=== PATIENT | male | born 1955 | race Caucasian/White ===

== ENCOUNTER → 2016-12-11 | Outpatient (CLI) | payer OTHER ==
[~2016-12-11] VITALS: Ht 182.9 cm; Wt 136.1 kg
[~2016-12-11] MED LIST: ASPI1TAB PO; CHLO25TA PO; CIAL5TAB PO; CORE6.25 PO; DEPA1TAB3 PO; FOLI400T PO; GLUCPOW24 PO; HALO1TA PO; LEVO137T2 PO; LIDOCAINE 2% INJ 100 MG/5 ML SDV (FOR ANES.) As Ordered ONE; MULTTAB23 PO; NS 1,000 ML IV SCH; PACE200T PO; PLAV75TA38 PO; PROPOFOL 500 MG/50 ML VIAL As Ordered ONE; SLOWTAB2 PO; UROXATRAL PO; VITA250L PO
--- NOTE | 2016-12-11 08:25 | ROOR ---
Patient Name: Keith Emery Procedure Date: 12/11/2016 8:00 AM Date of : 1955 Age: 60 Room: [facility] Gender: Male Note Status: Finalized Procedure: Colonoscopy to Cecum + Biopsy Polypectomy Indications: Last colonoscopy: 2007, Rectal bleeding, Follow-up of diverticulitis, Change in bowel habits Providers: True Sabillon MD Referring MD: TAMAR STOKES Requesting Provider: Medicines: Monitored Anesthesia Care Complications: No immediate complications. Procedure: Pre-Anesthesia Assessment: - The heart rate, respiratory rate, oxygen saturations, blood pressure, adequacy of pulmonary ventilation, and response to care were monitored throughout the procedure. The Colonoscope was introduced through the anus and advanced to the cecum, identified by appendiceal orifice and ileocecal valve. The colonoscopy was performed without difficulty. The patient tolerated the procedure well. The quality of the bowel preparation was excellent. Findings: The perianal and digital rectal examinations were normal. Non-bleeding internal hemorrhoids were found during retroflexion. The hemorrhoids were small and Grade I (internal hemorrhoids that do not prolapse). Multiple small and large-mouthed diverticula were found in the recto-sigmoid colon, in the sigmoid colon and in the descending colon. A diminutive polyp was found at 20 cm proximal to the anus. The polyp was sessile. The polyp was removed with a cold biopsy forceps. Resection and retrieval were complete. The exam was otherwise without abnormality on direct and retroflexion views. Impression: - Non-bleeding internal hemorrhoids. - Diverticulosis in the recto-sigmoid colon, in the sigmoid colon and in the descending colon. - One diminutive polyp at 20 cm proximal to the anus, removed with a cold biopsy forceps. Resected and retrieved. - The examination was otherwise normal on direct and retroflexion views. - The exam was otherwise normal to the cecum. Recommendation: - Patient has a contact number available for emergencies. The signs and symptoms of potential delayed complications were discussed with the patient. Return to normal activities tomorrow. Written discharge instructions were provided to the patient. - High fiber diet. - Discharge patient to home. - Continue present medications. - Await pathology results. - Telephone GI clinic for pathology results in 1 week. - Repeat colonoscopy in 10 years for screening purposes. - Return to referring physician. - The findings and recommendations were discussed with the patient's family. True Sabillon MD True Sabillon MD 12/11/2016 8:25:03 AM This report has been signed electronically. Number of Addenda: 0 Note Initiated On: 12/11/2016 8:00 AM Estimated Blood Loss: Estimated blood loss: none.
[2016-12-11 08:50] VITALS: BP 195/90
== END | disposition home or self-care (01) ==
LOC: M OPP 06:55
PROVIDERS: ATTEND Internal Medicine Gastroenterology
DX: K62.5 Hemorrhage of anus and rectum (principal); K64.0 First degree hemorrhoids; K57.30 Diverticulosis of large intestine without perforation or abscess without bleeding; D12.5 Benign neoplasm of sigmoid colon; I48.91 Unspecified atrial fibrillation; I10 Essential (primary) hypertension; E03.9 Hypothyroidism, unspecified; R06.83 Snoring; G47.9 Sleep disorder, unspecified; F17.200 Nicotine dependence, unspecified, uncomplicated; F17.228 Nicotine dependence, chewing tobacco, with other nicotine-induced disorders; Z79.82 Long term (current) use of aspirin; Z79.899 Other long term (current) drug therapy

== ENCOUNTER → 2016-12-28 | Outpatient (CLI) | payer OTHER, MEDICARE ==
[~2016-12-28] MED LIST changes: -LIDOCAINE 2% INJ 100 MG/5 ML SDV (FOR ANES.) As Ordered ONE; -NS 1,000 ML IV SCH; -PROPOFOL 500 MG/50 ML VIAL As Ordered ONE
[2016-12-28 15:45] LABS: MEAN CORPUSCULAR HEMOGLOBIN 32.5 pg (27.0-33.0); MEAN CORPUSCULAR HGB CONC 34.7 g/dl (32.0-36.5); MEAN CORPUSCULAR VOLUME 93.5 fl (80.0-96.0); RED CELL DISTRIBUTION WIDTH 14.4 % (11.5-14.5); WHITE BLOOD COUNT 7.9 K/mm3 (4.0-10.0)
[2016-12-28 15:46] LABS: ALBUMIN 3.7 GM/DL (3.2-5.2); ALBUMIN/GLOBULIN RATIO 1.09 (1.00-1.93); ALKALINE PHOSPHATASE 70 U/L (45-117); ALT/SGPT 64 U/L (12-78); ANION GAP 8 MEQ/L (8-16); AST/SGOT 32 U/L (15-37); BILIRUBIN,TOTAL 0.4 MG/DL (0.2-1.0); BLOOD UREA NITROGEN 13 MG/DL (7-18); CARBON DIOXIDE LEVEL 30 MEQ/L (21-32); CHLORIDE LEVEL 99 MEQ/L (98-107); CREATININE FOR GFR 1.07 MG/DL (0.70-1.30); GLOMERULAR FILTRATION RATE > 60.0 (>49); GLUCOSE, FASTING 88 MG/DL (80-110); MAGNESIUM LEVEL 2.2 MG/DL (1.8-2.4); POTASSIUM SERUM 4.3 MEQ/L (3.5-5.1); SODIUM LEVEL 137 MEQ/L (136-145); TOTAL PROTEIN 7.1 GM/DL (6.4-8.2)
--- NOTE | 2016-12-29 01:34 | REP ---
Clinical: Paroxysmal atrial fibrillation . Comparison: 08/25/2015 . Technique: PA and lateral. Findings: The mediastinum and cardiac silhouette are normal. The lung uriostegui are clear and without acute consolidation, effusion, or pneumothorax. The skeletal structures are intact and normal. Impression: 1. No acute cardiopulmonary process. Signed by Kiel Damon MD 12/29/2016 01:26 A
== END ==
LOC: M LAB 14:30
PROVIDERS: ATTEND Physician Assistant
DX: I48.0 Paroxysmal atrial fibrillation (principal); E78.2 Mixed hyperlipidemia

== ENCOUNTER → 2017-04-13 | Outpatient (CLI) | payer MEDICARE, OTHER ==
[2017-04-13 16:31] LABS: BASO # 0.1 K/mm3 (0.0-0.2); BASO % 0.4 % (0.0-1.0); EOS # 0.2 K/mm3 (0.0-0.50); EOS % 1.3 % (0.0-3.0); LARGE UNSTAINED CELL # 0.1 K/mm3 (0.0-0.4); LYMPH # 1.4 K/mm3 (1.5-4.5); LYMPH % 9.4 % (24.0-44.0); MEAN CORPUSCULAR HEMOGLOBIN 32.4 pg (27.0-33.0); MEAN CORPUSCULAR VOLUME 95.2 fl (80.0-96.0); MONO # 0.7 K/mm3 (0.0-0.8); MONO % 5.2 % (0.0-5.0); NEUTROPHILS % 82.7 % (36.0-66.0); PLATELET COUNT, AUTOMATED 204 k/mm3 (150-450); RED CELL DISTRIBUTION WIDTH 13.7 % (11.5-14.5); WHITE BLOOD COUNT 13.3 K/mm3 (4.0-10.0)
[2017-04-13 16:54] LABS: ANION GAP 8 MEQ/L (8-16); BLOOD UREA NITROGEN 17 MG/DL (7-18); CALCIUM LEVEL 8.6 MG/DL (8.8-10.2); CARBON DIOXIDE LEVEL 30 MEQ/L (21-32); CHLORIDE LEVEL 98 MEQ/L (98-107); CREATININE FOR GFR 1.15 MG/DL (0.70-1.30); GLOMERULAR FILTRATION RATE > 60.0 (>49); GLUCOSE, FASTING 86 MG/DL (80-110); POTASSIUM SERUM 3.6 MEQ/L (3.5-5.1); SODIUM LEVEL 136 MEQ/L (136-145)
== END ==
LOC: M LAB 16:03
PROVIDERS: ATTEND Family Medicine
DX: R68.83 Chills (without fever) (principal); R35.0 Frequency of micturition; R25.1 Tremor, unspecified

== ENCOUNTER → 2017-07-11 | Outpatient (CLI) | payer OTHER ==
[~2017-07-11] MED LIST changes: +PLAV1TAB2 PO; -PLAV75TA38 PO
--- NOTE | 2017-07-11 11:17 | REP ---
PA and lateral chest: Comparison is 12/28/2016. The lung uriostegui are clear. The cardiac size is normal The reid, mediastinum, and bony thorax are unremarkable. Impression: Negative PA and lateral chest. There is no interval change. Signed by Italo Lozada MD 07/11/2017 11:09 A
[2017-07-11 11:32] LABS: ALBUMIN 3.4 GM/DL (3.2-5.2); ALBUMIN/GLOBULIN RATIO 0.92 (1.00-1.93); BILIRUBIN,DIRECT 0.1 MG/DL (0.0-0.2); BILIRUBIN,TOTAL 0.3 MG/DL (0.2-1.0); MAGNESIUM LEVEL 2.2 MG/DL (1.8-2.4); TOTAL PROTEIN 7.1 GM/DL (6.4-8.2)
== END ==
LOC: M LAB 10:27
PROVIDERS: ATTEND Physician Assistant
DX: I48.0 Paroxysmal atrial fibrillation (principal); E78.2 Mixed hyperlipidemia

== ENCOUNTER → 2017-07-11 | Outpatient (CLI) | payer OTHER | LOC: M LAB 10:24 | PROVIDERS: ATTEND Psychiatry & Neurology Psychiatry | DX: Z51.81 Encounter for therapeutic drug level monitoring (principal); Z79.899 Other long term (current) drug therapy ==

== ENCOUNTER → 2017-09-09 | Outpatient (CLI) | payer OTHER ==
--- NOTE | 2017-09-09 17:21 | REP ---
Bilateral lower extremity arterial Doppler assessment: History: Peripheral vascular disease multiple stents placed 2-4 years ago. Angioplasty status. Findings: The ankle brachial indices are 1.05 on the right and 1.16 on the left. Incidental note is made of a 6.8 cm Stewart's cyst on the right. Three stents are visible in the right lower extremity involving the proximal mid and distal superficial femoral artery. Two stents are visible in the proximal and distal superficial femoral artery on the left. Normal triphasic flow is seen in the right lower extremity through the distal superficial femoral artery in the popliteal artery. The proximal anterior tibial artery shows monophasic flow as does the distal posterior tibial artery on the right. Slow flow in the right posterior tibial artery distally suggests distal stenosis. Triphasic flow is seen in the common femoral and proximal superficial femoral artery on the left. Biphasic flow is seen mid superficial femoral through the proximal posterior tibial artery on the left. Velocity chart right lower extremity: BORDER INSPECTOR 108 cm/S Profunda 113 Proximal SFA 99 Mid SFA 88 Distal SFA 100 Popliteal 71 Proximal anterior tibial artery 14 Tibioperoneal trunk 47 Proximal posterior tibial artery 49 Distal posterior tibial artery 14 Anterior tibial artery distal 57 Peroneal 40 Velocity chart left lower extremity: BORDER INSPECTOR 90 cm/S Profunda 131 SFA proximal 144 SFA mid 104 SFA distal 84 Popliteal 71 JOSE proximal 76 Tibioperoneal trunk 45 Proximal GENERAL OPHTHALMOLOGIST 34 Distal GENERAL OPHTHALMOLOGIST 36 Distal JOSE 66 Peroneal 33 Impression: Suggestion of stenosis right distal posterior tibial artery at the ankle. Patent bilateral superficial femoral arteries dense. Incidental Stewart cyst on the right. Signed by Pérez Gutierrez MD 09/10/2017 02:37 P
== END ==
LOC: M RAD 12:56
PROVIDERS: ATTEND Surgery Vascular Surgery
DX: Z98.62 Peripheral vascular angioplasty status (principal)

== ENCOUNTER → 2017-12-23 | Outpatient (REF) | payer OTHER, MEDICARE ==
[2017-12-23 18:41] LABS: PSA SCREENING 0.62 NG/ML (< 4.0)
== END ==
LOC: M LABDRAW1 13:43
DX: Z12.5 Encounter for screening for malignant neoplasm of prostate (principal)

== ENCOUNTER → 2018-01-01 | Outpatient (CLI) | payer OTHER, MEDICARE ==
[2018-01-01 08:18] LABS: HEMATOCRIT 42.9 % (42.0-52.0); HEMOGLOBIN 14.5 g/dl (14.0-18.0); MEAN CORPUSCULAR HEMOGLOBIN 31.5 pg (27.0-33.0); MEAN CORPUSCULAR HGB CONC 33.8 g/dl (32.0-36.5); MEAN CORPUSCULAR VOLUME 93.1 fl (80.0-96.0); PLATELET COUNT, AUTOMATED 249 10^3/uL (150-450); RED BLOOD COUNT 4.61 10^6/uL (4.30-6.10); RED CELL DISTRIBUTION WIDTH 13.9 % (11.5-14.5)
[2018-01-01 08:51] LABS: ALBUMIN 3.6 GM/DL (3.2-5.2); ALKALINE PHOSPHATASE 60 U/L (45-117); ALT/SGPT 40 U/L (12-78); ANION GAP 7 MEQ/L (8-16); AST/SGOT 19 U/L (7-37); BILIRUBIN,TOTAL 0.3 MG/DL (0.2-1.0); BLOOD UREA NITROGEN 12 MG/DL (7-18); CALCIUM LEVEL 8.6 MG/DL (8.8-10.2); CARBON DIOXIDE LEVEL 29 MEQ/L (21-32); CHLORIDE LEVEL 100 MEQ/L (98-107); GLOMERULAR FILTRATION RATE > 60.0 (>49); GLUCOSE, FASTING 105 MG/DL (70-100); MAGNESIUM LEVEL 2.2 MG/DL (1.8-2.4); POTASSIUM SERUM 3.9 MEQ/L (3.5-5.1); SODIUM LEVEL 136 MEQ/L (136-145); TOTAL PROTEIN 7.2 GM/DL (6.4-8.2)
== END ==
LOC: M RAD 07:40
DX: I48.0 Paroxysmal atrial fibrillation (principal)
CPT/HCPCS: 71046

== ENCOUNTER → 2018-01-01 | Outpatient (CLI) | payer OTHER, MEDICARE ==
[2018-01-01 08:50] LABS: ALBUMIN 3.6 GM/DL (3.2-5.2); ALKALINE PHOSPHATASE 61 U/L (45-117); ALT/SGPT 38 U/L (12-78); ANION GAP 8 MEQ/L (8-16); AST/SGOT 19 U/L (7-37); BILIRUBIN,TOTAL 0.3 MG/DL (0.2-1.0); BLOOD UREA NITROGEN 11 MG/DL (7-18); CALCIUM LEVEL 8.7 MG/DL (8.8-10.2); CARBON DIOXIDE LEVEL 28 MEQ/L (21-32); CHLORIDE LEVEL 100 MEQ/L (98-107); CHOLESTEROL LEVEL 189 MG/DL (<200); CHOLESTEROL RISK RATIO 4.021 (<5); CREATININE FOR GFR 1.11 MG/DL (0.70-1.30); GLOMERULAR FILTRATION RATE > 60.0 (>49); GLUCOSE, FASTING 105 MG/DL (70-100); HDL CHOLESTEROL 47 MG/DL (>40); NON-HDL-C 142 MG/DL; POTASSIUM SERUM 4.1 MEQ/L (3.5-5.1); SODIUM LEVEL 136 MEQ/L (136-145); TOTAL PROTEIN 7.2 GM/DL (6.4-8.2); TRIGLYCERIDES LEVEL 150 MG/DL (<150)
== END ==
LOC: M LAB 07:35
DX: I48.0 Paroxysmal atrial fibrillation (principal)
CPT/HCPCS: 71046; 84443

== ENCOUNTER → 2018-03-29 | Outpatient (REF) | payer OTHER ==
[2018-03-29 18:56] LABS: APPEARANCE, URINE CLEAR (CLEAR); BACTERIA, URINE AUTO NEGATIVE (NEGATIVE); BILIRUBIN, URINE AUTO NEGATIVE (NEGATIVE); BLOOD, URINE BLOOD NEGATIVE (NEGATIVE); COLOR, URINE YELLOW (YELLOW); GLUCOSE, URINE (UA) AUTO NEGATIVE (NEGATIVE); KETONE, URINE AUTO NEGATIVE (NEGATIVE); LEUKOCYTE ESTERASE, URINE AUTO NEGATIVE (NEGATIVE); NITRITE, URINE AUTO NEGATIVE (NEGATIVE); PROTEIN, URINE AUTO NEGATIVE (NEGATIVE); RBC, URINE AUTO 0 /HPF (0-3); SPECIFIC GRAVITY URINE AUTO 1.015 (1.002-1.035); SQUAMOUS EPITHELIAL CELL UR AU 0 /HPF (0-6); UROBILINOGEN, URINE AUTO 0.2 mg/dL (0.0-2.0); WBC, URINE AUTO 0 /HPF (0-3)
== END ==
LOC: M SMT 18:04
DX: R82.90 Unspecified abnormal findings in urine (principal)
CPT/HCPCS: 81001

== ENCOUNTER → 2018-03-31 | Outpatient (CLI) | payer OTHER | LOC: M RAD 11:37 | DX: I70.213 Atherosclerosis of native arteries of extremities with intermittent claudication, bilateral legs (principal) | CPT/HCPCS: 93925 ==

== ENCOUNTER → 2018-04-13 | Outpatient (CLI) | payer OTHER ==
[2018-04-13 14:39] LABS: BASO # 0.1 10^3/uL (0.0-0.2); BASO % 0.9 % (0.0-1.0); EOS # 0.3 10^3/uL (0.0-0.50); EOS % 3.9 % (0.0-3.0); HEMATOCRIT 44.5 % (42.0-52.0); HEMOGLOBIN 14.8 g/dl (13.5-17.5); IMMATURE GRANULOCYTE % 0.7 % (0-3.0); LYMPH # 2.2 10^3/uL (1.5-4.5); LYMPH % 30.1 % (24.0-44.0); MEAN CORPUSCULAR HEMOGLOBIN 31.4 pg (27.0-33.0); MEAN CORPUSCULAR HGB CONC 33.3 g/dl (32.0-36.5); MEAN CORPUSCULAR VOLUME 94.3 fl (80.0-96.0); MONO # 0.8 10^3/uL (0.0-0.8); MONO % 11.1 % (0.0-5.0); NEUTROPHILS # 3.9 10^3/uL (1.8-7.7); NEUTROPHILS % 53.3 % (36.0-66.0); PLATELET COUNT, AUTOMATED 292 10^3/uL (150-450); RED BLOOD COUNT 4.72 10^6/uL (4.30-6.10); WHITE BLOOD COUNT 7.4 10^3/uL (4.0-10.0)
[2018-04-13 15:11] LABS: ANION GAP 5 MEQ/L (8-16); BLOOD UREA NITROGEN 13 MG/DL (7-18); CALCIUM LEVEL 9.2 MG/DL (8.8-10.2); CARBON DIOXIDE LEVEL 31 MEQ/L (21-32); CHLORIDE LEVEL 101 MEQ/L (98-107); CREATININE FOR GFR 1.13 MG/DL (0.70-1.30); GLOMERULAR FILTRATION RATE > 60.0 (>49); GLUCOSE, FASTING 90 MG/DL (70-100); POTASSIUM SERUM 4.8 MEQ/L (3.5-5.1); SODIUM LEVEL 137 MEQ/L (136-145)
== END ==
LOC: M LAB 13:18
DX: I70.213 Atherosclerosis of native arteries of extremities with intermittent claudication, bilateral legs (principal)

== ENCOUNTER → 2018-04-21 | Outpatient (CLI) | payer OTHER ==
[~2018-04-21] MED LIST changes: -ASPI1TAB PO; -CHLO25TA PO; -CIAL5TAB PO; -CORE6.25 PO; -DEPA1TAB3 PO; -FOLI400T PO; -GLUCPOW24 PO; -HALO1TA PO; +HEPARIN 1,000 UNITS/ML 10ML VIAL (FOR RADIOLOGY& DIALYSIS ONLY) As Ordered; +ISOVUE-300 61% 50ML VIAL (Q9967) As Ordered; -LEVO137T2 PO; +MIDAZOLAM INJ 2 MG/2 ML VIAL (J2250) As Ordered; -MULTTAB23 PO; -PACE200T PO; -PLAV1TAB2 PO; -SLOWTAB2 PO; -UROXATRAL PO; -VITA250L PO; +fentaNYL 100 MCG/2 ML INJECTION (J3010) As Ordered
== END | disposition home or self-care (01) ==
LOC: M IRPRO 06:30
DX: 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native arteries of extremities with intermittent claudication, right leg (principal)
CPT/HCPCS: 37221

== ENCOUNTER → 2018-07-01 | Outpatient (REF) | payer OTHER, MEDICARE ==
[2018-07-01 18:23] LABS: HEMATOCRIT 42.3 % (42.0-52.0); HEMOGLOBIN 13.7 g/dl (13.5-17.5); MEAN CORPUSCULAR HEMOGLOBIN 30.9 pg (27.0-33.0); MEAN CORPUSCULAR HGB CONC 32.4 g/dl (32.0-36.5); MEAN CORPUSCULAR VOLUME 95.5 fl (80.0-96.0); PLATELET COUNT, AUTOMATED 302 10^3/uL (150-450); RED BLOOD COUNT 4.43 10^6/uL (4.30-6.10); RED CELL DISTRIBUTION WIDTH 14.2 % (11.5-14.5); WHITE BLOOD COUNT 7.9 10^3/uL (4.0-10.0)
[2018-07-01 18:27] LABS: ALBUMIN 3.3 GM/DL (3.2-5.2); ALBUMIN/GLOBULIN RATIO 0.87 (1.00-1.93); ALKALINE PHOSPHATASE 62 U/L (45-117); ALT/SGPT 28 U/L (12-78); ANION GAP 8 MEQ/L (8-16); AST/SGOT 15 U/L (7-37); BILIRUBIN,TOTAL 0.3 MG/DL (0.2-1.0); BLOOD UREA NITROGEN 10 MG/DL (7-18); CARBON DIOXIDE LEVEL 29 MEQ/L (21-32); CHLORIDE LEVEL 104 MEQ/L (98-107); CREATININE FOR GFR 1.06 MG/DL (0.70-1.30); GLOMERULAR FILTRATION RATE > 60.0 (>49); GLUCOSE, FASTING 88 MG/DL (70-100); MAGNESIUM LEVEL 2.2 MG/DL (1.8-2.4); POTASSIUM SERUM 4.1 MEQ/L (3.5-5.1); SODIUM LEVEL 141 MEQ/L (136-145); TOTAL PROTEIN 7.1 GM/DL (6.4-8.2)
== END ==
LOC: M LABDRAW1 17:23
DX: I48.0 Paroxysmal atrial fibrillation (principal)

== ENCOUNTER → 2018-07-14 | Outpatient (CLI) | payer OTHER | LOC: M RAD 12:44 | DX: I70.213 Atherosclerosis of native arteries of extremities with intermittent claudication, bilateral legs (principal) | CPT/HCPCS: 93925 ==

== ENCOUNTER → 2018-07-15 | Outpatient (REF) | payer OTHER ==
[2018-07-15 16:34] LABS: C REACTIVE PROTEIN QUANTITATIV 1.25 MG/DL (0.00-0.30)
[2018-07-15 17:09] LABS: ERYTHROCYTE SEDIMENTATION RATE 20 mm/hr (0-20)
[2018-07-22 10:18] LABS: HLA-B27 Negative (.)
== END ==
LOC: M LABDRAW1 15:07
DX: M51.37 Other intervertebral disc degeneration, lumbosacral region (principal)

== ENCOUNTER → 2018-09-20 | Outpatient (CLI) | payer OTHER | LOC: M RAD 13:22 | DX: Z12.2 Encounter for screening for malignant neoplasm of respiratory organs (principal); Z87.891 Personal history of nicotine dependence; I25.10 Atherosclerotic heart disease of native coronary artery without angina pectoris; R91.8 Other nonspecific abnormal finding of lung field | CPT/HCPCS: G0297 ==

== ENCOUNTER → 2018-10-11 | Outpatient (CLI) | payer OTHER | LOC: M PLARAD 11:25 | DX: R91.1 Solitary pulmonary nodule (principal); K57.30 Diverticulosis of large intestine without perforation or abscess without bleeding | CPT/HCPCS: 78815 ==

== ENCOUNTER → 2018-11-16 | Outpatient (CLI) | payer OTHER ==
[~2018-11-16] MED LIST changes: +ASPI1TAB PO; +CHLO125TA PO; +CHLO25TA PO; +CIAL5TAB PO; +CORE6.25 PO; +DEPA1TAB3 PO; +FOLI400T PO; +GLUCPOW24 PO; +HALO1TA PO; -HEPARIN 1,000 UNITS/ML 10ML VIAL (FOR RADIOLOGY& DIALYSIS ONLY) As Ordered; -ISOVUE-300 61% 50ML VIAL (Q9967) As Ordered; +LEVO137T2 PO; +LOSA25TA33 PO; -MIDAZOLAM INJ 2 MG/2 ML VIAL (J2250) As Ordered; +MULTTAB23 PO; +PACE200T PO; +PLAV1TAB2 PO; +SLOWTAB2 PO; +STOO100C PO; +TRAZ-160 PO; +UROXATRAL PO; +VITA250L PO; -fentaNYL 100 MCG/2 ML INJECTION (J3010) As Ordered
--- NOTE | 2018-11-16 18:55 | REP ---
Clinical: Bilateral shoulder pain Technique: Internal rotation, external rotation, and Y view of the bilateral shoulders. Findings: Right shoulder demonstrates joint space narrowing and inferior spurring at the acromioclavicular joint as well as subtle increase sclerosis and blunting to the glenoid rim. The subacromial space is normal. No acute fracture or dislocation identified. No significant periarticular calcifications or loose bodies noted. Left shoulder demonstrates prior repair involving the humeral head. Joint space narrowing and inferior spurring at the acromioclavicular joint is appreciated. Blunting to the glenoid rim is noted. The subacromial space is normal. No acute fracture or dislocation. No significant periarticular calcifications or loose bodies noted. Impression: Postsurgical and bilateral degenerative changes Electronically Signed by Kiel Damon MD 11/16/2018 06:46 P
--- NOTE | 2018-11-16 18:56 | REP ---
Clinical: Lower back pain. Technique: AP, lateral, bilateral oblique and coned-down views of the lumbosacral spine. Comparison: 07/01/2014. Findings: Advanced multilevel degenerative changes include osteophytosis, endplate sclerosis, disc space narrowing, and hypertrophic facet changes. No acute fracture / compression injury or subluxation. Alignment and lordosis maintained. Impression: Advanced multilevel degenerative changes. No acute fracture / compression injury or subluxation. Electronically Signed by Kiel Damon MD 11/16/2018 06:47 P
--- NOTE | 2018-11-16 18:58 | REP ---
Clinical: Hip pain. Technique: Neutral and frog lateral views of the right hip. Comparison: 04/17/2009 Findings: Mild/Moderate relatively age-related degenerative changes including subtle increase sclerosis to the acetabular roof with joint space narrowing and marginal spurring. No acute fracture dislocation. Vascular stent and peripheral vascular calcifications noted. Impression: Mild/moderate age-related degenerative changes. Electronically Signed by Kiel Damon MD 11/16/2018 06:50 P
--- NOTE | 2018-11-16 19:01 | REP ---
Clinical: Back and hip pain. Technique: AP, angled, and bilateral oblique views of the sacroiliac joints. Findings: Moderate enthesopathy noted along the visualized iliac crests along with moderate degenerative changes to the visualized lumbosacral spine. The bilateral sacroiliac joints demonstrate periarticular sclerosis suggesting age-related symmetric changes. Vascular stent outlines the right iliac artery. Impression: Findings suggesting symmetric age-related degenerative changes. Electronically Signed by Kiel Damon MD 11/16/2018 06:52 P
== END ==
LOC: M RAD 14:47
PROVIDERS: ATTEND Internal Medicine Rheumatology
DX: M25.519 Pain in unspecified shoulder (principal); M54.9 Dorsalgia, unspecified

== ENCOUNTER → 2018-11-16 | Outpatient (CLI) | payer OTHER | LOC: M LAB 14:44 | PROVIDERS: ATTEND Psychiatry & Neurology Psychiatry | DX: Z51.81 Encounter for therapeutic drug level monitoring (principal); Z79.899 Other long term (current) drug therapy ==

== ENCOUNTER → 2019-01-09 | Outpatient (CLI) | payer OTHER ==
[~2019-01-09] MED LIST changes: +LOSA25TA14 PO; -LOSA25TA33 PO
[2019-01-09 15:44] LABS: HEMATOCRIT 41.2 % (42.0-52.0); MEAN CORPUSCULAR HEMOGLOBIN 31.7 pg (27.0-33.0); MEAN CORPUSCULAR VOLUME 93.2 fl (80.0-96.0); PLATELET COUNT, AUTOMATED 292 10^3/uL (150-450); RED BLOOD COUNT 4.42 10^6/uL (4.30-6.10); WHITE BLOOD COUNT 7.5 10^3/uL (4.0-10.0)
--- NOTE | 2019-01-09 16:01 | REP ---
Chest two views HISTORY: Atrial fibrillation Comparison: 01/01/2018 Linear densities are present in the lower lobes consistent with atelectasis or scar. A small ill-defined parenchymal density is present in the left upper lobe. The heart is normal in size. The pulmonary vasculature is normal in appearance. The bony structure is intact. IMPRESSION: 1. Bibasilar atelectasis or scar. 2. There is a small parenchymal density in the left upper lobe. CT of the chest may be helpful for further evaluation. Electronically Signed by Gabe Curtis MD 01/09/2019 03:52 P
[2019-01-09 16:19] LABS: ALBUMIN 3.9 GM/DL (3.2-5.2); ALT/SGPT 39 U/L (12-78); BILIRUBIN,TOTAL 0.4 MG/DL (0.2-1.0); BLOOD UREA NITROGEN 17 MG/DL (7-18); CALCIUM LEVEL 9.2 MG/DL (8.8-10.2); CARBON DIOXIDE LEVEL 28 MEQ/L (21-32); CHLORIDE LEVEL 99 MEQ/L (98-107); CHOLESTEROL LEVEL 204 MG/DL (<200); CREATININE FOR GFR 1.28 MG/DL (0.70-1.30); GLOMERULAR FILTRATION RATE > 60.0 (>49); GLUCOSE, FASTING 78 MG/DL (70-100); HDL CHOLESTEROL 50 MG/DL (>40); LDL CHOLESTEROL 102 MG/DL (<100); MAGNESIUM LEVEL 2.2 MG/DL (1.8-2.4); NON-HDL-C 154 MG/DL; POTASSIUM SERUM 4.7 MEQ/L (3.5-5.1); SODIUM LEVEL 133 MEQ/L (136-145); TOTAL PROTEIN 7.4 GM/DL (6.4-8.2); TRIGLYCERIDES LEVEL 262 MG/DL (<150)
== END ==
LOC: M LAB 14:39
PROVIDERS: ATTEND Physician Assistant
DX: I48.0 Paroxysmal atrial fibrillation (principal); E78.2 Mixed hyperlipidemia

== ENCOUNTER → 2019-01-09 | Outpatient (CLI) | payer OTHER | LOC: M LAB 14:32 | PROVIDERS: ATTEND Nurse Practitioner Women's Health | DX: Z12.5 Encounter for screening for malignant neoplasm of prostate (principal) ==

== ENCOUNTER 2019-02-16 12:24 | Outpatient (RCR) | payer OTHER | END 2019-02-26 | LOC: M PT 12:24 | PROVIDERS: ATTEND Internal Medicine Rheumatology | DX: Z51.89 Encounter for other specified aftercare (principal); M54.89 Other dorsalgia; M25.519 Pain in unspecified shoulder ==

== ENCOUNTER → 2019-03-20 | Outpatient (CLI) | payer OTHER ==
[~2019-03-20] MED LIST changes: -ASPI1TAB PO; +ASPI81TA26 PO
--- NOTE | 2019-03-20 16:38 | REP ---
DUPLEX DOPPLER ARTERIAL ULTRASOUND BILATERAL LOWER EXTREMITIES: Real-time ultrasound evaluation and duplex Doppler interrogation of bilateral lower extremity arterial systems is performed. NAFISA right is 0.95 and left 0.77. There is severe atherosclerotic plaquing bilaterally diffusely. Multiple stents are visualized. Triphasic wave forms are seen in the common and external iliac arteries bilaterally as well as the common femoral arteries. There are monophasic wave forms in the superficial femoral arteries bilaterally as well as distal to that bilaterally. Mid to distal posterior tibial arteries are occluded bilaterally with portions demonstrating reversal of flow. There is reconstitution at the ankle bilaterally. Increased peak systolic velocities are seen in the common iliac arteries bilaterally, right external iliac and common femoral arteries, bilateral profunda arteries and bilateral proximal superficial femoral arteries suggesting some degree of stenosis at these locations. RIGHT LEFT Common femoral artery 277.6 cm/s 124.2 cm/s Profunda 209.9 cm/s 231.6 cm/s Proximal SFA 207.3 cm/s 245 cm/s Mid SFA 75.6 cm/s 41.8 cm/s Distal SFA 93.2 cm/s 45.9 cm/s Popliteal 74.6 cm/s 32.3 cm/s Proximal JOSE 55 cm/s 21.1 cm/s Tibial peroneal trunk 43.3 cm/s 26.3 cm/s Proximal GROUNDSKEEPER PORTER 36.3 cm/s 45.8 cm/s Distal GROUNDSKEEPER PORTER 23.2 cm/s 27.8 cm/s Distal JOSE 76.0 cm/s 39.0 cm/s IMPRESSION: Severe atherosclerotic disease bilaterally, with bilateral occlusion of the mid to distal posterior tibial arteries, reconstituted at the ankles bilaterally. There are findings suggesting stenosis of both common iliac arteries, right external iliac and common femoral arteries and bilateral profunda and proximal superficial femoral arteries as discussed above. Incidental note is made of a right popliteal cyst 5.7 x 1.7 x 4.0 cm. Electronically Signed by Italo Jimenez MD 03/20/2019 06:33 P
== END ==
LOC: M RAD 12:36
PROVIDERS: ATTEND Surgery Vascular Surgery
DX: I70.213 Atherosclerosis of native arteries of extremities with intermittent claudication, bilateral legs (principal)

== ENCOUNTER 2019-03-30 05:02 | Emergency (ER) | payer OTHER ==
[~2019-03-30] VITALS: Ht 182.9 cm; Wt 113.6 kg
[2019-03-30 06:03] LABS: BASO # 0.1 10^3/uL (0.0-0.2); BASO % 0.7 % (0.0-1.0); EOS # 1.5 10^3/uL (0.0-0.50); EOS % 15.9 % (0.0-3.0); HEMATOCRIT 44.1 % (42.0-52.0); HEMOGLOBIN 14.4 g/dl (13.5-17.5); LYMPH % 21.2 % (24.0-44.0); MEAN CORPUSCULAR HEMOGLOBIN 31.9 pg (27.0-33.0); MEAN CORPUSCULAR HGB CONC 32.7 g/dl (32.0-36.5); MEAN CORPUSCULAR VOLUME 97.8 fl (80.0-96.0); MONO % 10.8 % (0.0-5.0); NEUTROPHILS # 4.8 10^3/uL (1.8-7.7); NEUTROPHILS % 50.8 % (36.0-66.0); PLATELET COUNT, AUTOMATED 272 10^3/uL (150-450); RED BLOOD COUNT 4.51 10^6/uL (4.30-6.10); WHITE BLOOD COUNT 9.5 10^3/uL (4.0-10.0)
[2019-03-30 06:26] LABS: ALBUMIN 3.6 GM/DL (3.2-5.2); ALT/SGPT 35 U/L (12-78); BILIRUBIN,DIRECT < 0.1 MG/DL (0.0-0.2); BILIRUBIN,TOTAL 0.4 MG/DL (0.2-1.0); BLOOD UREA NITROGEN 17 MG/DL (7-18); CALCIUM LEVEL 8.7 MG/DL (8.8-10.2); CARBON DIOXIDE LEVEL 30 MEQ/L (21-32); CHLORIDE LEVEL 102 MEQ/L (98-107); CREATININE FOR GFR 1.27 MG/DL (0.70-1.30); GLOMERULAR FILTRATION RATE > 60.0 (>49); GLUCOSE, FASTING 108 MG/DL (70-100); LIPASE 283 U/L (73-393); POTASSIUM SERUM 4.2 MEQ/L (3.5-5.1); SODIUM LEVEL 139 MEQ/L (136-145); TOTAL PROTEIN 7.1 GM/DL (6.4-8.2)
[2019-03-30] MEDS ORDERED: NS 1,000 ML IV ONE (06:45)
[2019-03-30] MEDS ORDERED: ONDANSETRON 4MG/2ML VIAL (J2405) IV ONE (06:45)
[2019-03-30] MEDS ORDERED: ISOVUE-370 76% 100ML VIAL (Q9967) As Ordered ONE (07:11)
--- NOTE | 2019-03-30 07:28 | REPVR ---
EXAM: US Abdomen Limited, Right Upper Quadrant EXAM DATE/TIME: 03/30/2019 6:49 AM CLINICAL HISTORY: 63 years old, male; Abdominal pain; Epigastric; Additional info: Ruq pain worse with meals TECHNIQUE: Imaging protocol: Real-time ultrasound of the abdomen with image documentation. Examination was focused on the right upper quadrant. COMPARISON: PT PET/CT Skull/mid thigh 10/11/2018 12:51 PM FINDINGS: Liver: The liver demonstrates diffuse increased echogenicity, consistent with fatty infiltration. No intrahepatic biliary duct dilatation. Gallbladder: There are small gallstones within the gallbladder. No significant gallbladder wall thickening or pericholecystic fluid. Common bile duct: Bile ducts are normal in caliber. CBD 6.5 mm. Pancreas: Mild prominence of the pancreatic duct measuring up to 4 mm. The visualized portions of the pancreas are otherwise unremarkable. Right kidney: The right kidney measures 12.3 cm in length. No hydronephrosis. IMPRESSION: 1. Cholelithiasis with small gallstones. No sonographic evidence of cholecystitis. 2. No evidence of biliary duct dilatation. 3. Fatty infiltration of the liver. 4. Mild prominence of the pancreatic duct. Recommend correlation with pancreatic enzymes. Electronically signed by: Kiel Milan On 03/30/2019 07:28:24 AM
--- NOTE | 2019-03-30 09:12 | REPVR ---
EXAM: CT Abdomen and Pelvis With Contrast EXAM DATE/TIME: 03/30/2019 7:18 AM CLINICAL HISTORY: 63 years old, male; Abdominal pain; Other: Right lower abd pain; Additional info: RO appendicitis TECHNIQUE: Imaging protocol: Axial computed tomography images of the abdomen and pelvis with intravenous contrast. Coronal and sagittal reformatted images were created and reviewed. Radiation optimization: All CT scans at this facility use at least one of these dose optimization techniques: automated exposure control; mA and/or kV adjustment per patient size (includes targeted exams where dose is matched to clinical indication); or iterative reconstruction. Contrast material: ISOVUE 370; Contrast volume: 100 ml; Contrast route: IV; COMPARISON: CT ABD PELVIS W/O CONTRAST 07/06/2016 9:28 PM FINDINGS: Lungs: Bibasilar atelectasis. No consolidation. Heart: Cardiac size is normal. Coronary artery calcification. ABDOMEN: Liver: Diffuse fatty infiltration of the liver. Stable parenchymal calcification within the dome of the liver. No mass. Gallbladder and bile ducts: Small calcified gallstones within the gallbladder. No ductal dilatation. Pancreas: There are a few punctate calcifications within the pancreatic head which may be vascular. No significant ductal dilatation. There is a 1.5 cm hypodense/cystic lesion arising superiorly from the pancreatic body, series 201, image 45 and series 202 image 48. No peripancreatic inflammation. Spleen: The spleen is unremarkable in appearance. Adrenals: The adrenal glands are unremarkable. No mass. Kidneys and ureters: Symmetric bilateral nephrograms. Nonspecific bilateral perinephric stranding. Renal vascular calcification. No hydronephrosis. Stomach and bowel: The stomach is relatively decompressed. Small lipoma within the third portion of the duodenum. No bowel obstruction. There is extensive colonic diverticulosis. There is a short segment of asymmetric wall thickening involving the ascending colon with an adjacent structure with a peripheral hyperdense rim and central fat attenuation. Minimal adjacent fat stranding. This is most consistent with epiploic appendagitis. Appendix: The appendix is unremarkable in appearance. PELVIS: Bladder: Unremarkable as visualized. Reproductive: Unremarkable as visualized. ABDOMEN and PELVIS: Intraperitoneal space: No significant free fluid. No free air. Bones/joints: Degenerative change involving the hip joints and sacroiliac joints with partial fusion of the right SI joint. Old left-sided rib fractures. Degenerative change throughout the lower thoracic and lumbar spine. Soft tissues: Stable postoperative change in the right inguinal region and fat containing inguinal hernias. Vasculature: Atherosclerosis and ectasia of the abdominal aorta measuring up to 2.8 cm. There is atherosclerosis and ectasia of the iliac arteries with an indwelling right external iliac artery stent. Atherosclerosis of the visualized femoral arteries as well as atherosclerosis of the renal and mesenteric arteries. Lymph nodes: No significant adenopathy. IMPRESSION: 1. Asymmetric segmental wall thickening involving the ascending colon with an adjacent structure with a peripheral hyperdense rim and central fat attenuation. Minimal adjacent fat stranding. This is most consistent with epiploic appendagitis. 2. No evidence of appendicitis. 3. Extensive colonic diverticulosis. 4. Diffuse fatty infiltration of the liver. 5. Cholelithiasis. 6. Small (1.5 cm) indeterminate hypodense/cystic lesion involving the pancreatic body. Suggest MRI or followup CT. 7. Additional non-emergent findings, as discussed above. Electronically signed by: Kiel Milan On 03/30/2019 08:45:28 AM
[2019-03-30 10:05] VITALS: BP 132/75
--- NOTE | 2019-04-03 15:28 | ED PDOC ---
Post-Departure Follow-Up dr crooks and robbie varghese faxed formal report of ct abd/p for fu Madisyn Wick MD April 03, 2019 15:28
== END 2019-03-30 10:34 | disposition home or self-care (01) ==
LOC: M ED 05:02
DX: K80.50 Calculus of bile duct without cholangitis or cholecystitis without obstruction (principal); K57.90 Diverticulosis of intestine, part unspecified, without perforation or abscess without bleeding; K65.9 Peritonitis, unspecified; K76.0 Fatty (change of) liver, not elsewhere classified; K86.2 Cyst of pancreas; I48.91 Unspecified atrial fibrillation; N40.0 Benign prostatic hyperplasia without lower urinary tract symptoms; E03.9 Hypothyroidism, unspecified; E16.2 Hypoglycemia, unspecified; G47.33 Obstructive sleep apnea (adult) (pediatric); Z87.19 Personal history of other diseases of the digestive system; Z79.899 Other long term (current) drug therapy; Z79.82 Long term (current) use of aspirin; Z79.02 Long term (current) use of antithrombotics/antiplatelets; Z91.030 Bee allergy status; F17.290 Nicotine dependence, other tobacco product, uncomplicated
CPT/HCPCS: 74177; 76705; 80048; 80076; 81001; 83690; 85025; 96360; 96361; 99284; Q9967

== ENCOUNTER → 2019-04-20 | Outpatient (CLI) | payer OTHER ==
[~2019-04-20] MED LIST changes: +BUPIVACAINE HCL 0.5% 10 ML VIAL As Ordered ONE; +HEPARIN 1,000 UNITS/ML 10ML VIAL (FOR RADIOLOGY& DIALYSIS ONLY) As Ordered ONE; +ISOVUE-300 61% 100ML VIAL (Q9967) As Ordered ONE; +LIDOCAINE 2% MDV 20 ML VIAL As Ordered ONE; +MIDAZOLAM INJ 2 MG/2 ML VIAL (J2250) As Ordered ONE; -TRAZ-160 PO; +TRAZ-252 PO; +diphenhydrAMINE INJ 50MG/ML VIAL (J1200) As Ordered ONE; +fentaNYL 100 MCG/2 ML INJECTION (J3010) As Ordered ONE
--- NOTE | 2019-05-06 12:24 | REPIR ---
DATE OF PROCEDURE: 04/20/2019 PREOPERATIVE DIAGNOSES: Right lower extremity claudication, chronic renal insufficiency. POSTOPERATIVE DIAGNOSES: Right lower extremity claudication, chronic renal insufficiency. PROCEDURE: Aortogram, iliofemoral angiogram, selective right common femoral artery catheter placement right lower extremity angiogram, MYNX closure of the left common femoral arteriotomy. SURGEON: Dr. Gutierrez Fuentes. FOREST PATHOLOGY TEACHER: Kenia Pang and Suze Amaral. ANESTHESIA: Local with 10 mL of 2% lidocaine mixed with 0.5% Marcaine, Benadryl 50 mg. FLUORO TIME: 1.3 minutes. CONTRAST: 12 mL of Isovue-300. HEPARIN: None COMPLICATIONS: None. DRAINS: None. IMPLANT: None. INDICATION: The patient is a 63-year-old male with right lower extremity claudication and chronic renal insufficiency. DESCRIPTION OF PROCEDURE: The patient was taken to the angiography suite, placed supine and the left common femoral artery was cannulated using a micropuncture needle. A catheter was placed in the aorta and aortogram was performed, iliofemoral angiography was performed followed by selective right common femoral artery angiogram showing no intervention was required. The catheters and wires were removed. A MYNX closure was used close the arteriotomy in the left common femoral artery with an additional 10 minutes of adjunctive pressure applied for hemostasis. Dressings were then applied. The patient tolerated the procedure well. All instrument, sponge and needle counts were correct at the end the case. There were no complications. Dr. Fuentes was present for directed the entire case. The patient was transferred to the holding and subsequent discharged in stable condition.
== END | disposition home or self-care (01) ==
LOC: M IRPRO 06:56
PROVIDERS: ATTEND Surgery Vascular Surgery
DX: I73.9 Peripheral vascular disease, unspecified (principal); N18.9 Chronic kidney disease, unspecified
CPT/HCPCS: 36246; 75710; C1769; C1887; C1894; G0269; J1200; Q9967

== ENCOUNTER → 2019-05-05 | Outpatient (CLI) | payer OTHER ==
[~2019-05-05] MED LIST changes: -BUPIVACAINE HCL 0.5% 10 ML VIAL As Ordered ONE; -HEPARIN 1,000 UNITS/ML 10ML VIAL (FOR RADIOLOGY& DIALYSIS ONLY) As Ordered ONE; -ISOVUE-300 61% 100ML VIAL (Q9967) As Ordered ONE; -LIDOCAINE 2% MDV 20 ML VIAL As Ordered ONE; -MIDAZOLAM INJ 2 MG/2 ML VIAL (J2250) As Ordered ONE; +PROHANCE 279.3MG/ML 15ML VIAL (A9576) As Ordered ONE; +PROHANCE 279.3MG/ML 5ML VIAL (A9576) As Ordered ONE; -diphenhydrAMINE INJ 50MG/ML VIAL (J1200) As Ordered ONE; -fentaNYL 100 MCG/2 ML INJECTION (J3010) As Ordered ONE
--- NOTE | 2019-05-05 18:19 | REP ---
MRI PANCREAS WITH AND WITHOUT CONTRAST: Comparison CT 03/30/2019 which showed a cyst in the body of the pancreas 1.5 cm in diameter. TECHNIQUE: Multiple sequences were obtained in the axial and coronal planes prior to and following the intravenous administration of 20 mL ProHance. In the region of the uncinate process of the pancreas there is an 8 mm lobulated septated cyst which appears to communicate with the adjacent nondilated distal pancreatic duct. This extends slightly outside of the pancreatic parenchyma. Internal septations show minimal enhancement. The similar appearing exophytic cyst is seen on the right side of the pancreatic head measuring approximately 9 mm. There are tiny internal cystic components with thin enhancing septations. Another exophytic septated cyst containing multiple internal tiny cystic components and multiple mildly enhancing septations is seen projecting from the superior aspect of the pancreatic body and measures 1.7 cm in diameter. These all appear to communicate with adjacent non-dilated pancreatic duct. They have an appearance suggestive of side duct intraductal papillary mucinous neoplasm. There is a tiny 2 mm cyst in the tail of the pancreas. The common bile duct is not dilated. The gallbladder is contracted and appears to contain tiny stones. Visualized liver and spleen are unremarkable. The adrenals are unremarkable. Two small cysts are seen in the lower pole of the left kidney, the larger measuring 1.3 cm in diameter. No significant adenopathy is seen in the visualized abdomen and I see no free fluid. IMPRESSION: Three lobulated somewhat complex cystic structures containing multiple tiny internal cystic components and thin enhancing septations, one exophytic from the body of the pancreas superiorly measuring 1.7 cm in diameter, another along the right side of the pancreatic head 9 mm in diameter and another in the posterior uncinate process of the pancreas 8 mm in diameter. The thin internal septations demonstrate slight enhancement. They all appear to connect with adjacent nondilated pancreatic duct. 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 If no intervention is planned then recommend followup MRI in 6 months. Tiny 2-3 mm cyst in the tail of the pancreas. Contracted gallbladder containing tiny stones. Electronically Signed by Italo Jimenez MD 05/09/2019 09:53 A
== END ==
LOC: M RAD 10:37
PROVIDERS: ATTEND Surgery
DX: K80.20 Calculus of gallbladder without cholecystitis without obstruction (principal); K86.2 Cyst of pancreas; K86.89 Other specified diseases of pancreas
CPT/HCPCS: 74183; A9576

== ENCOUNTER → 2019-06-28 | Outpatient (REF) | payer OTHER, MEDICARE ==
[~2019-06-28] MED LIST changes: +MM S100C PO; -PROHANCE 279.3MG/ML 15ML VIAL (A9576) As Ordered ONE; -PROHANCE 279.3MG/ML 5ML VIAL (A9576) As Ordered ONE; -STOO100C PO
[2019-06-28 18:52] LABS: APPEARANCE, URINE CLEAR (CLEAR); BACTERIA, URINE AUTO NEGATIVE (NEGATIVE); BILIRUBIN, URINE AUTO NEGATIVE (NEGATIVE); BLOOD, URINE BLOOD NEGATIVE (NEGATIVE); COLOR, URINE YELLOW (YELLOW); GLUCOSE, URINE (UA) AUTO NEGATIVE (NEGATIVE); KETONE, URINE AUTO NEGATIVE (NEGATIVE); LEUKOCYTE ESTERASE, URINE AUTO NEGATIVE (NEGATIVE); NITRITE, URINE AUTO NEGATIVE (NEGATIVE); PROTEIN, URINE AUTO NEGATIVE (NEGATIVE); RBC, URINE AUTO 0 /HPF (0-3); SPECIFIC GRAVITY URINE AUTO 1.017 (1.002-1.035); SQUAMOUS EPITHELIAL CELL UR AU 0 /HPF (0-6); UROBILINOGEN, URINE AUTO 0.2 mg/dL (0.0-2.0); WBC, URINE AUTO 1 /HPF (0-3)
== END ==
LOC: M SMT 16:51
PROVIDERS: ATTEND Nurse Practitioner Women's Health
DX: N40.0 Benign prostatic hyperplasia without lower urinary tract symptoms (principal)

== ENCOUNTER → 2019-08-03 | Outpatient (CLI) | payer MEDICARE, OTHER | LOC: M LAB 07:52 | PROVIDERS: ATTEND Psychiatry & Neurology Psychiatry | DX: Z79.899 Other long term (current) drug therapy (principal) ==

== ENCOUNTER → 2019-08-03 | Outpatient (CLI) | payer MEDICARE, OTHER ==
--- NOTE | 2019-08-03 08:30 | REP ---
Clinical: Paroxysmal atrial fibrillation. Technique: PA and lateral. Comparison: 01/09/2019. Findings: Mediastinum and cardiac silhouette are normal. Lung uriostegui demonstrate primarily basilar chronic changes. No acute consolidation, effusion, or pneumothorax. Skeletal structures intact. Impression: No acute cardiopulmonary process appreciated. Electronically Signed by Kiel Damon MD 08/03/2019 08:22 A
[2019-08-03 09:27] LABS: ALBUMIN 3.5 GM/DL (3.2-5.2); ALT/SGPT 45 U/L (12-78); BILIRUBIN,TOTAL 0.3 MG/DL (0.2-1.0); BLOOD UREA NITROGEN 14 MG/DL (7-18); CALCIUM LEVEL 9.1 MG/DL (8.8-10.2); CARBON DIOXIDE LEVEL 30 MEQ/L (21-32); CHLORIDE LEVEL 100 MEQ/L (98-107); CHOLESTEROL LEVEL 126 MG/DL (<200); CREATININE FOR GFR 1.03 MG/DL (0.70-1.30); GLOMERULAR FILTRATION RATE > 60.0 (>49); GLUCOSE, FASTING 117 MG/DL (70-100); HDL CHOLESTEROL 51 MG/DL (>40); LDL CHOLESTEROL 46 MG/DL (<100); MAGNESIUM LEVEL 2.1 MG/DL (1.8-2.4); NON-HDL-C 75 MG/DL; POTASSIUM SERUM 4.1 MEQ/L (3.5-5.1); SODIUM LEVEL 138 MEQ/L (136-145); TOTAL PROTEIN 6.9 GM/DL (6.4-8.2); TRIGLYCERIDES LEVEL 145 MG/DL (<150)
== END ==
LOC: M LAB 07:47
PROVIDERS: ATTEND Physician Assistant
DX: I48.0 Paroxysmal atrial fibrillation (principal)

== ENCOUNTER → 2019-10-05 | Outpatient (CLI) | payer OTHER ==
--- NOTE | 2019-10-05 21:30 | REP ---
Clinical: Symptoms related to atherosclerotic disease. Comparison: 03/20/2019 Technique: Real time jimenez scale and color Doppler evaluation of the bilateral lower extremity arterial vasculature using linear high frequency transducer. Findings: Right NAFISA is 0.75, and Left NAFISA is 0.60 which are both likely overestimated due to extensive atherosclerotic calcifications. Jimenez scale and color images demonstrate severe atheromatous plaquing bilaterally with multiple bilateral stents again noted but poorly defined due to atherosclerotic disease. The wave patterns are essentially monophasic bilaterally with increased velocities noted through the right common femoral artery, profunda, and proximal superficial femoral artery as well as left profunda suggesting scattered areas of stenosis. There is continued evidence for occlusion of the bilateral mid to distal posterior tibial arteries with elements of reversed flow. Revascularization at the bilateral ankles is appreciated. Peak systolic velocities (cm/sec) RIGHT LEFT Common femoral artery 278 91/135 Profunda femoris 234 349 SFA (proximal) 94/446 68/13 SFA (mid) 69 76 SFA (distal) 67 33 Popliteal artery 72 45 JOSE (prox.) 50 26 Tibioperoneal trunk 39 38 PARKING GARAGE MANAGER (prox.) 38 35 PARKING GARAGE MANAGER (distal) 28 25 JOSE (distal) 43 37 Impression: Severe atheromatous changes with essentially monophasic wave patterns throughout the bilateral lower extremities. Scattered areas of stenosis. Continued evidence for bilateral occlusion of the posterior tibial arteries with revascularization at the ankles. Findings similar to prior examination. Electronically Signed by Kiel Damon MD 10/05/2019 09:22 P
== END ==
LOC: M RAD 14:26
PROVIDERS: ATTEND Physician Assistant
DX: I70.213 Atherosclerosis of native arteries of extremities with intermittent claudication, bilateral legs (principal)

== ENCOUNTER → 2019-10-23 | Outpatient (CLI) | payer OTHER ==
--- NOTE | 2019-10-23 13:57 | REP ---
Clinical: Claudication. Technique: Axial images from the lung bases through the bilateral ankles with coronal and sagittal re-formations using arterial angiographic technique. 100 ml Isovue 370 intravenous contrast material administered without complication. Findings: Extensive atherosclerotic changes are appreciated throughout the visualized arterial vasculature with scattered partially calcified intima plaques. There is no evidence for aortic aneurysm or dissection. Right external iliac artery stent and suspected lower extremity stents noted. Contrast is identified throughout the arterial vascular structures without evidence for complete occlusion. Scattered elements of stenosis cannot definitively be excluded. There appears to be three-vessel runoff to the level of the mid/distal calves with somewhat incomplete evaluation through the ankles due to dense scattered intimal calcifications limiting identification of intraluminal contrast. Atherosclerotic changes are identified through the bilateral renal arteries as well as involving the origin of the celiac axis and superior mesenteric artery. Hepatic steatosis is suggested without obvious focal hepatic lesion. Spleen, pancreas, bilateral adrenal glands are normal. Cholelithiasis noted without acute cholecystitis. Kidneys demonstrate symmetric enhancement with chronic perinephric stranding and renovascular calcifications. The enteric system is without obstruction or acute inflammatory process. Colonic and sigmoid diverticulosis noted without acute diverticulitis. Normal terminal ileum and appendix identified in the right lower quadrant. Pelvis demonstrates normal bladder and age appropriate prostate/seminal vesicles. Small fat containing left inguinal hernia identified. Impression: 1. Extensive atherosclerotic disease. Three-vessel runoff is identified through the bilateral mid/distal calves with evaluation through the distal calf and ankles limited due to intimal calcifications obscuring intraluminal contrast. No obvious area of complete occlusion noted. 2. Hepatic steatosis. 3. Diverticulosis. 4. Cholelithiasis. Electronically Signed by Kiel Damon MD 10/23/2019 01:48 P
== END ==
LOC: M RAD 12:33
PROVIDERS: ATTEND Physician Assistant
DX: I70.213 Atherosclerosis of native arteries of extremities with intermittent claudication, bilateral legs (principal); I70.1 Atherosclerosis of renal artery; K57.30 Diverticulosis of large intestine without perforation or abscess without bleeding; K80.20 Calculus of gallbladder without cholecystitis without obstruction; K76.0 Fatty (change of) liver, not elsewhere classified

== ENCOUNTER → 2019-10-23 | Outpatient (CLI) | payer OTHER ==
[~2019-10-23] MED LIST changes: +ISOVUE-370 76% 100ML VIAL (Q9967) As Ordered ONE
--- NOTE | 2019-10-23 13:27 | REP ---
Clinical: Follow-up pulmonary nodule. Technique: Axial noncontrast images from the thoracic inlet to the upper abdomen with coronal and sagittal re-formations. Comparison: 09/20/2018. Findings: Left upper lobe part solid nodular density measures 2.1 cm and demonstrates subtle solid components and spiculation which is increased from prior examination. Remainder examination is relatively normal / stable. No consolidation. No effusion. No pneumothorax. No definite adenopathy by noncontrast evaluation. Atherosclerotic changes to the thoracic aorta and coronary arteries noted. Osseous structures demonstrate degenerative changes without focal abnormality. Limited upper abdomen demonstrates normal bilateral adrenal glands. Impression: Left upper lobe lesion has increased in size and density and exhibits a very subtle spiculated margins. Findings are consistent with active pathology including neoplasm. Consider PET-CT follow-up and/or tissue sampling. Electronically Signed by Kiel Damon MD 10/23/2019 01:19 P
== END ==
LOC: M RAD 12:41
PROVIDERS: ATTEND Internal Medicine Pulmonary Disease
DX: R91.1 Solitary pulmonary nodule (principal)
CPT/HCPCS: 71250; Q9967

== ENCOUNTER → 2019-12-12 | Outpatient (CLI) | payer OTHER ==
[~2019-12-12] MED LIST changes: +DEPA500T2 PO; +GLUCTAB6 PO; -ISOVUE-370 76% 100ML VIAL (Q9967) As Ordered ONE; +ONDA8TAB8 PO; +ROSU10TA6 PO; +SILD100T PO; +TYLE650T38 PO; +VITA500T40 PO
[2019-12-12 07:37] LABS: PLATELET COUNT, AUTOMATED 208 10^3/uL (150-450)
[2019-12-12 07:51] LABS: INR 1.07; PROTHROMBIN TIME 13.6 SECONDS (11.8-14.0)
[2019-12-12 07:52] LABS: PARTIAL THROMBOPLASTIN TIME 29.2 SECONDS (25.0-38.4)
== END ==
LOC: M LAB 06:59
PROVIDERS: ATTEND Internal Medicine Pulmonary Disease
DX: R91.1 Solitary pulmonary nodule (principal)

== ENCOUNTER → 2019-12-13 | Outpatient (CLI) | payer OTHER ==
[~2019-12-13] MED LIST changes: +LIDOCAINE 1% MDV 20ML VIAL As Ordered ONE
--- NOTE | 2019-12-13 11:00 | REP ---
Chest x-ray: Single view. History: Post biopsy radiograph. Comparison study August 03, 2019. The patient is status post CT guided needle biopsy left upper lobe nodule. Findings: The target nodule is visualized in the left upper lobe. There is no evidence of a pneumothorax or parenchymal hemorrhage. Cardiomediastinal silhouette is unremarkable. Impression: No complication is identified. Electronically Signed by Pérez Gutierrez MD 12/13/2019 06:15 P
[2019-12-13 11:30] VITALS: BP 158/81
--- NOTE | 2019-12-13 18:20 | REP ---
CT-GUIDED LEFT UPPER LOBE LUNG BIOPSY The procedure was performed under the direct supervision of Dr. Gutierrez. Patient has a history of a part solid nodular density in the left upper lobe measuring 2.1 cm seen on a previous CT scan dated 10/23/2019. The risks and benefits of the procedure were explained to the patient and informed consent was obtained. The left upper lobe lung nodule was localized using CT guidance. The skin was prepped and draped in a sterile fashion. 1% lidocaine was used as a local anesthetic. Using CT guidance a 19/20 gauge coaxial needle biopsy system was inserted and advanced into the nodule. Five core biopsy samples were obtained and sent to lab. The patient tolerated the procedure well and there were no immediate complications. After the appropriate amount of monitored convalescence the patient was discharged from the department. Electronically Signed by NHAN Murphy 12/13/2019 04:05 P Electronically Signed by Pérez Gutierrez MD 12/13/2019 06:12 P
== END ==
LOC: M IRPRO 08:08
PROVIDERS: ATTEND Internal Medicine Pulmonary Disease
DX: R91.8 Other nonspecific abnormal finding of lung field (principal)

== ENCOUNTER → 2019-12-25 | Outpatient (CLI) | payer OTHER ==
[~2019-12-25] MED LIST changes: -LIDOCAINE 1% MDV 20ML VIAL As Ordered ONE
--- NOTE | 2019-12-26 04:25 | REP ---
Clinical: Follow-up pulmonary nodule. Technique: Axial noncontrast images from the thoracic inlet to the upper abdomen with coronal and sagittal re-formations. Comparison: 10/23/2019, 09/20/2018. Findings: Part solid spiculated lesion in the periphery of the left upper lobe (images 25 - 32) appears relatively unchanged as compared to recent prior exam dated 10/23/2019. Prior PET-CT suggested the lesion to be non hypermetabolic. The lung uriostegui are otherwise relatively well aerated with minimal bibasilar age-related scarring and calcified granuloma at the right base. No acute consolidation, significant new nodule or mass lesion. No pleural effusion. No pneumothorax. Again bronchial tree is patent. No obvious adenopathy. Atherosclerotic changes to the thoracic aorta and coronary arteries noted without aneurysm or cardiomegaly. No pericardial effusion. Osseous structures demonstrate age-related degenerative changes. Limited upper abdomen demonstrates normal bilateral adrenal glands along with hepatic steatosis. Impression: 1. Left upper lobe part solid lesion with spiculated margins appears relatively stable compared to 10/23/2019. 2. No acute mediastinal or pleuroparenchymal process otherwise appreciated. No effusion. No adenopathy. Electronically Signed by Kiel Damon MD 12/26/2019 04:16 A
== END ==
LOC: M RAD 17:27
PROVIDERS: ATTEND Internal Medicine Pulmonary Disease
DX: R91.1 Solitary pulmonary nodule (principal); I70.0 Atherosclerosis of aorta; I25.10 Atherosclerotic heart disease of native coronary artery without angina pectoris

== ENCOUNTER 2020-01-10 05:54 | Day surgery (SDC) | payer OTHER ==
[~2020-01-10] VITALS: Ht 182.9 cm; Wt 142.4 kg
[~2020-01-10 05:54] MED LIST changes: +LR 1,000 ML IV ONE; +OMEP-221 PO
[2020-01-10] MEDS ORDERED: CETACAINE SPRAY 5GM As Ordered ONE (07:38)
[2020-01-10] MEDS ORDERED: THROMBIN SOLN 5,000 UNITS VIAL As Ordered ONE (07:41)
[2020-01-10] MEDS ORDERED: LIDOCAINE 1% SDV INJ 30 ML VIAL As Ordered ONE (07:42)
[2020-01-10] MEDS ORDERED: LIDOCAINE VISCOUS 2% SOLN 15ML UDC As Ordered ONE (07:42)
[2020-01-10] MEDS ORDERED: EPINEPHrine 1MG/10ML SYRINGE 1.5IN As Ordered ONE (07:42)
[2020-01-10] MEDS ORDERED: SUGAMMADEX SODIUM 500 MG/5 ML VIAL (BRIDION) As Ordered ONE (07:52)
[2020-01-10] MEDS ORDERED: METOCLOPRAMIDE INJ 10MG/2ML VIAL (J2765) As Ordered ONE (07:52)
[2020-01-10] MEDS ORDERED: propofoL 200 MG/20 ML VIAL As Ordered ONE (07:52)
[2020-01-10] MEDS ORDERED: MIDAZOLAM INJ 2 MG/2 ML VIAL (J2250) As Ordered ONE (07:52)
[2020-01-10] MEDS ORDERED: fentaNYL 100 MCG/2 ML INJECTION (J3010) As Ordered ONE (07:52)
[2020-01-10] MEDS ORDERED: LIDOCAINE 2% INJ 100 MG/5 ML SDV (FOR ANES.) As Ordered ONE (07:52)
[2020-01-10] MEDS ORDERED: ONDANSETRON 4MG/2ML VIAL (J2405) As Ordered ONE (07:52)
[2020-01-10] MEDS ORDERED: dexameTHASONE 4 MG/ML 1ML VIAL (J1100) As Ordered ONE (07:52)
[2020-01-10] MEDS ORDERED: ROCURONIUM BROMIDE 50 MG/5 ML VIAL As Ordered ONE (07:52)
[2020-01-10] MEDS ORDERED: LACRILUBE (AKWA TEARS) OPHTH OINT 3.5 GM As Ordered ONE ×2 (07:52→08:25)
[2020-01-10] MEDS ORDERED: ETOMIDATE INJ 20MG/10ML VIAL As Ordered ONE (07:52)
[2020-01-10] MEDS ORDERED: DESFLURANE 240 ML INHALANT As Ordered ONE (08:10)
[2020-01-10] MEDS ORDERED: SEVOFLURANE INHAL SOLN 250 ML BTL As Ordered ONE (08:13)
[2020-01-10] MEDS ORDERED: ePHEDrine SULFATE 25 MG/5 ML(5MG/ML) SYRINGE As Ordered ONE (08:14)
[2020-01-10] MEDS ORDERED: fentaNYL 100 MCG/2 ML INJECTION (J3010) IV PRN (09:00)
[2020-01-10] MEDS ORDERED: LR 1,000 ML IV SCH (09:00)
[2020-01-10] MEDS ORDERED: ONDANSETRON 4MG/2ML VIAL (J2405) IV PRN (09:00)
--- NOTE | 2020-01-10 09:13 | ROOR ---
Patient Name: Keith Emery Procedure Date: 01/10/2020 7:22 AM Date of : 1955 Admit Type: Outpatient Age: 64 Note Status: Finalized Attending MD: Brit Peace MD Procedure: Bronchoscopy Indications: Left upper lobe nodule Providers: Brit Peace MD (Doctor) Referring MD: Elieser Alvarez DO (Referring MD) Requesting Physician: Medicines: General Anesthesia, Cetacaine topical Complications: No immediate complications. Estimated blood loss: Minimal Procedure: Pre-Anesthesia Assessment: - Prior to the procedure, a History and Physical was performed, and patient medications and allergies were reviewed. The patient's tolerance of previous anesthesia was also reviewed. The risks and benefits of the procedure and the sedation options and risks were discussed with the patient. All questions were answered, and informed consent was obtained. Prior Anticoagulants: The patient has taken aspirin and Plavix (clopidogrel), last doses were 7 days prior to procedure. ASA Grade Assessment: III - A patient with severe systemic disease. After reviewing the risks and benefits, the patient was deemed in satisfactory condition to undergo the procedure. The Bronchoscope was introduced through the mouth, via the endotracheal tube (the patient was intubated for the procedure) and advanced to the tracheobronchial tree of both lungs. The procedure was accomplished without difficulty. The patient tolerated the procedure well. Findings: The endotracheal tube is in good position. The visualized portion of the trachea is of normal caliber. The jonathan is sharp. The tracheobronchial tree was examined to at least the first subsegmental level. Bronchial mucosa and anatomy are normal; there are no endobronchial lesions, and no secretions. Electromagnetic navigation bronchoscopy utilizing the [employer] system with iLogic upgrade was performed. The CT scan was used for planning purposes. A virtual bronchoscopic image was generated using the planning software and the jonathan, left main bronchus jonathan, left lower lobe basilar segment, right upper lobe, right middle lobe and right lower lobe basilar segment registration points were marked on the virtual image. The target in the apical-posterior segment of the left upper lobe was marked. A nodule approx 2.1 cm in size was found and a pathway was created. After a complete airway exam, the locatable guide/extended working channel was inserted and an automatic registration was performed by advancing the scope through the jonathan, left main bronchus jonathan, left lower lobe basilar segment, right upper lobe, right middle lobe and right lower lobe basilar segment. The navigation phase was then begun to locate the target lesion(s). Positioning off-center (in relation to the lesion) was confirmed using the Olympus radial probe US catheter. The locatable guide was removed from the extended working channel. Fluoroscopy guided transbronchial brushings of a nodule were obtained in the apical-posterior segment of the left upper lobe with a needle brush and sent for routine cytology. Transbronchial brushing technique was selected because the sampling site was not visible endoscopically. Transbronchial needle aspirations of a nodule were performed in the apical-posterior segment of the left upper lobe using a fine (21 gauge) needle and [employer] and sent for routine cytology. The procedure was guided by fluoroscopy. Transbronchial needle aspiration technique was selected because the sampling site was not accessible using standard endoscopic (bronchoscopic) techniques. Transbronchial biopsies of a nodule were performed in the apical-posterior segment of the left upper lobe using forceps and sent for histopathology examination. The procedure was guided by fluoroscopy. Transbronchial biopsy technique was selected because the sampling site was not visible endoscopically. Bronchoalveolar lavage was performed in the HUMBERTO apical posterior segments (B1 & B2) of the lung and sent for routine cytology. The return was blood-tinged. Impression: - Left upper lobe nodule - The airway examination was normal. - Electromagnetic navigation bronchoscopy was performed. - Transbronchial brushings were obtained. - A transbronchial needle aspiration was performed. - Transbronchial lung biopsies were performed. - Bronchoalveolar lavage was performed. Recommendation: - Follow up with bronchoscopist as previously scheduled. Attending Participation: I personally performed the entire procedure. Brit Peace MD 01/10/2020 9:12:53 AM Number of Addenda: 0 Note Initiated On: 01/10/2020 7:22 AM
--- NOTE | 2020-01-10 09:20 | REP ---
Clinical: Postoperative assessment. Comparison: 08/03/2019. Findings: Stable cardiomegaly suggested. Linear fibroatelectatic changes at the left base and left upper lung zone noted. No obvious focal consolidation or effusion. No pneumothorax. Skeletal structures intact. Impression: Chronic linear fibro atelectatic changes. No obvious effusion, consolidation, or pneumothorax. Electronically Signed by Kiel Damon MD 01/10/2020 09:12 A
[2020-01-10 09:50] VITALS: BP 135/74
== END 2020-01-10 09:57 | disposition home or self-care (01) ==
LOC: M SDC 05:54
PROVIDERS: ATTEND Internal Medicine Pulmonary Disease
DX: R91.1 Solitary pulmonary nodule (principal); J44.9 Chronic obstructive pulmonary disease, unspecified; I10 Essential (primary) hypertension; I48.91 Unspecified atrial fibrillation; I73.9 Peripheral vascular disease, unspecified; I50.30 Unspecified diastolic (congestive) heart failure; G47.33 Obstructive sleep apnea (adult) (pediatric); E03.9 Hypothyroidism, unspecified; E78.49 Other hyperlipidemia; N40.0 Benign prostatic hyperplasia without lower urinary tract symptoms; K21.9 Gastro-esophageal reflux disease without esophagitis; F32.9 Major depressive disorder, single episode, unspecified; F20.9 Schizophrenia, unspecified; Z79.82 Long term (current) use of aspirin; Z79.899 Other long term (current) drug therapy; Z91.010 Allergy to peanuts; E66.9 Obesity, unspecified
CPT/HCPCS: 31624; 31625; 31627; 31628; 31629; 71045; 76000; 88104; 88108; 88173; 88305; 88313; J1100; J2250; J2405; J2765; J3010

== ENCOUNTER → 2020-01-16 | Outpatient (CLI) | payer OTHER ==
[~2020-01-16] MED LIST changes: -LR 1,000 ML IV ONE
[2020-01-16 09:20] LABS: ALBUMIN 3.7 GM/DL (3.2-5.2); ALT/SGPT 60 U/L (12-78); BILIRUBIN,TOTAL 0.3 MG/DL (0.2-1.0); BLOOD UREA NITROGEN 12 MG/DL (7-18); CALCIUM LEVEL 8.7 MG/DL (8.8-10.2); CARBON DIOXIDE LEVEL 30 MEQ/L (21-32); CHLORIDE LEVEL 101 MEQ/L (98-107); CREATININE FOR GFR 1.06 MG/DL (0.70-1.30); GLOMERULAR FILTRATION RATE > 60.0 (>49); GLUCOSE, FASTING 117 MG/DL (70-100); MAGNESIUM LEVEL 2.1 MG/DL (1.8-2.4); POTASSIUM SERUM 4.2 MEQ/L (3.5-5.1); SODIUM LEVEL 136 MEQ/L (136-145); TOTAL PROTEIN 6.9 GM/DL (6.4-8.2)
== END ==
LOC: M LAB 08:10
PROVIDERS: ATTEND Physician Assistant
DX: I48.0 Paroxysmal atrial fibrillation (principal)

== ENCOUNTER → 2020-01-16 | Outpatient (CLI) | payer OTHER | LOC: M LAB 08:15 | PROVIDERS: ATTEND Psychiatry & Neurology Psychiatry | DX: Z51.81 Encounter for therapeutic drug level monitoring (principal); Z79.899 Other long term (current) drug therapy ==

== ENCOUNTER → 2020-01-24 | Outpatient (CLI) | payer OTHER ==
--- NOTE | 2020-01-24 17:01 | REP ---
PET/CT: History: Diagnosing solitary pulmonary nodule. Comparisons: Comparison PET-CT study October 11, 2018. Comparison CT study of the chest December 25, 2019. TECHNIQUE: 58 minutes following the intravenous injection of a 8.40 mCi dose of F-18 FDG, three-dimensional PET scintigraphy is acquired from the skull base to the proximal thighs. Triplanar noncontrast CT scanning is acquired through the same anatomic range for attenuation correction, and image registration with scan parameters optimized to minimize radiation exposure to the patient. PET scintigraphy and CT datasets were fused and displayed on a workstation with multiplanar and projection display capability. PET/CT Findings: There is no abnormal head and neck soft tissue uptake visible today. The previously noted non solid ground-glass opacity nodule in the left upper lobe is now mildly hypermetabolic. Maximum standard uptake value is 2.65 on today's PET-CT study. Previously, 1.33. It appears somewhat larger. There is no other abnormal pulmonary parenchymal hypermetabolic uptake. No abnormal hilar or mediastinal hypermetabolic uptake is seen. No abnormal adrenal uptake is seen. No abnormal hypermetabolic uptake is seen in the abdomen or pelvis. The scan is otherwise unremarkable. Impression: The somewhat irregular spiculated non solid pulmonary nodule in the left upper lobe is now mildly hypermetabolic. Low grade malignancy must be suspected. Electronically Signed by Pérez Gutierrez MD 01/24/2020 07:38 P
== END ==
LOC: M PLARAD 09:16
PROVIDERS: ATTEND Internal Medicine Pulmonary Disease
DX: R91.1 Solitary pulmonary nodule (principal)
CPT/HCPCS: 78815; A9552

== ENCOUNTER → 2020-03-15 | Outpatient (CLI) | payer OTHER ==
[2020-03-15 19:00] LABS: BASO # 0.1 10^3/uL (0.0-0.2); BASO % 0.7 % (0.0-1.0); EOS # 0.4 10^3/uL (0.0-0.5); EOS % 4.9 % (0.0-3.0); HEMATOCRIT 43.1 % (42.0-52.0); LYMPH # 2.3 10^3/uL (1.5-5.0); MEAN CORPUSCULAR HEMOGLOBIN 29.9 pg (27.0-33.0); MEAN CORPUSCULAR HGB CONC 32.5 g/dl (32.0-36.5); MEAN CORPUSCULAR VOLUME 91.9 fl (80.0-96.0); MONO % 11.8 % (0.0-5.0); NEUTROPHILS # 4.4 10^3/uL (1.5-8.5); PLATELET COUNT, AUTOMATED 239 10^3/uL (150-450); RED BLOOD COUNT 4.69 10^6/uL (4.30-6.10); WHITE BLOOD COUNT 8.1 10^3/uL (4.0-10.0)
[2020-03-15 19:40] LABS: ALBUMIN 3.6 GM/DL (3.2-5.2); ALT/SGPT 70 U/L (12-78); BILIRUBIN,TOTAL 0.4 MG/DL (0.2-1.0); BLOOD UREA NITROGEN 15 MG/DL (7-18); CALCIUM LEVEL 9.4 MG/DL (8.8-10.2); CARBON DIOXIDE LEVEL 32 MEQ/L (21-32); CHLORIDE LEVEL 100 MEQ/L (98-107); CHOLESTEROL LEVEL 121 MG/DL (<200); CHOLESTEROL RISK RATIO 2.574 (<5); CREATININE FOR GFR 1.18 MG/DL (0.70-1.30); GLOMERULAR FILTRATION RATE > 60.0 (>49); GLUCOSE, FASTING 81 MG/DL (70-100); HDL CHOLESTEROL 47 MG/DL (>40); LDL CHOLESTEROL 33 MG/DL (<100); NON-HDL-C 74 MG/DL; PROSTATIC SPECIFIC AG MONITOR 0.54 NG/ML (< 4.00); SODIUM LEVEL 136 MEQ/L (136-145); TOTAL PROTEIN 7.2 GM/DL (6.4-8.2); TRIGLYCERIDES LEVEL 206 MG/DL (<150)
== END ==
LOC: M LAB 18:35
PROVIDERS: ATTEND Physician Assistant
DX: I10 Essential (primary) hypertension (principal); E78.2 Mixed hyperlipidemia; I48.20 Chronic atrial fibrillation, unspecified; N40.1 Benign prostatic hyperplasia with lower urinary tract symptoms

== ENCOUNTER → 2020-05-30 | Outpatient (CLI) | payer MEDICARE, OTHER ==
--- NOTE | 2020-05-30 14:45 | REP ---
Clinical: Shortness of breath. Technique: PA and lateral. Comparison: 01/10/2020. Findings: Mediastinum and cardiac silhouette are stable with mild cardiomegaly again suggested. Lung uriostegui demonstrate chronic basilar changes. No acute consolidation, effusion, or pneumothorax. Skeletal structures stable. Impression: Chronic stable changes. No acute cardiopulmonary process. Electronically Signed by Kiel Damon MD 05/30/2020 02:37 P
== END ==
LOC: M RAD 14:22
PROVIDERS: ATTEND Physician Assistant
DX: R06.02 Shortness of breath (principal)

== ENCOUNTER → 2020-07-05 | Outpatient (CLI) | payer OTHER ==
--- NOTE | 2020-08-22 09:20 | REP ---
RIGHT ANKLE SERIES HISTORY: Pain. TECHNIQUE: Four views of the right ankle are performed. FINDINGS: There is no acute fracture or dislocation. Ankle mortise is anatomic. There is a large inferior calcaneal spur. There is mild posterior calcaneal spurring. IMPRESSION: Calcaneal spurring. MTDD
== END ==
LOC: M LAB 12:06
PROVIDERS: ATTEND Internal Medicine
DX: M25.571 Pain in right ankle and joints of right foot (principal)

== ENCOUNTER → 2020-07-16 | Outpatient (CLI) | payer OTHER ==
[2020-09-11 12:19] LABS: BLOOD UREA NITROGEN 15 MG/DL (7-18); CREATININE FOR GFR 1.15 MG/DL (0.70-1.30); GLOMERULAR FILTRATION RATE > 60.0 (>49)
== END ==
LOC: M LAB 09:30
PROVIDERS: ATTEND Internal Medicine Pulmonary Disease
DX: Z01.812 Encounter for preprocedural laboratory examination (principal); R91.1 Solitary pulmonary nodule

== ENCOUNTER → 2020-07-22 | Outpatient (CLI) | payer OTHER ==
[~2020-07-22] MED LIST changes: +ISOVUE-370 76% 100ML VIAL As Ordered ONE
--- NOTE | 2020-08-22 09:21 | REP ---
CONTRAST-ENHANCED CHEST CT: HISTORY: Follow up solitary pulmonary nodule. TECHNIQUE: Axial contrast-enhanced images from the thoracic inlet to the upper abdomen using 75 cc Isovue 370 intravenous contrast material with coronal and sagittal reformations. COMPARISON: 12/25/19 FINDINGS: The part solid density in the left upper lobe with spiculated margins is again identified and similar to prior examination measuring approximately 1.8 cm in maximal diameter. The remainder of the lung uriostegui are relatively clear, although minimal linear fibroatelectatic changes at the lingula and bilateral lower lobes are noted and may in part represent atelectasis. No consolidation or further nodule/mass lesion. No effusion. No pneumothorax. The tracheobronchial tree is patent. No significant adenopathy noted. The mediastinum demonstrates atherosclerotic changes to the thoracic aorta and coronary arteries without aortic aneurysm or dissection. No cardiomyopathy or pericardial effusion. Limited upper abdomen demonstrates diffuse hepatosteatosis and normal bilateral adrenal glands. IMPRESSION: 1. Part solid density in the left upper lobe with spiculated margins appears unchanged. 2. Minimal lingular and bibasilar atelectasis. 3. No further/new acute pulmonary parenchymal lesions appreciated. MTDD
== END ==
LOC: M RAD 08:47
PROVIDERS: ATTEND Internal Medicine Pulmonary Disease
DX: R91.1 Solitary pulmonary nodule (principal)
CPT/HCPCS: 71260; Q9967

== ENCOUNTER → 2020-10-29 | Outpatient (CLI) | payer MEDICARE, OTHER ==
[~2020-10-29] MED LIST changes: -ISOVUE-370 76% 100ML VIAL As Ordered ONE
[2020-10-29 19:26] LABS: BLOOD UREA NITROGEN 15 MG/DL (7-18); CREATININE FOR GFR 1.08 MG/DL (0.70-1.30); GLOMERULAR FILTRATION RATE > 60.0 (>49)
== END ==
LOC: M LAB 17:56
PROVIDERS: ATTEND Surgery Vascular Surgery
DX: Z98.62 Peripheral vascular angioplasty status (principal); D69.8 Other specified hemorrhagic conditions

== ENCOUNTER → 2020-10-31 | Outpatient (CLI) | payer OTHER ==
[~2020-10-31] MED LIST changes: +ISOVUE-370 76% 100ML VIAL As Ordered ONE
--- NOTE | 2020-10-31 10:10 | REP ---
INDICATION: ATH DA ART OF EXTREMIES, WITH INT TAMIKO, VITA LEG. History of stenting. COMPARISON: Comparison CT angiography of the abdomen and pelvis October 23, 2019.. TECHNIQUE: 100 mL of intravenous Isovue 370 is administered. Helical scanning is acquired and 3 mm axial images are re-formatted. Coronal and sagittal MPR and coronal MIP images are generated. In addition 3D surface rendered rotational images are generated and reviewed. FINDINGS: Nonvascular findings include fatty infiltration of the liver, a granuloma in the right lung base, left and right colonic diverticulosis, and faintly opaque material layering in the dependent portion of the gallbladder which may be gravel or small stones or sludge. Arterial vascular findings: In general, there is extensive calcific atherosclerotic plaquing throughout the visualized arterial tree. The superficial femoral and calf arteries are relatively small. The right renal artery is duplicated. There is calcific plaquing at the origin of the smaller lower pole accessory renal artery. Minimal plaquing is seen in the origin of the left renal artery. The celiac artery origin shows mild stenosis. There is mild plaquing in the SMA with less than 50% stenosis at its origin. The TRUNG is patent. Atherosclerotic irregularity and calcification of the aorta without high-grade aortic stenosis. There is a patent stent in the right external iliac artery proximally. Heavy plaquing at the origin of the internal iliac on the right short-segment stenosis or occlusion occlusion suspected. There is calcific plaquing the distal external iliacs bilaterally right more so than left with high-grade stenosis of the right common femoral artery due to calcific plaquing. There is heavy calcific plaquing and a patent stent in the proximal superficial femoral artery on the right. The right profundal is patent. Multifocal calcific plaquing is seen it and another stent is visible in the mid and distal superficial femoral artery on the right. The right popliteal artery appears to be patent with calcific plaquing. Tibial-peroneal trunk and trifurcation show calcific plaquing. The runoff vessels in the right calf are small. There appear to be focal stenoses or occlusions in the posterior tibial artery in the mid calf. On the left, there is calcific plaquing and stenosis in the proximal superficial femoral artery. Multifocal stenoses are seen in the mid superficial femoral artery. There is a stent in the mid superficial femoral artery extending to the adductor canal where the stent is compressed and narrowed by calcific plaquing. There is calcification in the popliteal although this in enhances in its lumen consistent with patency. At the level of the knee joint, there is a popliteal artery stenosis. The tibioperoneal trunk and trifurcation are heavily calcified. There is three-vessel runoff vessel patency in the proximal calf. Multifocal calcific plaquing is seen in the proximal posterior tibial artery with focal stenoses or occlusions. The anterior and posterior tibial arteries appear to be a patent across the ankle. The findings are felt to be substantially unchanged from the comparison study. IMPRESSION: Extensive calcific atherosclerotic disease. Multiple bilateral lymph lower extremity arterial stents as above. Small runoff vessels with multifocal stenoses in the SFA is and runoff vessels as above. <Electronically signed by Sam Gutierrez > 10/31/20 [id number]
== END ==
LOC: M RAD 07:56
PROVIDERS: ATTEND Physician Assistant
DX: I70.213 Atherosclerosis of native arteries of extremities with intermittent claudication, bilateral legs (principal); Z95.820 Peripheral vascular angioplasty status with implants and grafts

== ENCOUNTER → 2020-12-07 | Outpatient (CLI) | payer SELFPAY ==
[~2020-12-07] MED LIST changes: -ISOVUE-370 76% 100ML VIAL As Ordered ONE
== END ==
LOC: M LABSMTC 09:08
PROVIDERS: ATTEND Pediatrics
DX: Z20.822 Contact with and (suspected) exposure to COVID-19 (principal)

== ENCOUNTER → 2021-01-06 | Outpatient (CLI) | payer OTHER ==
[2021-01-06 08:40] LABS: HEMATOCRIT 42.9 % (42.0-52.0); HEMOGLOBIN 13.7 g/dl (13.5-17.5); MEAN CORPUSCULAR HEMOGLOBIN 30.9 pg (27.0-33.0); MEAN CORPUSCULAR HGB CONC 31.9 g/dl (32.0-36.5); MEAN CORPUSCULAR VOLUME 96.6 fl (80.0-96.0); PLATELET COUNT, AUTOMATED 211 10^3/uL (150-450); RED BLOOD COUNT 4.44 10^6/uL (4.30-6.10); WHITE BLOOD COUNT 7.4 10^3/uL (4.0-10.0)
[2021-01-06 09:07] LABS: ALBUMIN 3.4 GM/DL (3.2-5.2); ALT/SGPT 73 U/L (12-78); BILIRUBIN,TOTAL 0.3 MG/DL (0.2-1.0); BLOOD UREA NITROGEN 12 MG/DL (7-18); CALCIUM LEVEL 8.8 MG/DL (8.8-10.2); CARBON DIOXIDE LEVEL 29 MEQ/L (21-32); CHLORIDE LEVEL 104 MEQ/L (98-107); CREATININE FOR GFR 1.16 MG/DL (0.70-1.30); GLOMERULAR FILTRATION RATE > 60.0 (>49); GLUCOSE, FASTING 136 MG/DL (70-100); MAGNESIUM LEVEL 2.1 MG/DL (1.8-2.4); POTASSIUM SERUM 4.2 MEQ/L (3.5-5.1); SODIUM LEVEL 141 MEQ/L (136-145); TOTAL PROTEIN 6.9 GM/DL (6.4-8.2)
== END ==
LOC: M LAB 07:52
PROVIDERS: ATTEND Physician Assistant
DX: I48.0 Paroxysmal atrial fibrillation (principal)

== ENCOUNTER → 2021-03-08 | Outpatient (CLI) | payer OTHER ==
[~2021-03-08] MED LIST changes: -FOLI400T PO; +FOLI400T13 PO
[2021-03-08 07:20] LABS: ALBUMIN 3.7 GM/DL (3.2-5.2); ALT/SGPT 84 U/L (12-78); BILIRUBIN,TOTAL 0.4 MG/DL (0.2-1.0); BLOOD UREA NITROGEN 13 MG/DL (7-18); CARBON DIOXIDE LEVEL 25 MEQ/L (21-32); CHLORIDE LEVEL 101 MEQ/L (98-107); CHOLESTEROL LEVEL 114 MG/DL (<200); CREATININE FOR GFR 1.07 MG/DL (0.70-1.30); GLOMERULAR FILTRATION RATE > 60.0 (>49); GLUCOSE, FASTING 125 MG/DL (70-100); HDL CHOLESTEROL 50 MG/DL (>40); LDL CHOLESTEROL 28 MG/DL (<100); NON-HDL-C 64 MG/DL; POTASSIUM SERUM 4.3 MEQ/L (3.5-5.1); SODIUM LEVEL 133 MEQ/L (136-145); TOTAL PROTEIN 7.5 GM/DL (6.4-8.2); TRIGLYCERIDES LEVEL 181 MG/DL (<150)
== END ==
LOC: M LAB 06:20
PROVIDERS: ATTEND Physician Assistant
DX: E78.2 Mixed hyperlipidemia (principal)

== ENCOUNTER 2021-03-30 13:30 | Emergency (ER) | payer OTHER ==
[~2021-03-30] VITALS: Ht 185.4 cm; Wt 140.9 kg
[2021-03-30 15:21] LABS: BASO % 0.5 % (0.0-1.0); EOS # 0.2 10^3/uL (0.0-0.5); HEMATOCRIT 34.6 % (42.0-52.0); HEMOGLOBIN 11.4 g/dl (13.5-17.5); LYMPH # 1.5 10^3/uL (1.5-5.0); LYMPH % 18.7 % (24.0-44.0); MEAN CORPUSCULAR HEMOGLOBIN 31.2 pg (27.0-33.0); MEAN CORPUSCULAR HGB CONC 32.9 g/dl (32.0-36.5); MEAN CORPUSCULAR VOLUME 94.8 fl (80.0-96.0); MONO % 12.3 % (2.0-8.0); NEUTROPHILS # 5.3 10^3/uL (1.5-8.5); NEUTROPHILS % 65.3 % (36.0-66.0); PLATELET COUNT, AUTOMATED 261 10^3/uL (150-450); RED BLOOD COUNT 3.65 10^6/uL (4.30-6.10); WHITE BLOOD COUNT 8.1 10^3/uL (4.0-10.0)
[2021-03-30 15:32] LABS: INR 1.01; PROTHROMBIN TIME 13.5 SECONDS (12.5-14.3)
[2021-03-30 15:47] LABS: ALBUMIN 3.1 GM/DL (3.2-5.2); ALT/SGPT 60 U/L (12-78); BILIRUBIN,TOTAL 0.4 MG/DL (0.2-1.0); BLOOD UREA NITROGEN 12 MG/DL (7-18); C REACTIVE PROTEIN QUANTITATIV 1.06 MG/DL (0.00-0.30); CALCIUM LEVEL 8.1 MG/DL (8.8-10.2); CARBON DIOXIDE LEVEL 28 MEQ/L (21-32); CHLORIDE LEVEL 104 MEQ/L (98-107); CREATININE FOR GFR 1.01 MG/DL (0.70-1.30); GLOMERULAR FILTRATION RATE > 60.0 (>49); GLUCOSE, FASTING 112 MG/DL (70-100); POTASSIUM SERUM 3.9 MEQ/L (3.5-5.1); SODIUM LEVEL 137 MEQ/L (136-145); TOTAL PROTEIN 6.7 GM/DL (6.4-8.2)
[2021-03-30 16:11] LABS: ERYTHROCYTE SEDIMENTATION RATE 33 mm/hr (0-20)
[2021-03-30] MEDS ORDERED: VANCOMYCIN HCL 2,000 MG in IV FLUID PLACE HOLDER 1 EA IV ONE (16:25)
[2021-03-30] MEDS ORDERED: VANCOMYCIN HCL 1,000 MG, VIAL MATE ADAPTER 1 EACH in NS 250 ML IV ONE ×2 (16:30→17:30)
--- NOTE | 2021-03-30 16:57 | REP ---
INDICATION: concern for post op abscess/DVT, femoral endarterectomy COMPARISON: None. TECHNIQUE: Jimenez scale and color Doppler evaluation using linear high frequency transducer. FINDINGS: Ultrasound examination of the right lower extremity deep venous structures from the common femoral vein to the popliteal vein demonstrates normal compressibility flow and wave patterns in response to respiration and augmentation. There is no evidence for deep venous thrombosis. IMPRESSION: No evidence for deep venous thrombosis. <Electronically signed by Kiel Damon > 03/30/21 [id number]
--- NOTE | 2021-03-30 17:07 | REP ---
INDICATION: concern for post op abscess COMPARISON: None TECHNIQUE: Real time gore scale and color B-mode ultrasound examination using linear high-frequency and curved array transducer. FINDINGS: Directed ultrasound examination along the right groin at the area of incision demonstrates 3 distinct complex septated avascular fluid collections. The 1st collection measures 1.1 x 1.3 x 0.9 cm with fistulous tract to the skin surface. Second collection anterior to the common femoral vein measures 7.5 x 2.9 x 6.6 cm, and the 3rd collection identified more superiorly measures 6.0 X 2.2 x 4.1 cm. Generalized subcutaneous edema also appreciated. IMPRESSION: Three complex fluid collections as described above. Differential diagnosis includes seroma, hematoma, and abscess formation. Clinical correlation and follow-up is recommended. <Electronically signed by Kiel Damon > 03/30/21 [id number]
[2021-03-30] MEDS ORDERED: ACETAMINOPHEN 500 MG TAB PO ONE (18:15)
[2021-03-30] MEDS ORDERED: CEPH500C PO (18:56)
[2021-03-30 19:36] VITALS: BP 137/65
--- NOTE | 2021-03-31 06:45 | ED PDOC ---
Post-Departure Follow-Up dr curtis faxed formal report of vascular us for fu Madisyn Wick MD March 31, 2021 06:45
== END 2021-03-30 20:01 | disposition home or self-care (01) ==
LOC: M ED 13:30
DX: L03.115 Cellulitis of right lower limb (principal); I48.91 Unspecified atrial fibrillation; J44.9 Chronic obstructive pulmonary disease, unspecified; G47.33 Obstructive sleep apnea (adult) (pediatric); F41.9 Anxiety disorder, unspecified; F32.9 Major depressive disorder, single episode, unspecified; Z79.82 Long term (current) use of aspirin; Z79.899 Other long term (current) drug therapy; Z91.030 Bee allergy status
CPT/HCPCS: 76882; 80053; 83605; 85025; 85610; 85652; 86140; 87040; 87070; 87077; 87186; 87205; 93971; 96365; 96366; 99283; J3370

== ENCOUNTER → 2021-06-04 | Outpatient (CLI) | payer OTHER, MEDICARE ==
[~2021-06-04] MED LIST changes: +CEPH500C PO
[2021-06-04 20:30] LABS: GC DNA AMPLIFICATION NEGATIVE (NEGATIVE)
== END ==
LOC: M LAB 15:27
PROVIDERS: ATTEND Urology
DX: Z20.2 Contact with and (suspected) exposure to infections with a predominantly sexual mode of transmission (principal)

== ENCOUNTER → 2021-07-09 | Outpatient (CLI) | payer OTHER | LOC: M LAB 10:24 | PROVIDERS: ATTEND Psychiatry & Neurology Psychiatry | DX: F25.1 Schizoaffective disorder, depressive type (principal) ==

== ENCOUNTER → 2021-07-09 | Outpatient (CLI) | payer OTHER ==
[2021-07-09 17:02] LABS: HEMATOCRIT 39.7 % (42.0-52.0); HEMOGLOBIN 12.2 g/dl (13.5-17.5); MEAN CORPUSCULAR HEMOGLOBIN 27.1 pg (27.0-33.0); MEAN CORPUSCULAR HGB CONC 30.7 g/dl (32.0-36.5); PLATELET COUNT, AUTOMATED 311 10^3/uL (150-450); RED BLOOD COUNT 4.51 10^6/uL (4.30-6.10); WHITE BLOOD COUNT 7.6 10^3/uL (4.0-10.0)
[2021-07-09 17:17] LABS: BLOOD UREA NITROGEN 22 MG/DL (7-18); CALCIUM LEVEL 9.6 MG/DL (8.8-10.2); CARBON DIOXIDE LEVEL 29 MEQ/L (21-32); CHLORIDE LEVEL 101 MEQ/L (98-107); CREATININE FOR GFR 1.19 MG/DL (0.70-1.30); GLOMERULAR FILTRATION RATE > 60.0 (>49); GLUCOSE, FASTING 90 MG/DL (70-100); MAGNESIUM LEVEL 2.2 MG/DL (1.8-2.4); SODIUM LEVEL 139 MEQ/L (136-145)
== END ==
LOC: M WUC 13:03
PROVIDERS: ATTEND Physician Assistant
DX: I11.9 Hypertensive heart disease without heart failure (principal); I48.0 Paroxysmal atrial fibrillation

== ENCOUNTER → 2021-08-12 | Outpatient (CLI) | payer OTHER ==
--- NOTE | 2021-08-18 07:19 | REP ---
INDICATION: SOLITARY PULMONARY NODULE COMPARISON: 07/22/2020 TECHNIQUE: Axial noncontrast images from the thoracic inlet to the upper abdomen with coronal and sagittal reformations. This CT examination was performed using the following dose reduction techniques: Automated exposure control, adjustment of mA and/or kv according to the patient's size, and use of iterative reconstruction technique. FINDINGS: Irregular area in the left upper lobe now demonstrates the primary nodule measuring approximately 11 mm with subtle spiculated margin along with subtle surrounding ground-glass opacities and small adjacent satellite nodules (images 17-26). Findings are consistent with active pathology and further investigation along with correlation with prior biopsy is recommended. Remainder of the bilateral lung uriostegui are well aerated and clear. Mediastinum demonstrates stable atherosclerotic changes to the thoracic aorta and coronary arteries without aortic aneurysm or cardiomegaly. No pericardial effusion. No obvious hilar or mediastinal adenopathy is appreciated by noncontrast evaluation. Tracheobronchial tree is patent. Musculoskeletal structures are intact. IMPRESSION: The irregular area in the left upper lobe now demonstrates primary nodule with surrounding ground-glass opacity and satellite nodules consistent with active pathology. Correlation and further investigation including biopsy may be warranted. <Electronically signed by Kiel Damon > 08/18/21 [id number]
== END ==
LOC: M PLAIMG 10:16
PROVIDERS: ATTEND Internal Medicine Pulmonary Disease
DX: R91.8 Other nonspecific abnormal finding of lung field (principal); I70.0 Atherosclerosis of aorta; I25.10 Atherosclerotic heart disease of native coronary artery without angina pectoris

== ENCOUNTER → 2021-08-21 | Outpatient (CLI) | payer OTHER ==
[2021-08-21 19:42] LABS: PLATELET COUNT, AUTOMATED 292 10^3/uL (150-450)
[2021-08-21 20:08] LABS: INR 0.97; PARTIAL THROMBOPLASTIN TIME 29.9 SECONDS (25.9-37.0); PROTHROMBIN TIME 13.3 SECONDS (12.7-14.5)
== END ==
LOC: M WUC 15:18
PROVIDERS: ATTEND Internal Medicine Pulmonary Disease
DX: R91.1 Solitary pulmonary nodule (principal); G47.33 Obstructive sleep apnea (adult) (pediatric)

== ENCOUNTER → 2021-09-13 | Outpatient (CLI) | payer BC, OTHER ==
[~2021-09-13] MED LIST changes: +FURO20TA2 PO; +MIRA3350 PO
== END ==
LOC: M LABSMTC 09:59
PROVIDERS: ATTEND Anesthesiology
DX: Z01.812 Encounter for preprocedural laboratory examination (principal); Z20.822 Contact with and (suspected) exposure to COVID-19

== ENCOUNTER 2021-09-17 06:03 | Inpatient (IN) | payer BC ==
[2021-09-17] VITALS (40 sets, daily range): BP systolic 74–173; BP diastolic 51–78
[~2021-09-17] VITALS: Ht 188 cm; Wt 130.3 kg
[~2021-09-17 06:03] MED LIST changes: +LIDOCAINE 1% MDV 20ML VIAL SQ PRN
--- OUTSIDE RECORDS SUMMARY | 2021-09-17 06:06 | CCD | Continuity of Care Document ---
Author Author Keith TOVAR [facility] Organization Unknown Address [address] [place], [place] [address] Phone [phone] Care Team Providers Care Fire Management Technician Name Role Phone Wilfredo Monk M.D. [facility] [phone] Problems Active Problems Provider Date Tobacco user Eyal Tovar RPA Onset: 03/20/2008 Chronic obstructive lung disease Eyal Tovar RPA Onse t: 12/17/2009 Mixed hyperlipidemia Eyal Tovar RPA Onset: 1 Benign prostatic hyperplasia with outflow obstruction Eyal Tovar, RPA Onset: 07/10/2013 Note: Dr. Aviles Hypothyroidism Eyal Tovar, RPA Onset: 11/16/2013 Low back pain Eyal Tovar, RPA Onset: 01/18/2014 Psoriasis with arthropathy Eyal Tovar, RPA Onset: Disorder of magnesium metabolism Eyal Tovar RPA Onse t: 05/25/2014 Atherosclerosis of arteries of the extremities Froy Tovar RPA Onset: 05/25/2014 Deficiency anemias Eyal Tovar, RPA Onset: 05/25/2014 Lumbar radiculopathy Eyal Tovar, RPA Onset: 6 Left bundle branch block Eyal Tovar, RPA Onset: 03/24 Chronic atrial fibrillation Eyal Tovar, RPA Onset: Note: Dr. Jose LVEF 38% PAROXSYMAL Essential hypertension Eyal Tovar, RPA Onset: 016 Bipolar disorder Eyal Tovar, RPA Onset: 02/09/2017 Hypocalcemia Eyal Tovar, RPA Onset: 01/03/2018 Elevated level of transaminase and lactic acid dehydro genase Eyal Tovar, [facility] Onset: 04/05/2018 Social History Type Date Description Comments Sex Unknown ETOH Use Denies alcohol use Smoking Uses E Cigarette Tobacco Use Start: Unknown End: Unknown Patient is a former smoker Exercise Type/Frequency Does not currently exerc ise Seat Belt/Car Seat always Allergies and adverse reactions Description No Known Drug Allergies Medications Active Medications SIG Qnty Indications Ordering Provide r Date SendTaskReimage Covid-19 Vaccine 30mcg/0.3ML Suspension 01/30/21, 02/20/21, 09/04/21 Gino Negro D.O., FAAFP 09/11/2021 Furosemide 20mg Tablets Take 1 Tablet By Mouth Every Day 90tabs Gino Negro D.O., FAAFP Clopidogrel Bisulfate 75mg Tablets Take 1 Tablet By Mouth Every Day. Maximum Daily Dose Is 1. 90tabs Gino Negro D.O., FAAFP 10/09/2019 Ondansetron 8mg Tablets Dispers 1 tab by mouth three times a day as needed 30tabs Gino briseno D.O., FAAFP 03/23/2019 Mupirocin 2% Ointment apply to inner right nare using a cotton tipped applicator three times a day 22gm Gino Negro D.O., FAAFP 01/05/2019 Synthroid 137mcg Tablets 1 by mouth every day 90tabs Gino Negro D.O., FAAFP Vitamin B-12 Natural 500mcg Tablets 1 po qd 30tabs Gino Negro D.O., FAAFP 05/25/2014 Slow-Mag 71.5-119mg Tablets DR 1 po qd 30tabs Gino Negro D.O., FAAFP 05/25/2014 Folic Acid 400mcg Tablets 1 by mouth every day 30tabs Gino Negro D.O., FAAFP Coreg 6.25mg Tablets 1 po bid 60tabs Gino Negro D.O., FAAFP 11/20/2008 Amiodarone HCL 200mg Tablets 1 every day Wilfredo Monk M.D. Oxybutynin Chloride ER 10mg Tablets ER 24HR 1 by mouth every day Unknown Sildenafil Citrate 100mg Tablets 1 by mouth every day as needed Unknown Depakote ER 500mg Tablets ER 24HR 1 by mouth every day at at bedtime Unknown Aspirin 81 Low Dose 81mg Chewtabs 1 tab by mouth once a day Unknown Rosuvastatin Calcium 10mg Tablets 1 by mouth every day Unknown Tylenol 8 Hour Arthritis Pain 650mg Tablets ER 1 tabs by mouth two times a day Unknown Clobetasol Propionate 0.05% Cream apply locally to chest rash twice a day for 2 weeks off for 2 weeks and then repeat 45gm Gino Negro D.O., [facility] Losartan Potassium 25mg Tablets 1 by mouth every hs Wilfredo Monk M.D. Glucosamine Chondroitin Complex C apsules one by mouth bid OTC Unknown Chlorthalidone 25mg Tablets 1/[address] Monk Unknown Multi Vitamin Tablets OTC Unknown History Medications Lasix 20mg Tablets 1 b y mouth every day 30tabs Gino Negro D.O., [facility] 05/02/2021 - 07/28/2021 Amoxicillin/Clavulanate Potassium 875-125mg Tablets 1 tab by mouth twice a day for 10 days 20tabs Charley Capone [facility] 05/02/2021 - 06/11/2021 Vancomycin HCL 250mg Capsules 1 tab by mouth three times a day for 5 days 15capCharley Quintero [facility] 04/04/2021 - 04/09/2021 Medications Administered in Office Medication SIG Qnty Indications Ordering Provider Date Injection (SC)/(Im) Injection Eyal Tovar, RPA 01/20/2018 Injection (SC)/(Im) Injection Eyal Tovar, RPA 01/19/2018 Injection (SC)/(Im) Injection Eyal Tovar, RPA 01/18/2018 Injection (SC)/(Im) Injection Eyal Tovar, RPA 01/17/2018 Injection (SC)/(Im) Injection Eyal Tovar, RPA 01/14/2018 Injection (SC)/(Im) Injection Eyal Tovar, RPA 01/13/2018 Injection (SC)/(Im) Injection Eyal Tovar, RPA 01/12/2018 Injection (SC)/(Im) Injection Eyal Tovar, RPA 01/11/2018 Injection (SC)/(Im) Injection Eyal Tovar, RPA 01/10/2018 Injection (SC)/(Im) Injection Eyal Tovar, RPA 01/07/2018 Injection (SC)/(Im) Injection Eyal Tovar, RPA 04/16/2017 Injection (SC)/(Im) Injection Eyal Tovar, RPA 04/15/2017 Injection (SC)/(Im) Injection Eyal Tovar, RPA 04/14/2017 Injection (SC)/(Im) Injection Eyal Tovar, RPA 10/02/2014 Injection (SC)/(Im) Injection Eyal Tovar, RPA 2013 Injection (SC)/(Im) Injection Eyal Tovar, RPA 09/01/2013 Injection (SC)/(Im) Injection Eyal Tovar, RPA 08/29/2013 Injection Subcutaneous Or Intramuscular Injection Eyal Tovar, RPA 03/17 Immunizations CPT Code Status Date Vaccine Lot # [id number] Given 08/29/2013 Tdap Tetanus,Dip htheria Toxoids/Acellular Pertussis 7Yrs Or Older [id number] Given 02/20/2000 PPD Tuberculosis Intradermal 18232 Refused 09/11/2021 Influenza Virus Vaccine, Quadrivalent, Slit Virus, Im Use 3Y & Up 50206 Refused 08/11/2019 Influenza Virus Vaccine, Quadrivalent, Slit Virus, Im Use 3Y & Up [id number] Refused 10/01/2016 Influenza Virus Vaccine, Quadrivalent, Slit Virus, Im Use 3Y & Up Vital Signs Date Vital Result Comment 09/11/2021 1:16pm BP Systolic 110 mmHg BP Diastolic 72 mmHg Body Temperature 97.0 F Heart Rate 72 /min Respiratory Rate 16 /min Height 73 inches 6'1" Weight 289.00 lb Crane Body Weight 184 lb BMI (Body Mass Index) 38.1 kg/m2 O2 % BldC Oximetry 96 % 07/09/2021 9:29am BP Systolic 136 mmHg BP Diastolic 84 mmHg Body Temperature 96.1 F Heart Rate 72 /min Respiratory Rate 16 /min Height 73 inches 6'1" Weight 308.00 lb Crane Body Weight 184 lb BMI (Body Mass Index) 40.6 kg/m2 O2 % BldC Oximetry 96 % Results Test Acquired Date Facility Test Result H/L Range Note Basic Metabolic Profile 07/09/2021 [facility] [phone] Glucose, Fasting 90 mg/dL Normal 70-100 Blood Urea Nitrogen 22 mg/dL High 7-18 Creatinine For GFR 1.19 mg/dL Normal 0.70-1.30 Glomerular Filtration Rate > 60.0 Normal >49 1 Sodium Level 139 mEq/L Normal 136-145 Potassium Serum 4.0 mEq/L Normal 3.5-5.1 Chloride Level 101 mEq/L Normal 98-107 Carbon Dioxide Level 29 mEq/L Normal 21-32 Anion Gap 9 mEq/L Normal 8-16 Calcium Level 9.6 mg/dL Normal 8.8-10.2 Laboratory test finding 07/09/2021 [facility] (Interface) [phone] Magnesium Level 2.2 mg/dL Normal 1.8-2.4 Laboratory test finding 07/09/2021 [facility] (Interface) [phone] Valproic Acid (Depakote) 75.4 UG/ML Normal 50.0-10 0.0 Complete Blood Count 07/09/2021 [facility]) [phone] White Blood Count 7.6 10 Normal 4.0-10.0 Red Blood Count 4.51 10 Normal 4.30-6.10 Hemoglobin 12.2 g/dL Low 13.5-17.5 Hematocrit 39.7 % Low 42.0-52.0 Mean Corpuscular Volume 88.0 fl Normal 80.0-96.0 Mean Corpuscular Hemoglobin 27.1 pg Normal 27.0-33.0 Mean Corpuscular HGB Conc 30.7 g/dL Low 32.0-36.5 Red Cell Distribution Width 15.7 % High 11.5-14.5 Platelet Count, Automated 311 10 Normal 150-450 Nucleated Red Blood Cell % 0.0 % Normal 0-0 Laboratory test finding 06/04/2021 [facility] (Interface) [phone] HIV 1&2 Screen Centaur NEGATIVE Normal Negative 2 GC & Chlamydia By Amp 06/04/2021 [facility] (Interface) [phone] Chlamydia Dna Amplification NEGATIVE Normal Nega tive 3 GC Dna Amplification NEGATIVE Normal Negative 4 CBC With Differential/Platelet 04/29/2021 [facility] N E WBC 6.3 x10E3/uL 3.4-10.8 RBC 3.84 x10E6/uL Low 4.14-5.80 Hemoglobin 11.4 g/dL Low 13.0-17.7 Hematocrit 34.5 % Low 37.5-51.0 MCV 90 fL 79-97 MCH 29.7 pg 26.6-33.0 MCHC 33.0 g/dL 31.5-35.7 RDW 13.8 % 11.6-15.4 Platelets 273 x10E3/uL 150-450 Neutrophils 51 % Not Estab. Lymphs 29 % Not Estab. Monocytes 13 % Not Estab. Eos 5 % Not Estab. Basos 1 % Not Estab. Immature Cells TNP Neutrophils (Absolute) 3.3 x10E3/uL 1.4-7.0 Lymphs (Absolute) 1.8 x10E3/uL 0.7-3.1 Monocytes(Absolute) 0.8 x10E3/uL 0.1-0.9 Eos (Absolute) 0.3 x10E3/uL 0.0-0.4 Baso (Absolute) 0.1 x10E3/uL 0.0-0.2 Immature Granulocytes 1 % Not Estab. Immature Grans (Abs) 0.0 x10E3/uL 0.0-0.1 NRBC TNP Hematology Comments: TNP Basic Metabolic Panel (8) 04/29/2021 [facility] [place] Glucose 108 mg/dL High 65-99 BUN 12 mg/dL 8-27 Creatinine 0.93 mg/dL 0.76-1.27 eGFR If NonAfricn Am 86 mL/min/1.73 >59 eGFR If Africn Am 100 mL/min/1.73 >59 5 BUN/Creatinine Ratio 13 10-24 Sodium 140 mmol/L 134-144 Potassium 4.3 mmol/L 3.5-5.2 Chloride 101 mmol/L 96-106 Carbon Dioxide, Total 26 mmol/L 20-29 Calcium 9.6 mg/dL 8.6-10.2 Aerobic Bacterial Culture 04/29/2021 [facility] [place] Aerobic Bacterial Culture Final report Abnormal 6 , 7 Result 1 Escherichia coli Abnormal 8 Result 2 See Comment: Abnormal 9 Antimicrobial Susceptibility See Comment: 10 Aerobic Bacterial Culture 04/04/2021 [facility] [place] Aerobic Bacterial Culture Final report Abnormal 1 1, 12 Result 1 Escherichia coli Abnormal 13 Result 2 See Comment: Abnormal 14 Antimicrobial Susceptibility See Comment: 15 Culture Wound And Gram Stain 03/30/2021 [facility] (Interface) [phone] Gram Stain (SEE NOTE) Normal 16 Wound Culture FULL REPORT IN L <SEE NOTE> Normal 17 Blood Culture 03/30/2021 [facility] ([employer]terface) [phone] Blood Culture No growth after <SEE NOTE> 18 Prothrombin Time/Inr 03/30/2021 [facility] ( Interface) [phone] Prothrombin Time 13.5 seconds Normal 12.5-14.3 Inr 1.01 Normal 19 Comprehensive Metabolic Profil 03/30/2021 [facility] (Interface) [phone] Glucose, Fasting 112 mg/dL High 70-100 Blood Urea Nitrogen 12 mg/dL Normal 7-18 Creatinine For GFR 1.01 mg/dL Normal 0.70-1.30 Glomerular Filtration Rate > 60.0 Normal >49 2 0 Sodium Level 137 mEq/L Normal 136-145 Potassium Serum 3.9 mEq/L Normal 3.5-5.1 Chloride Level 104 mEq/L Normal 98-107 Carbon Dioxide Level 28 mEq/L Normal 21-32 Anion Gap 5 mEq/L Low 8-16 Calcium Level 8.1 mg/dL Low 8.8-10.2 Ast/Sgot 38 U/L High 7-37 Alt/SGPT 60 U/L Normal 12-78 Alkaline Phosphatase 64 U/L Normal 45-117 Bilirubin,Total 0.4 mg/dL Normal 0.2-1.0 Total Protein 6.7 GM/DL Normal 6.4-8.2 Albumin 3.1 GM/DL Low 3.2-5.2 Albumin/Globulin Ratio 0.9 Normal Laboratory test finding 03/30/2021 [facility] ([facility]) [phone] C Reactive Protein Quantitativ 1.06 mg/dL High 0 .00-0.30 CBC With Differential 03/30/2021 [facility]) [phone] White Blood Count 8.1 10 Normal 4.0-10.0 Red Blood Count 3.65 10 Low 4.30-6.10 Hemoglobin 11.4 g/dL Low 13.5-17.5 Hematocrit 34.6 % Low 42.0-52.0 Mean Corpuscular Volume 94.8 fl Normal 80.0-96.0 Mean Corpuscular Hemoglobin 31.2 pg Normal 27.0-33.0 Mean Corpuscular HGB Conc 32.9 g/dL Normal 32.0-36.5 Red Cell Distribution Width 14.3 % Normal 11.5-14.5 Platelet Count, Automated 261 10 Normal 150-450 Neutrophils % 65.3 % Normal 36.0-66.0 Lymph % 18.7 % Low 24.0-44.0 [place] % 12.3 % High 2.0-8.0 Eos % 2.0 % Normal 0.0-3.0 Baso % 0.5 % Normal 0.0-1.0 Immature Granulocyte % 1.2 % Normal 0-3.0 Nucleated Red Blood Cell % 0.0 % Normal 0-0 Neutrophils # 5.3 10 Normal 1.5-8.5 Lymph # 1.5 10 Normal 1.5-5.0 [place] # 1.0 10 High 0.0-0.8 Eos # 0.2 10 Normal 0.0-0.5 Baso # 0.0 10 Normal 0.0-0.2 Laboratory test finding 03/30/2021 [facility] (Interface) [phone] Erythrocyte Sedimentation Rate 33 mm/hr High 0 -20 Laboratory test finding 03/30/2021 [facility] ([facility]) [phone] Lactic Acid Sepsis Protocol 1.7 mmol/L Normal 0.4- 2.0 21 Blood Culture 03/30/2021 [facility] [phone] Blood Culture No growth after <SEE NOTE> 22 1 Units are mL/min/1.73 m2 Chronic Kidney Disease Staging per NKF: Stage I & II GFR >=60 Normal to Mildly Decreased Stage III GFR 30-59 Moderately Decreased Stage IV GFR 15-29 Severely Decreased Stage V GFR <15 Very Little GFR Left ESRD GFR <15 on IRON CARRIER 2 This assay was performed uti lizing a chemiluminescent principle technique for the simultaneous qualitative detection of HIV-1 p24 antigen & antibodies to HIV-1 (including group O) & HIV-2 using the Babybe system. The estimated 95% confidence interval for sensitivity of this antigen/antibody combination assay for HIV-1&2 antibodies is 99.7-100% and HIV p24 antigen is 89.4-99.9%. The estimated 95% confidence interval for specificity of this antigen/antibody combination in low risk populations is 99.6-99.8%. 3 A negative test result does not exclude the possibility of infection because test results may be affected by improper specimen collection, technical error, specimen mix-up, concurrent antibiotic therapy, or the number of organisms in the specimen which may be below the sensitivity of the test. 4 A negative test result does not exclude the possibility of infection because test results may be affected by improper specimen collection, technical error, specimen mix-up, concurrent antibiotic therapy, or the number of organisms in the specimen which may be below the sensitivity of the test. 5 [facility] currently reports eGFR in compliance with the current recommendations of the National Kidney Foundation. [facility] will update reporting as new guidelines are published from the NKF-ASN Task force. 6 SRC:RT UPPER LEG/GROIN 7 Source of Specimen: RT UPPER LEG/GROIN 8 Escherichia coli Source of Specimen: RT UPPER LEG/GROIN Scant growth 9 Source of Specimen: RT UPPER LEG/GROIN Beta hemolytic Streptococcus, group B Heavy growth Penicillin and ampicillin are drugs of choice for treatment of beta-hemolytic streptococcal infections. Susceptibility testing of penicillins and other beta-lactam agents approved by the FDA for treatment of beta-hemolytic streptococcal infections need not be performed routinely because nonsusceptible isolates are extremely rare in any beta-hemolytic streptococcus and have not been reported for Streptococcus pyogenes (group A). (CLSI) 10 Source of Specimen: RT UPPER LEG/GROIN S = Susceptible; I = Intermediate; R = Resistant P = Positive; N = Negative MICS are expressed in micrograms per mL Antibiotic RSLT#1 RSLT#2 RSLT#3 RSLT#4 Amoxicillin/Clavulanic Acid S Ampicillin S Cefepime S Ceftriaxone S Cefuroxime S Ciprofloxacin S Ertapenem S Gentamicin S Imipenem S Levofloxacin S Meropenem S Piperacillin/Tazobactam S Tetracycline S Tobramycin S Trimethoprim/Sulfa S 11 SRC:RT UPPER LEG CX 12 Source of Specimen: RT UPPER LEG CX 13 Escherichia coli Source of Specimen: RT UPPER LEG CX Heavy growth 14 Source of Specimen: RT UPPER LEG CX Raoultella ornithinolytica Scant growth 15 Source of Specimen: RT UPPER LEG CX S = Susceptible; I = Intermediate; R = Resistant P = Positive; N = Negative MICS are expressed in micrograms per mL Antibiotic RSLT#1 RSLT#2 RSLT#3 RSLT#4 Amoxicillin/Clavulanic Acid S S Ampicillin S R Cefepime S S Ceftriaxone S S Cefuroxime S S Ciprofloxacin S S Ertapenem S Gentamicin S S Imipenem S S Levofloxacin S Meropenem S S Piperacillin/Tazobactam S Tetracycline S S Tobramycin S S Trimethoprim/Sulfa S S 16 NO CELLS SEEN FEW GRAM POSITIVE COCCI IN PAIRS 17 FULL REPORT IN LAB NOTES (eC W and Medent). ORGANISM 1: YEAST LIKE ORGANISM QUANTITY OF GROWTH FEW ORGANISM 2: STAPHYLOCOCCUS SP COAG NEG QUANTITY OF GROWTH FEW ORGANISM 3: RAOULTELLA ORNITHINOLYTICA QUANTITY OF GROWTH FEW ORGANISM 1: YEAST LIKE ORGANISM ORGANISM 2: STAPHYLOCOCCUS SP COAG NEG ORGANISM 3: RAOULTELLA ORNITHINOLYTICA STAPHYLOCOCCUS SP COAG NEG: REACTION ICR (INDUCIBLE CC RESISTANCE) IV ICR TEST RESULT TETRACYCLINE PO 250 mg qid 2 S PENICILLIN G IV 1 mu q6H >=0.5 R PENICILLIN G IV 1 mu q6h >=0.5 R PENICILLIN G PO 250mg q6h fasting >=0.5 R TRIMETHOPRIM/SULFAMETHOXAZOLE IV 160mg TMP & 800mg SMXq6h 160 R TRIMETHOPRIM/SULFAMETHOXAZOLE PO Bactrim DS Bid 160 R ERYTHROMYCIN IV 500mg q6h >=8 R ERYTHROMYCIN PO 500mg q6h >=8 R GENTAMICIN IV 80mg q8h <=0.5 S CLINDAMYCIN IV 600mg q6h >=4 R CLINDAMYCIN PO 150mg q6h >=4 R NITROFURANTOIN PO 100mg BID <=16 S OXACILLIN IV 500mg q6h <=0.25 S VANCOMYCIN IV 500mg q8h 2 S LINEZOLID (ZYVOX) IV 600MG Q12HR 1 S LINEZOLID (ZYVOX) PO 600MG Q12HR 1 S An isolate with a (+) POSITIVE ICR test is considered CLINDAMYCIN RESISTANT; however, clindamycin may still be effective in some patients. An isolate with a (-) NEGATIVE ICR test is considered CLIDAMYCIN SENSITIVE. Oxacillin result predicts susceptibility to all penicillinase-stable penicillins (Nafcillin, Dicloxacilin), Cephalosporins, Carbapenems, Amoxicillin/Clavulanate & Ampicillin/Sulbactam per CSLI standards. RAOULTELLA ORNITHINOLYTICA: REACTION TRIMETHOPRIM/SULFAMETHOXAZOLE IV 160mg TMP & 800mg SMXq6h <=20 S TRIMETHOPRIM/SULFAMETHOXAZOLE PO Bactrim DS Bid <=20 S AMPICILLIN IV 500mg q6h >=32 R AMPICILLIN PO 500mg q6h fasting >=32 R GENTAMICIN IV 80mg q8h <=1 S CEFAZOLIN IV 1gm q8h <=4 S LEVOFLOXACIN IV 500mg qd <=0.12 S LEVOFLOXACIN PO 250mg qd <=0.12 S LEVOFLOXACIN PO 500mg qd <=0.12 S TOBRAMYCIN IV 80mg q8h <=1 S CEFTRIAXONE IV 1gm q24h <=1 S CEFTAZIDIME IV 1gm q8h <=1 S AMPICILLIN/SULBACTAM IV 1.5g q6h 4 S PIPERACILLIN/TAZOBACTAM IV 2.25 gm q6h <=4 S AZTREONAM IV 1gm q8h <=1 S ERTAPENEM IV 1gm qd <=0.5 S MEROPENEM IV 1 gm q8h <=0.25 S MEROPENEM IV 500 mg q8h <=0.25 S TIGECYCLINE IV 50mg q12h <=0.5 S CEFEPIME IV 1 gm q12h <=1 S CEFEPIME IV 2 gm q12h <=1 S 18 No growth after 72 hours . A ll specimens observed for 5 days. Results final at that time. No growth after 48 hours . All specimens observed for 5 days. Results final at that time. No growth after 24 hours . All specimens observed for 5 days. Results final at that time. NO GROWTH AFTER 5 DAYS 19 THERAPUTIC HUMAN INR VALUES INDICATIONS NORMAL RANGES PROPHYLAXIS/TREATMENT OF: VENOUS THROMBOSIS 2.0-3.0 PULMONARY EMBOLISM 2.0-3.0 PREVENTION OF SYSTEMIC EMBOLISM FROM: TISSUE HEART VALVES 2.0-3.0 ACUTE MYOCARDIAL INFARCTION 2.0-3.0 VALVULAR HEART DISEASE 2.0-3.0 ATRIAL FIBRILLATION 2.0-3.0 MECHANICAL VALVES(HIGH RISK) 2.5-3.5 RECURRENT MYOCARDIAL INFARCTION 2.5-3.5 20 Units are mL/min/1.73 m2 Chronic Kidney Disease Staging per NKF: Stage I & II GFR >=60 Normal to Mildly Decreased Stage III GFR 30-59 Moderately Decreased Stage IV GFR 15-29 Severely Decreased Stage V GFR <15 Very Little GFR Left ESRD GFR <15 on IRON CARRIER 21 Y/N query for Sepsis Lactate Rule: Y 22 No growth after 72 hours . A ll specimens observed for 5 days. Results final at that time. No growth after 48 hours . All specimens observed for 5 days. Results final at that time. No growth after 24 hours . All specimens observed for 5 days. Results final at that time. NO GROWTH AFTER 5 DAYS Procedures Date Code Description Status 09/11/2021 44890 Office/Outpatient Established Mo d MDM 30-39 Min Completed 07/09/2021 67234 Office/Outpatient Established Lo w MDM 20-29 Min Completed 06/11/2021 18285 Office/Outpatient Established Mo d MDM 30-39 Min Completed 04/29/2021 34605 Office/Outpatient Established Lo w MDM 20-29 Min Completed 04/04/2021 34151 Office/Outpatient Established Lo w MDM 20-29 Min Completed Medical Devices Description No Information Available Encounters Type Date Location Provider Dx Diagnosis Office Visit 09/11/2021 1:15p [facility] Eyal Tovar, RP A I10 Essential (primary) hypertension E78.2 Mixed hyperlipidemia E03.9 Hypothyroidism, unspecified I48.20 Chronic atrial fibrillation, unspecified J44.9 Chronic obstructive pulmonar y disease, unspecified Office Visit 07/09/2021 9:30a [facility] Eyal Tovar, RP A L40.9 Psoriasis, unspecified Office Visit 06/11/2021 1:00p [facility] Eyal Tovar, RP A I10 Essential (primary) hypertension E78.2 Mixed hyperlipidemia E03.9 Hypothyroidism, unspecified I48.20 Chronic atrial fibrillation, unspecified Office Visit 04/29/2021 10:15a [facility] Cutaneous abscess of right lower limb R60.9 Edema, unspecified Office Visit 04/04/2021 2:45p [facility] Alireza, MANDY Post L02.415 Cutaneous abscess of right lower limb Assessments Date Code Description Provider 09/11/2021 I10 Essential (primary) hypertension Eyal Tovar, RPA 09/11/2021 E78.2 Mixed hyperlipidemia Wilfredo Tovar, RPA 09/11/2021 E03.9 Hypothyroidism, unspecified Eyal Mckeon, RPA 09/11/2021 I48.20 Chronic atrial fibrillation, uns pecified Eyal Tovar, RPA 09/11/2021 J44.9 Chronic obstructive pulmonary di sease, unspecified Eyal Tovar, RPA 07/09/2021 L40.9 Psoriasis, unspecified Maegan Tovar, RPA 06/11/2021 I10 Essential (primary) hypertension Eyal Tovar, RPA 06/11/2021 E78.2 Mixed hyperlipidemia Wilfredo Tovar, RPA 06/11/2021 E03.9 Hypothyroidism, unspecified Eyal Mckeon, RPA 06/11/2021 I48.20 Chronic atrial fibrillation, uns pecEyal Fenton, RPA 04/29/2021 L02.415 Cutaneous abscess of right lower limb Charley Lay FNP-BC 04/29/2021 R60.9 Edema, unspecified Charley Lay FNP-BC 04/04/2021 L02.415 Cutaneous abscess of right lower limb Charley Lay FNP-BC Plan of Treatment Future Appointment(s):* 12/12/2021 11:30 am - Eyal Tovar, RPA at [facility] Functional Status Functional Condition Comment Date Status ADL's.independent.all ADL's Acti ve Mental Status Description No Information Available Referrals Refer to Reason for Referral Status Appt Date [facility] Dermatology Psoriasis --Appointment alr christos scheduled for 07/23/21 at [facility] by patient.--No active lesions at this time. Peviously under care of [facility] Dermatology. Sent [address] [place], [place] [id number] [phone]
--- OUTSIDE RECORDS SUMMARY | 2021-09-17 06:06 | CCD | Continuity of Care Document ---
Author Author Keith TOVAR [facility] Organization Unknown Address [address] [place], [place] [address] Phone [phone] Care Team Providers Care Lacemaker Name Role Phone Wilfredo Monk M.D. [facility] [phone] Problems Active Problems Provider Date Tobacco user [...] and lactic acid dehydro genase Eyal Tovar, [facility] Onset: 04/05/2018 Social History Type Date Description Comments Sex Unknown ETOH Use Denies alcohol use Smoking Uses E Cigarette Tobacco Use Start: Unknown End: Unknown Patient is a former smoker Exercise Type/Frequency Does not currently exerc ise Seat Belt/Car Seat always Allergies and adverse reactions Description No Known Drug Allergies Medications Active Medications SIG Qnty Indications Ordering Provide r Date [employer] Covid-19 Vaccine 30mcg/0.3ML Suspension 01/30/21, 02/20/21, 09/04/21 [...] and then repeat 45gm Gino Negro D.O., [facility] Losartan Potassium 25mg Tablets 1 by mouth every hs Wilfredo Monk M.D. Glucosamine Chondroitin Complex C apsules one by mouth bid OTC Unknown Chlorthalidone 25mg Tablets 1/[address] Monk Unknown Multi Vitamin Tablets OTC Unknown History Medications Lasix 20mg Tablets 1 b y mouth every day 30tabs Gino Negro D.O., [facility] 05/02/2021 - 07/28/2021 Amoxicillin/Clavulanate Potassium 875-125mg Tablets 1 tab by mouth twice a day for 10 days 20tabs Charley Capone [facility] 05/02/2021 - 06/11/2021 Vancomycin HCL 250mg Capsules 1 tab by mouth three times a day for [address] [facility] 04/04/2021 - 04/09/2021 Medications Administered in Office [...] CPT Code Status Date Vaccine Lot # [id number] Given 08/29/2013 Tdap Tetanus,Dip htheria Toxoids/Acellular Pertussis 7Yrs Or Older [id number] Given 02/20/2000 PPD Tuberculosis Intradermal 04161 Refused 09/11/2021 Influenza Virus Vaccine, Quadrivalent, Slit Virus, Im Use 3Y & Up 11563 Refused 08/11/2019 Influenza Virus Vaccine, Quadrivalent, Slit Virus, Im Use 3Y & Up 80240 Refused 10/01/2016 Influenza Virus Vaccine, Quadrivalent, Slit Virus, Im Use 3Y & Up Vital Signs Date Vital Result Comment 09/11/2021 1:16pm BP Systolic 110 mmHg BP Diastolic 72 mmHg Body Temperature 97.0 F Heart Rate 72 /min Respiratory Rate 16 /min Height 73 inches 6'1" Weight 289.00 lb [place] Body Weight 184 lb BMI (Body Mass Index) 38.1 kg/m2 O2 % BldC Oximetry 96 % 07/09/2021 9:29am BP Systolic 136 mmHg BP Diastolic 84 mmHg Body Temperature 96.1 F Heart Rate 72 /min Respiratory Rate 16 /min Height 73 inches 6'1" Weight 308.00 lb [place] Body Weight 184 lb BMI (Body Mass Index) 40.6 kg/m2 O2 % BldC Oximetry 96 % Results Test Acquired Date Facility Test Result H/L Range Note Basic Metabolic Profile 07/09/2021 [facility] [phone] Glucose, Fasting 90 mg/dL Normal 70-100 Blood [...] mg/dL Normal 8.8-10.2 Laboratory test finding 07/09/2021 [facility] (Interface) [phone] Magnesium Level 2.2 mg/dL Normal 1.8-2.4 Laboratory test finding 07/09/2021 [facility] (Interface) [phone] Valproic Acid (Depakote) 75.4 UG/ML Normal 50.0-10 0.0 Complete Blood Count 07/09/2021 [facility]) [phone] White Blood Count 7.6 10 Normal 4.0-10.0 [...] % Normal 0-0 Laboratory test finding 06/04/2021 [facility] (Interface) [phone] HIV 1&2 Screen Centaur NEGATIVE Normal Negative 2 GC & Chlamydia By Amp 06/04/2021 [facility] (Interface) [phone] Chlamydia Dna Amplification NEGATIVE Normal Nega tive [...] 15 Culture Wound And Gram Stain 03/30/2021 [facility] (Interface) [phone] Gram Stain (SEE NOTE) Normal 16 Wound Culture FULL REPORT IN L <SEE NOTE> Normal 17 Blood Culture 03/30/2021 [facility] (I nterface) [phone] Blood Culture No growth after <SEE NOTE> 18 Prothrombin Time/Inr 03/30/2021 [facility] ( Interface) [phone] Prothrombin Time 13.5 seconds Normal 12.5-14.3 Inr 1.01 Normal 19 Comprehensive Metabolic Profil 03/30/2021 [facility] (Interface) [phone] Glucose, Fasting 112 mg/dL High 70-100 Blood [...] Ratio 0.9 Normal Laboratory test finding 03/30/2021 [facility] ([facility]) [phone] C Reactive Protein Quantitativ 1.06 mg/dL High 0 .00-0.30 CBC With Differential 03/30/2021 [facility]) [phone] White Blood Count 8.1 10 Normal 4.0-10.0 [...] 36.0-66.0 Lymph % 18.7 % Low 24.0-44.0 [place] % 12.3 % High 2.0-8.0 Eos % 2.0 % Normal 0.0-3.0 Baso % 0.5 % Normal 0.0-1.0 Immature Granulocyte % 1.2 % Normal 0-3.0 Nucleated Red Blood Cell % 0.0 % Normal 0-0 Neutrophils # 5.3 10 Normal 1.5-8.5 Lymph # 1.5 10 Normal 1.5-5.0 [place] # 1.0 10 High 0.0-0.8 Eos # 0.2 10 Normal 0.0-0.5 Baso # 0.0 10 Normal 0.0-0.2 Laboratory test finding 03/30/2021 [facility] (Interface) [phone] Erythrocyte Sedimentation Rate 33 mm/hr High 0 -20 Laboratory test finding 03/30/2021 [facility] ([facility]) [phone] Lactic Acid Sepsis Protocol 1.7 mmol/L Normal 0.4- 2.0 21 Blood Culture 03/30/2021 [facility] [phone] Blood Culture No growth after <SEE NOTE> 22 1 Units are mL/min/1.73 m2 Chronic Kidney Disease Staging per NKF: Stage I & II GFR >=60 Normal to Mildly Decreased Stage III GFR 30-59 Moderately Decreased Stage IV GFR 15-29 Severely Decreased Stage V GFR <15 Very Little GFR Left ESRD GFR <15 on INSTRUMENT ENGINEER 2 This assay was performed uti lizing a chemiluminescent principle technique for the simultaneous qualitative detection of HIV-1 p24 antigen & antibodies to HIV-1 (including group O) & HIV-2 using the [employer] system. The estimated 95% confidence interval for [...] Little GFR Left ESRD GFR <15 on INSTRUMENT ENGINEER 21 Y/N query for Sepsis Lactate Rule: [...] DAYS Procedures Date Code Description Status 09/11/2021 96369 Office/Outpatient Established Mo d MDM 30-39 Min Completed 07/09/2021 37064 Office/Outpatient Established Lo w MDM 20-29 Min Completed 06/11/2021 05321 Office/Outpatient Established Mo d MDM 30-39 Min Completed 04/29/2021 86608 Office/Outpatient Established Lo w MDM 20-29 Min Completed 04/04/2021 76639 Office/Outpatient Established Lo w MDM 20-29 Min Completed Medical Devices Description No Information Available Encounters Type Date Location Provider Dx Diagnosis Office Visit 09/11/2021 1:15p [place] [facility] Eyal Tovar, RP A I10 Essential (primary) hypertension E78.2 Mixed hyperlipidemia E03.9 Hypothyroidism, unspecified I48.20 Chronic atrial fibrillation, unspecified J44.9 Chronic obstructive pulmonar y disease, unspecified Office Visit 07/09/2021 9:30a [place] [facility] Eyal Tovar, RP A L40.9 Psoriasis, unspecified Office Visit 06/11/2021 1:00p [place] [facility] Eyal Tovar, RP A I10 Essential (primary) hypertension E78.2 Mixed hyperlipidemia E03.9 Hypothyroidism, unspecified I48.20 Chronic atrial fibrillation, unspecified Office Visit 04/29/2021 10:15a [place] [facility] Cutaneous abscess of right lower limb R60.9 Edema, unspecified Office Visit 04/04/2021 2:45p [place] [facility] Alireza, MANDY Post L02.415 Cutaneous abscess [...] 11:30 am - Eyal Tovar, RPA at [facility] Functional Status Functional Condition Comment Date Status ADL's.independent.all ADL's Acti ve Mental Status Description No Information Available Referrals Refer to Reason for Referral Status Appt Date [facility] Dermatology Psoriasis --Appointment alr christos scheduled for 07/23/[address] [facility] by patient.--No active lesions at this time. Peviously under care of [facility] Dermatology. Sent [address] [place], [place] [address] [phone]
--- OUTSIDE RECORDS SUMMARY | 2021-09-17 06:06 | CCD | Continuity of Care Document ---
Author Author Keith TOVAR [facility] Organization Unknown Address [address] [place], [place] [address] Phone [phone] Care Team Providers Care Certified Caregiver Name Role Phone Wilfredo Monk M.D. [facility] [phone] Problems Active Problems Provider Date Tobacco user Eyal Tovar, [facility] Onset: 03/20/2008 Chronic obstructive lung disease Eyal [...] and lactic acid dehydro genase Eyal Tovar, [facility] Onset: 04/05/2018 Social History Type Date Description Comments Sex Unknown ETOH Use Denies alcohol use Smoking Uses E Cigarette Tobacco Use Start: Unknown End: Unknown Patient is a former smoker Exercise Type/Frequency Does not currently exerc ise Seat Belt/Car Seat always Allergies and adverse reactions Description No Known Drug Allergies Medications Active Medications SIG Qnty Indications Ordering Provide r Date [employer] Covid-19 Vaccine 30mcg/0.3ML Suspension 01/30/21, 02/20/21, 09/04/21 Gino Negro D.O., [facility] 09/11/2021 Furosemide 20mg Tablets Take 1 Tablet By Mouth Every Day 90tabs iGno Negro D.O., [facility] Clopidogrel Bisulfate 75mg Tablets [...] and then repeat 45gm Gino Negro D.O., [facility] Losartan Potassium 25mg Tablets 1 by mouth every hs Wilfredo Monk M.D. Glucosamine Chondroitin Complex C apsules one by mouth bid OTC Unknown Chlorthalidone 25mg Tablets 1/[address] Monk Unknown Multi Vitamin Tablets OTC Unknown History Medications Lasix 20mg Tablets 1 b y mouth every day 30tabs Gino Negro D.O., [facility] 05/02/2021 - 07/28/2021 Amoxicillin/Clavulanate Potassium 875-125mg Tablets 1 tab by mouth twice a day for 10 days 20tabs Charley Capone [facility] 05/02/2021 - 06/11/2021 Vancomycin HCL 250mg Capsules 1 tab by mouth three times a day for 5 days 15capCharley Quintero [facility] 04/04/2021 - 04/09/2021 Medications Administered in Office [...] CPT Code Status Date Vaccine Lot # [id number] Given 08/29/2013 Tdap Tetanus,Dip htheria Toxoids/Acellular Pertussis 7Yrs Or Older [id number] Given 02/20/2000 PPD Tuberculosis Intradermal 01753 Refused 09/11/2021 Influenza Virus Vaccine, Quadrivalent, Slit Virus, Im Use 3Y & Up 22370 Refused 08/11/2019 Influenza Virus Vaccine, Quadrivalent, Slit Virus, Im Use 3Y & Up 96987 Refused 10/01/2016 Influenza Virus Vaccine, Quadrivalent, Slit Virus, Im Use 3Y & Up Vital Signs Date Vital Result Comment 09/11/2021 1:16pm BP Systolic 110 mmHg BP Diastolic 72 mmHg Body Temperature 97.0 F Heart Rate 72 /min Respiratory Rate 16 /min Height 73 inches 6'1" Weight 289.00 lb [place] Body Weight 184 lb BMI (Body Mass Index) 38.1 kg/m2 O2 % BldC Oximetry 96 % 07/09/2021 9:29am BP Systolic 136 mmHg BP Diastolic 84 mmHg Body Temperature 96.1 F Heart Rate 72 /min Respiratory Rate 16 /min Height 73 inches 6'1" Weight 308.00 lb [place] Body Weight 184 lb BMI (Body Mass Index) 40.6 kg/m2 O2 % BldC Oximetry 96 % Results Test Acquired Date Facility Test Result H/L Range Note Basic Metabolic Profile 07/09/2021 [facility] [phone] Glucose, Fasting 90 mg/dL Normal 70-100 Blood [...] mg/dL Normal 8.8-10.2 Laboratory test finding 07/09/2021 [facility] (Interface) [phone] Magnesium Level 2.2 mg/dL Normal 1.8-2.4 Laboratory test finding 07/09/2021 [facility] (Interface) [phone] Valproic Acid (Depakote) 75.4 UG/ML Normal 50.0-10 0.0 Complete Blood Count 07/09/2021 [facility]) [phone] White Blood Count 7.6 10 Normal 4.0-10.0 [...] % Normal 0-0 Laboratory test finding 06/04/2021 [facility] (Interface) [phone] HIV 1&2 Screen Centaur NEGATIVE Normal Negative 2 GC & Chlamydia By Amp 06/04/2021 [facility] (Interface) [phone] Chlamydia Dna Amplification NEGATIVE Normal Nega tive [...] 15 Culture Wound And Gram Stain 03/30/2021 [facility] (Interface) [phone] Gram Stain (SEE NOTE) Normal 16 Wound Culture FULL REPORT IN L <SEE NOTE> Normal 17 Blood Culture 03/30/2021 [facility] (I nterface) [phone] Blood Culture No growth after <SEE NOTE> 18 Prothrombin Time/Inr 03/30/2021 [facility] ( Interface) [phone] Prothrombin Time 13.5 seconds Normal 12.5-14.3 Inr 1.01 Normal 19 Comprehensive Metabolic Profil 03/30/2021 [facility] (Interface) [phone] Glucose, Fasting 112 mg/dL High 70-100 Blood [...] Ratio 0.9 Normal Laboratory test finding 03/30/2021 [facility] ([facility]) [phone] C Reactive Protein Quantitativ 1.06 mg/dL High 0 .00-0.30 CBC With Differential 03/30/2021 [facility]) [phone] White Blood Count 8.1 10 Normal 4.0-10.0 [...] 36.0-66.0 Lymph % 18.7 % Low 24.0-44.0 [place] % 12.3 % High 2.0-8.0 Eos % 2.0 % Normal 0.0-3.0 Baso % 0.5 % Normal 0.0-1.0 Immature Granulocyte % 1.2 % Normal 0-3.0 Nucleated Red Blood Cell % 0.0 % Normal 0-0 Neutrophils # 5.3 10 Normal 1.5-8.5 Lymph # 1.5 10 Normal 1.5-5.0 [place] # 1.0 10 High 0.0-0.8 Eos # 0.2 10 Normal 0.0-0.5 Baso # 0.0 10 Normal 0.0-0.2 Laboratory test finding 03/30/2021 [facility] (Interface) [phone] Erythrocyte Sedimentation Rate 33 mm/hr High 0 -20 Laboratory test finding 03/30/2021 [facility] ([facility]) [phone] Lactic Acid Sepsis Protocol 1.7 mmol/L Normal 0.4- 2.0 21 Blood Culture 03/30/2021 [facility] [phone] Blood Culture No growth after <SEE NOTE> 22 1 Units are mL/min/1.73 m2 Chronic Kidney Disease Staging per NKF: Stage I & II GFR >=60 Normal to Mildly Decreased Stage III GFR 30-59 Moderately Decreased Stage IV GFR 15-29 Severely Decreased Stage V GFR <15 Very Little GFR Left ESRD GFR <15 on SALES PRODUCT MANAGER 2 This assay was performed uti lizing a chemiluminescent principle technique for the simultaneous qualitative detection of HIV-1 p24 antigen & antibodies to HIV-1 (including group O) & HIV-2 using the [employer] system. The estimated 95% confidence interval for [...] Little GFR Left ESRD GFR <15 on SALES PRODUCT MANAGER 21 Y/N query for Sepsis Lactate Rule: [...] DAYS Procedures Date Code Description Status 09/11/2021 32295 Office/Outpatient Established Mo d MDM 30-39 Min Completed 07/09/2021 69512 Office/Outpatient Established Lo w MDM 20-29 Min Completed 06/11/2021 03199 Office/Outpatient Established Mo d MDM 30-39 Min Completed 04/29/2021 10165 Office/Outpatient Established Lo w MDM 20-29 Min Completed 04/04/2021 52369 Office/Outpatient Established Lo w MDM 20-29 Min Completed Medical Devices Description No Information Available Encounters Type Date Location Provider Dx Diagnosis Office Visit 09/11/2021 1:15p [place] [facility] Eyal Tovar, RP A I10 Essential (primary) hypertension E78.2 Mixed hyperlipidemia E03.9 Hypothyroidism, unspecified I48.20 Chronic atrial fibrillation, unspecified J44.9 Chronic obstructive pulmonar y disease, unspecified Office Visit 07/09/2021 9:30a [place] [facility] Eyal Tovar, RP A L40.9 Psoriasis, unspecified Office Visit 06/11/2021 1:00p [place] [facility] Eyal Tovar, RP A I10 Essential (primary) hypertension E78.2 Mixed hyperlipidemia E03.9 Hypothyroidism, unspecified I48.20 Chronic atrial fibrillation, unspecified Office Visit 04/29/2021 10:15a [place] [facility]ounds[facility] L02.415 Cutaneous abscess of right lower limb R60.9 Edema, unspecified Office Visit 04/04/2021 2:45p [place] [facility] Alireza, AMNDY Post L02.415 Cutaneous abscess of right lower [...] 11:30 am - Eyal Tovar, RPA at [facility] Functional Status Functional Condition Comment Date Status ADL's.independent.all ADL's Acti ve Mental Status Description No Information Available Referrals Refer to Reason for Referral Status Appt Date [facility] Dermatology Psoriasis --Appointment alr christos scheduled for 07/23/21 at [facility] by patient.--No active lesions at this time. Peviously under care of [facility] Dermatology. Sent [address] [place], [place] [id number] [phone]
--- OUTSIDE RECORDS SUMMARY | 2021-09-17 06:07 | CCD | Continuity of Care Document ---
Author Author Keith VÁZQUEZ PA-C Organization Unknown Address [address] [place] [address], [place] [address] Phone [phone] Care Team Providers Care Video Editing Intern Name Role Phone Eyal Tovar AUTM [phone] Aquilino Khan MD AUTM [phone] True Sabillon MD AUTM [phone] Daysi Archer MD AUTM Jono Lopez MD AUTM [phone] Сергей Matos MD AUTM [phone] Vaughn Joseph MD AUTM [phone] Elieser Alvarez DO AUTM [phone] Candis Ozuna AUTM Man Carrasquillo MD AUTM [phone] Other Provider AUTM Unavailable Chepe Khan MD AUTM [phone] Problems Active Problems Provider Date Atrial fibrillation Carrie Vázquez PA-C Onset: 01/25/2012 Benign hypertensive 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 eart failure Carrie Vázquez PA-C Onset: 01/25/2012 Electrocardiogram abnormal Carrie Vázquez PA-C Onset: 01/25 Left bundle branch block Carrie Vázquez PA-C Onset: 012 Dilatation of aorta Carrie Vázquez PA-C Onset: 12/23/2015 Chronic pulmonary heart disease Carrie Vázquez PA-C Onset: 12/23/2015 Hyperlipidemia Carrie Vázquez PA-C Onset: 01/25/2012 Obesity Carrie Vázquez PA-C Onset: 01/25/2012 Peripheral vascular disease RENA MccainC Onset: 05/30 Tobacco user Carrie Vázquez PA-C Onset: 01/25/2012 Paroxysmal atrial fibrillation Carrie Vázquez PA-C Onset: 0 06/22/2016 Obstructive sleep apnea syndrome RENA MccainC Onset: 06/22/2016 Mixed hyperlipidemia Carrie Vázquez PA-C Onset: 12/23/2016 Dietary management surveillance Carrie Vázquez PA-C Onset: 06/25/2017 Social History Type Date Description Comments Sex Unknown Tobacco Use Start: Unknown End: Unknown Former Cigarette Smo ker ETOH Use Does not consume alcohol Tobacco Use Start: Unknown End: Unknown Patient is a former smoker smoked 3 ppd since the age of 18, Quit 12/09 and uses electronic cigarette with 1.5 MG nicotine Smoking Status Reviewed: 07/09/21 Patient is a former smoker sm oked 3 ppd since the age of 18, Quit 12/09 and uses electronic cigarette with 1.5 MG nicotine Exercise Type/Frequency Does housework sporadica lly Exercise Type/Frequency Does yardwork 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, 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 needed Exercise Type/Frequency Exercises daily stretchi ng and arm band exercises Exercise Type/Frequency Walks daily with chad bui Exercise Limitations Joint Pain hips Exercise Limitations Back Pain lower back Exercise Limitations Shortness Of Breath Exercise Limitations Claudication Allergies, Adverse Reactions, Alerts Description No Known Drug Allergies Medications Active Medications SIG Qnty Indications Ordering Provide r Date Lasix 20mg Tablets 1 by mo uth every day Unknown 07/08/2021 Rosuvastatin Calcium 20mg Tablets 1 by mouth every night at bedtime 90tabs E78.2 Wilfredo Monk MD 01/09/2021 Sildenafil Citrate 100mg Tablets 1/2 to 1 po daily as needed Unknown 01/08/2020 Ondansetron 8mg Tablets Dispers 1 po q8h prn Eyal Tovar PA 01/08/2020 Benzonatate 100mg Capsules 1 po q8h prn Eyal Tovar PA 01/08/2020 Tylenol 8 Hour Arthritis Pain 650mg Tablets ER 1 by mouth twice a day Unknown 07/18 Losartan Potassium 25mg Tablets 1 po qhs 90tabs I11.9 Wilfredo Monk MD 02/09/2018 Chlorthalidone 25mg Tablets 1/2 by mouth every day 45tabs I11.9 Wilfredo Monk MD 08/28/2015 Levothyroxine Sodium 137mcg Tablet s 1 by mouth every day Eyal Tovar PA 06/19/2015 Aspirin 81mg Tablets 1 by mouth every day I48.0 Сергей Matos MD 06/17/2014 Plavix 75mg Tablets 1 by mouth every day Сергей Matos MD 06/17/2014 Vitamin B-12 500mcg Tablets 1 by mouth every day Eyal Tovar PA 06/17/2014 Folic Acid 400mcg Tablets 1 by mouth every day Eyal Tovar PA 06/17/2014 Slow-Mag 71.5-119mg Tablets DR 1 by mouth once a day (with calcium) Eyal Tovar PA Glucosamine Chondroitin Complex 1500mg - 1200 mg Capsules 1 po bid Marky GinoDO 11/08/20 12 Amiodarone HCL 200mg Tablets 1 by mouth daily 90tabs I48.0 Guillermo Jose MD 10/22/2009 Coreg 6.25mg Tabs 1 by mouth twice a day 180tabs I48.0 Wilfredo Monk MD 06/21/[address] 1 P O bid Unknown 06/12/2008 Multivitamins Tablets 1 PO d aily Unknown Immunizations Description No Information Available Vital Signs Date Vital Result Comment 07/09/2021 11:29am Weight 305.00 lb Home Weight 307lb Height 72 inches 6'0" BMI (Body Mass Index) 41.4 kg/m2 Heart Rate 64 /min Regular Respiratory Rate 16 /min BP Systolic Right Arm 128 mmHg sitting, large cuf f BP Diastolic Right Arm 76 mmHg sitting, large cu ff BP Systolic Left Arm 124 mmHg sitting BP Diastolic Left Arm 76 mmHg sitting 01/09/2021 11:46am Weight 325.00 lb Home Weight 327lb Home weight Height 72 inches 6'0" BMI (Body Mass Index) 44.1 kg/m2 Heart Rate 72 /min Regular Respiratory Rate 16 /min BP Systolic Right Arm 134 mmHg sitting, large cuf f BP Diastolic Right Arm 80 mmHg sitting, large cu ff BP Systolic Left Arm 134 mmHg sitting BP Diastolic Left Arm 86 mmHg sitting Results Test Acquired Date Facility Test Result H/L Range Note Basic Metabolic Profile 07/09/2021 [facility] [phone] Glucose, Fasting 90 mg/dL Normal 70-100 Blood [...] mg/dL Normal 8.8-10.2 Laboratory test finding 07/09/2021 [facility] [phone] Magnesium Level 2.2 mg/dL Normal 1.8-2.4 Complete Blood Count 07/09/2021 [facility] enter [phone] White Blood Count 7.6 10 Normal 4.0-10.0 [...] Blood Cell % 0.0 % Normal 0-0 CBC without Differential 03/30/2021 [facility] - not inter faced (315)- - White Blood Count 8.1 5.0-10.0 Red Blood Count 3.65 Low 4.00-5.40 Platelets 261 172-450 Hemoglobin 11.4 Hematocrit 34.6 CMP 03/30/2021 [facility] - not interfaced (315)- - Albumin Serum/Plasma 3.1 Alt - SGPT 60 Calcium Ser/Plasma Mass/Vol 8.1 Carbon Dioxide Ser/Plasm 28 Chloride Serum/Plasma 104 Alkaline Phosphatase 64 Potassium 3.9 Protein Total 6.7 Sodium 137 Ast - Sgot 38 BUN - Urea Nitrogen 12 Glucose 112 High 83-110 Creatinine For GFR 1.01 Comprehensive Metabolic Profil 03/08/2021 [facility] [phone] Glucose, Fasting 125 mg/dL High 70-100 Blood Urea Nitrogen 13 mg/dL Normal 7-18 Creatinine For GFR 1.07 mg/dL Normal 0.70-1.30 Glomerular Filtration Rate > 60.0 Normal >49 2 Sodium Level 133 mEq/L Low 136-145 Potassium Serum 4.3 mEq/L Normal 3.5-5.1 Chloride Level 101 mEq/L Normal 98-107 Carbon Dioxide Level 25 mEq/L Normal 21-32 Anion Gap 7 mEq/L Low 8-16 Calcium Level 9.0 mg/dL Normal 8.8-10.2 Ast/Sgot 66 U/L High 7-37 Alt/SGPT 84 U/L High 12-78 Alkaline Phosphatase 74 U/L Normal 45-117 Bilirubin,Total 0.4 mg/dL Normal 0.2-1.0 Total Protein 7.5 GM/DL Normal 6.4-8.2 Albumin 3.7 GM/DL Normal 3.2-5.2 Albumin/Globulin Ratio 1.0 Normal Lipid Panel 03/08/2021 [facility] nter [phone] Triglycerides Level 181 mg/dL High <150 Cholesterol Level 114 mg/dL Normal <200 HDL Cholesterol 50 mg/dL Normal >40 LDL Cholesterol 28 mg/dL Normal <100 Non-HDL-C 64 mg/dL Normal Cholesterol Risk Ratio 2.280 Normal <5 1 Units are mL/min/1.73 m2 Chronic Kidney Disease Staging per NKF: Stage I & II GFR >=60 Normal to Mildly Decreased Stage III GFR 30-59 Moderately Decreased Stage IV GFR 15-29 Severely Decreased Stage V GFR <15 Very Little GFR Left ESRD GFR <15 on RACK PUNCHER 2 Units are mL/min/1.73 m2 Chronic Kidney Disease Staging per NKF: Stage I & II GFR >=60 Normal to Mildly Decreased Stage III GFR 30-59 Moderately Decreased Stage IV GFR 15-29 Severely Decreased Stage V GFR <15 Very Little GFR Left ESRD GFR <15 on RACK PUNCHER Procedures Date Code Description Status 07/09/2021 01437 Office/Outpatient Established Mo d MDM 30-39 Min Completed 07/09/2021 24898 ECG 12-Lead Completed 02/17/2021 73192 Treadmill/Pharmacological Monito ring Completed 02/17/2021 41764 Myocardial Perfusion Spect Multi ple Completed Medical Devices Description No Information Available Encounters Type Date Location Provider Dx Diagnosis Office Visit 07/09/2021 11:30a Main Office Carrie Vázquez PA-C I48.0 Paroxysmal atrial fibrillation I11.9 Hypertensive heart disease w [facility] heart failure R94.31 Abnormal electrocardiogram [ ECG] [EKG] I44.7 Left bundle-branch block, un specified I77.810 Thoracic aortic ectasia 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 E78.2 Mixed hyperlipidemia I73.9 Peripheral vascular disease, unspecified G47.33 Obstructive sleep apnea (bob lt) (pediatric) Z71.3 Dietary counseling and surve illance Assessments Date Code Description Provider 07/09/2021 I48.0 Paroxysmal atrial fibrillation K guillermo Vázquez, PA-C 07/09/2021 I11.9 Hypertensive heart disease witho ut heart failure Carrie Vázquez, PA-C 07/09/2021 R94.31 Abnormal electrocardiogram [ECG] [EKG] Carrie Vázquez, PA-C 07/09/2021 I44.7 Left bundle-branch block, unspec ified Carrie Vázquez, PA-C 07/09/2021 I77.810 Thoracic aortic ectasia Carrie mcdonough, PA-C 07/09/2021 I27.29 Other secondary pulmonary hypert ension Carrie [place], PA-C 07/09/2021 E78.2 Mixed hyperlipidemia Carrie Quispe now, PA-C 07/09/2021 I73.9 Peripheral vascular disease, uns pecified Carrie [place], PA-C 07/09/2021 G47.33 Obstructive sleep apnea (adult) (pediatric) Carrie Vázquez, PA-C 07/09/2021 Z71.3 Dietary counseling and surveilla nce Carrie Vázquez, PA-C 02/17/2021 R06.02 Shortness of breath Stress Nucle ar/Reg Treadmill 02/17/2021 R94.31 Abnormal electrocardiogram [ECG] [EKG] Stress Nuclear/Reg Treadmill 02/17/2021 I44.7 Left bundle-branch block, unspec ified Stress Nuclear/Reg Treadmill Plan of Treatment Future Appointment(s):* 01/12/2022 11:30 am - Carrie Vázquez PA-C at Main Office 07/09/2021 - Carrie Vázquez PA-C* I48.0 Paroxysmal atrial fibrillation * I11.9 Hypertensive heart disease without heart failure * R94.31 Abnormal electrocardiogram [ECG] [EKG] * I44.7 Left bundle-branch block, unspecified * I77.810 Thoracic aortic ectasia * I27.29 Other secondary pulmonary hypertension * E78.2 Mixed hyperlipidemia * I73.9 Peripheral vascular disease, unspecified * G47.33 Obstructive sleep apnea (adult) (pediatric) * Z71.3 Dietary counseling and surveillance* Recommendations:* Follow a low fat/low cholesterol diet and do as much aerobic exercise as you can tolerate. * All * Follow up:* 6 month follow up. Obtain vascular surgery report and CXR from [facility] done in February. Functional Status Functional Condition Comment Date Status Independent with all ADL's Activ e Mental Status Description No Information Available Referrals Refer to Reason for Referral Status Appt Date Guillermo Jose MD VERBAL AUTH REC'D FROM JASON Whitley @ [facility]. AUTH # [id number] VALID 02/13/21 - 03/30/21. [place] Created 000 0 [id number] [facility], [facility] [place] [id number] [phone]
--- OUTSIDE RECORDS SUMMARY | 2021-09-17 06:07 | CCD | Continuity of Care Document ---
Author Author Keith TOVAR [facility] Organization Unknown Address [address] [place], [place] [address] Phone [phone] Care Team Providers Care Manifest/Order Organizer Print Orders Name Role Phone Wilfredo Monk M.D. [facility] [phone] Problems Active Problems Provider Date Tobacco user [...] Hypocalcemia Eyal Tovar, RPA Onset: 01/03/2018 Elevated levels of transaminase & lactic acid dehydrog enase Eyal Tovar, [facility] Onset: 04/05/2018 Social History Type Date Description Comments Sex Unknown ETOH Use Denies alcohol use Smoking Uses E Cigarette Tobacco Use Start: Unknown End: Unknown Patient is a former smoker Exercise Type/Frequency Does not currently exerc ise Seat Belt/Car Seat always Allergies, Adverse Reactions, Alerts Description No Known Drug Allergies Medications Active Medications SIG Qnty Indications Ordering Provide r Date Lasix 20mg Tablets 1 b y mouth every day 30tabs Charley Lay IT OPERATIONS ANALYST- 05/02/2021 Clopidogrel Bisulfate 75mg Tablets Take 1 Tablet By Mouth Every Day. Maximum Daily Dose Is 1. 90tabs Gino Negro D.O., [facility] 10/09/2019 Ondansetron 8mg Tablets Dispers 1 tab by mouth three times a day as needed 30tabs Gino briseno D.O., [facility] 03/23/2019 Mupirocin 2% Ointment apply to inner right nare using a cotton tipped applicator three times a day 22gm Gino Negro D.O., [facility] 01/05/2019 Synthroid 137mcg Tablets 1 by mouth every day 90tabs Parvez Rodirguez.Lelia., [facility] Vitamin B-12 Natural 500mcg Tablets 1 po qd 30tabs Gino Negro D.O., [facility] 05/25/2014 Slow-Mag 71.5-119mg Tablets DR 1 po qd 30tabs Gino Negro D.O., [facility] 05/25/2014 Folic Acid 400mcg Tablets 1 by mouth every day 30tabs Gino Negro D.O., [facility] Coreg 6.25mg Tablets 1 po bid 60tabs Parvez Rodriguez.Lelia., [facility] 11/20/2008 Amiodarone HCL 200mg Tablets 1 [...] and then repeat 45gm [facility] Negro D.O., [facility] Losartan Potassium 25mg Tablets 1 by mouth every hs Wilfredo Monk M.D. Glucosamine Chondroitin Complex C apsules one by mouth bid OTC Unknown Chlorthalidone 25mg Tablets 1/[address] Monk Unknown Multi Vitamin Tablets OTC Unknown History Medications Amoxicillin/Clavulanate Potassium 875-125mg Tablets 1 tab by mouth twice a day for 10 days 20tabs Ro Charley parks [facility] 05/02/2021 - 06/11/2021 Vancomycin HCL 250mg Capsules 1 tab by mouth three times a day for 5 days 15capCharley Quintero [facility] 04/04/2021 - 04/09/2021 Medications Administered in Office Medication SIG Qnty Indications Ordering Provider Date Injection (SC)/(Im) Injection Eyal Tovar, [facility] 01/20/2018 Injection (SC)/(Im) Injection Eyal Tovar, [facility] 01/19/2018 Injection (SC)/(Im) Injection Eyal Tovar, RPA [...] CPT Code Status Date Vaccine Lot # [id number] Given 08/29/2013 Tdap Tetanus,Dip htheria Toxoids/Acellular Pertussis 7Yrs Or Older [id number] Given 02/20/2000 PPD Tuberculosis Intradermal 70433 Refused 08/11/2019 Influenza Virus Vaccine, Quadrivalent, Slit Virus, Im Use 3Y & Up 18296 Refused 10/01/2016 Influenza Virus Vaccine, Quadrivalent, Slit Virus, Im Use 3Y & Up Vital Signs Date Vital Result Comment 07/09/2021 9:29am BP Systolic 136 mmHg BP Diastolic 84 mmHg Body Temperature 96.1 F Heart Rate 72 /min Respiratory Rate 16 /min Height 73 inches 6'1" Weight 308.00 lb [place] Body Weight 184 lb BMI (Body Mass Index) 40.6 kg/m2 O2 % BldC Oximetry 96 % 06/11/2021 1:08pm BP Systolic 110 mmHg BP Diastolic 56 mmHg Body Temperature 97.0 F Heart Rate 82 /min Respiratory Rate 20 /min Height 73 inches 6'1" Weight 314.00 lb [place] Body Weight 184 lb BMI (Body Mass Index) 41.4 kg/m2 O2 % BldC Oximetry 96 % Results Test Acquired Date Facility Test Result H/L Range Note Laboratory test finding [facility]/04[facility] [phone] HIV 1&2 Screen [facility] NEGATIVE Normal Negative 1 GC & Chlamydia By Amp 06/04/2021 [facility] (Interface) [phone] Chlamydia Dna Amplification NEGATIVE Normal Nega tive 2 GC Dna Amplification NEGATIVE Normal Negative 3 CBC With Differential/Platelet 04/29/2021 [facility] N E [...] eGFR If Africn Am 100 mL/min/1.73 >59 4 BUN/Creatinine Ratio 13 10-24 Sodium 140 mmol/L 134-144 Potassium 4.3 mmol/L 3.5-5.2 Chloride 101 mmol/L 96-106 Carbon Dioxide, Total 26 mmol/L 20-29 Calcium 9.6 mg/dL 8.6-10.2 Aerobic Bacterial Culture 04/29/2021 [facility] [place] Aerobic Bacterial Culture Final report Abnormal 5 , 6 Result 1 Escherichia coli Abnormal 7 Result 2 See Comment: Abnormal 8 Antimicrobial Susceptibility See Comment: 9 Aerobic Bacterial Culture 04/04/2021 [facility] [place] Aerobic Bacterial Culture Final report Abnormal 1 0, 11 Result 1 Escherichia coli Abnormal 12 Result 2 See Comment: Abnormal 13 Antimicrobial Susceptibility See Comment: 14 Culture Wound And Gram Stain 03/30/2021 [facility] (Interface) [phone] Gram Stain (SEE NOTE) Normal 15 Wound Culture FULL REPORT IN L <SEE NOTE> Normal 16 Blood Culture 03/30/2021 [facility] (I nterface) [phone] Blood Culture No growth after <SEE NOTE> 17 Prothrombin Time/Inr 03/30/2021 [facility] ( Interface) [phone] Prothrombin Time 13.5 seconds Normal 12.5-14.3 Inr 1.01 Normal 18 Comprehensive Metabolic Profil 03/30/2021 [facility] (Interface) [phone] Glucose, Fasting 112 mg/dL High 70-100 Blood Urea Nitrogen 12 mg/dL Normal 7-18 Creatinine For GFR 1.01 mg/dL Normal 0.70-1.30 Glomerular Filtration Rate > 60.0 Normal >49 1 9 Sodium Level 137 mEq/L Normal 136-145 Potassium [...] Ratio 0.9 Normal Laboratory test finding 03/30/2021 [facility] (Interface) [phone] C Reactive Protein Quantitativ 1.06 mg/dL High 0 .00-0.30 CBC With Differential 03/30/2021 [facility] ([facility]) [phone] White Blood Count 8.1 10 Normal 4.0-10.0 [...] 36.0-66.0 Lymph % 18.7 % Low 24.0-44.0 [place] % 12.3 % High 2.0-8.0 Eos % 2.0 % Normal 0.0-3.0 Baso % 0.5 % Normal 0.0-1.0 Immature Granulocyte % 1.2 % Normal 0-3.0 Nucleated Red Blood Cell % 0.0 % Normal 0-0 Neutrophils # 5.3 10 Normal 1.5-8.5 Lymph # 1.5 10 Normal 1.5-5.0 [place] # 1.0 10 High 0.0-0.8 Eos # 0.2 10 Normal 0.0-0.5 Baso # 0.0 10 Normal 0.0-0.2 Laboratory test finding 03/30/2021 [facility] (Interface) [phone] Erythrocyte Sedimentation Rate 33 mm/hr High 0 -20 Laboratory test finding 03/30/2021 [facility] (Interface) [phone] Lactic Acid Sepsis Protocol 1.7 mmol/L Normal 0.4- 2.0 20 Blood Culture 03/30/2021 [facility] [phone] Blood Culture No growth after <SEE NOTE> 21 1 This assay was performed uti lizing a chemiluminescent principle technique for the simultaneous qualitative detection of HIV-1 p24 antigen & antibodies to HIV-1 (including group O) & HIV-2 using the Snapwire system. The estimated 95% confidence interval for sensitivity of this antigen/antibody combination assay for HIV-1&2 antibodies is 99.7-100% and HIV p24 antigen is 89.4-99.9%. The estimated 95% confidence interval for specificity of this antigen/antibody combination in low risk populations is 99.6-99.8%. 2 A negative test result does not exclude the possibility of infection because test results may be affected by improper specimen collection, technical error, specimen mix-up, concurrent antibiotic therapy, or the number of organisms in the specimen which may be below the sensitivity of the test. 3 A negative test result does not exclude the possibility of infection because test results may be affected by improper specimen collection, technical error, specimen mix-up, concurrent antibiotic therapy, or the number of organisms in the specimen which may be below the sensitivity of the test. 4 [facility] currently reports eGFR in compliance with the current recommendations of the National Kidney Foundation. [facility] will update reporting as new guidelines are published from the NKF-ASN Task force. 5 SRC:RT UPPER LEG/GROIN 6 Source of Specimen: RT UPPER LEG/GROIN 7 Escherichia coli Source of Specimen: RT UPPER LEG/GROIN Scant growth 8 Source of Specimen: RT UPPER LEG/GROIN Beta [...] reported for Streptococcus pyogenes (group A). (CLSI) 9 Source of Specimen: RT UPPER LEG/GROIN S [...] S Tetracycline S Tobramycin S Trimethoprim/Sulfa S 10 SRC:RT UPPER LEG CX 11 Source of Specimen: RT UPPER LEG CX 12 Escherichia coli Source of Specimen: RT UPPER LEG CX Heavy growth 13 Source of Specimen: RT UPPER LEG CX Raoultella ornithinolytica Scant growth 14 Source of Specimen: RT UPPER [...] S Tobramycin S S Trimethoprim/Sulfa S S 15 NO CELLS SEEN FEW GRAM POSITIVE COCCI IN PAIRS 16 FULL REPORT IN LAB NOTES (eC W [...] CEFEPIME IV 2 gm q12h <=1 S 17 No growth after 72 hours . A ll specimens observed for 5 days. Results final at that time. No growth after 48 hours . All specimens observed for 5 days. Results final at that time. No growth after 24 hours . All specimens observed for 5 days. Results final at that time. NO GROWTH AFTER 5 DAYS 18 THERAPUTIC HUMAN INR VALUES INDICATIONS NORMAL RANGES PROPHYLAXIS/TREATMENT OF: VENOUS THROMBOSIS 2.0-3.0 PULMONARY EMBOLISM 2.0-3.0 PREVENTION OF SYSTEMIC EMBOLISM FROM: TISSUE HEART VALVES 2.0-3.0 ACUTE MYOCARDIAL INFARCTION 2.0-3.0 VALVULAR HEART DISEASE 2.0-3.0 ATRIAL FIBRILLATION 2.0-3.0 MECHANICAL VALVES(HIGH RISK) 2.5-3.5 RECURRENT MYOCARDIAL INFARCTION 2.5-3.5 19 Units are mL/min/1.73 m2 Chronic Kidney Disease Staging per NKF: Stage I & II GFR >=60 Normal to Mildly Decreased Stage III GFR 30-59 Moderately Decreased Stage IV GFR 15-29 Severely Decreased Stage V GFR <15 Very Little GFR Left ESRD GFR <15 on [employer]ER 20 Y/N query for Sepsis Lactate Rule: Y 21 No growth after 72 hours . A ll specimens observed for 5 days. Results final at that time. No growth after 48 hours . All specimens observed for 5 days. Results final at that time. No growth after 24 hours . All specimens observed for 5 days. Results final at that time. NO GROWTH AFTER 5 DAYS Procedures Date Code Description Status 06/11/2021 19181 Office/Outpatient Established Mo d MDM 30-39 Min Completed 04/29/2021 40035 Office/Outpatient Established Lo w MDM 20-29 Min Completed 04/04/2021 87750 Office/Outpatient Established Lo w MDM 20-29 Min Completed 03/06/2021 08421 Office/Outpatient Established Mo d MDM 30-39 Min Completed Medical Devices Description No Information Available Encounters Type Date Location Provider Dx Diagnosis Office Visit 06/11/2021 1:00p [place] [facility] Eyal Tovar, RP A I10 Essential (primary) hypertension E78.2 Mixed hyperlipidemia E03.9 Hypothyroidism, unspecified I48.20 Chronic atrial fibrillation, unspecified Office Visit 04/29/2021 10:15a [place] [facility] RoundsCharley [facility] L02.415 Cutaneous abscess of right lower limb R60.9 Edema, unspecified Office Visit 04/04/2021 2:45p [place] [facility] RoundsCharley [facility] L02.415 Cutaneous abscess of right lower limb Office Visit 03/06/2021 1:00p [place] [facility] Eyal Tovar, RP A I10 Essential (primary) hypertension E78.2 Mixed hyperlipidemia E03.9 Hypothyroidism, unspecified Assessments Date Code Description Provider 07/09/2021 L40.9 Psoriasis, unspecified Maegan Tovar, RPA 06/11/2021 I10 Essential (primary) hypertension Eyal Tovar, RPA 06/11/2021 E78.2 Mixed hyperlipidemia Wilfredo Tovar D, RPA 06/11/2021 E03.9 Hypothyroidism, unspecified Eyal Mckeon, RPA 06/11/2021 I48.20 Chronic atrial fibrillation, uns pecified Eyal Tovar, RPA 04/29/2021 L02.415 Cutaneous abscess of right lower limb Charley Lay, [facility] 04/29/2021 R60.9 Edema, unspecified Charley Lay [facility] 04/04/2021 L02.415 Cutaneous abscess of right lower limb Charley Lay [facility] 03/06/2021 I10 Essential (primary) hypertension Eyal Tovar, RPA 03/06/2021 E78.2 Mixed hyperlipidemia Wilfredo Tovar, RPA 03/06/2021 E03.9 Hypothyroidism, unspecified Eyal Mckeon, GERARD Plan of Treatment Future Appointment(s):* 09/11/2021 1:15 pm - Eyal Tovar RPA at [place] [facility] Functional Status Functional Condition Comment Date Status ADL's.independent.all ADL's Acti ve Mental Status Description No Information Available Referrals Refer to Reason for Referral Status Appt Date [facility] Dermatology Psoriasis --Appointment niels sher scheduled for 07/23/21 at [facility] by patient.--No active lesions at this time. Peviously under care of [facility] Dermatology. Created [address] [address] [phone]
--- OUTSIDE RECORDS SUMMARY | 2021-09-17 06:07 | CCD | Continuity of Care Document ---
Author Author Keith TILLMAN M.D. Organization Unknown Address [address] [place] [address] Phone [phone] Care Team Providers Care Operating Room Registered Nurse Name Role Phone Carrie Brown AUTM [phone] Eyal Tovar AUTM Elieser Alvarez D.O. AUTM [phone] Guillermo Jose M.D. AUTM [phone] Problems Active Problems Provider Date Ex-smoker Elieser Alvarez D.O. Onset: 02/18/2016 Disturbance of consciousness Elieser Alvarez D.O. Onset: 01/28 Difficulty breathing Elieser Alvarez D.O. Onset: 02/18/2016 Obstructive sleep apnea syndrome Josias HendersonOReji Onset: 05/27/2016 Chronic obstructive lung disease Elieser Alvarez D.O. Onset: 05/27/2016 Essential hypertension Corina Fuentes M.D. Onset: 017 Solitary nodule of lung Josias HendersonOReji Onset: 8 Difficulty speaking Chago Garcia MD Onset: 11/30/2018 Diaphragmatic hernia Chago Garcia MD Onset: 11/30/2018 Tobacco user Elieser Alvarez D.O. Onset: 02/28/2019 Tobacco user Josias HendersonO. Onset: 02/28/2019 Intermittent claudication due to atherosclerosis of ar amado of limb Corina Fuentes M.D. Onset: 02/28/2019 Social History Type Date Description Comments Sex Unknown Cigarette Use Pack Years - 140 Smokeless Tobacco Never Used Smokeless Tobacco ETOH Use Denies alcohol use Tobacco Use Start: 11/29/75 End: 11/29/10 Patient is a forme r smoker Recreational Drug Use Denies Drug Use Tobacco Use Reviewed: 01/24/21 Using Electronic Cig. Smoking Status Reviewed: 01/24/21 Using Electronic Cig. Allergies, Adverse Reactions, Alerts Active Allergies Criticality Reaction | Severity Comments Date NKDA Unable to assess criticality 09/22/2017 Bee Sting Unable to assess criticality 09/01/2017 Inactive Allergies NKDA Unable to assess criticality 02/18/2016 Medications Active Medications SIG Qnty Indications Ordering Provide r Date Glucosamine-Chondroitin 1500-1200mg Capsules 1 by mouth twice a day Unknown Lasix 20mg Tablets take 1 tab by mouth daily Unknown Losartan Potassium 25mg Tablets 1 tab by mouth every day Unknown Carvedilol 6.25mg Tablets 1 tab PO bid Unknown Rosuvastatin Calcium 20mg Tablets 1 tab by mouth every day Unknown Multivitamin Adult Tablets 1 by mouth every day Unknown Tylenol 325mg Capsules 2 Tabs bid as needed Unknown Levothyroxine Sodium 137mcg Tablet s 1 by mouth every day Unknown Slow-Mag 71.5-119mg Tablets DR 1 tab by mouth every day Unknown Aspir-[address] 1 by mouth every day Unknown Vitamin B12 2500mcg Tablets ER 1 by mouth every day Unknown CPAP 10cm Marras Unknown Plavix 75mg Tablets 1 by mouth every day per Dr Monk stents legs Unknown Pacerone 200mg Tablets 1 po d aily Unknown Folic Acid 400mcg Tablets 1 p o daily Unknown Depakote 500mg Tablets DR 1 p o bid Unknown Chlorthalidone 25mg Tablets 1/2 by mouth every day Unknown Immunizations CPT Code Status Date Vaccine Lot # [id number] Refused 09/02/2017 Influenza Virus Vaccine Quadrivalent Iiv4 Split Preser Free Id Vital Signs Date Vital Result Comment 08/21/2021 2:10pm BP Systolic 114 mmHg BP Diastolic 58 mmHg Heart Rate 69 /min O2 % BldC Oximetry 98 % Height 72 inches 6'0" Weight 298.00 lb BMI (Body Mass Index) 40.4 kg/m2 [place] Body Weight 178 lb Weight 135.173 kg BSA (Body Surface Area) 2.52 m2 01/24/2021 8:14am BP Systolic 132 mmHg BP Diastolic 80 mmHg Heart Rate 64 /min O2 % BldC Oximetry 98 % Body Temperature 96.9 F Height 72 inches 6'0" Weight 323.00 lb BMI (Body Mass Index) 43.8 kg/m2 [place] Body Weight 178 lb Weight 146.513 kg BSA (Body Surface Area) 2.61 m2 Results Test Acquired Date Facility Test Result H/L Range Note Coag Panel For Procedures 08/21/2021 [facility] Main Lab [address] [place] [address] [phone] Platelet Count, Automated 292 10 Normal 150-45 0 Partial Thromboplastin Time <pending> Prothrombin Time/Inr 08/21/2021 [facility] Main Lab [address] [place] [address] [phone] Prothrombin Time 13.3 seconds Normal 12.7-14.5 Inr 0.97 Normal 1 Partial Thromboplastin Time 29.9 seconds Normal 25.9-37.0 Fungal Titers([facility]) 08/21/2021 [facility] Main Lab [address] [place] [address] [phone] Histoplasmosis Antibody <pending> Blastomyces Antibody Level <pending> Coccidiomycosis Antibody <pending> Cryptococcus Antigen Serum <pending> 1 THERAPUTIC HUMAN INR VALUES INDICATIONS NORMAL RANGES PROPHYLAXIS/TREATMENT OF: VENOUS THROMBOSIS 2.0-3.0 PULMONARY EMBOLISM 2.0-3.0 PREVENTION OF SYSTEMIC EMBOLISM FROM: TISSUE HEART VALVES 2.0-3.0 ACUTE MYOCARDIAL INFARCTION 2.0-3.0 VALVULAR HEART DISEASE 2.0-3.0 ATRIAL FIBRILLATION 2.0-3.0 MECHANICAL VALVES(HIGH RISK) 2.5-3.5 RECURRENT MYOCARDIAL INFARCTION 2.5-3.5 Procedures Date Code Description Status 08/21/2021 03317 Office/Outpatient Established Mo d MDM 30-39 Min Completed Medical Devices Description No Information Available Encounters Type Date Location Provider Dx Diagnosis Office Visit 08/21/2021 2:00p [facility] Pulmonary/Thoracic K Brit damian M.D. G47.33 Obstructive sleep apnea (bob lt) (pediatric) J44.9 Chronic obstructive pulmonar y disease, unspecified F17.200 Nicotine dependence, unspeci fied, uncomplicated R91.1 Solitary pulmonary nodule Assessments Date Code Description Provider 08/21/2021 G47.33 Obstructive sleep apnea (adult) (pediatric) Brit Tillman M.D. 08/21/2021 J44.9 Chronic obstructive pulmonary di sease, unspecified Brit Tillman M.D. 08/21/2021 F17.200 Nicotine dependence, unspecified , uncomplicated Brit Tillman M.D. 08/21/2021 R91.1 Solitary pulmonary nodule Brit Tillman M.D. Plan of Treatment 08/21/2021 - Brit Tillman M.D.* G47.33 Obstructive sleep apnea (adult) (pediatric) * J44.9 Chronic obstructive pulmonary disease, unspecified * F17.200 Nicotine dependence, unspecified, uncomplicated * R91.1 Solitary pulmonary nodule * * Follow up:* Needs to hold Plavix for procedure Schedule followup appointment after procedure. Functional Status Functional Condition Comment Date Status Independent with all ADL's Activ e Independent with all IADL's Acti ve Mental Status Mental Condition Comment Date Status Cognitive ability not impaired A ctive Referrals Refer to Reason for Referral Status Appt Date Radiology/Procedure CT Chest approval Closed
--- OUTSIDE RECORDS SUMMARY | 2021-09-17 06:07 | CCD | Continuity of Care Document ---
Author Author Keith VÁZQUEZ PA-C Organization Unknown Address [address] [place] [address], [place] [address] Phone [phone] Care Team Providers Care Institute Scientist Name Role Phone Eyal Tovar AUTM [phone] Aquilino Khan MD AUTM [phone] True Sabillon MD AUTM [phone] Daysi Archer MD AUTM Jono Lopez MD AUTM [phone] Сергей Mtaos MD AUTM [phone] Vaughn Joseph MD AUTM [phone] Elieser Alvarez DO AUTM [phone] Candis Ozuna AUTM [phone] Man Carrasquillo MD AUTM [phone] Other Provider AUTM Unavailable Chepe Khan MD AUTM [phone] Problems Active Problems Provider Date Atrial fibrillation [...] lly Exercise Type/Frequency Does yardwork sporadical ly community organization aide as needed, 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 needed [...] H/L Range Note Basic Metabolic Profile 07/09/2021 [facility] [phone] Glucose, Fasting 90 mg/dL Normal 70-100 Blood [...] mg/dL Normal 8.8-10.2 Laboratory test finding 07/09/2021 [facility] [phone] Magnesium Level 2.2 mg/dL Normal 1.8-2.4 Complete Blood Count 07/09/2021 [facility] enter [phone] White Blood Count 7.6 10 Normal 4.0-10.0 [...] % Normal 0-0 CBC without Differential 03/30/2021 [facility] - not inter faced (315)- - White Blood Count 8.1 5.0-10.0 Red Blood Count 3.65 Low 4.00-5.40 Platelets 261 172-450 Hemoglobin 11.4 Hematocrit 34.6 CMP 03/30/2021 [facility] - not interfaced (315)- - Albumin Serum/Plasma 3.1 Alt - SGPT 60 Calcium Ser/Plasma Mass/Vol 8.1 Carbon Dioxide Ser/Plasm 28 Chloride Serum/Plasma 104 Alkaline Phosphatase 64 Potassium 3.9 Protein Total 6.7 Sodium 137 Ast - Sgot 38 BUN - Urea Nitrogen 12 Glucose 112 High 83-110 Creatinine For GFR 1.01 Comprehensive Metabolic Profil 03/08/2021 [facility] [phone] Glucose, Fasting 125 mg/dL High 70-100 Blood [...] Albumin/Globulin Ratio 1.0 Normal Lipid Panel 03/08/2021 [facility] nter [phone] Triglycerides Level 181 mg/dL High <150 Cholesterol [...] Little GFR Left ESRD GFR <15 on COPY EDITOR 2 Units are mL/min/1.73 m2 Chronic Kidney Disease Staging per NKF: Stage I & II GFR >=60 Normal to Mildly Decreased Stage III GFR 30-59 Moderately Decreased Stage IV GFR 15-29 Severely Decreased Stage V GFR <15 Very Little GFR Left ESRD GFR <15 on COP[employer] EDITOR Procedures Date Code Description Status 07/09/2021 76813 Office/Outpatient Established Mo d MDM 30-39 Min Completed 07/09/2021 87917 ECG 12-Lead Completed 02/17/2021 74424 Treadmill/Pharmacological Monito ring Completed 02/17/2021 10294 Myocardial Perfusion Spect Multi ple Completed Medical Devices Description No Information Available Encounters Type Date Location Provider Dx Diagnosis Office Visit 07/09/2021 11:30a Main Office Carrie Vázquez PA-C I48.0 Paroxysmal atrial fibrillation I11.9 Hypertensive heart disease w [facility] heart failure R94.31 Abnormal electrocardiogram [ ECG] [...] vascular surgery report and CXR from [facility] done in February. Functional Status Functional Condition Comment Date Status Independent with all ADL's Activ e Mental Status Description No Information Available Referrals Refer to Reason for Referral Status Appt Date Guillermo Jose MD VERBAL AUTH REC'D FROM JASON Whitley @ [facility]. AUTH # [id number] VALID 02/13/21 - 03/30/21. [place] Created [phone] [facility] [place] [id number] [phone]
--- OUTSIDE RECORDS SUMMARY | 2021-09-17 06:07 | CCD ---
Author Author [facility] Organization [facility] Address Unknown Phone Unavailable Care Team Providers Care Community Sports Coordinator Name Role Phone Jaimee Kirk Unavailable PROBLEMS Type Condition ICD9-CM Code [id number] Code Onset Dates Condition S tatus W/U Status Risk SNOMED Code Notes Problem Other male erectile dysfunction N52.8 Active confi rmed 346984666 Problem Enlarged prostate with lower urinary tract symptoms N40.1 Active confirmed 66821643640146 Problem Shoulder pain, unspecified chronicity, unspecified lat erality M25.519 Active confirmed 02363471 Problem STD exposure Z20.2 Active confirmed 8955775 06 Problem Hypogonadism male 257.2 Active confirmed 48 261597 Problem Premature ejaculation F52.4 Active confirmed 20115828 Problem Hypertrophy (benign) of pros herron with urinary obstruction and other lower urinary tract symptoms [LUTS] 600.01 Active confirmed 446800345 Problem Pain of right hip joint M25.551 Active confirmed 30479970 Problem Back pain, unspecified back location, unspecified back pain laterality, unspecified chronicity M54.9 Active confirmed 9801703 05 Problem Benign prostatic hyperplasia without lower urina ry tract symptoms N40.0 Active confirmed 635851120 Problem Urgency of micturition R39.15 Active confirmed 70344866 ALLERGIES Allergen (clinical drug ingredient) Drug/Non Drug Allergy do cumented on EMR Reaction Allergy Type Onset Date Status Bee sting Anaphylaxis Non Drug Allergy Active ENCOUNTERS from 1955 to 2021-07-04 Encounter Location Date Provider Diagnosis [facility] Dermatology [address] [place] [address] [place] [address] Jun, Jaimee Kirk IMMUNIZATIONS Vaccine Route Administration Date Status Influenza 6mo & up Fluzone Unknown Dec 17, 2015 Refus ed SOCIAL HISTORY Sex Assigned At : Social History Observation Description Sex Assigned At Unknown REASON FOR REFERRAL No Information VITAL SIGNS No information MEDICATIONS Medication SIG (Take, Route, Frequency, Duration) Notes Start Da te End Date Status Cialis 5 mg 1 tablet Orally Once a day for 30 Not-Taking Losartan Potassium 25 MG 1 tablet Orally Once a day Active Cialis 5MG 1 tablet Orally Once a day for 30 Not-Taking Amiodarone HCl 200 MG TK 1 T PO D Oral for 90 Active Divalproex Sodium 500 MG 1 tablet Orally BID Active Cetirizine HCl 10 MG 1 tablet Orally Once a day Not-Taking Coreg 6.25 mg 2 times oral daily DUPLICATE Not -Taking Acetaminophen Extra Strength 500 MG 1 tablet as needed Orally every 8 hrs for 30 day(s) Jan, Active Levothyroxine Sodium 137 MCG 1 capsule Orally Once a day Active Osteo Bi-Flex Adv Double St as directed Orally Not-Taking Chlorthalidone 25 MG TK 1/2 T PO QD Oral for 90 Active Slow-Mag 535 (64 Mg) MG as directed Orally Active Folic Acid 1 MG 1 tablet Orally Once a day for 30 day(s) Active Pacerone 200 MG 1 tablet Orally Once a day for 30 day(s) Active Plavix 75 MG 1 tablet Orally Once a day for 30 day(s) Active Mirabegron ER 50 MG 1 tablet Orally Once a day at bedtime DUPLIC ATE May, Not-Taking Viagra 100 MG 1 tablet as needed Orally as directed for 90 day(s) Active Rosuvastatin Calcium 10 MG TK 1 T PO QHS Oral for 90 Active Oxybutynin Chloride ER 10 MG 1 tablet Orally Daily for 90 day(s) Sep, Active Multivitamins as directed Orally Act lili Prednisone 1 tab Oral Not-Taking Carvedilol 6.25 MG TK 1 T PO BID Oral for 90 Active Vitamin B 12 500 MCG 1 tablet Orally Once a day for 30 day(s) Active Trazodone HCl 50 MG TK 1 T PO HS PRN Oral for 90 Not-Taking Gabapentin 100 mg 2 cap(s) Orally bid Not-Taking Chlorthalidone 25 MG 1/2 tablet in the morning Orally Once a day for 30 day(s) DUPLICATE Not-Taking Alfuzosin HCl ER 10MG TAKE ONE TABLET BY MOUTH ONCE DAILY DIR ECTED for 30 Not-Taking Docusate Sodium 100 MG 1 capsule as needed Orally three times daily Not-Taking Myrbetriq 50 1 tablet Orally Once a day for 90 day(s) Not-Taking Glucosamine Chondr Complex 500-400 MG 1 capsule with a meal Oral ly Once a day Active Aspirin 81 MG 1 tablet Orally Once a day for 30 day(s) Active PROCEDURES No Information RESULTS No Results REASON FOR VISIT Would like to see you sooner than 10/29/2021 MEDICAL (GENERAL) HISTORY Type Description Date Medical History Atrial fibrillation Medical History bipolar depression Medical History degenerative disc disease Medical History BPH Medical History HTN Medical History plantar fasciitis Medical History Sinus Infection Medical History peripheral Arterial disease Medical History Sleep Apnea Medical History COPD-Mild Surgical History hernia repair Surgical History Bilateral Hydrocele Repair 02/08/2013 Surgical History stent placement in left leg 05/09/14 Surgical History Colonoscopy polyp removal 11/2016 Surgical History stent placement in right leg 2017 Surgical History biopsy of pancreatic cysts- benign 08/02 Surgical History CYSTOSCOPY 09/25/2019 Surgical History lung bx- follows with Pulmonary 11/2019 Hospitalization History surgicaly related Goals Section No Information Health Concerns No Information MEDICAL EQUIPMENT No Information MENTAL STATUS No Information FUNCTIONAL STATUS No Information ASSESSMENTS No Information PLAN OF TREATMENT Medication Medication Name Sig Start Date Stop Date Viagra 100 MG 1 tablet as needed Orally as directed for 90 day (s) Next Appt Details Provider Name:Jaimee Kirk, 2021-07-23 03:30:00 PM, [address] [place] [address], , [place], [address], Provider Name:Jaimee Kirk, 2021-10-29 09:00:00 AM, [address] [place] [address] , [place], [address], Provider Name:Stanislaw Webb, 01:30:00 PM, [address], , [place], [address], Insurance Providers Payer Name Payer Address Payer Phone Insured Name Patient Relati onship to Insured Coverage Start Date Coverage End Date [facility] [id number] [facility] [id number] [place] MEDICARE PART A ONLY [id number] [facility] [id number] [employer] self
--- OUTSIDE RECORDS SUMMARY | 2021-09-17 06:07 | CCD | Continuity of Care Document ---
Author Organization Unknown Address Unknown Phone Unavailable Care Team Providers Care Firer Glost Kiln Name Role Phone Wilfredo Monk M.D. [facility] [phone] Problems Active Problems Provider Date Tobacco user Eyal Tovar, GERARD Onset: 03/20/2008 Chronic obstructive lung disease Eyal Tovar RPA Onse t: 12/17/2009 Mixed hyperlipidemia Eyal Tovar, RPA Onset: 1 Benign prostatic hyperplasia with outflow obstruction Eyal Tovar, RPA Onset: 07/10/2013 Note: Dr. Aviles Hypothyroidism Eyal Tovar, RPA Onset: 11/16/2013 Low back pain Eyal Tovar, RPA Onset: 01/18/2014 Psoriasis with arthropathy Eyal Tovar, RPA Onset: Disorder of magnesium metabolism Eyal Tovar RPA Onse t: 05/25/2014 Atherosclerosis of arteries of the extremities Froy Tovar, RPA Onset: 05/25/2014 Deficiency anemias Eyal Tovar, [...] & lactic acid dehydrog enase Eyal Tovar, RPA Onset: 04/05/2018 Social History Type Date Description [...] y mouth every day 30tabs Charley Lay [facility] 05/02/2021 Clopidogrel Bisulfate 75mg Tablets Take 1 Tablet By Mouth Every Day. Maximum Daily Dose Is 1. 90tabs Gino Negro D.O., FAA 10/09/2019 Ondansetron 8mg Tablets Dispers 1 tab by mouth three times a day as needed 30tabs Gino briseno D.O., FAAFP 03/23/2019 Mupirocin 2% Ointment apply to inner right nare using a cotton tipped applicator three times a day 22gm Gino Negro D.O., FAAFP 01/05/2019 Synthroid 137mcg Tablets 1 by mouth every day 90tabs Parvez Rodriguez.Lelia., FAAFP Vitamin B-12 Natural 500mcg Tablets 1 [...] 24HR 1 by mouth every day Unknown 000 Sildenafil Citrate 100mg Tablets 1 by mouth [...] and then repeat 45gm Gino Negro D.O., FAAFP Losartan Potassium 25mg Tablets 1 by mouth every hs Wilfredo Monk M.D. Glucosamine Chondroitin Complex C apsules one by mouth bid OTC Unknown Chlorthalidone 25mg Tablets 1/[address] Monk Unknown Multi Vitamin Tablets OTC Unknown History Medications Amoxicillin/Clavulanate Potassium 875-125mg Tablets 1 tab by mouth twice a day for 10 days 20taCharley Montano [facility] 05/02/2021 - 06/11/2021 Vancomycin HCL 250mg Capsules 1 tab by mouth three times a day for 5 days 15capCharley Quintero [facility] 04/04/2021 - 04/09/2021 Medications Administered in Office Medication SIG Qnty Indications Ordering Provider Date Injection (SC)/(Im) Injection Eyal Tovar, [facility] 01/20/2018 Injection (SC)/(Im) Injection Eyal Tovar, [facility] 01/19/2018 Injection (SC)/(Im) Injection Eyal Tovar, [facility] 01/18/2018 Injection (SC)/(Im) Injection Eyal Tovar, [facility] 01/17/2018 Injection (SC)/(Im) Injection Eyal Tovar, RPA [...] CPT Code Status Date Vaccine Lot # [id number] Given 08/29/2013 Tdap Tetanus,Dip htheria Toxoids/Acellular Pertussis 7Yrs Or Older [id number] Given 02/20/2000 PPD Tuberculosis Intradermal 00498 Refused 08/11/2019 Influenza Virus Vaccine, Quadrivalent, Slit Virus, Im Use 3Y & Up 41516 Refused 10/01/2016 Influenza Virus Vaccine, Quadrivalent, Slit Virus, Im Use 3Y & Up Vital Signs Date Vital Result Comment 07/09/2021 9:29am BP Systolic 136 mmHg BP Diastolic 84 mmHg Body Temperature 96.1 F Heart Rate 72 /min Respiratory Rate 16 /min Height 73 inches 6'1" Weight 308.00 lb [place] Body Weight 184 lb BMI (Body Mass Index) 40.6 kg/m2 O2 % BldC Oximetry 96 % 06/11/2021 1:08pm BP Systolic 110 mmHg BP Diastolic 56 mmHg Body Temperature 97.0 F Heart Rate 82 /min Respiratory Rate 20 /min Height 73 inches 6'1" Weight 314.00 lb [place] Body Weight 184 lb BMI (Body Mass Index) 41.4 kg/m2 O2 % BldC Oximetry 96 % Results Test Acquired Date Facility Test Result H/L Range Note Laboratory test finding 07/09/2021 [facility] (Interface) [phone] Valproic Acid (Depakote) 75.4 UG/ML Normal 50.0-10 0.0 Laboratory test finding 06/04/2021 [facility] (Interface) [phone] HIV 1&2 Screen Centaur NEGATIVE Normal Negative 1 GC & Chlamydia By Amp 06/04/2021 [facility] (Interface) [phone] Chlamydia Dna Amplification NEGATIVE Normal Nega tive [...] 14 Culture Wound And Gram Stain 03/30/2021 [facility] (Interface) [phone] Gram Stain (SEE NOTE) Normal 15 Wound Culture FULL REPORT IN L <SEE NOTE> Normal 16 Blood Culture 03/30/2021 [facility] (I nterface) [phone] Blood Culture No growth after <SEE NOTE> 17 Prothrombin Time/Inr 03/30/2021 [facility] ( Interface) [phone] Prothrombin Time 13.5 seconds Normal 12.5-14.3 Inr 1.01 Normal 18 Comprehensive Metabolic Profil 03/30/2021 [facility] (Interface) [phone] Glucose, Fasting 112 mg/dL High 70-100 Blood [...] Ratio 0.9 Normal Laboratory test finding 03/30/2021 [facility] (Interface) [phone] C Reactive Protein Quantitativ 1.06 mg/dL High 0 .00-0.30 CBC With Differential 03/30/2021 [facility] [place]) [phone] White Blood Count 8.1 10 Normal 4.0-10.0 [...] 36.0-66.0 Lymph % 18.7 % Low 24.0-44.0 [place] % 12.3 % High 2.0-8.0 Eos % 2.0 % Normal 0.0-3.0 Baso % 0.5 % Normal 0.0-1.0 Immature Granulocyte % 1.2 % Normal 0-3.0 Nucleated Red Blood Cell % 0.0 % Normal 0-0 Neutrophils # 5.3 10 Normal 1.5-8.5 Lymph # 1.5 10 Normal 1.5-5.0 [place] # 1.0 10 High 0.0-0.8 Eos # 0.2 10 Normal 0.0-0.5 Baso # 0.0 10 Normal 0.0-0.2 Laboratory test finding 03/30/2021 [facility] ([facility]) [phone] Erythrocyte Sedimentation Rate 33 mm/hr High 0 -20 Laboratory test finding 03/30/2021 [facility] (Interface) [phone] Lactic Acid Sepsis Protocol 1.7 mmol/L Normal 0.4- 2.0 20 Blood Culture 03/30/2021 [facility] (I nterfa) [phone] Blood Culture No growth after <SEE NOTE> 21 1 This assay was performed uti lizing a chemiluminescent principle technique for the simultaneous qualitative detection of HIV-1 p24 antigen & antibodies to HIV-1 (including group O) & HIV-2 using the Si emens Centaur XP system. The estimated 95% confidence interval for [...] REPORT IN LAB NOTES (eC W and [place]). ORGANISM 1: YEAST LIKE ORGANISM QUANTITY OF [...] Little GFR Left ESRD GFR <15 on PUBLIC HEALTH PROFESSOR 20 Y/N query for Sepsis Lactate Rule: [...] 5 DAYS Procedures Date Code Description Status 07/09/2021 78584 Office/Outpatient Established Lo w MDM 20-29 Min Completed 06/11/2021 72156 Office/Outpatient Established Mo d MDM 30-39 Min Completed 04/29/2021 56205 Office/Outpatient Established Lo w MDM 20-29 Min Completed 04/04/2021 31908 Office/Outpatient Established Lo w MDM 20-29 Min Completed 03/06/2021 41226 Office/Outpatient Established Mo d MDM 30-39 Min Completed Medical Devices Description No Information Available Encounters Type Date Location Provider Dx Diagnosis Office Visit 07/09/2021 9:30a [facility] Eyal Tovar, RP A L40.9 Psoriasis, unspecified Office Visit 06/11/2021 1:00p [facility] Eyal Tovar, RP A I10 Essential (primary) hypertension E78.2 Mixed hyperlipidemia E03.9 Hypothyroidism, unspecified I48.20 Chronic atrial fibrillation, unspecified Office Visit 04/29/2021 10:15a [facility] RoundsCharley FNP-BC L02.415 Cutaneous abscess of right lower limb R60.9 Edema, unspecified Office Visit 04/04/2021 2:45p [facility] RoundsCharley FNP-BC L02.415 Cutaneous abscess of right lower limb Office Visit 03/06/2021 1:00p [facility] Eyal Tovar, RP A I10 Essential [...] L02.415 Cutaneous abscess of right lower limb Alireza, Charley Issa, [facility] 04/29/2021 R60.9 Edema, unspecified Alireza Charley Issa, [facility] 04/04/2021 L02.415 Cutaneous abscess of right lower limb Alireza, Charley Issa, [facility] 03/06/2021 I10 Essential (primary) hypertension Eyal Tovar, RPA 03/06/2021 E78.2 Mixed hyperlipidemia Wilfredo Tovar, RPA 03/06/2021 E03.9 Hypothyroidism, unspecified Eyal Mckeon, RPA Plan of Treatment Future Appointment(s):* 09/11/2021 1:15 pm - Eyal Tovar, GERARD at [facility] Functional Status Functional Condition Comment Date Status ADL's.independent.all ADL's Acti ve Mental Status Description No Information Available Referrals Refer to Dr Reason for Referral Status Appt Date [facility] Dermatology Psoriasis --Appointment niels sher scheduled for 07/23/21 at [facility] by patient.--No active lesions at this time. Peviously under care of [facility] Dermatology. Sent [address] [address] [phone]
--- OUTSIDE RECORDS SUMMARY | 2021-09-17 06:07 | CCD ---
Author Author [facility] Organization [facility] Address Unknown Phone Unavailable Care Team Providers Care Brake Operator Sheet Metal Name Role Phone Jaimee Kirk Unavailable PROBLEMS Type Condition ICD9-CM Code QLV15-UA Code Onset Dates Condition S tatus W/U Status Risk SNOMED Code Notes Problem Other male erectile dysfunction N52.8 Active confi rmed 865208369 Problem Enlarged prostate with lower urinary tract symptoms N40.1 Active confirmed [id number] Problem Shoulder pain, unspecified chronicity, unspecified lat erality M25.519 Active confirmed 18439969 Problem Psoriasis, unspecified L40.9 Active confirmed 4958795 Problem STD exposure Z20.2 Active confirmed 4542457 06 Problem Hypogonadism male 257.2 Active confirmed 48 854694 Problem Premature ejaculation F52.4 Active confirmed 59076231 Problem Hypertrophy (benign) of pros herron with urinary obstruction and other lower urinary tract symptoms [LUTS] 600.01 Active confirmed 595289576 Problem Pain of right hip joint M25.551 Active confirmed 59682801 Problem Back pain, unspecified back location, unspecified back pain laterality, unspecified chronicity M54.9 Active confirmed 6538921 05 Problem Benign prostatic hyperplasia without lower urina ry tract symptoms N40.0 Active confirmed 966504026 Problem Urgency of micturition R39.15 Active confirmed 25040183 ALLERGIES Allergen (clinical drug ingredient) Drug/Non Drug Allergy do cumented on EMR Reaction Allergy Type Onset Date Status Bee sting Anaphylaxis Non Drug Allergy Active ENCOUNTERS from 1955 to 2021-07-24 Encounter Location Date Provider Diagnosis [facility] Dermatology [address] [place] [address] [place] [address] Jun, Jaimee Kirk Skin tag L91.8 and Skin irri tation R23.8 IMMUNIZATIONS Vaccine Route Administration Date Status Influenza 6mo & up Fluzone Unknown Dec 17, 2015 Refus ed SOCIAL HISTORY Sex Assigned At : Social History Observation Description Sex Assigned At Unknown REASON FOR REFERRAL No Information VITAL SIGNS Weight 305 lbs Jun, Weight-kg 138.35 kg Jun, Height 72 in Jun, BMI 41.36 kg/m2 Jun, Blood pressure systolic 138 mm Hg Jun, Blood pressure diastolic 76 mm Hg Jun, MEDICATIONS Medication SIG (Take, Route, Frequency, Duration) Notes Start Da te End Date Status Mirabegron ER 50 MG 1 tablet Orally Once a day at bedtime DUPLIC ATE May, Not-Taking Gabapentin 100 mg 2 cap(s) Orally bid Not-Taking Slow-Mag 535 (64 Mg) MG as directed Orally Active Folic Acid 1 MG 1 tablet Orally Once a day for 30 day(s) Active Rosuvastatin Calcium 10 MG TK 1 T PO QHS Oral for 90 Active Cialis 5MG 1 tablet Orally Once a day for 30 Not-Taking Carvedilol 6.25 MG TK 1 T PO BID Oral for 90 Active Trazodone HCl 50 MG TK 1 T PO HS PRN Oral for 90 Not-Taking Vitamin B 12 500 MCG 1 tablet Orally Once a day for 30 day(s) Active Cetirizine HCl 10 MG 1 tablet Orally Once a day Not-Taking Divalproex Sodium 500 MG 1 tablet Orally BID Active Amiodarone HCl 200 MG TK 1 T PO D Oral for 90 Active Chlorthalidone 25 MG TK 1/2 T PO QD Oral for 90 Active Viagra 100 MG 1 tablet as needed Orally as directed for 90 day(s) Active Myrbetriq 50 1 tablet Orally Once a day for 90 day(s) Not-Taking Pacerone 200 MG 1 tablet Orally Once a day for 30 day(s) Active Oxybutynin Chloride ER 10 MG 1 tablet Orally Daily for 90 day(s) Sep, Active Acetaminophen Extra Strength 500 MG 1 tablet as needed Orally every 8 hrs for 30 day(s) Jan, Active Alfuzosin HCl ER 10MG TAKE ONE TABLET BY MOUTH ONCE DAILY DIR ECTED for 30 Not-Taking Chlorthalidone 25 MG 1/2 tablet in the morning Orally Once a day for 30 day(s) DUPLICATE Not-Taking Cialis 5 mg 1 tablet Orally Once a day for 30 Not-Taking Osteo Bi-Flex Adv Double St as directed Orally Not-Taking Prednisone 1 tab Oral Not-Taking Multivitamins as directed Orally Act lili Coreg 6.25 mg 2 times oral daily DUPLICATE Not -Taking Docusate Sodium 100 MG 1 capsule as needed Orally three times daily Not-Taking Glucosamine Chondr Complex 500-400 MG 1 capsule with a meal Oral ly Once a day Active Losartan Potassium 25 MG 1 tablet Orally Once a day Active Aspirin 81 MG 1 tablet Orally Once a day for 30 day(s) Active Plavix 75 MG 1 tablet Orally Once a day for 30 day(s) Active Levothyroxine Sodium 137 MCG 1 capsule Orally Once a day Active PROCEDURES from 1955 to 2021-07-24 Procedure Date Ordered Result Body Site Med: Derm 1% Lidocaine with Epinephrine Injection Intr adermally to marked areas 2021-07-23 N/A RESULTS No Results REASON FOR VISIT SUNFLOWER PT, PSORIASIS MEDICAL (GENERAL) HISTORY Type Description Date Medical [...] No Information FUNCTIONAL STATUS No Information ASSESSMENTS Encounter Date Diagnosis Assessment Notes Treatment Notes Treatm ent Clinical Notes Jun, Skin tag (ICD-10 - L91.8) Lesion(s) destructed in office today with electrocautery. Area was prepped with alcohol pad, anesthetized with lido with epi destruction with cautery to irritated lesions, followed by application of vaseline. Jun, Skin irritation (ICD-10 - R23.8) PLAN OF TREATMENT Treatment Notes Assessment Notes Clinical Notes Skin tag Lesion(s) destructed in office today with electrocautery. Area was prepped with alcohol pad, anesthetized with lido with epi destruction with cautery to irritated lesions, followed by application of vaseline. Next Appt Details 6 Months Reason:fbse Provider Name:Jaimee Kirk, 2021-10-29 09:00:00 AM, [address] [place] [address], , [place], [address], Provider Name:Jaimee K Reagan, 2022-01-26 01:15:00 PM, [address] [place] [address], , [place], [address], Provider Name:Stanislaw Webb, 01:30:00 PM, [address], , [place], [address], Follow Up:6 Monthsfbse Insurance Providers Payer Name Payer Address Payer Phone Insured Name Patient Relati onship to Insured Coverage Start Date Coverage End Date [facility] [address] [id number] [facility] [phone] self MEDICARE PART A ONLY [id number] [facility] [id number] FRANK COLMENARES self
--- OUTSIDE RECORDS SUMMARY | 2021-09-17 06:07 | CCD | Continuity of Care Document ---
Author Author Keith TOVAR [facility] Organization Unknown Address [address] [place], [place] [address] Phone [phone] Care Team Providers Care Intern Product Marketing Manager Name Role Phone Wilfredo Monk M.D. [facility] [phone] Problems Active Problems Provider Date Tobacco user [...] & lactic acid dehydrog enase Eyal Tovar, [facility] Onset: 04/05/2018 Social History [...] y mouth every day 30tabs Charley Lay [employer]- 05/02/2021 Clopidogrel Bisulfate 75mg Tablets Take 1 Tablet By Mouth Every Day. Maximum Daily Dose Is 1. 90tabs Gino Negro D.O., [facility] 10/09/2019 Ondansetron 8mg Tablets Dispers 1 tab [...] and then repeat 45gm [facility] D.O., [facility] Losartan Potassium 25mg Tablets 1 by mouth every hs Wilfredo Monk M.D. Glucosamine Chondroitin Complex C apsules one by mouth bid OTC Unknown Chlorthalidone 25mg Tablets 1/[address] Monk Unknown Multi Vitamin Tablets OTC Unknown History Medications Amoxicillin/Clavulanate Potassium 875-125mg Tablets 1 tab by mouth twice a day for 10 days 20tabs Ro Charley parks [facility] 05/02/2021 - 06/11/2021 Vancomycin HCL 250mg Capsules 1 tab by mouth three times a day for 5 days 15capCharley Quintero [facility] 04/04/2021 - 04/09/2021 Medications Administered in Office Medication SIG Qnty Indications Ordering Provider Date Injection (SC)/(Im) Injection Eyal Tovar, [facility] 01/20/2018 Injection (SC)/(Im) Injection Eyal Tovar, [facility] 01/19/2018 Injection (SC)/(Im) Injection Eyal Tovar, RPA [...] CPT Code Status Date Vaccine Lot # [id number] Given 08/29/2013 Tdap Tetanus,Dip htheria Toxoids/Acellular Pertussis 7Yrs Or Older [id number] [id number] Given 02/20/2000 PPD Tuberculosis Intradermal 68870 Refused 08/11/2019 Influenza Virus Vaccine, Quadrivalent, Slit Virus, Im Use 3Y & Up 26471 Refused 10/01/2016 Influenza Virus Vaccine, Quadrivalent, Slit Virus, Im Use 3Y & Up Vital Signs Date Vital Result Comment 07/09/2021 9:29am BP Systolic 136 mmHg BP Diastolic 84 mmHg Body Temperature 96.1 F Heart Rate 72 /min Respiratory Rate 16 /min Height 73 inches 6'1" Weight 308.00 lb [place] Body Weight 184 lb BMI (Body Mass Index) 40.6 kg/m2 O2 % BldC Oximetry 96 % 06/11/2021 1:08pm BP Systolic 110 mmHg BP Diastolic 56 mmHg Body Temperature 97.0 F Heart Rate 82 /min Respiratory Rate 20 /min Height 73 inches 6'1" Weight 314.00 lb [place] Body Weight 184 lb BMI (Body Mass Index) 41.4 kg/m2 O2 % BldC Oximetry 96 % Results Test Acquired Date Facility Test Result H/L Range Note Basic Metabolic Profile 07/09/2021 [facility] ([facility]) [phone] Glucose, Fasting 90 mg/dL Normal 70-100 Blood [...] mg/dL Normal 8.8-10.2 Laboratory test finding 07/09/2021 [facility] ([facility]) [phone] Magnesium Level 2.2 mg/dL Normal 1.8-2.4 Laboratory test finding 07/09/2021 [facility]) [phone] Valproic Acid (Depakote) 75.4 UG/ML Normal 50.0-10 0.0 Complete Blood Count 07/09/2021 [facility]) [phone] White Blood Count 7.6 10 Normal 4.0-10.0 [...] % Normal 0-0 Laboratory test finding 06/04/2021 [facility] ([facility]) [phone] HIV 1&2 Screen Centaur NEGATIVE Normal Negative 2 GC & Chlamydia By Amp 06/04/2021 [facility]) [phone] Chlamydia Dna Amplification NEGATIVE Normal Nega tive [...] 15 Culture Wound And Gram Stain 03/30/2021 [facility] Maegan florentino (Interface) [phone] Gram Stain (SEE NOTE) Normal 16 Wound Culture FULL REPORT IN L <SEE NOTE> Normal 17 Blood Culture 03/30/2021 [facility] (I nterface) [phone] Blood Culture No growth after <SEE NOTE> 18 Prothrombin Time/Inr 03/30/2021 [facility] ( Interface) [phone] Prothrombin Time 13.5 seconds Normal 12.5-14.3 Inr 1.01 Normal 19 Comprehensive Metabolic Profil 03/30/2021 [facility] (Interface) [phone] Glucose, Fasting 112 mg/dL High 70-100 Blood [...] Ratio 0.9 Normal Laboratory test finding 03/30/2021 [facility] l (Interface) [phone] C Reactive Protein Quantitativ 1.06 mg/dL High 0 .00-0.30 CBC With Differential 03/30/2021 [facility] (Interface) [phone] White Blood Count 8.1 10 Normal 4.0-10.0 [...] 36.0-66.0 Lymph % 18.7 % Low 24.0-44.0 [place] % 12.3 % High 2.0-8.0 Eos % 2.0 % Normal 0.0-3.0 Baso % 0.5 % Normal 0.0-1.0 Immature Granulocyte % 1.2 % Normal 0-3.0 Nucleated Red Blood Cell % 0.0 % Normal 0-0 Neutrophils # 5.3 10 Normal 1.5-8.5 Lymph # 1.5 10 Normal 1.5-5.0 [place] # 1.0 10 High 0.0-0.8 Eos # 0.2 10 Normal 0.0-0.5 Baso # 0.0 10 Normal 0.0-0.2 Laboratory test finding 03/30/2021 [facility] (Interface) [phone] Erythrocyte Sedimentation Rate 33 mm/hr High 0 -20 Laboratory test finding 03/30/2021 [facility] (Interface) [phone] Lactic Acid Sepsis Protocol 1.7 mmol/L Normal 0.4- 2.0 21 Blood Culture 03/30/2021 [facility] (I nterface) [phone] Blood Culture No growth after <SEE NOTE> 22 1 Units are mL/min/1.73 m2 Chronic Kidney Disease Staging per NKF: Stage I & II GFR >=60 Normal to Mildly Decreased Stage III GFR 30-59 Moderately Decreased Stage IV GFR 15-29 Severely Decreased Stage V GFR <15 Very Little GFR Left ESRD GFR <15 on CARRIAGE FEEDER 2 This assay was performed uti lizing a chemiluminescent principle technique for the simultaneous qualitative detection of HIV-1 p24 antigen & antibodies to HIV-1 (including group O) & HIV-2 using the apprupt system. The estimated 95% confidence interval for [...] Little GFR Left ESRD GFR <15 on CARRIAGE FEEDER 21 Y/N query for Sepsis Lactate Rule: [...] DAYS Procedures Date Code Description Status 07/09/2021 11098 Office/Outpatient Established Lo w MDM 20-29 Min Completed 06/11/2021 13227 Office/Outpatient Established Mo d MDM 30-39 Min Completed 04/29/2021 47783 Office/Outpatient Established Lo w MDM 20-29 Min Completed 04/04/2021 32952 Office/Outpatient Established Lo w MDM 20-29 Min Completed 03/06/2021 58996 Office/Outpatient Established Mo d MDM 30-39 Min Completed Medical Devices Description No Information Available Encounters Type Date Location Provider Dx Diagnosis Office Visit 07/09/2021 9:30a [place] [facility] Eyal Tovar, RP A L40.9 Psoriasis, unspecified Office Visit 06/11/2021 1:00p [facility] Eyal Tovar, RP A I10 Essential (primary) hypertension E78.2 Mixed hyperlipidemia E03.9 Hypothyroidism, unspecified I48.20 Chronic atrial fibrillation, unspecified Office Visit 04/29/2021 10:15a [place] [facility] RoundsCharley FNP-BC L02.415 Cutaneous abscess of right lower limb R60.9 Edema, unspecified Office Visit 04/04/2021 2:45p [facility] Charley Lay FNP-BC L02.415 Cutaneous abscess of right lower limb Office Visit 03/06/2021 1:00p [facility] Eyal Tovar, RP A I10 Essential [...] abscess of right lower limb Charley Lay [facility] 04/29/2021 R60.9 Edema, unspecified Charley Lay, [facility] 04/04/2021 L02.415 Cutaneous abscess of right lower limb Charley Lay [facility] 03/06/2021 I10 Essential (primary) hypertension Eyal Tovar, RPA 03/06/2021 E78.2 Mixed hyperlipidemia Wilfredo Tovar, RPA 03/06/2021 E03.9 Hypothyroidism, unspecified Eyal Mckeon, GERARD Plan of Treatment Future Appointment(s):* 09/11/2021 1:15 pm - Eyal Tovar RPA at [place] [facility] Functional Status Functional Condition Comment Date Status ADL's.independent.all ADL's Acti ve Mental Status Description No Information Available Referrals Refer to Dr Reason for Referral Status Appt Date [facility] Dermatology Psoriasis --Appointment niels sher scheduled for 07/23/21 at [facility] by patient.--No active lesions at this time. Peviously under care of [facility] Dermatology. Sent [address] [address] [phone]
--- OUTSIDE RECORDS SUMMARY | 2021-09-17 06:07 | CCD | Continuity of Care Document ---
Author Author Keith VÁZQUEZ PA-C Organization Unknown Address [address] [place] [address], [place] [address] Phone [phone] Care Team Providers Care Manager Regional Name Role Phone Eyal Tovar AUTM [phone] Aquilino Khan MD AUTM [phone] True Sabillon MD AUTM [phone] Daysi Archer MD AUTM Jono Lopez MD AUTM Сергей Matos MD AUTM [phone] Vaughn Joseph MD AUTM [phone] Elieser Alvarez DO AUTM [phone] Candis Ozuna AUTM Man Carrasquillo MD AUTM [phone] Other Provider AUTM Unavailable Chepe Khan MD AUTM [phone] Problems Active Problems Provider Date Atrial fibrillation [...] lly Exercise Type/Frequency 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, 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 needed [...] Date Facility Test Result H/L Range Note CBC without Differential 03/30/2021 [facility] - not inter faced (315)- - White Blood Count 8.1 5.0-10.0 Red Blood Count 3.65 Low 4.00-5.40 Platelets 261 172-450 Hemoglobin 11.4 Hematocrit 34.6 CMP 03/30/2021 [facility] - not interfaced (315)- - Albumin Serum/Plasma 3.1 Alt - SGPT 60 Calcium Ser/Plasma Mass/Vol 8.1 Carbon Dioxide Ser/Plasm 28 Chloride Serum/Plasma 104 Alkaline Phosphatase 64 Potassium 3.9 Protein Total 6.7 Sodium 137 Ast - Sgot 38 BUN - Urea Nitrogen 12 Glucose 112 High 83-110 Creatinine For GFR 1.01 Comprehensive Metabolic Profil 03/08/2021 [facility] [phone] Glucose, Fasting 125 mg/dL High 70-100 Blood Urea Nitrogen 13 mg/dL Normal 7-18 Creatinine For GFR 1.07 mg/dL Normal 0.70-1.30 Glomerular Filtration Rate > 60.0 Normal >49 1 Sodium Level 133 mEq/L Low 136-145 Potassium [...] Albumin/Globulin Ratio 1.0 Normal Lipid Panel 03/08/2021 [facility] nter [phone] Triglycerides Level 181 mg/dL High <150 Cholesterol [...] Little GFR Left ESRD GFR <15 on PLANTING SUPERVISOR Procedures Date Code Description Status 07/09/2021 98598 Office/Outpatient Established Mo d MDM 30-39 Min Completed 07/09/2021 95226 ECG 12-Lead Completed 02/17/2021 33076 Treadmill/Pharmacological Monito ring Completed 02/17/2021 87283 Myocardial Perfusion Spect Multi ple Completed Medical Devices Description No Information Available Encounters Type Date Location Provider Dx Diagnosis Office Visit 07/09/2021 11:30a Main Office Carrie Vázquez PA-C I48.0 Paroxysmal atrial fibrillation I11.9 Hypertensive heart disease w ithout heart failure R94.31 Abnormal electrocardiogram [ ECG] [EKG] I44.7 Left bundle-branch block, un specified I77.810 Thoracic aortic ectasia 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 E78.2 Mixed hyperlipidemia I73.9 Peripheral vascular disease, unspecified G47.33 Obstructive sleep apnea (bob lt) (pediatric) Z71.3 Dietary counseling and surve illance Assessments Date Code Description Provider 07/09/2021 I48.0 Paroxysmal atrial fibrillation Syed guillermo Vázquez PA-C 07/09/2021 I11.9 Hypertensive heart disease witho ut heart failure TAMAR Mccain-C 07/09/2021 R94.31 Abnormal electrocardiogram [ECG] [EKG] Carrie Vázquez PA-C 07/09/2021 I44.7 Left bundle-branch block, unspec ified Carrie Vázquez PA-C 07/09/2021 I77.810 Thoracic aortic ectasia Carrie mcdonough PA-C 07/09/2021 I27.29 Other secondary pulmonary hypert ension Carrie Vázquez PA-C 07/09/2021 E78.2 Mixed hyperlipidemia Carrie tello PA-C 07/09/2021 I73.9 Peripheral vascular disease, uns pecified Carrie Alvin Vázquez PA-C 07/09/2021 G47.33 Obstructive sleep apnea (adult) (pediatric) Carrie Vázquez PA-C 07/09/2021 Z71.3 Dietary counseling and surveilla nje Carrie Vázquez PA-C 02/17/2021 R06.02 Shortness of breath Stress Nucle ar/Reg Treadmill 02/17/2021 R94.31 Abnormal electrocardiogram [ECG] [EKG] Stress Nuclear/Reg Treadmill 02/17/2021 I44.7 Left bundle-branch block, unspec ified Stress Nuclear/Reg Treadmill Plan of Treatment Future Appointment(s):* 01/12/2022 11:30 am - Carrie Vázquez PA-C at Main Office 07/09/2021 - Carrie Vázquez PA-C* I48.0 Paroxysmal atrial fibrillation* New Labs:* Basic Metabolic Profile, Scheduled: 07/09/21 * Magnesium Level, Scheduled: 07/09/21 * Complete Blood Count, Scheduled: 07/09/21 * I11.9 Hypertensive heart disease without heart failure* New Labs:* Basic Metabolic Profile, Scheduled: 07/09/21 * Magnesium Level, Scheduled: 07/09/21 * R94.31 Abnormal electrocardiogram [ECG] [EKG] * [...] Obtain vascular surgery report and CXR from [facility] done in February. Functional Status Functional Condition Comment Date Status Independent with all ADL's Activ e Mental Status Description No Information Available Referrals Refer to Reason for Referral Status Appt Date Guillermo Jose MD VERBAL AUTH REC'D FROM JASON Whitley @ [employer]. AUTH # [id number] VALID 02/13/21 - 03/30/21. [place] Created 0 [address] [facility], [facility] [address] [place] [id number] [phone]
--- OUTSIDE RECORDS SUMMARY | 2021-09-17 06:07 | CCD | Continuity of Care Document ---
Author Organization Unknown Address Unknown Phone Unavailable Care Team Providers Care Dub Room Engineer Name Role Phone Eyal Tovar AUTM [phone] Aquilino Khan MD AUTM [phone] True Sabillon MD AUTM [phone] Daysi Archer MD AUTM Jono Lopez MD AUTM Сергей Matos MD AUTM [phone] Vaughn Joseph MD AUTM [phone] Elieser Alvarez DO AUTM [phone] Candis Ozuna AUTM Man Carrasquillo MD AUTM [phone] Other Provider AUTM Unavailable Chepe Khan MD AUTM [phone] Problems Active Problems Provider Date Atrial fibrillation Carrie Brown PA-C Onset: 01/25/2012 Benign hypertensive 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 eart failure Carrie Brown, PA-C Onset: 01/25/2012 Electrocardiogram abnormal Carrie Brown PA-C Onset: 01/25 Left bundle branch block Carrie Brown, PA-C Onset: 012 Dilatation of aorta Carrie Brown, PA-C Onset: 12/23/2015 Chronic pulmonary heart disease Carrie Brown PA-C Onset: 12/23/2015 Hyperlipidemia Carrie Brown PA-C Onset: 01/25/2012 Obesity Carrie Brown PA-C Onset: 01/25/2012 Peripheral vascular disease Carrie Brown PA-C Onset: 05/30 Tobacco user Carrie Brown PA-C Onset: 01/25/2012 Paroxysmal atrial fibrillation Carrie Brown PA-C Onset: 0 06/22/2016 Obstructive sleep apnea syndrome Carrie Brown PA-C Onset: 06/22/2016 Mixed hyperlipidemia Carrie Brown PA-C Onset: 12/23/2016 Dietary management surveillance Carrie Brown PA-C Onset: 06/25/2017 Social History Type Date Description Comments Sex Unknown Tobacco Use Start: Unknown End: Unknown Former Cigarette Smo ker ETOH Use Does not consume alcohol Tobacco Use Start: Unknown End: Unknown Patient is a former smoker smoked 3 ppd since the age of 18, Quit 12/09 and uses electronic cigarette with 1.5 MG nicotine Smoking Status Reviewed: 01/09/21 Patient is a former smoker sm oked 3 ppd since the age of 18, Quit 12/09 and uses electronic cigarette with 1.5 MG nicotine Exercise Type/Frequency Does housework sporadica lly Exercise Type/Frequency 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, 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 needed Exercise Type/Frequency Exercises daily stretchi ng and arm band exercises Exercise Type/Frequency Walks daily Air Walk er 2 mins at a time few times daily Exercise Limitations Joint Pain hips Exercise Limitations Back Pain lower back Exercise Limitations Shortness Of Breath Exercise Limitations Claudication Allergies, Adverse Reactions, Alerts Description No Known Drug Allergies Medications Active Medications SIG Qnty Indications Ordering Provide r Date Rosuvastatin Calcium 20mg Tablets 1 by mouth every night at bedtime 90tabs E78.2 Wilfredo Monk MD 01/09/2021 Oxybutynin Chloride 5mg Tablets 1 by mouth once a day Unknown 01/08/2021 Miralax 17GM/Scoop Powder 1 tablespoon as needed Unknown 07/08/2020 Sildenafil Citrate 100mg Tablets 1/2 to 1 po daily as needed Unknown 01/08/2020 Ondansetron 8mg Tablets Dispers 1 po q8h prn Eyal Tovar PA 01/08/2020 Benzonatate 100mg Capsules 1 po q8h prn Eyal Tovar PA 01/08/2020 Tylenol 8 Hour Arthritis Pain 650mg Tablets ER 1 by mouth twice a day Unknown 07/18 Losartan Potassium 25mg Tablets 1 po qhs 90tabs I11.9 Wlifredo Monk MD 02/09/2018 Chlorthalidone 25mg Tablets 1/2 [...] Available Vital Signs Date Vital Result Comment 01/09/2021 11:46am Weight 325.00 lb Home Weight 327lb Home weight Height 72 inches 6'0" BMI (Body Mass Index) 44.1 kg/m2 Heart Rate 72 /min Regular Respiratory Rate 16 /min BP Systolic Right Arm 134 mmHg sitting, large cuf f BP Diastolic Right Arm 80 mmHg sitting, large cu ff BP Systolic Left Arm 134 mmHg sitting BP Diastolic Left Arm 86 mmHg sitting 07/09/2020 1:19pm Weight 311.00 lb Height 72 inches 6'0" BMI (Body Mass Index) 42.2 kg/m2 Heart Rate 68 /min Regular Respiratory Rate 16 /min BP Systolic Right Arm 126 mmHg sitting, large cuf f BP Diastolic Right Arm 68 mmHg sitting, large cu ff BP Systolic Left Arm 130 mmHg sitting BP Diastolic Left Arm 68 mmHg sitting Results Test Acquired Date Facility Test Result H/L Range Note CBC without Differential 03/30/2021 [facility] - not inter faced (315)- - White Blood Count 8.1 5.0-10.0 Red Blood Count 3.65 Low 4.00-5.40 Platelets 261 172-450 Hemoglobin 11.4 Hematocrit 34.6 CMP 03/30/2021 [facility] - not interfaced (315)- - Albumin Serum/Plasma 3.1 Alt - SGPT 60 Calcium Ser/Plasma Mass/Vol 8.1 Carbon Dioxide Ser/Plasm 28 Chloride Serum/Plasma 104 Alkaline Phosphatase 64 Potassium 3.9 Protein Total 6.7 Sodium 137 Ast - Sgot 38 BUN - Urea Nitrogen 12 Glucose 112 High 83-110 Creatinine For GFR 1.01 Comprehensive Metabolic Profil 03/08/2021 [facility] [phone] Glucose, Fasting 125 mg/dL High 70-100 Blood [...] Albumin/Globulin Ratio 1.0 Normal Lipid Panel 03/08/2021 [facility] nter [phone] Triglycerides Level 181 mg/dL High <150 Cholesterol [...] Little GFR Left ESRD GFR <15 on BRAND INSPECTOR Procedures Date Code Description Status 02/17/2021 16491 Treadmill/Pharmacological Monito ring Completed 02/17/2021 81157 Myocardial Perfusion Spect Multi ple Completed 01/09/2021 69020 Office/Outpatient Established Mo d MDM 30-39 Min Completed 01/09/2021 32424 ECG 12-Lead Completed Medical Devices Description No Information Available Encounters Type Date Location Provider Dx Diagnosis Office Visit 01/09/2021 11:30a Main Office Carrie Brown PA-C R06.0 2 Shortness of breath I48.0 Paroxysmal atrial fibrillati on I11.9 Hypertensive heart disease w ithout heart failure R94.31 Abnormal electrocardiogram [ ECG] [EKG] I44.7 Left bundle-branch block, un specified I77.810 Thoracic aortic ectasia 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 E78.2 Mixed hyperlipidemia I73.9 Peripheral vascular disease, unspecified G47.33 Obstructive sleep apnea (bob lt) (pediatric) Z71.3 Dietary counseling and surve illance Assessments Date Code Description Provider 02/17/2021 R06.02 Shortness of breath Stress Nucle ar/Reg Treadmill 02/17/2021 R94.31 Abnormal electrocardiogram [ECG] [EKG] Stress Nuclear/Reg Treadmill 02/17/2021 I44.7 Left bundle-branch block, unspec ified Stress Nuclear/Reg Treadmill 01/09/2021 R06.02 Shortness of breath Carrie caldwell PA-C 01/09/2021 I48.0 Paroxysmal atrial fibrillation K guillermo Brown PA-C 01/09/2021 I11.9 Hypertensive heart disease witho ut heart failure Carrie Brown PA-C 01/09/2021 R94.31 Abnormal electrocardiogram [ECG] [EKG] Carrie Brown PA-C 01/09/2021 I44.7 Left bundle-branch block, unspec ified Carrie Brown PA-C 01/09/2021 I77.810 Thoracic aortic ectasia Carrie E Juan F mcdonough PA-C 01/09/2021 I27.29 Other secondary pulmonary hypert ension Carrie Brown PA-C 01/09/2021 E78.2 Mixed hyperlipidemia Carrie tello PA-C 01/09/2021 I73.9 Peripheral vascular disease, uns pecified Carrie Brown PA-C 01/09/2021 G47.33 Obstructive sleep apnea (adult) (pediatric) Carrie Brown PA-C 01/09/2021 Z71.3 Dietary counseling and surveilla tiffaniee Carrie Brown PA-C Plan of Treatment Future Appointment(s):* 07/09/2021 11:30 am - Carrie Brown PA-C at Main Office 01/09/2021 - Carrie Brown PA-C* R06.02 Shortness of breath * I48.0 Paroxysmal atrial fibrillation * I11.9 Hypertensive heart disease without heart failure * R94.31 Abnormal electrocardiogram [ECG] [EKG] * I44.7 Left bundle-branch block, unspecified * I77.810 Thoracic aortic ectasia * I27.29 Other secondary pulmonary hypertension * E78.2 Mixed hyperlipidemia* New Medication:* Rosuvastatin Calcium 20 mg - 1 by mouth every night at bedtime * Recommendations:* 1. Increased rosuvastatin to 20 mg daily. 2. Do fasting lab work in 2 months. * I73.9 Peripheral vascular disease, unspecified * G47.33 Obstructive sleep apnea (adult) (pediatric) * Z71.3 Dietary counseling and surveillance* Recommendations:* Follow a low fat/low cholesterol diet and do as much aerobic exercise as you can tolerate. * All * Follow up:* 6 month follow up. Request last LE doppler from and CTA from [facility]. Request last CXR/CT chest from [facility]. Functional Status Functional Condition Comment Date Status Independent with all ADL's Activ e Mental Status Description No Information Available Referrals Refer to Reason for Referral Status Appt Date Guillermo Jose MD VERBAL AUTH REC'D FROM JASON Whitley @ [employer]. AUTH # [id number] VALID 02/13/21 - 03/30/21. [place] Created 0 [address] [facility], [address] [place] [address] [phone]
--- OUTSIDE RECORDS SUMMARY | 2021-09-17 06:08 | CCD | Continuity of Care Document ---
Author Author Keith VÁZQUEZ PA-C Organization Unknown Address [address] [place] [address], [place] [address] Phone [phone] Care Team Providers Care Acquisitions Analyst Name Role Phone Eyal Tovar AUTM [phone] Aquilino Khan MD AUTM [phone] True Sabillon MD AUTM [phone] Daysi Archer MD AUTM Jono Lopez MD AUTM [phone] Сергей Matos MD AUTM [phone] Vaughn Joseph MD AUTM [phone] Elieser Alvarez DO AUTM [phone] Candis Ozuna AUTM Man Carrasquillo MD AUTM [phone] Other Provider AUTM Unavailable Chepe Khan MD AUTM [phone] Problems Active Problems Provider Date Atrial fibrillation [...] Vázquez PA-C Onset: 01/25/2012 Peripheral vascular disease Carrie Vázquez PA-C Onset: 05/30 Tobacco user Carrie Vázquez PA-C Onset: 01/25/2012 Paroxysmal atrial fibrillation Carrie Vázquez PA-C Onset: 0 06/22/2016 Obstructive sleep apnea syndrome Carrie Vázquez PA-C Onset: 06/22/2016 Mixed hyperlipidemia Carrie Vázquez PA-C [...] lly Exercise Type/Frequency 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, 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 needed [...] - 1200 mg Capsules 1 po bid MarkyGinoDO 11/08/20 12 Amiodarone HCL 200mg Tablets 1 [...] Date Facility Test Result H/L Range Note Comprehensive Metabolic Profil 03/08/2021 [facility] [phone] Glucose, Fasting 125 mg/dL High 70-100 Blood [...] Albumin/Globulin Ratio 1.0 Normal Lipid Panel 03/08/2021 [facility] nter [phone] Triglycerides Level 181 mg/dL High <150 Cholesterol Level 114 mg/dL Normal <200 HDL Cholesterol 50 mg/dL Normal >40 LDL Cholesterol 28 mg/dL Normal <100 Non-HDL-C 64 mg/dL Normal Cholesterol Risk Ratio 2.280 Normal <5 Comprehensive Metabolic Profil 01/06/2021 [facility] [phone] Glucose, Fasting 136 mg/dL High 70-100 Blood Urea Nitrogen 12 mg/dL Normal 7-18 Creatinine For GFR 1.16 mg/dL Normal 0.70-1.30 Glomerular Filtration Rate > 60.0 Normal >49 2 Sodium Level 141 mEq/L Normal 136-145 Potassium Serum 4.2 mEq/L Normal 3.5-5.1 Chloride Level 104 mEq/L Normal 98-107 Carbon Dioxide Level 29 mEq/L Normal 21-32 Anion Gap 8 mEq/L Normal 8-16 Calcium Level 8.8 mg/dL Normal 8.8-10.2 Ast/Sgot 41 U/L High 7-37 Alt/SGPT 73 U/L Normal 12-78 Alkaline Phosphatase 66 U/L Normal 45-117 Bilirubin,Total 0.3 mg/dL Normal 0.2-1.0 Total Protein 6.9 GM/DL Normal 6.4-8.2 Albumin 3.4 GM/DL Normal 3.2-5.2 Albumin/Globulin Ratio 1.0 Normal Complete Blood Count 01/06/2021 [facility] [phone] White Blood Count 7.4 10 Normal 4.0-10.0 Red Blood Count 4.44 10 Normal 4.30-6.10 Hemoglobin 13.7 g/dL Normal 13.5-17.5 Hematocrit 42.9 % Normal 42.0-52.0 Mean Corpuscular Volume 96.6 fl High 80.0-96.0 Mean Corpuscular Hemoglobin 30.9 pg Normal 27.0-33.0 Mean Corpuscular HGB Conc 31.9 g/dL Low 32.0-36.5 Red Cell Distribution Width 14.4 % Normal 11.5-14.5 Platelet Count, Automated 211 10 Normal 150-450 Nucleated Red Blood Cell % 0.0 % Normal 0-0 Laboratory test finding 01/06/2021 [facility] [phone] Magnesium Level 2.1 mg/dL Normal 1.8-2.4 1 Units are mL/min/1.73 m2 Chronic Kidney Disease Staging per NKF: Stage I & II GFR >=60 Normal to Mildly Decreased Stage III GFR 30-59 Moderately Decreased Stage IV GFR 15-29 Severely Decreased Stage V GFR <15 Very Little GFR Left ESRD GFR <15 on SENIOR PAINTER 2 Units are mL/min/1.73 m2 Chronic Kidney Disease Staging per NKF: Stage I & II GFR >=60 Normal to Mildly Decreased Stage III GFR 30-59 Moderately Decreased Stage IV GFR 15-29 Severely Decreased Stage V GFR <15 Very Little GFR Left ESRD GFR <15 on SENIOR PAINTER Procedures Date Code Description Status 02/17/2021 03401 Treadmill/Pharmacological Monito ring Completed 02/17/2021 67641 Myocardial Perfusion Spect Multi ple Completed 01/09/2021 95814 Office/Outpatient Established Mo d MDM 30-39 Min Completed 01/09/2021 13200 ECG 12-Lead Completed Medical Devices Description No Information Available Encounters Type Date Location Provider Dx Diagnosis Office Visit 01/09/2021 11:30a Main Office Carrierita Vázquez PA-C R06.0 2 Shortness of breath I48.0 [...] Nuclear/Reg Treadmill 01/09/2021 R06.02 Shortness of breath RENA CoatsC 01/09/2021 I48.0 Paroxysmal atrial fibrillation K guillermo Vázquez, PA-C 01/09/2021 I11.9 Hypertensive heart disease witho ut heart failure TAMAR Mccain-C 01/09/2021 R94.31 Abnormal electrocardiogram [ECG] [EKG] Carrie Vázquez PA-C 01/09/2021 I44.7 Left bundle-branch block, unspec ified Carrie Vázquez PA-C 01/09/2021 I77.810 Thoracic aortic ectasia TAMAR Hernandez-C 01/09/2021 I27.29 Other secondary pulmonary hypert ension Carrie Vázquez PA-C 01/09/2021 E78.2 Mixed hyperlipidemia Carrie tello PA-C 01/09/2021 I73.9 Peripheral vascular disease, uns pecified Carrie Vázquez PA-C 01/09/2021 G47.33 Obstructive sleep apnea (adult) (pediatric) Carrie Vázquez PA-C 01/09/2021 Z71.3 Dietary counseling and surveilla nce Carrie Vázquez PA-C Plan of Treatment Future Appointment(s):* 07/09/2021 11:30 am - Carrie Vázquez PA-C at Main Office 01/09/2021 - Carrie Vázquez PA-C* R06.02 Shortness of breath * I48.0 [...] last LE doppler from and CTA from [facility]. Request last CXR/CT chest from [facility]. Functional Status Functional Condition Comment Date Status Independent with all ADL's Activ e Mental Status Description No Information Available Referrals Refer to Reason for Referral Status Appt Date Guillermo Jose MD VERBAL AUTH REC'D FROM JASON Whitley @ [employer]. AUTH # [id number] VALID 02/13/21 - 03/30/21. [place] Created 0 [address] [facility], [facility] A [place] [id number] [phone]
--- OUTSIDE RECORDS SUMMARY | 2021-09-17 06:08 | CCD ---
Author Author [facility] Organization [facility] Address Unknown Phone Unavailable Care Team Providers Care University Services Program Associate Name Role Phone Candis Ozuna Unavailable PROBLEMS Type Condition ICD9-CM Code RUQ93-VI Code Onset Dates Condition S tatus W/U Status Risk SNOMED Code Notes Problem Other male erectile dysfunction N52.8 Active confi rmed 836231032 Problem Enlarged prostate with lower urinary tract symptoms N40.1 Active confirmed [id number] Problem Shoulder pain, unspecified chronicity, unspecified lat erality M25.519 Active confirmed 18866339 Problem STD exposure Z20.2 Active confirmed 2627346 06 Problem Hypogonadism male 257.2 Active confirmed 48 104328 Problem Premature ejaculation F52.4 Active confirmed 14244221 Problem Hypertrophy (benign) of pros herron with urinary obstruction and other lower urinary tract symptoms [LUTS] 600.01 Active confirmed 293831019 Problem Pain of right hip joint M25.551 Active confirmed 40728091 Problem Back pain, unspecified back location, unspecified back pain laterality, unspecified chronicity M54.9 Active confirmed 6340597 05 Problem Benign prostatic hyperplasia without lower urina ry tract symptoms N40.0 Active confirmed 748663402 Problem Urgency of micturition R39.15 Active confirmed 24988102 ALLERGIES Allergen (clinical drug ingredient) Drug/Non Drug Allergy do cumented on EMR Reaction Allergy Type Onset Date Status Bee sting Anaphylaxis Non Drug Allergy Active ENCOUNTERS from 1955 to 2021-06-18 Encounter Location Date Provider Diagnosis [facility] [address] [phone] [place] [address] May, Candis Ozuna IMMUNIZATIONS Vaccine Route Administration Date Status Influenza [...] Coreg 6.25 mg 2 times oral daily Not -Taking Acetaminophen Extra Strength 500 MG [...] tablet Orally Once a day at bedtime May, Not-Taking Viagra 100 MG 1 tablet [...] Orally Once a day for 30 day(s) Not-Taking Alfuzosin HCl ER 10MG TAKE ONE [...] Information RESULTS No Results REASON FOR VISIT No Information MEDICAL (GENERAL) HISTORY Type Description Date Medical [...] 90 day (s) Next Appt Details Provider Name:Stanislaw Rj Webb, 01:30:00 PM, [address], , [place], [address], Insurance Providers Payer Name Payer Address Payer Phone Insured Name Patient Relati onship to Insured Coverage Start Date Coverage End Date MEDICARE PART A ONLY [id number] [facility] [phone] [facility] [address] [id number] [facility] [id number]
--- OUTSIDE RECORDS SUMMARY | 2021-09-17 06:08 | CCD | Continuity of Care Document ---
Author Author Keith MONTENEGRO MD Organization Unknown Address [address] [place] [id number] Phone [phone] Care Team Providers Care Byproducts Maker Name Role Phone Eyal Tovar (Location I) AUTM Wilfredo Monk M.D. AUTM [phone] [facility] Care Everywhere AUTM [phone] Problems Active Problems Provider Date Benign prostatic hyperplasia without outflow obstruction Vicente Montenegro M.D. Onset: 04/20/2014 Essential hypertension Nikunj Montenegro M.D. Onset: 04/20/2014 Hyperlipidemia Nikunj Montenegro M.D. Onset: 04/20/2014 Atrial fibrillation Nikunj Montenegro M.D. Onset: 04/20/2014 Atherosclerosis of arteries of the extremities Nikunj Montenegro M.D. Onset: 05/16/2014 Sleep disorder Nikunj Montenegro M.D. Onset: 07/27/2016 Social History Type Date Description Comments Sex Unknown ETOH Use Currently consumes alcohol weekl y Tobacco Use Start: Unknown End: Unknown Patient is a former smoker former 3-4 ppd x 38 yrs. Use electronic cig now Smoking Status Reviewed: 06/25/21 Patient is a former smoker fo rmer 3-4 ppd x 38 yrs. Use electronic cig now Allergies, Adverse Reactions, Alerts Active Allergies Reaction Severity Comments Date NKDA 07/27/2016 Bee Sting hives 04/20/2014 Medications Active Medications SIG Qnty Indications Ordering Provide r Date Furosemide 20mg Tablets 1 tab by mouth every day 14tabs Nikunj Montenegro M.D. 05/26/2021 Potassium Chloride ER 20Meq Tablet s ER 1 tab by mouth every day 7tabs Nikunj Montenegro M.D. 04/14 Rosuvastatin Calcium 20mg Tablets 1 by mouth every night at bedtime 90tabs E78.2 Wilfredo Monk M.D. 01/09/2021 Sildenafil Citrate 100mg Tablets 1/2 to 1 po daily as needed Unknown 01/08/2020 Ondansetron 8mg Tablets Dispers 1 po q8h prn Eyal Tovar, P.AReji (Location I) 01/08/2020 Levothyroxine Sodium 137mcg Tablet s 1 by mouth every day Eyal Tovar, P.AReji (Location I) 06/19/[address] [place] Unknown Losartan Potassium 25mg Tablets qd Carrie Brown R.PRejiAMila. Glucosamine Chondroitin Complex C apsules qd Unknown Vitamin B-12 500mcg Tablets once a day Unknown Folic Acid 400mcg Tablets onc Unknown Depakote 500mg Tablets bid Unknown Plavix 75mg Tablets 1 by mouth every day 30tabs Unknown Aspir-Low 81mg Tablets DR dickinson Unknown Pacerone 200mg Tablets every day Unknown Chlorthalidone 25mg Tablets 1/2 by mouth every day 45tabs Unknown Multivitamins Capsules 1 by mouth every day Unknown Coreg 6.25mg Tablets 1 by mouth twice a day 180tabs Unknown History Medications Furosemide 40mg Tablets tab by mouth every day 7tabs Nikunj Montenegro M.D. 04/14/2021 - 05/26/2021 Augmentin 500-125mg Tablets 1 tab by mouth twice a day 20tabs Nikunj Montenegro M.D. 04/09/2021 - 04/08/2021 Augmentin 500-125mg Tablets 1 tab by mouth twice a day 10tabs Nikunj Montenegro M.D. 04/09/2021 - 04/20/2021 Oxybutynin Chloride 5mg Tablets 1 by mouth once a day Unknown 01/08/2021 - 12/2020 Immunizations Description No Information Available Vital Signs Date Vital Result Comment 06/25/2021 9:39am BP Systolic Right Arm 180 mmHg BP Diastolic Right Arm 80 mmHg BP Systolic Left Arm 180 mmHg BP Diastolic Left Arm 80 mmHg Body Temperature 97.6 F Height 73 inches 6'1" Weight 313.00 lb Weight 141.977 kg BMI (Body Mass Index) 41.3 kg/m2 05/26/2021 8:22am BP Systolic Left Arm 140 mmHg BP Diastolic Left Arm 80 mmHg Heart Rate 72 /min Body Temperature 97.0 F Height 73 inches 6'1" Weight 300.00 lb Weight 136.080 kg BMI (Body Mass Index) 39.6 kg/m2 Results Description No Information Available Procedures Date Code Description Status 03/19/2021 35642 Femoral-Popliteal Angioplasty Co mpleted 03/19/2021 66862 Bypass Graft Other Than Vein Fem oral-Femoral Completed Medical Devices Description No Information Available Encounters Type Date Location Provider Dx Diagnosis Office Visit 06/25/2021 9:45a Main Office Nikunj Montenegro M.D. Z48.81 2 Encntr for surgical aftcr following surgery on the circ sys Office Visit 05/26/2021 8:45a Main Office Nikunj Montenegro M.D. Z48.81 2 Encntr for surgical aftcr following surgery on the circ sys Office Visit 04/21/2021 8:45a Main Office Nikunj Montenegro M.D. Z48.81 2 Encntr for surgical aftcr following surgery on the circ sys Office Visit 04/14/2021 8:45a Main Office Nikunj Montenegro M.D. Z48.81 2 Encntr for surgical aftcr following surgery on the circ sys Office Visit 04/07/2021 8:45a Main Office Nikunj Montenegro M.D. Z48.81 2 Encntr for surgical aftcr following surgery on the circ sys Office Visit 03/31/2021 8:30a Main Office Nikunj Montenegro M.D. Z48.81 2 Encntr for surgical aftcr following surgery on the circ sys Assessments Date Code Description Provider 06/25/2021 Z48.812 Encounter for surgic al aftercare following surgery on the circulatory system Nikunj Montenegro M.D. 05/26/2021 Z48.812 Encounter for surgic al aftercare following surgery on the circulatory system Nikunj Montenegro M.D. 04/21/2021 Z48.812 Encounter for surgic al aftercare following surgery on the circulatory system Nikunj Montenegro M.D. 04/14/2021 Z48.812 Encounter for surgic al aftercare following surgery on the circulatory system Nikunj Montenegro M.D. 04/07/2021 Z48.812 Encounter for surgic al aftercare following surgery on the circulatory system Nikunj Montenegro M.D. 03/31/2021 Z48.812 Encounter for surgic al aftercare following surgery on the circulatory system Nikunj Montenegro M.D. 03/19/2021 I70.221 Atherosclerosis of n ative arteries of extremities with rest pain, right leg Carlton Khan M.D. 03/19/2021 I70.221 Atherosclerosis of n ative arteries of extremities with rest pain, right leg Nikunj Montenegro M.D. Plan of Treatment 03/31/2021 - Nikunj Montenegro M.D.* Z48.812 Encntr for surgical aftcr following surgery on the circ sys * * Follow up:* Next Wednesday Functional Status Description No Information Available Mental Status Description No Information Available Referrals Description No Information Available
--- OUTSIDE RECORDS SUMMARY | 2021-09-17 06:08 | CCD ---
Author Author [facility] Organization [facility] Address Unknown Phone Unavailable Care Team Providers Care Retail Zone Specialist Name Role Phone Jaimee Kirk Unavailable PROBLEMS Type Condition ICD9-CM Code BQA96-MM Code Onset Dates Condition S tatus W/U Status Risk SNOMED Code Notes Problem Other male erectile dysfunction N52.8 Active confi rmed 275641887 Problem Enlarged prostate with lower urinary tract symptoms N40.1 Active confirmed [id number] Problem Shoulder pain, unspecified chronicity, unspecified lat erality M25.519 Active confirmed 59890182 Problem STD exposure Z20.2 Active confirmed 8616901 06 Problem Hypogonadism male 257.2 Active confirmed 48 878848 Problem Premature ejaculation F52.4 Active confirmed 32496375 Problem Hypertrophy (benign) of pros herron with urinary obstruction and other lower urinary tract symptoms [LUTS] 600.01 Active confirmed 211056192 Problem Pain of right hip joint M25.551 Active confirmed 71789260 Problem Back pain, unspecified back location, unspecified back pain laterality, unspecified chronicity M54.9 Active confirmed 9872443 05 Problem Benign prostatic hyperplasia without lower urina ry tract symptoms N40.0 Active confirmed 197405044 Problem Urgency of micturition R39.15 Active confirmed 87681244 ALLERGIES Allergen (clinical drug ingredient) Drug/Non Drug Allergy do cumented on EMR Reaction Allergy Type Onset Date Status Bee sting Anaphylaxis Non Drug Allergy Active ENCOUNTERS from 1955 to 2021-06-24 Encounter Location Date Provider Diagnosis [facility] Dermatology [address] [place] [address] [place] [address] May, Jaimee Kirk IMMUNIZATIONS Vaccine Route Administration Date [...] Information RESULTS No Results REASON FOR VISIT Leon from [place] MEDICAL (GENERAL) HISTORY Type Description Date Medical [...] day (s) Next Appt Details Provider Name:Stanislaw De La Rosa Jon, 01:30:00 PM, [id number] [address], , [place], [address], Insurance Providers Payer Name Payer Address Payer Phone Insured Name Patient Relati onship to Insured Coverage Start Date Coverage End Date MEDICARE PART A ONLY [id number] [facility] [id number] [facility] [address] [id number] [facility] [phone]
--- OUTSIDE RECORDS SUMMARY | 2021-09-17 06:08 | CCD | Continuity of Care Document ---
Author Author Keith MONTENGERO MD Organization Unknown Address [address] [place] [address] Phone [phone] Care Team Providers Care Pier Hand Helper Name Role Phone Eyal Tovar (Location I) AUTM Wilfredo Monk M.D. AUTM [phone] [facility] Care Everywhere AUTM Problems Active Problems Provider Date Benign prostatic [...] Available Procedures Date Code Description Status 03/19/2021 72482 Femoral-Popliteal Angioplasty Co mpleted 03/19/2021 34025 Bypass Graft Other Than Vein Fem oral-Femoral [...] leg Nikunj Montenegro M.D. Plan of Treatment Future Appointment(s):* 09/22/2021 8:30 am - Vascular Lab at Main Office 03/31/2021 - Nikunj Montenegro M.D.* Z48.812 Encntr for surgical aftcr following surgery on the circ sys * * Follow up:* Next Wednesday Functional Status Description No Information Available Mental Status Description No Information Available Referrals Description No Information Available
--- OUTSIDE RECORDS SUMMARY | 2021-09-17 06:09 | CCD ---
Author Author [facility] Organization [facility] Address Unknown Phone Unavailable Care Team Providers Care Saw Filer Name Role Phone Brit Peace MD Unavailable Unavailable Brit Peace MD Unavailable Unavailable Brit Peace MD Unavailable Unavailable Brit Peace MD Unavailable Unavailable Brit Peace MD Unavailable Unavailable Brit Peace MD Unavailable Unavailable Brit Peace MD Unavailable Unavailable Brit Peace MD Unavailable Unavailable Brit Peace MD Unavailable Unavailable Brit Peace MD Unavailable Unavailable Brit Peace MD Unavailable Unavailable Brit Peace MD Unavailable Unavailable Brit Peace MD Unavailable Unavailable Brit Peace MD Unavailable Unavailable Brit Peace MD Unavailable Unavailable Brit Peace MD Unavailable Unavailable Brit Peace MD Unavailable Unavailable Brit Peace MD Unavailable Unavailable Brit Peace MD Unavailable Unavailable Brit Peace MD Unavailable Unavailable Brit Peace MD Unavailable Unavailable Brit Peace MD Unavailable Unavailable Brit Peace MD Unavailable Unavailable Brit Peace MD Unavailable Unavailable Brit Peace MD Unavailable Unavailable Brit Peace MD Unavailable Unavailable Brit Peace MD Unavailable Unavailable Brit Peace MD Unavailable Unavailable Brit Peace MD Unavailable Unavailable Brit Peace MD Unavailable Unavailable Cash Matos MD Unavailable Unavailable Carlo, N Nikunj MD Unavailable Unavailable Carlo, N Nikunj MD Unavailable Unavailable Carlo, N Nikunj MD Unavailable Unavailable Carlo, N Nikunj MD Unavailable Unavailable Carlo, N Nikunj MD Unavailable Unavailable Carlo, N Nikunj MD Unavailable Unavailable Carlo, N Nikunj MD Unavailable Unavailable Carlo, N Nikunj MD Unavailable Unavailable Carlo, N Nikunj MD Unavailable Unavailable Carlo, N Nikunj MD Unavailable Unavailable Carlo, N Nikunj MD Unavailable Unavailable Carlo, N Nikunj MD Unavailable Unavailable Carlo, N Nikunj MD Unavailable Unavailable Carlo, N Nikunj MD Unavailable Unavailable Carlo, N Nikunj MD Unavailable Unavailable Carlo, N Nikunj MD Unavailable Unavailable Carlo, N Nikunj MD Unavailable Unavailable Carlo, N Nikunj MD Unavailable Unavailable Carlo, N Nikunj MD Unavailable Unavailable Carlo, N Nikunj MD Unavailable Unavailable Carlo, N Nikunj MD Unavailable Unavailable Carlo, N Nikunj MD Unavailable Unavailable Carlo, N Nikunj MD Unavailable Unavailable Carlo, N Nikunj MD Unavailable Unavailable Carlo, N Nikunj MD Unavailable Unavailable Carlo, N Nikunj MD Unavailable Unavailable Carlo, N Nikunj MD Unavailable Unavailable Carlo, N Nikunj MD Unavailable Unavailable Carlo, N Nikunj MD Unavailable Unavailable Carlo, N Nikunj MD Unavailable Unavailable Carlo, N Nikunj MD Unavailable Unavailable Carlo, N Nikunj MD Unavailable Unavailable Carlo, N Nikunj MD Unavailable Unavailable Carlo, N Nikunj MD Unavailable Unavailable Carlo, N Nikunj MD Unavailable Unavailable Carlo, N Nikunj MD Unavailable Unavailable Carlo, N Nikunj MD Unavailable Unavailable Carlo, N Nikunj MD Unavailable Unavailable Carlo, N Nikunj MD Unavailable Unavailable Carlo, N Nikunj MD Unavailable Unavailable Carlo, N Nikunj MD Unavailable Unavailable Carlo, N Nikunj MD Unavailable Unavailable Carlo, N Nikunj MD Unavailable Unavailable Carlo, N Nikunj MD Unavailable Unavailable Carlo, N Nikunj MD Unavailable Unavailable Carlo, N Nikunj MD Unavailable Unavailable Carlo, N Nikunj MD Unavailable Unavailable Carlo, N Nikunj MD Unavailable Unavailable Carlo, N Nikunj MD Unavailable Unavailable Carlo, N Nikunj MD Unavailable Unavailable Carlo, N Nikunj MD Unavailable Unavailable Carlo, N Nikunj MD Unavailable Unavailable Carlo, N Nikunj MD Unavailable Unavailable Carlo, N Nikunj MD Unavailable Unavailable Carlo, N Nikunj MD Unavailable Unavailable Carlo, N Nikunj MD Unavailable Unavailable Carlo, N Nikunj MD Unavailable Unavailable Carlo, N Nikunj MD Unavailable Unavailable Cash Matos Nikunj MD Unavailable Unavailable Cash Matos Nikunj MD Unavailable Unavailable Cash Matos Nikunj MD Unavailable Unavailable Carlo, N Nikunj MD Unavailable Unavailable Carlo, N Nikunj MD Unavailable Unavailable Carlo, N Nikunj MD Unavailable Unavailable Carlo, N Nikunj MD Unavailable Unavailable Carlo, N Nikunj MD Unavailable Unavailable Carlo, N Nikunj MD Unavailable Unavailable Carlo N Nikunj MD Unavailable Unavailable Carlo, N Nikunj MD Unavailable Unavailable Carlo, N Nikunj MD Unavailable Unavailable Carlo N Nikunj MD Unavailable Unavailable Carlo, N Nikunj MD Unavailable Unavailable Carlo, N Nikunj MD Unavailable Unavailable Carlo, N Nikunj MD Unavailable Unavailable Carlo N Nikunj MD Unavailable Unavailable Carlo, N Nikunj MD Unavailable Unavailable Carlo, N Nikunj MD Unavailable Unavailable Carlo, N Nikunj MD Unavailable Unavailable Carlo N Nikunj MD Unavailable Unavailable Carlo N Nikunj MD Unavailable Unavailable Carlo N Nikunj MD Unavailable Unavailable Carlo N Nikunj MD Unavailable Unavailable Carlo N Nikunj MD Unavailable Unavailable Symenow, Chantell Carrie PA Unavailable Unavailable Symenow, Chantell Carrie PA Unavailable Unavailable Symenow, Chantell Carrie PA Unavailable Unavailable Symenow, Chantell Carrie PA Unavailable Unavailable Symenow, Chantell Carrie PA Unavailable Unavailable Symenow, Chantell Carrie PA Unavailable Unavailable Symenow, Chantell Carrie PA Unavailable Unavailable Symenow, Chantell Carrie PA Unavailable Unavailable Symenow, Chantell Carrie PA Unavailable Unavailable Symenow, Chantell Carrie PA Unavailable Unavailable Symenow, Chantell Carrie PA Unavailable Unavailable Symenow, Chantell Carrie PA Unavailable Unavailable Symenow, Chantell Carrie PA Unavailable Unavailable Symenow, Chantell Carrie PA Unavailable Unavailable Symenow, Chantell Carrie PA Unavailable Unavailable Symenow, Chantell Carrie PA Unavailable Unavailable Symenow, Chantell Carrie PA Unavailable Unavailable Symenow, Chantell Carrie PA Unavailable Unavailable Symenow, Chantell Carrie PA Unavailable Unavailable Symenow, Chantell Carrie PA Unavailable Unavailable Symenow, Chantell Carrie PA Unavailable Unavailable Symenow, Chantell Carrie PA Unavailable Unavailable Symenow, Chantell Carrie PA Unavailable Unavailable Symenow, Chantell Carrie PA Unavailable Unavailable Symenow, Chantell Carrie PA Unavailable Unavailable Symenow, Chantell Carrie PA Unavailable Unavailable Symenow, Chantell Carrie PA Unavailable Unavailable Symenow, Chantell Carrie PA Unavailable Unavailable Symenow, Chantell Carrie PA Unavailable Unavailable Symenow, Chantell Carrie PA Unavailable Unavailable Symenow, Chantell Carrie PA Unavailable Unavailable Symenow, Chantell Carrie PA Unavailable Unavailable Symenow, Chantell Carrie PA Unavailable Unavailable Symenow, Chantell Carrie PA Unavailable Unavailable Parvez LANGLEY Unavailable Unavailable Rounds, M SIMA FACULTY PHYSICIAN Unavailable Unavailable Rounds, M SIMA FACULTY PHYSICIAN Unavailable Unavailable Rounds, M SIMA FACULTY PHYSICIAN Unavailable Unavailable Rounds, M SIMA FACULTY PHYSICIAN Unavailable Unavailable Rounds, M SIMA FACULTY PHYSICIAN Unavailable Unavailable Rounds, M SIMA FACULTY PHYSICIAN Unavailable Unavailable Rounds, M SIMA FACULTY PHYSICIAN Unavailable Unavailable Rounds, M SIMA FACULTY PHYSICIAN Unavailable Unavailable Rounds, M SIMA FACULTY PHYSICIAN Unavailable Unavailable Rounds, M SIMA FACULTY PHYSICIAN Unavailable Unavailable Rounds, M SIMA FACULTY PHYSICIAN Unavailable Unavailable Rounds, M SIMA FACULTY PHYSICIAN Unavailable Unavailable Rounds, M SIMA FACULTY PHYSICIAN Unavailable Unavailable Rounds, M SIMA FACULTY PHYSICIAN Unavailable Unavailable Rounds, M SIMA FACULTY PHYSICIAN Unavailable Unavailable Rounds, M SIMA FACULTY PHYSICIAN Unavailable Unavailable Rounds, M SIMA FACULTY PHYSICIAN Unavailable Unavailable Rounds, M SIMA FACULTY PHYSICIAN Unavailable Unavailable Rounds, M SIMA FACULTY PHYSICIAN Unavailable Unavailable Rounds, M SIMA FACULTY PHYSICIAN Unavailable Unavailable Rounds, M SIMA FACULTY PHYSICIAN Unavailable Unavailable Rounds, M SIMA FACULTY PHYSICIAN Unavailable Unavailable Rounds, M SIMA FACULTY PHYSICIAN Unavailable Unavailable Rounds, M SIMA FACULTY PHYSICIAN Unavailable Unavailable Rounds, M SIMA FACULTY PHYSICIAN Unavailable Unavailable Rounds, M SIMA FACULTY PHYSICIAN Unavailable Unavailable Rounds, M SIMA FACULTY PHYSICIAN Unavailable Unavailable Rounds, M SIMA FACULTY PHYSICIAN Unavailable Unavailable Rounds, M SIMA FACULTY PHYSICIAN Unavailable Unavailable Rounds, M SIMA FACULTY PHYSICIAN Unavailable Unavailable Rounds, M SIMA FACULTY PHYSICIAN Unavailable Unavailable Rounds, M SIMA FACULTY PHYSICIAN Unavailable Unavailable Rounds, M SIMA FACULTY PHYSICIAN Unavailable Unavailable Rounds, M SIMA FACULTY PHYSICIAN Unavailable Unavailable Rounds, M SIMA FACULTY PHYSICIAN Unavailable Unavailable Rounds, M SIMA FACULTY PHYSICIAN Unavailable Unavailable Rounds, M SIMA FACULTY PHYSICIAN Unavailable Unavailable Rounds, M SIMA FACULTY PHYSICIAN Unavailable Unavailable Rounds, M SIMA FACULTY PHYSICIAN Unavailable Unavailable Rounds, M SIMA FACULTY PHYSICIAN Unavailable Unavailable Rounds, M SIMA FACULTY PHYSICIAN Unavailable Unavailable Rounds, M SIMA FACULTY PHYSICIAN Unavailable Unavailable Rounds, M SIMA FACULTY PHYSICIAN Unavailable Unavailable Rounds, M SIMA FACULTY PHYSICIAN Unavailable Unavailable Rounds, M SIMA FACULTY PHYSICIAN Unavailable Unavailable Rounds, M SIMA FACULTY PHYSICIAN Unavailable Unavailable Rounds, M SIMA FACULTY PHYSICIAN Unavailable Unavailable Rounds, M SIMA FACULTY PHYSICIAN Unavailable Unavailable Rounds, M SIMA FACULTY PHYSICIAN Unavailable Unavailable Rounds, M SIMA FACULTY PHYSICIAN Unavailable Unavailable Rounds, M SIMA FACULTY PHYSICIAN Unavailable Unavailable Rounds, M SIMA FACULTY PHYSICIAN Unavailable Unavailable Rounds, M SIMA FACULTY PHYSICIAN Unavailable Unavailable Rounds, M SIMA FACULTY PHYSICIAN Unavailable Unavailable Rounds, M SIMA FACULTY PHYSICIAN Unavailable Unavailable Rounds, M SIMA FACULTY PHYSICIAN Unavailable Unavailable Rounds, M SIMA FACULTY PHYSICIAN Unavailable Unavailable Rounds, M SIMA FACULTY PHYSICIAN Unavailable Unavailable Rounds, M SIMA FACULTY PHYSICIAN Unavailable Unavailable Rounds, M SIMA FACULTY PHYSICIAN Unavailable Unavailable Rounds, M SIMA FACULTY PHYSICIAN Unavailable Unavailable Rounds, M SIMA FACULTY PHYSICIAN Unavailable Unavailable Rounds, M SIMA FACULTY PHYSICIAN Unavailable Unavailable SEARS, A LEANN DO Unavailable Unavailable SEARS, A LEANN DO Unavailable Unavailable SEARS, A LEANN DO Unavailable Unavailable SEARS, A LEANN DO Unavailable Unavailable SEARS, A LEANN DO Unavailable Unavailable SEARS, A LEANN DO Unavailable Unavailable SEARS, A LEANN DO Unavailable Unavailable SEARS, A LEANN DO Unavailable Unavailable SEARS, A LEANN DO Unavailable Unavailable SEARS, A LEANN DO Unavailable Unavailable SEARS, A LEANN DO Unavailable Unavailable SEARS, A LEANN DO Unavailable Unavailable SEARS, A LEANN DO Unavailable Unavailable SEARS, A LEANN DO Unavailable Unavailable SEARS, A LEANN DO Unavailable Unavailable SEARS, A LEANN DO Unavailable Unavailable SEARS, A LEANN DO Unavailable Unavailable SEARS, A LEANN DO Unavailable Unavailable SEARS, A LEANN DO Unavailable Unavailable SEARS, A LEANN DO Unavailable Unavailable SEARS, A LEANN DO Unavailable Unavailable SEARS, A LEANN DO Unavailable Unavailable SEARS, A LEANN DO Unavailable Unavailable SEARS, A LEANN DO Unavailable Unavailable SEARS, A LEANN DO Unavailable Unavailable SEARS, A LEANN DO Unavailable Unavailable SEARS, A LEANN DO Unavailable Unavailable SEARS, A LEANN DO Unavailable Unavailable SEARS, A LEANN DO Unavailable Unavailable SEARS, A LEANN DO Unavailable Unavailable SEARS, A LEANN DO Unavailable Unavailable SEARS, A LEANN DO Unavailable Unavailable SEARS, A LEANN DO Unavailable Unavailable SEARS, A LEANN DO Unavailable Unavailable SEARS, A LEANN DO Unavailable Unavailable SEARS, A LEANN DO Unavailable Unavailable SEARS, A LEANN DO Unavailable Unavailable SEARS, A LEANN DO Unavailable Unavailable SEARS, A LEANN DO Unavailable Unavailable SEARS, A LEANN DO Unavailable Unavailable SEARS, A LEANN DO Unavailable Unavailable SEARS, A LEANN DO Unavailable Unavailable SEARS, A LEANN DO Unavailable Unavailable SEARS, A LEANN DO Unavailable Unavailable SEARS, A LEANN DO Unavailable Unavailable SEARS, A LEANN DO Unavailable Unavailable SEARS, A LEANN DO Unavailable Unavailable SEARS, A LEANN DO Unavailable Unavailable Flores, L Franc DUARTE Unavailable Unavailable Flores, L Franc DUARTE Unavailable Unavailable Flores, L Franc DUARTE Unavailable Unavailable Flores, L Franc DUARTE Unavailable Unavailable Flores, L Franc DUARTE Unavailable Unavailable Flores, L Franc DUARTE Unavailable Unavailable Flores, L Franc DUARTE Unavailable Unavailable Flores, L Franc DUARTE Unavailable Unavailable Flores, L Franc DUARTE Unavailable Unavailable Flores, L Franc DUARTE Unavailable Unavailable Flores, L Franc DUARTE Unavailable Unavailable Flores, L Franc DUARTE Unavailable Unavailable Flores, L Franc DUARTE Unavailable Unavailable Flores, L Franc DUARTE Unavailable Unavailable Flores, L Franc DUARTE Unavailable Unavailable Flores, L Franc DUARTE Unavailable Unavailable Flores, L Franc DUARTE Unavailable Unavailable Flores, L Franc DUARTE Unavailable Unavailable Flores, L Franc DUARTE Unavailable Unavailable Flores, L Franc DUARTE Unavailable Unavailable Flores, L Franc DUARTE Unavailable Unavailable Flores, L Franc DUARTE Unavailable Unavailable Flores, L Franc DUARTE Unavailable Unavailable Flores, L Franc DUARTE Unavailable Unavailable Flores, Rj Bruner MD Unavailable Unavailable Flores, L Franc DUARTE Unavailable Unavailable Flores, L Franc DUARTE Unavailable Unavailable Flores, Rj Bruner MD Unavailable Unavailable Flores, L Franc DUARTE Unavailable Unavailable Flores, L Franc DUARTE Unavailable Unavailable Flores, Rj Bruner MD Unavailable Unavailable Flores, L Franc DUARTE Unavailable Unavailable Flores, L Franc DUARTE Unavailable Unavailable Flores, L Franc DUARTE Unavailable Unavailable Flores, L Franc DUARTE Unavailable Unavailable Flores, L Franc DUARTE Unavailable Unavailable Flores, L Franc DUARTE Unavailable Unavailable Flores, L Franc DUARTE Unavailable Unavailable Flores, L Franc DUARTE Unavailable Unavailable Flores, L Franc DUARTE Unavailable Unavailable Flores, L Franc DUARTE Unavailable Unavailable Flores, Rj Bruner MD Unavailable Unavailable Flores, L Franc DUARTE Unavailable Unavailable Flores, L Franc DUARTE Unavailable Unavailable Flores, L Franc DUARTE Unavailable Unavailable Flores, L Franc DUARTE Unavailable Unavailable Flores, L Franc DUARTE Unavailable Unavailable Flores, L Franc MD Unavailable Unavailable Rj Flores MD Unavailable Unavailable Rj Flores MD Unavailable Unavailable Carlo, N Nikunj MD Unavailable Unavailable Carlo, N Nikunj MD Unavailable Unavailable Carlo, N Nikunj MD Unavailable Unavailable Carlo, N Nikunj MD Unavailable Unavailable Carlo, N Nikunj MD Unavailable Unavailable Carlo, N Nikunj MD Unavailable Unavailable Carlo, N Nikunj MD Unavailable Unavailable Carlo, N Nikunj MD Unavailable Unavailable Carlo, N Nikunj MD Unavailable Unavailable Carlo, N Nikunj MD Unavailable Unavailable Carlo, N Nikunj MD Unavailable Unavailable Carlo, N Nikunj MD Unavailable Unavailable Carlo, N Nikunj MD Unavailable Unavailable Carlo, N Nikunj MD Unavailable Unavailable Carlo, N Nikunj MD Unavailable Unavailable Carlo, N Nikunj MD Unavailable Unavailable Carlo, N Nikunj MD Unavailable Unavailable Carlo, N Nikunj MD Unavailable Unavailable Carlo, N Nikunj MD Unavailable Unavailable Carlo, N Nikunj MD Unavailable Unavailable Carlo, N Nikunj MD Unavailable Unavailable Carlo, N Nikunj MD Unavailable Unavailable Carlo, N Nikunj MD Unavailable Unavailable Carlo, N Nikunj MD Unavailable Unavailable Carlo, N Nikunj MD Unavailable Unavailable Carlo, N Nikunj MD Unavailable Unavailable Carlo, N Nikunj MD Unavailable Unavailable Carlo, N Nikunj MD Unavailable Unavailable Carlo, N Nikunj MD Unavailable Unavailable Carlo, N Nikunj MD Unavailable Unavailable Carlo, N Nikunj MD Unavailable Unavailable Carlo, N Nikunj MD Unavailable Unavailable Carlo, N Nikunj MD Unavailable Unavailable Carlo, N Nikunj MD Unavailable Unavailable Carlo, N Nikunj MD Unavailable Unavailable Carlo, N Nikunj MD Unavailable Unavailable Carlo, N Nikunj MD Unavailable Unavailable Carlo, N Nikunj MD Unavailable Unavailable Carlo, N Nikunj MD Unavailable Unavailable Carlo, N Nikunj MD Unavailable Unavailable Carlo, N Nikunj MD Unavailable Unavailable Carlo, N Nikunj MD Unavailable Unavailable Carlo, N Nikunj MD Unavailable Unavailable Carlo, N Nikunj MD Unavailable Unavailable Carlo, N Nikunj MD Unavailable Unavailable Carlo, N Nikunj MD Unavailable Unavailable Carlo, N Nikunj MD Unavailable Unavailable Carlo, N Nikunj MD Unavailable Unavailable Carlo, N Nikunj MD Unavailable Unavailable Carlo, N Nikunj MD Unavailable Unavailable Carlo, N Nikunj MD Unavailable Unavailable Carlo, N Nikunj MD Unavailable Unavailable Carlo, N Nikunj MD Unavailable Unavailable Carlo, N Nikunj MD Unavailable Unavailable Carlo N Nikunj MD Unavailable Unavailable Carlo N Nikunj MD Unavailable Unavailable Carlo N Nikunj MD Unavailable Unavailable Carlo N Nikunj MD Unavailable Unavailable Carlo N Nikunj MD Unavailable Unavailable Carlo N Nikunj MD Unavailable Unavailable Carlo N Nikunj MD Unavailable Unavailable Carlo N Nikunj MD Unavailable Unavailable Carlo N Nikunj MD Unavailable Unavailable Carlo N Nikunj MD Unavailable Unavailable Carlo N Nikunj MD Unavailable Unavailable Carlo N Nikunj MD Unavailable Unavailable Carlo N Nikunj MD Unavailable Unavailable Carlo, N Nikunj MD Unavailable Unavailable Carlo N Nikunj MD Unavailable Unavailable Carlo N Nikunj MD Unavailable Unavailable Carlo N Nikunj MD Unavailable Unavailable Carlo N Nikunj MD Unavailable Unavailable Carlo N Nikunj MD Unavailable Unavailable Carlo N Nikunj MD Unavailable Unavailable Carlo N Nikunj MD Unavailable Unavailable Carlo N Nikunj MD Unavailable Unavailable Carlo N Nikunj MD Unavailable Unavailable Carlo N Nikunj MD Unavailable Unavailable Carlo N Nikunj MD Unavailable Unavailable Carlo N Nikunj MD Unavailable Unavailable Carlo N Nikunj MD Unavailable Unavailable Carlo N Nikunj MD Unavailable Unavailable Carlo N Nikunj MD Unavailable Unavailable Carlo N Nikunj MD Unavailable Unavailable Guy, D Eyal PA Unavailable Unavailable Guy, D Eyal PA Unavailable Unavailable Guy, D Eyal PA Unavailable Unavailable Guy, D Eyal PA Unavailable Unavailable Guy, D Eyal PA Unavailable Unavailable Guy, D Eyal PA Unavailable Unavailable Guy, D Eyal PA Unavailable Unavailable Guy, D Eyal PA Unavailable Unavailable Guy, D Eyal PA Unavailable Unavailable Guy, D Eyal PA Unavailable Unavailable Guy, D Eyal PA Unavailable Unavailable Guy, D Eyal PA Unavailable Unavailable Guy, D Eyal PA Unavailable Unavailable Guy, D Eyal PA Unavailable Unavailable Guy, D Eyal PA Unavailable Unavailable Guy, D Eyal PA Unavailable Unavailable Guy, D Eyal PA Unavailable Unavailable Guy, D Eyal PA Unavailable Unavailable Guy, D Eyal PA Unavailable Unavailable Guy, D Eyal PA Unavailable Unavailable Guy, D Eayl PA Unavailable Unavailable Guy, D Eyal PA Unavailable Unavailable Guy, D Eyal PA Unavailable Unavailable Guy, D Eyal PA Unavailable Unavailable Guy, D Eyal PA Unavailable Unavailable Guy, D Eyal PA Unavailable Unavailable Guy, D Eyal PA Unavailable Unavailable Guy, D Eyal PA Unavailable Unavailable Guy, D Eyal PA Unavailable Unavailable Guy, D Eyal PA Unavailable Unavailable Guy, D Eyal PA Unavailable Unavailable Guy, D Eyal PA Unavailable Unavailable Guy, D Eyal PA Unavailable Unavailable Guy, D Eyal PA Unavailable Unavailable Guy, D Eyal PA Unavailable Unavailable Guy, D Eyal PA Unavailable Unavailable Guy, D Eyal PA Unavailable Unavailable Guy, D Eyal PA Unavailable Unavailable Gyu, D Eyal PA Unavailable Unavailable Guy, D Eyal PA Unavailable Unavailable Guy, D Eyal PA Unavailable Unavailable Guy, D Eyal PA Unavailable Unavailable Guy, D Eyal PA Unavailable Unavailable Guy, D Eyal PA Unavailable Unavailable Guy, D Eyal PA Unavailable Unavailable Guy, D Eyal PA Unavailable Unavailable Guy, D Eyal PA Unavailable Unavailable Guy, D Eyal PA Unavailable Unavailable Guy, D Eyal PA Unavailable Unavailable Guy, D Eyal PA Unavailable Unavailable Guy, D Eyal PA Unavailable Unavailable Guy, D Eyal PA Unavailable Unavailable Guy, D Eyal PA Unavailable Unavailable Guy, D Eyal PA Unavailable Unavailable Guy, D Eyal PA Unavailable Unavailable Guy, D Eyal PA Unavailable Unavailable Guy, D Eyal PA Unavailable Unavailable Guy, D Eyal PA Unavailable Unavailable Guy, D Eyal PA Unavailable Unavailable Guy, D Eyal PA Unavailable Unavailable Guy, D Eyal PA Unavailable Unavailable Guy, D Eyal PA Unavailable Unavailable Guy, D Eyal PA Unavailable Unavailable Guy, D Eyal PA Unavailable Unavailable Guy, D Eyal PA Unavailable Unavailable Guy, D Eyal PA Unavailable Unavailable Guy, D Eyal PA Unavailable Unavailable Guy, D Eyal PA Unavailable Unavailable James, Lisa PA Unavailable Unavailable James, Lisa PA Unavailable Unavailable James, Lisa PA Unavailable Unavailable James, Lisa PA Unavailable Unavailable James, Lisa PA Unavailable Unavailable James, Lisa PA Unavailable Unavailable James, Lisa PA Unavailable Unavailable James, Lisa PA Unavailable Unavailable James, Lisa PA Unavailable Unavailable James, Lisa PA Unavailable Unavailable James, Lisa PA Unavailable Unavailable James, Lisa PA Unavailable Unavailable James, Lisa PA Unavailable Unavailable James, Lisa PA Unavailable Unavailable James, Lisa PA Unavailable Unavailable James, Lisa PA Unavailable Unavailable James, Lisa PA Unavailable Unavailable James, Lisa PA Unavailable Unavailable James, Lisa PA Unavailable Unavailable James, Lisa PA Unavailable Unavailable James, Lisa PA Unavailable Unavailable James, Lisa PA Unavailable Unavailable James, Lisa PA Unavailable Unavailable James, Lisa PA Unavailable Unavailable James, Lisa PA Unavailable Unavailable James, Lisa PA Unavailable Unavailable James, Lisa PA Unavailable Unavailable James, Lisa PA Unavailable Unavailable James, Lisa PA Unavailable Unavailable James, Lisa PA Unavailable Unavailable James, Lisa PA Unavailable Unavailable James, Lisa PA Unavailable Unavailable James, Lisa PA Unavailable Unavailable James, Lisa PA Unavailable Unavailable James, Lisa PA Unavailable Unavailable James, Lisa PA Unavailable Unavailable James, Lisa PA Unavailable Unavailable James, Lisa PA Unavailable Unavailable James, Lisa PA Unavailable Unavailable James, Lisa PA Unavailable Unavailable James, Lisa PA Unavailable Unavailable James, Lisa PA Unavailable Unavailable James, Lisa PA Unavailable Unavailable James, Lisa PA Unavailable Unavailable James, Lisa PA Unavailable Unavailable James, Lisa PA Unavailable Unavailable James, Lisa PA Unavailable Unavailable James, Lisa PA Unavailable Unavailable James, Lisa PA Unavailable Unavailable Re-disclosure Warning The records that you are about to access may contain information from federally-assisted alcohol or drug abuse programs. If such information is present, then the following federally mandated warning applies: This information has been disclosed to you from records protected by federal confidentiality rules (42 CFR part 2). The federal rules prohibit you from making any further disclosure of this information unless further disclosure is expressly permitted by the written consent of the person to whom it pertains or as otherwise permitted by 42 CFR part 2. A general authorization for the release of medical or other information is NOT sufficient for this purpose. The Federal rules restrict any use of the information to criminally investigate or prosecute any alcohol or drug abuse patient.The records that you are about to access may contain highly sensitive health information, the redisclosure of which is protected by Article 27-F of the [facility] Public Health law. If you continue you may have access to information: Regarding HIV / AIDS; Provided by facilities licensed or operated by the [facility] Office of Mental Health; or Provided by the [facility] Office for People With Developmental Disabilities. If such information is present, then the following [facility] mandated warning applies: This information has been disclosed to you from confidential records which are protected by state law. State law prohibits you from making any further disclosure of this information without the specific written consent of the person to whom it pertains, or as otherwise permitted by law. Any unauthorized further disclosure in violation of state law may result in a fine or fdc sentence or both. A general authorization for the release of medical or other information is NOT sufficient authorization for further disc losure. Family History Family Member Name Family Member Gender Family Member Status Date o f Status Description Data Source(s) Unknown Unknown Problem MEDENT ([facility]) Encounters Encounter Providers Location Date Indications Data Source(s ) Outpatient Attender: Eyal BOYLE [place] [facility] 01:15:00 PM EDT MED[facility] ([facility] Outpatient Attender: Brit Zazueta/Rashaun/Malachi/Williams montanez 08/21/2021 02:00:00 PM EDT [facility] ([facility] [place] [address] [facility] [address] 07/23/2021 12:00:00 AM EDT eCW1 ([facility]) Outpatient Attender: Carrie BOYLE Main Office 07/09/2021 11:30:00 AM EDT MEDENT ([facility]) Outpatient Attender: Eyal BOYLE [place] [facility] 09/2021 09:30:00 AM EDT [facility] ([facility] [place] [address] [facility] [address] 07/02/2021 12:00:00 AM EDT eCW1 ([facility]) Outpatient Attender: Nikunj Matos MD Main Office 06/25/2021 09:45:00 AM EDT MED[facility] ([facility]) [place] [address] [facility] [address] 06/23/2021 12:00:00 AM EDT eCW1 ([facility]) Unknown [address] [facility] [address] 06/18/2021 12:00:00 AM EDT [facility]CW1 ([facility]) [place] [address] [facility] [address] 06/17/2021 12:00:00 AM EDT eCW1 ([facility]) Outpatient Attender: Eyal BOYLE [place] [facility] 01:00:00 PM EDT [facility] ([facility] [place] [address] [facility] [address] 06/09/2021 12:00:00 AM EDT eCW1 ([facility]) [place] [address] [facility] [address] 06/09/2021 12:00:00 AM EDT eCW1 ([facility]) [place] [address] [facility] [address] 06/06/2021 12:00:00 AM EDT eCW1 ([facility]) Outpatient [address] [facility] [place] [address] 06/04/2021 12:00:00 AM EDT eCW1 ([facility]) Office Visit Attender: Nikunj Matos MD Main Office 05/26/2021 08:45:00 AM EDT MEDENT ([facility]) Outpatient Attender: SIMA Lay NP [place] [facility] 04/29/2021 1 0:15:00 AM EDT MED[facility] ([facility] Office Visit Attender: Nikunj Matos MD Main Office 04/21/2021 08:45:00 AM EDT [facility] ([facility]) Office Visit Attender: Nikunj Matos MD Main Office 04/14/2021 08:45:00 AM EDT [facility] ([facility]) Office Visit Attender: Nikunj Matos MD Main Office 04/07/2021 08:45:00 AM EDT [facility]) Outpatient Attender: SIMA Lay NP [place] [facility] 04/04/2021 0 2:45:00 PM EDT [facility] ([facility] Office Visit Attender: Nikunj Matos MD Main Office 03/31/2021 08:30:00 AM EDT MEDENT ([facility]) Outpatient Attender: Nikunj Matos MDReferrer: Nikunj Issa OB-MOB.PAT 03/14/2021 11:07:44 AM EDT - 03/14/2021 11:59:05 AM EDT [facility] Outpatient Referrer: Nikunj Matos MD MOB-MOB.PAT 03/14/20 09:43:37 AM EDT - 03/14/2021 09:43:41 AM EDT [facility] Unknown [address] [facility] [address] 03/14/2021 12:00:00 AM EDT eCW1 ([facility]) Unknown [address] [facility] [address] 03/11/2021 12:00:00 AM EDT eCW1 ([facility]) Outpatient Attender: Eyal BOYLE [place] [facility] 06/2021 01:00:00 PM EDT MED[facility] ([facility] Inpatient Attender: Nikunj Matos MDAtten erica: MAGED LANGLEYAdmitter: Nikunj Matos MD [id number] 02/19/2021 04:53:31 PM EDT - 03/21/2021 12:35:00 PM EDT [facility] Patient discharged. Outpatient Attender: Carrie BOYLE Main Office 01/09/2021 10:30:00 AM EST MED[facility] ([facility]) [place] [address] [facility] [address] 01/03/2021 12:00:00 AM EST eCW1 ([facility]) Outpatient [address] [facility] [address] 12/05/2020 12:00:00 AM EST eCW1 ([facility]) Outpatient Attender: Eyal BOYLE [place] [facility] 03/2021 12:00:00 PM EST [facility] ([facility] Office Visit Attender: Franc Flores MD Physical Therapy 2019 07:30:00 AM EST MED[facility] ([facility]) Outpatient [address] [facility] [address] 10/23/2020 12:00:00 AM EST eCW1 ([facility]) Outpatient Attender: Lsia BOYLE Main Office 10/22/2020 09:45:00 A M EST MEDENT ([facility]) [facility] U[facility] [address] [facility] [address] 09/27/2020 12:00:00 AM EDT eCW1 ([facility]) Outpatient Attender: Eyal BOYLE [place] [facility] 03/2020 01:00:00 PM EDT MEDENT ([facility] Outpatient Attender: LEANN London/Rashaun/Malachi/Yordan 08/01/2020 09:00:00 AM EDT MEDENT ([facility], ) Immunizations Vaccine Date Status Description Data Source(s) New in 2012. IIV4 09/11/2021 01:18:00 PM EDT completed [facility] ([facility] COVID-19 VACCINE Pfizer 09/04/2021 12:00:00 AM EDT completed NYSIIS Vaccine Series Complete: YESThis Data wa s Submitted to [facility] Via Photos to Photos. COVID-19 VACCINE Pfizer 02/26/2021 12:00:00 AM EDT completed [facility]IS Vaccine Series Complete: YESThis Data wa s Submitted to [facility] Via Photos to Photos. COVID-19 VACCINE Pfizer 02/20/2021 12:00:00 AM EDT completed [facility]IS Vaccine Series Complete: YESThis Data wa s Submitted to [facility] Via LoanTekIS. COVID-19 VACCINE Pfizer 02/05/2021 12:00:00 AM EST completed [facility] Vaccine Series Complete: YESThis Data wa s Submitted to [facility] Via Photos to Photos. COVID-19 VACCINE Pfizer 01/30/2021 12:00:00 AM EST completed [facility]IS Vaccine Series Complete: NOThis Data was Submitted to [facility] Via NYSIIS. Medications Medication Brand Name Start Date Product Form Dose Route Admi nistrative Instructions Pharmacy Instructions Status Indications Reaction Description Data Source(s) Pfizer-Biontech Covid-19 Vaccine Pfizer-Biontech Covid-19 Hi ccine 09/11/2021 12:00:00 AM EDT active M EDENT ([facility] Furosemide 20 MG Oral Tablet Furosemide 07/28/2021 12:00:00 AM EDT active MEDENT ([facility] Furosemide 20 MG Oral Tablet [Lasix] Lasix 07/08/2021 12:00:00 AM EDT ORAL active [facility] ([facility]) Furosemide 20 MG Oral Tablet Furosemide 05/26/2021 12:00:00 AM EDT ORAL active MED[facility] ([facility]) Furosemide 20 MG Oral Tablet [Lasix] Lasix 05/02/2021 12:00:00 AM EDT ORAL completed MEDENT ([facility] Amoxicillin 875 MG / Clavulanate 125 MG Oral Tablet Am oxicillin/Clavulanate Potassium 05/02/2021 12:00:00 AM EDT ORAL completed MEDENT ([facility] Furosemide 40 MG Oral Tablet Furosemide 04/14/2021 12:00:00 AM EDT ORAL completed [facility] ([facility]) Potassium Chloride 20 MEQ Extended Release Oral Tablet Potas sium Chloride ER 04/14/2021 12:00:00 AM EDT ORAL active [facility]) Amoxicillin 500 MG / Clavulanate 125 MG Oral Tablet [Augment in] Augmentin 04/09/2021 12:00:00 AM EDT ORAL completed [facility] ([facility]) Amoxicillin 500 MG / Clavulanate 125 MG Oral Tablet [Augment in] Augmentin 04/09/2021 12:00:00 AM EDT ORAL completed [facility] ([facility]) Vancomycin 250 MG Oral Capsule Vancomycin HCL 04/04/2021 12:00:00 AM EDT ORAL completed [facility] ([facility] Rosuvastatin calcium 20 MG Oral Tablet Rosuvastatin Calcium 01/09/2021 12:00:00 AM EST ORAL active [facility] ([facility] Rosuvastatin calcium 20 MG Oral Tablet Rosuvastatin Calcium 01/09/2021 12:00:00 AM EST ORAL active MEDENT ([facility]) Oxybutynin chloride 5 MG Oral Tablet Oxybutynin Chloride 08/2021 12:00:00 AM EST ORAL active [facility] ([facility]) Oxybutynin chloride 5 MG Oral Tablet Oxybutynin Chloride 08/2021 12:00:00 AM EST ORAL completed [facility] ([facility]) 24 HR Oxybutynin chloride 10 MG Extended Release Oral Tablet Oxybutynin Chloride ER 10 MG Oxybutynin Chloride ER 10 MG 10/23/2020 12:00:00 AM EST 1.0 {tablet} active Oxybutynin Chloride ER 1 0 MG eCW1 ([facility]) 24 HR Oxybutynin chloride 5 MG Extended Release Oral Tablet Oxybutynin Chloride ER 5 MG Oxybutynin Chloride ER 5 MG 10/23/2020 12:00:00 AM EST 1.0 {tablet} active Oxybutynin Chloride ER 5 MG eCW1 ([facility]) 24 HR Oxybutynin chloride 10 MG Extended Release Oral Tablet Oxybutynin Chloride ER 10 MG Oxybutynin Chloride ER 10 MG 10/23/2020 12:00:00 AM EST 1.0 {tablet} active Oxybutynin Chloride ER 1 0 MG eCW1 ([facility]) 24 HR Oxybutynin chloride 10 MG Extended Release Oral Tablet Oxybutynin Chloride ER 10 MG Oxybutynin Chloride ER 10 MG 10/23/2020 12:00:00 AM EST 1.0 {tablet} active Oxybutynin Chloride ER 1 0 MG eCW1 ([facility]) 24 HR Oxybutynin chloride 10 MG Extended Release Oral Tablet Oxybutynin Chloride ER 10 MG Oxybutynin Chloride ER 10 MG 10/23/2020 12:00:00 AM EST 1.0 {tablet} active Oxybutynin Chloride ER 1 0 MG eCW1 ([facility]) 24 HR Oxybutynin chloride 10 MG Extended Release Oral Tablet Oxybutynin Chloride ER 10 MG Oxybutynin Chloride ER 10 MG 10/23/2020 12:00:00 AM EST 1.0 {tablet} active Oxybutynin Chloride ER 1 0 MG eCW1 ([facility]) 24 HR Oxybutynin chloride 10 MG Extended Release Oral Tablet Oxybutynin Chloride ER 10 MG Oxybutynin Chloride ER 10 MG 10/23/2020 12:00:00 AM EST 1.0 {tablet} active Oxybutynin Chloride ER 1 0 MG eCW1 ([facility]) 24 HR Oxybutynin chloride 10 MG Extended Release Oral Tablet Oxybutynin Chloride ER 10 MG Oxybutynin Chloride ER 10 MG 10/23/2020 12:00:00 AM EST 1.0 {tablet} active Oxybutynin Chloride ER 1 0 MG eCW1 ([facility]) 24 HR Oxybutynin chloride 10 MG Extended Release Oral Tablet Oxybutynin Chloride ER 10 MG Oxybutynin Chloride ER 10 MG 10/23/2020 12:00:00 AM EST 1.0 {tablet} active Oxybutynin Chloride ER 1 0 MG eCW1 ([facility]) 24 HR Oxybutynin chloride 10 MG Extended Release Oral Tablet Oxybutynin Chloride ER 10 MG Oxybutynin Chloride ER 10 MG 10/23/2020 12:00:00 AM EST 1.0 {tablet} active Oxybutynin Chloride ER 1 0 MG eCW1 ([facility]) 24 HR Oxybutynin chloride 10 MG Extended Release Oral Tablet Oxybutynin Chloride ER 10 MG Oxybutynin Chloride ER 10 MG 10/23/2020 12:00:00 AM EST 1.0 {tablet} active Oxybutynin Chloride ER 1 0 MG eCW1 ([facility]) 24 HR Oxybutynin chloride 10 MG Extended Release Oral Tablet Oxybutynin Chloride ER 10 MG Oxybutynin Chloride ER 10 MG 10/23/2020 12:00:00 AM EST 1.0 {tablet} active Oxybutynin Chloride ER 1 0 MG eCW1 ([facility]) 24 HR Oxybutynin chloride 10 MG Extended Release Oral Tablet Oxybutynin Chloride ER 10 MG Oxybutynin Chloride ER 10 MG 10/23/2020 12:00:00 AM EST 1.0 {tablet} active Oxybutynin Chloride ER 1 0 MG eCW1 ([facility]) 24 HR Oxybutynin chloride 10 MG Extended Release Oral Tablet Oxybutynin Chloride ER 10 MG Oxybutynin Chloride ER 10 MG 10/23/2020 12:00:00 AM EST 1.0 {tablet} active Oxybutynin Chloride ER 1 0 MG eCW1 ([facility]) Omeprazole 40 MG Delayed Release Oral Capsule Omeprazole 09/26/2020 12:00:00 AM EDT completed MEDENT ([facility] ) Divalproex Sodium 500 MG Delayed Release Oral Tablet divalproex (DEPAKOTE) 500 MG EC tablet divalproex (DEPAKOTE) 500 MG EC tablet 500 mg Oral aborted Take 500 mg by mouth 2 (two) times a day [facility] Haloperidol 0.5 MG Oral Tablet haloperidol (HALDOL) 0. 5 MG tablet haloperidol (HALDOL) 0.5 MG tablet 1 mg Oral aborted T luther 1 mg by mouth daily [facility] Insurance Providers Payer name Policy type / Coverage type Policy ID Covered republican ID Covered republican's relationship to torrez Policy Torrez Plan Information [facility] Commercial [id number] Self R [id number] [facility] Commercial [id number] Self [facility] Commercial [id number] Self R [id number] [facility] Commercial [id number] Self R [id number] [facility] Commercial [id number] Self R [id number] [facility] (Old) Commercial [id number] Self R [id number] /BS Hny-Option A Medigap Part B [id number] Self Z [id number] BC/BS [place]ny-Option A Medigap Part B [id number] Self BC/BS Hny-Option A Medigap Part B [id number] Self Z [id number] BC/BS Hny-Option A Medigap Part B [id number] Self Z [id number] BC/BS Hny-Option A Medigap Part B [id number] [id number] Self Z [id number] BC/BS Hny-Option A Medigap Part B [id number] [id number] Self Z [id number] BCBS Excellus U/W Medigap Part B [id number] [id number] Family Dependent Y [id number] BCBS Excell[employer] Ppo U/W Medigap Part B [id number] Family Dependent Y [id number] BCBS [employer] U/W Medigap Part B [id number] Family Dependent Y [id number] BCBS [employer] U/W Medigap Part B [id number] 2.16.840.1.130340.3.227.99.572.74735.0 Family Dependent Y [id number] BC/BS [place] Medigap Part B [id number] Family Depend ent BCBS Excell[employer] Ppo U/W Medigap Part B [id number] [id number] Family Dependent Y [id number] BCBS Excell[employer] Ppo U/W Medigap Part B [id number] Family Depend ent BS [place] Medigap Part B [id number] Family Dependent V [id number] BS [place] Medigap Part B [id number] 2.0.1.11 [id number] Family Dependent 302/802 BS [place] Medigap Part B [id number] Family Dependent V [id number] BS [place] Medigap Part B [id number] Family Dependent V [id number] BS [place] Medigap Part B [id number] Family Dependent [id number] BS [place] Medigap Part B [id number] Family Dependent V [id number] BC/BS [place] Commercial [id number] Family Dependent BCBS [employer] Ppo U/W Commercial [id number] Family Dependent EXCELLUS BCBS [id number] Spo [id number] EXCELLUS BCBS [id number] Spo VYA EXCELLUS H [id number] Spouse [id number] MEDICARE A [id number] Self [id number] MEDICARE [id number] Sugey [id number] [facility] U [id number] Spouse [id number] [facility] [id number] SP 1 [id number] UNHC [place] CHOICE PLUS [id number] SP [id number] UNHC [place] CHOICE PLUS [id number] SP [id number] UNHC [place] CHOICE PLUS [id number] SP [id number] [facility] [id number] Spo [id number] [employer] Commercial [id number] Self [id number] [facility] [id number] Self [id number] UNHC [place] CHOICE PLUS [id number] SP [id number] COMMERCIAL GENERIC [id number] Sugey [id number] COMMERCIAL GENERIC [id number] Sugey [id number] [facility] [id number] Sugey [id number] [facility] [id number] xxxxxxxxxx [id number] [facility] [id number] Sugey [id number] INSURANCE COVID-19 [id number] [id number] INSURANCE COVID-19 COVID Sugey C OVID ANSI-Commercial [id number] ANSI-Medicare Part B [id number] [employer] [facility] Commercial [id number]. [id number] Family Dependent [id number] [facility] Part B [id number]46.48915.0 Family Dependent [id number] ANSI-Medicare Part B [id number] ANSI-Commercial [id number] [facility] Commercial [id number]2.43120.0 Family Dependent [id number] [facility] [id number] 2.16.840.1.317179.3.227.99.572.02757.0 Family Dependent [id number] [facility]-Commercial [facility] Part B [id number]72.76645.0 Family Dependent 1 [id number] [facility] [id number] 2.16.0.1.727519.3.227.99.572.92451.0 Family Dependent [id number] [facility] Commercial [id number]646.45129.0 Self [id number] [facility] Part B [id number]646.10459.0 Family Dependent [id number] [facility] [id number] 2.16.0.1.479143.3.227.99.572.47812.0 Family Dependent [id number] ANSI-Medicare Part B [id number] ANSI-Commercial [id number] ANSI-Commercial [id number] ANSI-Medicare Part B [id number] [facility] Part [facility] [id number] Family Dependent [id number] [facility] (pr) Commercial [id number] Self [id number] BS Of [facility] Part B [id number] Family Dependent [id number] [facility] Commercial [id number] [id number] Family Dependent [id number] [facility] CHOICE PLUS [id number] WI2 [id number] BS Of [facility] Part B [id number] Family Dependent [id number] ANSI-Commercial [id number] Medicare [place] Medigap Part B .[id number] Self ANSI-Medicare Part B [id number] [facility] (pr) Commercial [id number]. [id number] Self [employer] O [id number] S [id number] UN [place] CHOICE PLUS [id number] SP [id number] c-Commercial Plan Commercial [id number] [id number] Family Dependent UN [place] CHOICE PLUS [id number] SP [id number] UN [place] CHOICE PLUS [id number] SP [id number] SELF PAY ONLY BC BS [facility] [id number] WI2 [id number] BS Of [place] Commercial ..[id number] [id number] Family Dependent BCBS OF [place] 306/806 [id number] WI2 [id number] EXCELLUS BCBS B [id number] P [id number] [id number] MEDICARE [id number] SP [id number] A UN [place] CHOICE PLUS [id number] SP [id number] BCBS [place] PPO 302/307 [id number] WI2 [id number] MEDICARE [id number] SP [id number] [facility] [place] CHOICE PLUS [id number] SP [id number] Problems, Conditions, and Diagnoses Code Display Name Description Problem Type Effective Dates Data Source(s) I73.9 Peripheral vascular disease, unspecified Peripheral vascular disease, unspecified Diagnosis 03/19/2021 09:58:00 AM EDT [facility] G47.33 Obstructive sleep apnea (adult) (pediatr ic) Obstructive sleep apnea (adult) (pediatr Diagnosis 03/14/2021 10:27:53 AM EDT [facility] E03.9 Hypothyroidism, unspecified Hypothyroidism, unspecifie d Diagnosis 03/14/2021 10:27:53 AM EDT [facility] T75.3XXS Motion sickness, sequela Motion sickness, sequela Diag nosis 03/14/2021 10:27:53 AM EDT [facility] E66.01 Morbid (severe) obesity due to excess ca lories Morbid (severe) obesity due to excess ca Diagnosis 03/14/2021 10:27:53 AM EDT [facility] 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[place] ar teries of extremities with intermittent claudication, right leg Atherosclerosis of [place] arteries of ex Diagnosis 03/14/2021 10:27:53 AM EDT [facility] U07.1 COVID-19 COVID-19 Diagnosis 03/14/2021 09:43:37 AM ED T [facility] L40.9 [id number] Psoriasis, unspecified Problem 07/09/2021 12 :00:00 AM EDT eCW1 ([facility]) F52.4 Premature ejaculation Premature ejaculation Problem 06/04/2021 12:00:00 AM EDT eCW1 ([facility]) Z20.2 Exposure to sexually transmissible disorder STD exposu re Problem 06/04/2021 12:00:00 AM EDT eCW1 ([facility]) G47.30 Sleep apnea Sleep apnea [id number] 03/14/2021 12:00:00 AM EDT [facility] E03.9 Hypothyroidism Hypothyroidism [id number] 03/14/2021 12:00: 00 AM EDT [facility] T75.3XXA Motion sickness Motion sickness [id number] 03/14/2021 12:0 0:00 AM EDT [facility] E66.01 Morbid obesity Morbid obesity [id number] 03/14/2021 12:00: 00 AM EDT [facility] I45.4 BBB (bundle branch block) BBB (bundle branch block) [id number] 03/14/2021 12:00:00 AM EDT [facility] Surgeries/Procedures Procedure Description Date Indications Data Source(s) OFFICE OUTPATIENT VISIT 25 MINUTES 09/11/2021 12:00:00 AM EDT [facility] ([facility] OFFICE OUTPATIENT VISIT 25 MINUTES 08/21/2021 12:00:00 AM EDT [facility] ([facility] ) Med: Derm 1% Lidocaine with Epinephrine Injection Intr adermally to marked areas 07/23/2021 12:00:00 AM EDT eCW1 ([facility]) OFFICE OUTPATIENT VISIT 15 MINUTES 07/09/2021 12:00:00 AM EDT [facility] ([facility] ECG ROUTINE ECG W/LEAST 12 LDS W/I&R 07/09/2021 12:00: 00 AM EDT [facility] ([facility]) OFFICE OUTPATIENT VISIT 25 MINUTES 07/09/2021 12:00:00 AM EDT [facility] ([facility]) OFFICE OUTPATIENT VISIT 25 MINUTES 06/11/2021 12:00:00 AM EDT [facility] ([facility] OFFICE OUTPATIENT VISIT 15 MINUTES 04/29/2021 12:00:00 AM EDT [facility] ([facility] OFFICE OUTPATIENT VISIT 15 MINUTES 04/04/2021 12:00:00 AM EDT [facility] ([facility] Bypass Graft Other Than Vein Femoral-Femoral 12:00:00 AM EDT [facility] ([facility]) Femoral-Popliteal Angioplasty 03/19/2021 12:00:00 AM E DT [facility] ([facility]) PROTHROMBIN TIME <td>PROTIME-INR</td><td>Rout ine</td><td>03/14/2021 12:00 PM EDT</td><td> Atherosclerosis of [place] arteries of extremities with intermittent claudication, right leg</td><td> </td> 03/14/2021 04:00:00 PM EDT Atherosclerosis of [place] arteries of ex tremities with intermittent claudication, right leg [facility] Atherosclerosis of [place] arteries of ex tremities with intermittent claudication, right leg BLOOD COUNT COMPLETE AUTOMATED <td>CBC</td><td>Routine </td><td>03/14/2021 12:00 PM EDT</td><td> Atherosclerosis of [place] arteries of extremities with intermittent claudication, right leg</td><td> </td> 03/14/2021 04:00:00 PM EDT Atherosclerosis of [place] arteries of ex tremities with intermittent claudication, right leg [facility] Atherosclerosis of [place] arteries of ex tremities with intermittent claudication, right leg BLOOD TYPING ABO <td>TYPE AND SCREEN</td><td> Routine</td><td>03/14/2021 12:00 PM EDT</td><td> Atherosclerosis of [place] arteries of extremities with intermittent claudication, right leg</td><td> </td> 03/14/2021 04:00:00 PM EDT Atherosclerosis of [place] arteries of ex tremities with intermittent claudication, right leg [facility] Atherosclerosis of [place] arteries of ex tremities with intermittent claudication, right leg COMPREHENSIVE METABOLIC PANEL <td>COMPREHENSIVE METABO LIC PANEL</td><td>Routine</td><td>03/14/2021 12:00 PM EDT</td><td> Atherosclerosis of [place] arteries of extremities with intermittent claudication, right leg</td><td> </td> 03/14/2021 04:00:00 PM EDT Atherosclerosis of [place] arteries of ex tremities with intermittent claudication, right leg [facility] Atherosclerosis of [place] arteries of ex tremities with intermittent claudication, right leg OFFICE OUTPATIENT VISIT 25 MINUTES 03/06/2021 12:00:00 AM EDT [facility] ([facility] MYOCARDIAL SPECT MULTIPLE STUDIES 02/17/2021 12:00:00 AM EDT [facility] ([facility]) CV STRS TST XERS&/OR RX CONT ECG PHYS SI&R 02/17/2021 12:00:00 AM EDT [facility] ([facility]) ECG ROUTINE ECG W/LEAST 12 LDS W/I&R 01/09/2021 12:00: 00 AM EST [facility] ([facility]) OFFICE OUTPATIENT VISIT 25 MINUTES 01/09/2021 12:00:00 AM EST [facility] ([facility]) uro PVR (Post Voiding Residual) Bladder Scan 12:00:00 AM EST eCW1 ([facility]) OFFICE OUTPATIENT VISIT 25 MINUTES 12/03/2020 12:00:00 AM EST [facility] ([facility] RADEX SPINE CRV COMPL W/OBLQ&FLEX&/XTN STDS 11/12/2020 12:00:00 AM EST [facility] ([facility] ) X-Ray Spine Lumbosacral Complete Inc Bending Views Min Of 6 11/12/2020 12:00:00 AM EST [facility] ([facility] ) DUP-SCAN LXTR ART/ARTL BPGS UNI/LMTD STUDY 10/22/2020 12:00:00 AM EST [facility] ([facility]) DUP-SCAN LXTR ART/ARTL BPGS UNI/LMTD STUDY 10/22/2020 12:00:00 AM EST [facility] ([facility]) Results ID Date Data Source [id number] 08/21/2021 03:19:00 PM EDT [facility] ([facility]) Name Value Range Interpretation Code Description Data Laura rce(s) Supporting Document(s) Histoplasmosis Antibody Laboratory test result [facility] ([facility]) Blastomyces Antibody Level Laboratory test result [facility] ([facility]) Coccidioides sp Ab [Units/volume] in Serum Laboratory test result [facility] ([facility]) Cryptococcus sp Ag [Presence] in Serum by Immunoassay Laboratory test result [facility] ([facility]) ID Date Data Source [id number] 08/21/2021 03:19:00 PM EDT [facility] ([facility]) Name Value Range Interpretation Code Description Data Laura rce(s) Supporting Document(s) Prothrombin Time 13.3 s 12.7-14.5 Normal (applies to non-numeric results) [facility] Inr 0.97 Normal (applies to non-numeric resul ts) [facility] THERAPUTIC HUMAN INR VALUES INDICATIONS NORMAL RANGES PROPHYLAXIS/TREATMENT OF: VENOUS THROMBOSIS 2.0-3.0 PULMONARY EMBOLISM 2.0-3.0 PREVENTION OF SYSTEMIC EMBOLISM FROM: TISSUE HEART VALVES 2.0-3.0 ACUTE MYOCARDIAL INFARCTION 2.0-3.0 VALVULAR HEART DISEASE 2.0-3.0 ATRIAL FIBRILLATION 2.0-3.0 MECHANICAL VALVES(HIGH RISK) 2.5-3.5 RECURRENT MYOCARDIAL INFARCTION 2.5-3.5 Partial Thromboplastin Time 29.9 s 25.9-37.0 Norm al (applies to non-numeric results) [facility] ([facility]) ID Date Data Source [id number] 08/21/2021 03:19:00 PM EDT [facility] Name Value Range Interpretation Code Description Data Laura rce(s) Supporting Document(s) Platelets [#/volume] in Blood by Automated count 292 10 150-450 Normal (applies to non-numeric results) [facility] ([facility]) aPTT in Platelet poor plasma by Coagulation assay Laboratory test res [facility]) ID Date Data Source [id number] 07/09/2021 01:06:00 PM EDT [facility] ([facility] Name Value Range Interpretation Code Description Data Laura rce(s) Supporting Document(s) White Blood Count 7.6 10 4.0-10.0 Normal (applies to non-numeri c results) [facility] Red Blood Count 4.51 10 4.30-6.10 Normal (applies to non-numeric results) [facility] Hemoglobin 12.2 g/dL 13.5-17.5 Below low normal [facility] ( [facility] Hematocrit 39.7 % 42.0-52.0 Below low [facility] Mean Corpuscular Hemoglobin 27.1 pg 27.0-33.0 Norm al (applies to non-numeric results) [facility] ) Mean Corpuscular Volume 88.0 fl 80.0-96.0 Normal ( applies to non-numeric results) [facility] ([facility] ) Mean Corpuscular HGB Conc 30.7 g/dL 32.0-36.5 Below low normal [facility] ([facility] Red Cell Distribution Width 15.7 % 11.5-14.5 Above high normal [facility] ([facility] Platelet Count, Automated 311 10 150-450 Normal (applies to non-numeric results) [facility] ([facility] ) Nucleated Red Blood Cell % 0.0 % 0-0 Normal (applies to n on-numeric results) [facility] ([facility] ID Date Data Source [id number] 07/09/2021 01:06:00 PM EDT [facility] Name Value Range Interpretation Code Description Data Laura rce(s) Supporting Document(s) Magnesium [Mass/volume] in Serum or Plasma 2.2 mg/dL 1.8-2 .4 Normal (applies to non-numeric results) [facility] ([facility]) ID Date Data Source [id number] 07/09/2021 01:06:00 PM EDT [facility] Name Value Range Interpretation Code Description Data Laura rce(s) Supporting Document(s) Glucose, Fasting 90 mg/dL 70-100 Normal (applies to non-numeric results) [facility] ([facility] Creatinine For GFR 1.19 mg/dL 0.70-1.30 Normal (applies to non -numeric results) [facility] ([facility] Blood Urea Nitrogen 22 mg/dL 7-18 Above high normal [facility] ([facility] Glomerular Filtration Rate Laboratory test result Normal (applies to non- numeric results) [facility] ([facility] ) <content>Units are mL/min/1.73 m2</content>
<content></content>
<content>Chronic Kidney Disease Staging per NKF:</content>
<content></content>
<content>Stage I & II GFR >=60 Normal to Mildly Decreased</content>
<content>Stage III GFR 30- 59 Moderately Decreased</content>
<content>Stage IV GFR 15-29 Severely Decreased</content>
<content>Stage V GFR <15 Very Little GFR Left</content>
<content>ESRD GFR <15 on NURSE CASE MANAGER</content>
<content></content> Sodium Level 139 meq/L 136-145 Normal (applies to non-numeric res ults) [facility] ([facility] Chloride Level 101 meq/L 98-107 Normal (applies to non-numeric r esults) [facility] ([facility] Potassium Serum 4.0 meq/L 3.5-5.1 Normal (applies to non-numeric results) [facility] ([facility] Carbon Dioxide Level 29 meq/L 21-32 Normal (applies to non-num tin results) [facility] ([facility] Calcium Level 9.6 mg/dL 8.8-10.2 Normal (applies to non-numeric re sults) [facility] ([facility] Anion Gap 9 meq/L 8-16 Normal (applies to non-numeric resul ts) [facility] ([facility] ID Date Data Source [id number] 07/09/2021 01:06:00 PM EDT [facility]) Name Value Range Interpretation Code Description Data Laura rce(s) Supporting Document(s) White Blood Count 7.6 10 4.0-10.0 [facility]) Red Blood Count 4.51 10 4.30-6.10 [facility] ([facility]) Hemoglobin 12.2 g/dL 13.5-17.5 [facility]) Hematocrit 39.7 % 42.0-52.0 [facility]) Mean Corpuscular Volume 88.0 fl 80.0-96.0 [facility] Mean Corpuscular Hemoglobin 27.1 pg 27.0-33.0 [facility] ([facility]) Red Cell Distribution Width 15.7 % 11.5-14.5 [facility] ([facility]) Mean Corpuscular HGB Conc 30.7 g/dL 32.0-36.5 [facility] ([facility]) Platelet Count, Automated 311 10 150-450 [facility] ([facility]) Nucleated Red Blood Cell % 0.0 % 0-0 [facility] ([facility]) ID Date Data Source [id number] 07/09/2021 01:06:00 PM EDT [facility] Name Value Range Interpretation Code Description Data Laura rce(s) Supporting Document(s) Magnesium [Mass/volume] in Serum or Plasma 2.2 mg/dL 1.8-2.4 [facility] ([facility]) ID Date Data Source [id number] 07/09/2021 01:06:00 PM EDT [facility] Name Value Range Interpretation Code Description Data Laura rce(s) Supporting Document(s) Glucose, Fasting 90 mg/dL 70-100 [facility] ([facility]) Blood Urea Nitrogen 22 mg/dL 7-18 [facility] ([facility]) Creatinine For GFR 1.19 mg/dL 0.70-1.30 [facility] ([facility]) Glomerular Filtration Rate Laboratory test [facility]) <content>Units are mL/min/1.73 m2</content>
<content></content>
<content>Chronic Kidney Disease Staging per NKF:</content>
<content></content>
<content>Stage I & II GFR >=60 Normal to Mildly Decreased</content>
<content>Stage III GFR 30- 59 Moderately Decreased</content>
<content>Stage IV GFR 15-29 Severely Decreased</content>
<content>Stage V GFR <15 Very Little GFR Left</content>
<content>ESRD GFR <15 on NURSE CASE MANAGER</content>
<content></content> Sodium Level 139 meq/L 136-145 [facility] ([facility]) Chloride Level 101 meq/L 98-107 [facility] ([facility]) Potassium Serum 4.0 meq/L 3.5-5.1 [facility] ([facility]) Anion Gap 9 meq/L 8-16 [facility] ([facility]) Carbon Dioxide Level 29 meq/L 21-32 [facility] ([facility]) Calcium Level 9.6 mg/dL 8.8-10.2 [facility] ([facility]) ID Date Data Source [id number] 07/09/2021 10:36:00 AM EDT [facility] ([facility] Name Value Range Interpretation Code Description Data Laura rce(s) Supporting Document(s) Valproate [Mass/volume] in Serum or Plasma 75.4 UG/ML 50.0- 100.0 Normal (applies to non-numeric results) [facility] ([facility] ID Date Data Source [id number] 06/04/2021 03:42:00 PM EDT [facility] ([facility] Name Value Range Interpretation Code Description Data Laura rce(s) Supporting Document(s) HIV 1+2 Ab [Presence] in Serum Laboratory test result Normal (applies to non- numeric results) [facility] ([facility] ) <content>This assay was performed utiliz ing a chemiluminescent</content>
<content>principle technique for the simultaneous qualitative</content>
<content>detection of HIV-1 p24 antigen & antibodies to HIV-1</content>
<content>(including group O) & HIV-2 using the Siemens Centaur XP</content>
<content>system.</content>
<content>The estimated 95% confidence interval for sensitivity of</content>
<content>this antigen/antibody combination assay for HIV-1&2</content>
<content>antibodies is 99.7-100% and HIV p24 antigen is 89.4-99.9%.</content>
<content>The estimated 95% confidence interval for specificity of</content>
<content>this antigen/antibody combination in low risk populations is</content>
<content>99.6-99.8%.</content>
<content></content> ID Date Data Source [id number] 06/04/2021 03:04:00 PM EDT [facility] ([facility] Name Value Range Interpretation Code Description Data Laura rce(s) Supporting Document(s) Chlamydia Dna Amplification Laboratory test result Normal (applies to non- numeric results) [facility] ([facility] ) A negative test result does not exclude the possibility of infection because test results may be affected by improper specimen collection, technical error, specimen mix-up, concurrent antibiotic therapy, or the number of organisms in the specimen which may be below the sensitivity of the test. GC Dna Amplification Laboratory test result Norm al (applies to non-numeric results) [facility] ([facility] ) A negative test result does not exclude the possibility of infection because test results may be affected by improper specimen collection, technical error, specimen mix-up, concurrent antibiotic therapy, or the number of organisms in the specimen which may be below the sensitivity of the test. ID Date Data Source [id number] 04/29/2021 10:48:00 AM EDT [facility] ([facility] Name Value Range Interpretation Code Description Data Laura rce(s) Supporting Document(s) Glucose [Mass/volume] in Serum or Plasma 108 mg/dL 65-99 Above high normal [facility] ([facility] eGFR If NonAfricn Am 86 mL/min/1.73 [facility] ([facility] BUN 12 mg/dL 8-27 [facility] ([facility] Creatinine [Mass/volume] in Serum or Plasma 0.93 mg/dL 0.76-1.27 [facility] ([facility] Urea nitrogen/Creatinine [Mass Ratio] in Serum or Plasma 13 1 0-24 [facility] ([facility] eGFR If Africn Am 100 mL/min/1.73 ME [facility] ([facility] currently reports eGFR in comp liance with the current recommendations of the National Kidney Foundation. [facility] will update reporting as new guidelines are published from the NKF-ASN Task force. Sodium [Moles/volume] in Serum or Plasma 140 mmol/L 134-144 [facility] ([facility] Potassium [Moles/volume] in Serum or Plasma 4.3 mmol/L 3.5-5.2 [facility] ([facility] Calcium [Mass/volume] in Serum or Plasma 9.6 mg/dL 8.6-10.2 [facility] ([facility] Carbon dioxide, total [Moles/volume] in Serum or Plasma 26 mmol/L 20 -29 [facility] ([facility] Chloride [Moles/volume] in Serum or Plasma 101 mmol/L 96-106 [facility] ([facility] ID Date Data Source [id number] 04/29/2021 10:48:00 AM EDT [facility] ([facility] Name Value Range Interpretation Code Description Data Laura rce(s) Supporting Document(s) Erythrocytes [#/volume] in Blood by Automated count 3.84 x10E6/u L 4.14-5.80 Below low normal [facility] ([facility] ) Leukocytes [#/volume] in Blood by Automated count 6.3 x10E3/uL 3.4-10 .8 [facility] ([facility] Hematocrit [Volume Fraction] of Blood by Automated count 34.5 % 37.5-51.0 Below low normal [facility] ([facility] ) Erythrocyte mean corpuscular volume [Entitic volume] by Auto mated count 90 fL 79-97 [facility] ([facility] Hemoglobin [Mass/volume] in Blood 11.4 g/dL 13.0-17.7 Below low nor mal [facility] ([facility] Erythrocyte mean corpuscular hemoglobin concentration [Mass/volume] by Automated count 33.0 g/dL 31.5-35.7 [facility] ([facility] Erythrocyte mean corpuscular hemoglobin [Entitic mass] by Automated count 29.7 pg 26.6-33.0 [facility] ([facility] Erythrocyte distribution width [Ratio] by Automated count 13.8 % 11.6-15.4 [facility] ([facility] Neutrophils 51 % [facility] Platelets [#/volume] in Blood by Automated count 273 x10E3/uL 150-450 [facility] ([facility] Eosinophils/100 leukocytes in Blood by Automated count 5 % [facility] Lymphs 29 % [facility] ([facility] Monocytes/100 leukocytes in Blood by Automated count 13 % [facility] ([facility] Immature cells [#/volume] in Blood Laboratory test result [facility] ([facility] Basophils/100 leukocytes in Blood by Automated count 1 % [facility] ([facility] Neutrophils [#/volume] in Blood by Automated count 3.3 x10E3/uL 1.4-7 .0 [facility] ([facility] Lymphocytes [#/volume] in Blood 1.8 x10E3/uL 0.7-3.1 [facility] ([facility] Monocytes [#/volume] in Blood 0.8 x10E3/uL 0.1-0.9 [facility] ([facility] Eosinophils [#/volume] in Blood by Automated count 0.3 x10E3/uL 0.0-0 .4 [facility] ([facility] Basophils [#/volume] in Blood by Automated count 0.1 x10E3/uL 0.0-0.2 [facility] ([facility] Immature granulocytes/100 leukocytes in Blood by Automated count 1 % [facility] ([facility] Nucleated erythrocytes/100 leukocytes [Ratio] in Blood by Automated count Laboratory test result [facility] ([facility] Immature granulocytes [#/volume] in Blood by Automated count 0.0 x10E3/uL 0.0-0.1 [facility] Morphology [Interpretation] in Blood Narrative Laboratory test result [facility] ([facility] ID Date Data Source [id number] 04/29/2021 10:42:00 AM EDT [facility] ([facility] Name Value Range Interpretation Code Description Data Laura rce(s) Supporting Document(s) Bacteria identified in Unspecified specimen by Culture Laborator y test result Abnormal (applies to non-numeric results) [facility] ([facility] SRC:RT UPPER LEG/GROIN Bacteria identified in Unspecified specimen by Aerobe culture Laboratory test result Abnormal (applies to non-numeric results) [facility] ([facility] SRC:RT UPPER LEG/GROIN Bacteria identified in Unspecified specimen by Culture Laborator y test result Abnormal (applies to non-numeric results) [facility] ([facility] SRC:RT UPPER LEG/GROIN Other Antibiotic [Susceptibility] Laboratory test result [facility] ([facility] SRC:RT UPPER LEG/GROIN ID Date Data Source [id number] 04/29/2021 10:42:00 AM EDT [facility] ([facility] Name Value Range Interpretation Code Description Data Laura rce(s) Supporting Document(s) Bacteria identified in Unspecified specimen by Aerobe culture Laboratory test result [facility] ([facility] ID Date Data Source [id number] 04/04/2021 03:27:00 PM EDT [facility] ([facility] Name Value Range Interpretation Code Description Data Laura rce(s) Supporting Document(s) Bacteria identified in Unspecified specimen by Aerobe culture Laboratory test result Abnormal (applies to non-numeric results) [facility] ([facility] SRC:RT UPPER LEG CX Bacteria identified in Unspecified specimen by Culture Laborator y test result Abnormal (applies to non-numeric results) [facility] ([facility] SRC:RT UPPER LEG CX Other Antibiotic [Susceptibility] Laboratory test result [facility] ([facility] SRC:RT UPPER LEG CX Bacteria identified in Unspecified specimen by Culture Laborator y test result Abnormal (applies to non-numeric results) [facility] ([facility] SRC:RT UPPER LEG CX ID Date Data Source [id number] 04/04/2021 03:27:00 PM EDT [facility] ([facility] Name Value Range Interpretation Code Description Data Alura rce(s) Supporting Document(s) Bacteria identified in Unspecified specimen by Aerobe culture Laboratory test result [facility] ([facility] ID Date Data Source [id number] 03/30/2021 04:40:00 PM EDT [facility] ([facility] Name Value Range Interpretation Code Description Data [facility] Supporting Document(s) Blood Culture Laboratory test result [facility] ([facility] No growth after 72 hours . All specimens observed for 5 days. Results final at that time. No growth after 48 hours . All specimens observed for 5 days. Results final at that time. No growth after 24 hours . All specimens observed for 5 days. Results final at that time. NO GROWTH AFTER 5 DAYS ID Date Data Source [id number] 03/30/2021 04:40:00 PM EDT [facility] ([facility] Name Value Range Interpretation Code Description Data [facility] Supporting Document(s) Gram Stain Laboratory test result Normal (applies to non-n umeric results) [facility] ([facility] NO CELLS SEEN FEW GRAM POSITIVE COCCI IN PAIRS Wound Culture Laboratory test result Normal (applies t o non-numeric results) [facility] ([facility] <content>FULL REPORT IN LAB NOTES (eCW a nd Medent).</content>
<content></content>
<content>ORGANISM 1: YEAST LIKE ORGANISM</content>
<content></content>
<content>QUANTITY OF GROWTH FEW</content>
<content></content>
<content>ORGANISM 2: STAPHYLOCOCCUS SP COAG NEG</content>
<content></content>
<content> QUANTITY OF GROWTH FEW</content>
<content></content>
<content>ORGANISM 3: RAOULTELLA ORNITHINOLYTICA</content>
<content></content>
<content>QUANTITY OF GROWTH FEW</content>
<content></content>
<content></content>
<content>ORGAN ISM 1: YEAST LIKE ORGANISM</content>
<content>ORGANISM 2: STAPHYLOCOCCUS SP COAG NEG</content>
<content>ORGANISM 3: RAOULTELLA ORNITHINOLYTICA</content>
<content></content>
<content>STAPHYLOCOCCUS SP COAG NEG: REACTION</content>
<content>ICR (INDUCIBLE CC RESISTANCE) IV ICR TEST RESULT</content>
<content> TETRACYCLINE PO 250 mg qid 2 S</content>
<content>PENICILLIN G IV 1 mu q6H >=0.5 R</content>
<content>PENICILLIN G IV 1 mu q6h >=0.5 R</content>
<content>PENICILLIN G PO 250mg q6h fasting >=0.5 R</content>
<content> TRIMETHOPRIM/SULFAMETHOXAZOLE IV 160mg TMP & 800mg SMXq6h 160 R</content>
<content>TRIMETHOPRIM/SULFAMETHOXAZOLE PO Bactrim DS Bid 160 R</content>
<content>ERYTHROMYCIN IV 500mg q6h >=8 R</content>
<content>ERYTHROMYCIN PO 500mg q6h >=8 R</content>
<content>GENTAMICIN IV 80mg q8h <=0.5 S</content>
<content>CLINDAMYCIN IV 600mg q6h >=4 R</content>
<content>CLINDAMYCIN PO 150mg q6h >=4 R</content>
<content>NITROFURANTOIN PO 100mg BID <=16 S</content>
<content>OXACILLIN IV 500mg q6h <=0.25 S</content>
<content>VANCOMYCIN IV 500mg q8h 2 S</content>
<content> LINEZOLID (ZYVOX) IV 600MG Q12HR 1 S</content>
<content>LINEZOLID (ZYVOX) PO 600MG Q12HR 1 S</content>
<content>An isolate with a (+) POSITIVE ICR test is considered</content>
<content>CLINDAMYCIN RESISTANT; however, clindamycin may still</content>
<content>be effective in some patients.</content>
< content>An isolate with a (-) NEGATIVE ICR test is considered</content>
<content>CLIDAMYCIN SENSITIVE.</content>
<content>Oxacillin result predicts susceptibility to all penicillinase-stable</content>
<content>penicillins (Nafcillin, Dicloxacilin), Cephalosporins, Carbapenems,</content>
<content>Amoxicillin/Clavulanate & Ampicillin/Sulbactam per CSLI standards.</content>
<content></content>
<content>RAOULTELLA ORNITHINOLYTICA: REACTION</content>
<content>TRIMETHOPRIM/SULFAMETHOXAZOLE IV 160mg TMP & 800mg SMXq6h <=20 S</content>
<content> TRIMETHOPRIM/SULFAMETHOXAZOLE PO Bactrim DS Bid <=20 S</content>
<content>AMPICILLIN IV 500mg q6h >=32 R</content>
<content>AMPICILLIN PO 500mg q6h fasting >=32 R</content>
<content>GENTAMICIN IV 80mg q8h <=1 S</content>
<content>CEFAZOLIN IV 1gm q8h <=4 S</content>
<content>LEVOFLOXACIN IV 500mg qd <=0.12 S</content>
<content>LEVOFLOXACIN PO 250mg qd <=0.12 S</content>
<content>LEVOFLOXACIN PO 500mg qd <=0.12 S</content>
<content>TOBRAMYCIN IV 80mg q8h <=1 S</content>
<content>CEFTRIAXONE IV 1gm q24h <=1 S</content>
<content>CEFTAZIDIME IV 1gm q8h <=1 S</content>
<content>AMPICILLIN/SULBACTAM IV 1.5g q6h 4 S</content>
<content>PIPERACILLIN/TAZOBACTAM IV 2.25 gm q6h <=4 S</content>
<content>AZTREONAM IV 1gm q8h <=1 S</content>
<content>ERTAPENEM IV 1gm qd <=0.5 S</content>
<content>MEROPENEM IV 1 gm q8h <=0.25 S</content>
<content>MEROPENEM IV 500 mg q8h <=0.25 S</content>
<content>TIGECYCLINE IV 50mg q12h <=0.5 S</content>
<content>CEFEPIME IV 1 gm q12h <=1 S</content>
<content>CEFEPIME IV 2 gm q12h <=1 S</content>
<content></content> ID Date Data Source [id number] 03/30/2021 03:09:00 PM EDT [facility] ([facility] Name Value Range Interpretation Code Description Data Laura rce(s) Supporting Document(s) Erythrocyte sedimentation rate by Westergren method 33 mm/hr 0-20 Above high normal [facility] ([facility] ) ID Date Data Source [id number] 03/30/2021 03:09:00 PM EDT [facility] ([facility] Name Value Range Interpretation Code Description Data Laura rce(s) Supporting Document(s) White Blood Count 8.1 10 4.0-10.0 Normal (applies to non-numeri c results) [facility] ([facility] Red Blood Count 3.65 10 4.30-6.10 Below low normal MED ENT ([facility] Mean Corpuscular Volume 94.8 fl 80.0-96.0 Normal ( applies to non-numeric results) [facility] ([facility] ) Hemoglobin 11.4 g/dL 13.5-17.5 Below low normal [facility] ( [facility] Hematocrit 34.6 % 42.0-52.0 Below low normal [facility] ( [facility] Mean Corpuscular HGB Conc 32.9 g/dL 32.0-36.5 Normal (applies to non-numeric results) [facility] ([facility] ) Mean Corpuscular Hemoglobin 31.2 pg 27.0-33.0 Norm al (applies to non-numeric results) [facility] ([facility] ) Platelet Count, Automated 261 10 150-450 Normal (applies to non-numeric results) [facility] ([facility] ) Red Cell Distribution Width 14.3 % 11.5-14.5 Norm al (applies to non-numeric results) [facility] ([facility] ) Lymph % 18.7 % 24.0-44.0 Below low normal [facility] ( [facility] Aurora % 12.3 % 2.0-8.0 Above high normal [facility] ([facility] Neutrophils % 65.3 % 36.0-66.0 Normal (applies to non-numeric re sults) [facility] ([facility] Baso % 0.5 % 0.0-1.0 Normal (applies to non-numeric resul ts) [facility] ([facility] Eos % 2.0 % 0.0-3.0 Normal (applies to non-numeric resul ts) [facility] ([facility] Immature Granulocyte % 1.2 % 0-3.0 Normal (applies to non-n umeric results) [facility] ([facility] Nucleated Red Blood Cell % 0.0 % 0-0 Normal (applies to n on-numeric results) [facility] ([facility] Lymph # 1.5 10 1.5-5.0 Normal (applies to non-numeric resul ts) [facility] ([facility] Neutrophils # 5.3 10 1.5-8.5 Normal (applies to non-numeric re sults) [facility] ([facility] Aurora # 1.0 10 0.0-0.8 Above high normal [facility] ([facility] Eos # 0.2 10 0.0-0.5 Normal (applies to non-numeric resul ts) [facility] ([facility] Baso # 0.0 10 0.0-0.2 Normal (applies to non-numeric resul ts) [facility] ([facility] ID Date Data Source [id number] 03/30/2021 03:09:00 PM EDT [facility] ([facility] Name Value Range Interpretation Code Description Data Laura rce(s) Supporting Document(s) C reactive protein [Mass/volume] in Serum or Plasma by High sensitivity method 1.06 mg/dL 0.00-0.30 Above high normal [facility] ([facility] ID Date Data Source [id number] 03/30/2021 03:09:00 PM EDT [facility] ([facility] Name Value Range Interpretation Code Description Data Laura rce(s) Supporting Document(s) Glucose, Fasting 112 mg/dL 70-100 Above high normal M EDENT ([facility] Creatinine For GFR 1.01 mg/dL 0.70-1.30 Normal (applies to non -numeric results) [facility] ([facility] Blood Urea Nitrogen 12 mg/dL 7-18 Normal (applies to non-nume ganga results) [facility] ([facility] Glomerular Filtration Rate Laboratory test result Normal (applies to non- numeric results) [facility] <content>Units are mL/min/1.73 m2</content>
<content></content>
<content>Chronic Kidney Disease Staging per NKF:</content>
<content></content>
<content>Stage I & II GFR >=60 Normal to Mildly Decreased</content>
<content>Stage III GFR 30- 59 Moderately Decreased</content>
<content>Stage IV GFR 15-29 Severely Decreased</content>
<content>Stage V GFR <15 Very Little GFR Left</content>
<content>ESRD GFR <15 on NURSE CASE MANAGER</content>
<content></content> Sodium Level 137 meq/L 136-145 Normal (applies to non-numeric res ults) [facility] ([facility] Potassium Serum 3.9 meq/L 3.5-5.1 Normal (applies to non-numeric results) [facility] ([facility] Chloride Level 104 meq/L 98-107 Normal (applies to non-numeric r esults) [facility] ([facility] Carbon Dioxide Level 28 meq/L 21-32 Normal (applies to non-num tin results) [facility] ([facility] Calcium Level 8.1 mg/dL 8.8-10.2 Below low normal MEDEN T ([facility] Anion Gap 5 meq/L 8-16 Below low normal [facility] ( [facility] Alt/SGPT 60 U/L 12-78 Normal (applies to non-numeric resul ts) [facility] ([facility] Ast/Sgot 38 U/L 7-37 Above high normal [facility] ([facility] Bilirubin,Total 0.4 mg/dL 0.2-1.0 Normal (applies to non-numeric results) [facility] ([facility] Alkaline Phosphatase 64 U/L 45-117 Normal (applies to non-num tin results) [facility] ([facility] Total Protein 6.7 GM/DL 6.4-8.2 Normal (applies to non-numeric re sults) [facility] ([facility] Albumin/Globulin Ratio 0.9 Normal (applies to non-n umeric results) [facility] ([facility] Albumin 3.1 GM/DL 3.2-5.2 Below low normal [facility] ( [facility] ID Date Data Source [id number] 03/30/2021 03:09:00 PM EDT [facility] ([facility] Name Value Range Interpretation Code Description Data Laura rce(s) Supporting Document(s) Prothrombin Time 13.5 s 12.5-14.3 Normal (applies to non-numeric results) [facility] ([facility] Inr 1.01 Normal (applies to non-numeric resul ts) [facility] ([facility] THERAPUTIC HUMAN INR VALUES INDICATIONS NORMAL RANGES PROPHYLAXIS/TREATMENT OF: VENOUS THROMBOSIS 2.0-3.0 PULMONARY EMBOLISM 2.0-3.0 PREVENTION OF SYSTEMIC EMBOLISM FROM: TISSUE HEART VALVES 2.0-3.0 ACUTE MYOCARDIAL INFARCTION 2.0-3.0 VALVULAR HEART DISEASE 2.0-3.0 ATRIAL FIBRILLATION 2.0-3.0 MECHANICAL VALVES(HIGH RISK) 2.5-3.5 RECURRENT MYOCARDIAL INFARCTION 2.5-3.5 ID Date Data Source [id number] 03/30/2021 03:08:00 PM EDT [facility] ([facility] Name Value Range Interpretation Code Description Data Laura rce(s) Supporting Document(s) Blood Culture Laboratory test result [facility] ([facility] No growth after 72 hours . All specimens observed for 5 days. Results final at that time. No growth after 48 hours . All specimens observed for 5 days. Results final at that time. No growth after 24 hours . All specimens observed for 5 days. Results final at that time. NO GROWTH AFTER 5 DAYS ID Date Data Source [id number] 03/30/2021 03:08:00 PM EDT [facility] ([facility] Name Value Range Interpretation Code Description Data Laura rce(s) Supporting Document(s) Lactate [Mass/volume] in Serum or Plasma 1.7 mmol/L 0.4-2.0 Normal (applies to non-numeric results) [facility] ([facility]) Y/N query for Sepsis Lactate Rule: Y ID Date Data Source [id number] 03/30/2021 09:23:00 AM EDT [facility] ([facility] Name Value Range Interpretation Code Description Data Laura rce(s) Supporting Document(s) Albumin [Mass/volume] in Serum or Plasma 3.1 [facility] ([facility]) Alanine aminotransferase [Enzymatic activity/volume] in Serum or Pl asma 60 [facility] ([facility]) Calcium [Mass/volume] in Serum or Plasma 8.1 [facility] ([facility]) Carbon dioxide, total [Moles/volume] in Serum or Plasma 28 [facility] ([facility]) Chloride [Moles/volume] in Serum or Plasma 104 [facility] ([facility]) Alkaline phosphatase [Enzymatic activity/volume] in Serum or Plasma 6 4 [facility] ([facility]) Potassium [Moles/volume] in Serum or Plasma 3.9 [facility] ([facility]) Protein [Mass/volume] in Serum or Plasma 6.7 [facility] ([facility]) Sodium 137 [facility] ([facility] Aspartate aminotransferase [Enzymatic activity/volume] in Serum or Plasma 38 [facility] ([facility]) Urea nitrogen [Mass/volume] in Serum or Plasma 12 [facility] ([facility]) Glucose 112 83-110 [facility] ([facility] Creatinine For GFR 1.01 [facility] ([facility]) ID Date Data Source [id number] 03/30/2021 09:23:00 AM EDT [facility] ([facility]) Name Value Range Interpretation Code Description Data Laura rce(s) Supporting Document(s) White Blood Count 8.1 5.0-10.0 [facility] ([facility]) Red Blood Count 3.65 4.00-5.40 [facility] ([facility]) Hemoglobin 11.4 [facility] ([facility]) Platelets 261 172-450 [facility] ([facility] Hematocrit 34.6 [facility] ([facility]) ID Date Data Source [id number] 03/25/2021 02:26:52 PM EDT [facility] Corporation[facility] NT INFORMATIONPatient MRN Name Date of Age Gend*PT [id number] Keith Emery 1955 65 years M IPPT Location Admission Date/Time Visit ID Attending [id number] 03/19/21 0958 --- --- EPI ID CSN Admitting Provider [id number] Nikunj Matos MD([id number]) [place] [address] OPERATIVE REPORT OPNAME: DARRIANKEITH#: [id number] #: [id number] ADMISSION DATE: 03/19/2021OB: 1955 SEX: M PT TYPE: I SURACCT #: [id number] CARE PHYSICIAN: KAUSHIK RIDDLETE OF OPERATION: 03/19/20 21PREOPERATIVE DIAGNOSIS:Right leg ischemia, rest pain, right common femoral artery occlusion.POSTOPERATIVE DIAGNOSIS:Right common femoral artery, superficial femoral artery occlusion anddistal occlusion in superficial femoral and tibioperoneal trunk.OPERATIVE PROCEDURE:1. Right common, superficial and deep femoral endarterectomy.2. Bypass graft from the common femoral proximally to the superficialfemoral and deep femoral artery distally.3. Angiogram by and angioplasty of the popliteal and distalvessels. He will dictate his part separately.ANESTHESIA:General endotracheal anesthesia.SURGEON:Nikunj Matos MD.HAND DEICER ELEMENT WINDER:TAMAR Salgado.DESCRIPTION OF PROCEDURE:Both groins were prepped and draped and adequate timeout was done. I madean incision along the course of the common femoral artery in the rightgroin. He is a big man. Skin, subcutaneous tissue, fascia overlying theartery was opened. The superficial common femoral artery was controlledalong with the deep femoral artery. This was a fairly deep hole. 8000units of heparin was given to the patient. There was no pulse in thesuperficial femoral artery. I made an incision in the anterior wall, andthe control from proximal and distal arteries was adequate with the clamps. I put a balloon occlusion catheter in the proximal femoral artery once Ifound an opening in it, so that I can get the plaque out of this artery.Endarterectomy was s tarted from the superficial femoral into the commoninto the proximal part of the common femoral artery extending into theexternal iliac artery. Plaque came out cleanly. The lumen was adequate.The superficial femoral artery orifice was also occluded. I dissected thesuperficial femoral artery on the proximal for about 5 cm open that found alumen opened there. I did an endarterectomy to this point. Now, there wasa long arteriotomy in the common and superficial femoral artery. I did anendarterectomy. I did a bypass from using 8 mm Hemashield graft from thecommon femoral including the orifice of the deep femoral artery anddistally to the superficial femoral artery. Hemostasis was an issue in theback wall because the artery was so thinned out, multiple pledgets had veena used all around the common orifice of the deep femoral artery to controlthe bleeding. Once this was controlled, it was obvious to me thesuperficial femoral artery. I tried to pass a balloon occlusion catheterdistally, would not go through, so I asked to do an angiogram,which showed popliteal artery was occluded. He was able to pass a wire anddo an angioplasty and stenting of this as well as the tibioperoneal trunk,which included very small vessels. The end results looked very good. Thegroin was closed with 2-0 Vicryl and a subcuticular suture. A VAC drainwas placed. Blood loss was about 200-300 mL. The patient tolerated theprocedure well.JOSEFA Nova/RYAN Job #: [id number] DOC #: [id number] Name Value Range Interpretation Code Description Data Laura rce(s) Supporting Document(s) ID Date Data Source [id number] 03/25/2021 08:50:29 AM EDT [facility] CorporationPATIE NT INFORMATIONPatient MRN Name Date of Age Gend*PT [id number] Keith Emery 1955 65 years M IPPT Location Admission Date/Time Visit ID Attending [id number] 03/19/21 0958 --- --- EPI ID CSN Admitting Provider [id number] Nikunj Matos MD([id number]) [place] [address] OPERATIVE REPORT OPNAME: KEITH EMERY#: [id number] #: [id number] ADMISSION DATE: 03/19/2021OB: 1955 SEX: M PT TYPE: I SURACCT #: [id number] CARE PHYSICIAN: KAUSHIK RIDDLETE OF OPERATION: 03/19/20 21PREOPERATIVE DIAGNOSIS:Right leg peripheral vascular disease with rest pain.POSTOPERATIVE DIAGNOSIS:Right leg peripheral vascular disease with rest pain.PROCEDURE PERFORMED:1. Right leg angiogram.2. Right superficial femoral artery self-expanding drug-eluting stent 7 x120 mm.3. Balloon angioplasty, right superficial femoral artery using 6 mmballoon.4. self-expanding drug- eluting stent right popliteal artery 7 x 60.5. Balloon angioplasty, right popliteal artery stent using 6 mm balloon.6. Right anterior tibial artery balloon angioplasty using 3 mm balloon.7. Completion angiogram.INDICATIONS:This is a 65-year-old gentleman and an intraoperative consultation wasobtained by Dr. Matos because of decreased outflow to the bypass graft forright leg angiogram.DESCRIPTION OF PROCEDURE:After explaining the procedure to the patient, taking written consent, thepatient was taken to the operating room. Patient was operated by , which is dictated separately. When I came to the OR, the bypasswas done, which has pulse in it. I accessed it with a 5- Frenchmicropuncture kit and a right leg angiogram was done, which showed completeocclusion of the superficial femoral artery distal to the bypass. At thispoint in time, the patient was already heparinized. I placed a 6- Frenchsheath and carefully while access was obtained through the occluded area, Iplaced a catheter into the popliteal artery and showed runoff, which is2-vessel runoff, it is very highly diseased in the form of anterior tibialand peroneal. Anterior tibial was the only vessel that goes to the foot.I placed a 0.018 wire into the anterior tibia. Anterior tibial angioplastywas done with a 3 mm balloon. The patient's popliteal artery was alsooccluded on the angiogram. This was treated by 7 x 60 yxen-ylvpfsljqenyt-avewdks Shanta stent. While the superficial femoral artery wastreated with a self-expanding 7 x 120 drug-eluting Shanta stent, balloonangioplasty of the superficial femoral artery and popliteal artery was doneusing 6 mm balloon. Completion film showed resolution of the occlusion varinder good runoff from the anterior tibial and reflux, which showed patentproximal anastomosis. I removed the sheath and 5-0 Prolene was used toclose that arteriotomy. Wound was closed using 2-0 Vicryl, 4-0 [place] Prevena was applied. I was present throughout the endovascular portionof the surgery.SONJA KHAN MDMAK/NTS Job #: [id number] DOC #: [id number] Name Value Range Interpretation Code Description Data Laura rce(s) Supporting Document(s) ID Date Data Source [id number] 03/21/2021 11:42:43 AM EDT [facility] CorporationPAT[facility] NT INFORMATIONPatient MRN Name Date of Age Gend*PT [id number] Keith Emery 1955 65 years M IPPT Location Admission Date/Time Visit ID Attending [id number] 03/19/21 0958 --- Nikunj Matos MD([id number]) EPI ID CSN Admitting Provider [id number] Nikunj Matos MD([id number]) Attestation signed by Nikunj Matos MD at 03/21/2021 11:42 AMI saw and evaluated the patient and reviewed note. I agree with the history,physical and medical decision makingSignature: RAMAN Novaate: March 21, 2021Time: 11:42 AM --Surgical Discharge SummaryKeith Estrella TaniaN: [id number] date: 03/19/2021dmitting Physician: RAMAN Novaischarge date and time:Discharge Orders Placed(From admission, onward) NoneDischarge Physician: Evaristo Sanchez Diagnosis: Peripheral vascular diseaseSecondary Diagnoses:Active Hospital Problems Diagnosis Date Noted Morbid obesity BMI 43.1 on 03/14/2021 Sleep apnea CPAP Peripheral vascular disease claudication COPD (chronic obstructive pulmonary disease) Bipolar affective disorder Low back pain Hypertension, essential Hyperlipidemia, acquired Benign prostatic hyperplasia IMO update Depression Atrial fibrillation Tobacco abuseResolved Hospital ProblemsNo resolved problems to display.Discharge Medications:Your medication listASK your doctor about these medications Instructions Last Dose Given Morning Afternoon Evening Bedtime As Neededamiodarone 200 MG tabletCommonly known as: PACERONE Take 200 mg by mouth nightlyaspirin 81 MG chewable tablet Chew 81 mg daily with lunchcarvedilol 6.25 MG tabletCommonly known as: COREG Take 6.25 mg by mouth 2 (two) times a day with mealschlorthalidone 25 MG tabletCommonly known as: HYGROTEN Take 12.5 mg by mouth daily with lunchclobetasol 0.05 % creamCommonly known as: TEMOVATE Apply topically daily as needed (for psoriasis)clopidogrel 75 MG tabletCommonly known as: PLAVIX Take 75 mg by mouth daily with lunchDaily Katy per tablet Take 1 tablet by mouth daily with lunchDepakote ER 500 MG 24 hr tabletGeneric drug: divalproexAsk about: Which instructions should I use? Take 500 mg by mouth 2 (two) times a dayfolic acid 400 MCG tabletCommonly known as: FOLVITE Take 400 mc g by mouth nightlylevothyroxine 137 MCG tabletCommonly known as: SYNTHROID, LEVOTHROID Take 137 mcg by mouth daily with lunchlosartan 25 MG tabletCommonly known as: COZAAR Take 25 mg by mouth nightlyMagnesium Chloride-Calcium 64-106 MG Tbec Take 1 tablet by mouth nightlymupirocin 2 % ointmentCommonly known as: BACTROBAN Apply topically 2 (two) times a day Apply to each nare twice a day with acotton swab, starting the five days before surgery.ondansetron 8 MG disintegrating tabletCommonly known as: ZOFRAN-ODT Take 8 mg by mouth daily as needed for nauseaOSTEO BI-FLEX REGULAR STRENGTH PO Take by mouth 2 (two) times a dayoxybutynin 10 MG 24 hr tabletCommonly known as: DITROPAN-XL Take 10 mg by mouth nightlyrosuvastatin 20 MG tabletCommonly known as: CRESTOR Take 20 mg by mouth nightlysildenafil 100 MG tabletCommonly known as: VIAGRA Take 100 mg by mouth daily as needed (for ED)Tylenol 8 Hour Arthritis Pain 650 MG CR tabletGeneric drug: acetaminophen Take 650 mg by mouth daily as needed for painvitamin B-12 500 MCG tabletCommonly known as: CYANOCOBALAMIN Take 500 mcg by mouth nightlyIndication for Admission: Atherosclerosis of the [place] arteries of extremitieswith intermittent claudication.Hospital Course & Complications: [facility] with a diagnosis of PAD with intermittentclaudication. He went to the operating room the same day right femoralendarterectomy with right common to SFA bypass with angiogram and angioplasty aswell as stenting. In the operating room the patient did have a blood loss of1.6 L. He received 1 unit of blood Intra-Op. The patient remained stable, wasextubated transferred to PACU monitored and then transferred to the floor. Hehad an uneventful overnight. On postop day 1 the patient remained stable on thefloor. He was evaluated by physical therapy recommending home without home PT.The patient was monitored for an additional 24 hours with his vital signsremaining stable as well as his H&H. At this point in time the patient isfeeling well, he is ambulating with a walker and will be discharged home.Past Medical History:Past Medical History:Diagnosis Date Atrial fibrillation Guillermo Jose MD BBB (bundle branch block) Benign prostatic hypertrophy Bipolar affective disorder Claudication COPD (chronic obstructive pulmonary disease) Depression Hyperlipidemia Hypertension Hypothyroidism on replacement Low back pain Morbid obesity BMI 43.1 on 03/14/2021 Motion sickness Osteoarthritis Peripheral vascular disease claudication Psoriatic arthropathy Rheumatoid arthritis(714.0) Sleep apnea CPAP Tobacco abuseSurgical Procedures:Procedure(s):RIGHT FEMORAL ENDARTERECTOMY WITH RIGHT COMMON TO SFA BYPASS ANGIOGRAM WITHANGIOPLASTY, AND STENTING (Right)Significant Diagnostic Studies:BMP:Lab ResultsComponent Value Date NA 137 03/21/2021 K 4.2 03/21/2021 CL 102 03/21/2021 CO2 29 03/21/2021 ANIONGAP 6 (L) 03/21/2021 CALCIUM 8.4 03/21/2021 GLU 117 (H) 03/21/2021 BUN 19 03/21/2021 CREATININE 0.99 03/21/2021 GFRAA >60 03/21/2021 GFRNONAA >60 03/21/2021BC Brief:Lab ResultsComponent Value Date WBC 12.3 (H) 03/21/2021 HGB 11.8 (L) 03/21/2021 HCT 34.7 (L) 03/21/2021 PLT 205 03/21/2021Treatments: antibiotics: Perioperative antibiotics , analgesia: acetaminophenand percocet, cardiac meds: carvedilol, amiodarone and Losartan ,anticoagulation: ASA, Plavix and heparin and ancillary therapies: PTDischarge Exam:Vitals: Temp: [97.6 F-98.9 F] 97.6 FHeart Rate: [68-81] 81Resp: [18-20] 20BP: (119-137)/(59-69) 122/61General: Overweight male, resting in bed.Cardiac: RRR S1 S2.Lungs: Bilaterally clear to auscultation. No wheezes, rales or rhonchiappreciated.Abd: Obese, positive bowel sounds, non-tender.Groin: Right groin with intact Prevena. Supple.Extremities: Supple without palpable cords. No pitting edema present.PV: DP and PT b ilaterally by Doppler.Items needing special attention: Prevena dressing needs to be removed 03/26/21.Discharged Condition:stableDisposition: Home or Self CareSignature: Kaci Segundo, PADate: March 21, 2021Time: 8:45 AM Name Value Range Interpretation Code Description Data [facility] Supporting Document(s) ID Date Data Source [id number] 03/21/2021 07:25:10 AM EDT [facility] Name Value Range Interpretation Code Description Data [facility] Supporting Document(s) SODIUM 137 mmol/L (136-145) [facility] POTASSIUM 4.2 mmol/L (3.6-5.2) [facility] CHLORIDE 102 mmol/L (100-108) [facility] CO2 29 mmol/L (22-31) [facility] ANION GAP 6 mmol/L (7-16) L [facility] UREA NITROGEN 19 mg/dL (7-24) [facility] CREATININE 0.99 mg/dL (0.80-1.30) [facility] BUN/CREAT RATIO 19.2 RATIO (10.0-20.0) [facility] GLUCOSE 117 mg/dL (70-99) H [facility] CALCIUM 8.4 mg/dL (8.4-10.2) [facility] GFR >60 ml/min/1.73m2 (>59) [facility] GFR ( AMER) >60 ml/min/1.73m2 (>59) [facility] GFR INTERPRETATION [facility] --NORMAL KIDNEY FUNCTION OR MILD DISEASE - GFR >OR= 60CHRONIC KIDNEY DISEASE - GFR 15 - 59RENAL FAILURE - GFR <15 Est. GFR calculation based on the MDRDstudy equation, which assumes a steadystate for creatinine. Est. GFR should notbe used for medication dosing. ID Date Data Source [id number] 03/21/2021 07:01:00 AM EDT [facility] Name Value Range Interpretation Code Description Data [facility](s) Supporting Document(s) WBC 12.3 10*3/uL (4.1-11.0) H [facility] RBC 3.76 10*6/uL (4.60-6.10) L [facility] HGB 11.8 g/dL (13.5-18.0) L [facility] HCT 34.7 % (41.0-53.0) L [facility] MCV 92.2 fL (80.0-95.0) [facility] MCH 31.5 pg (27.0-32.0) [facility] MCHC 34.2 g/dL (32.0-36.0) [facility] RDW 15.7 % (10.5-14.5) H [facility] PLT 205 10*3/uL (150-450) [facility] MPV 7.9 fL (7.1-10.7) [facility] ID Date Data Source [id number] 03/20/2021 08:43:09 AM EDT [facility] Name Value Range Interpretation Code Description Data Laura rce(s) Supporting Document(s) SODIUM 135 mmol/L (136-145) L [facility] POTASSIUM 4.3 mmol/L (3.6-5.2) [facility] CHLORIDE 98 mmol/L (100-108) L [facility] CO2 26 mmol/L (22-31) [facility] ANION GAP 11 mmol/L (7-16) [facility] UREA NITROGEN 20 mg/dL (7-24) [facility] CREATININE 1.25 mg/dL (0.80-1.30) [facility] BUN/CREAT RATIO 16.0 RATIO (10.0-20.0) [facility] GLUCOSE 180 mg/dL (70-99) H [facility] CALCIUM 8.5 mg/dL (8.4-10.2) [facility] GFR 58 ml/min/1.73m2 (>59) L [facility] GFR ( AMER) >60 ml/min/1.73m2 (>59) [facility] GFR INTERPRETATION [facility] --NORMAL KIDNEY FUNCTION OR MILD DISEASE - GFR >OR= 60CHRONIC KIDNEY DISEASE - GFR 15 - 59RENAL FAILURE - GFR <15 Est. GFR calculation based on the MDRDstudy equation, which assumes a steadystate for creatinine. Est. GFR should notbe used for medication dosing. ID Date Data Source [id number] 03/20/2021 08:36:26 AM EDT [facility] Name Value Range Interpretation Code Description Data [facility] r[facility](s) Supporting Document(s) WBC 13.9 10*3/uL (4.1-11.0) H [facility] RBC 3.88 10*6/uL (4.60-6.10) L [facility] HGB 12.2 g/dL (13.5-18.0) L [facility] HCT 36.1 % (41.0-53.0) L [facility] MCV 93.1 fL (80.0-95.0) [facility] MCH 31.5 pg (27.0-32.0) [facility] MCHC 33.9 g/dL (32.0-36.0) [facility] RDW 15.3 % (10.5-14.5) H [facility] [facility] PLT 204 10*3/uL (150-450) [facility] MPV 8.2 fL (7.1-10.7) [facility] ID Date Data Source [id number] 03/19/2021 09:00:03 PM EDT [facility] Name Value Range Interpretation Code Description Data Laura rce(s) Supporting Document(s) HCT 37.5 % (41.0-53.0) L [facility] ID Date Data Source [id number] 03/19/2021 05:41:02 PM EDT [facility] Name Value Range Interpretation Code Description Data Laura rce(s) Supporting Document(s) XR FLUORO UP TO 1 HR [facility] ID Date Data Source [id number] 03/19/2021 02:43:56 PM EDT [facility] Name Value Range Interpretation Code Description Data Laura rce(s) Supporting Document(s) POC SOURCE [facility] CP BYPASS [facility] POC VENOUS PH 7.38 pH (7.33-7.43) [facility] [place] [facility] POC VENOUS PCO2 43.0 MM HG (38.0-50.0) [facility] POC VENOUS PO2 67 MM HG (30-50) H [facility] POC VENOUS SO2 92 % (60-85) H [facility] POC VENOUS BASE EXCESS 0 mmol/L [facility] POC VENOUS HCO3 25.1 MMOL/L (23.0-27.0) [facility] POC VENOUS TOTAL CO2 26 MMOL/L (24-28) [facility] BY [facility] POC HCT 37 % (41.0-53.0) L [facility] [facility] POC SODIUM 139 MMOL/L (136-145) [facility] POC POTASSIUM 4.2 MMOL/L (3.6-5.2) [facility] POC IONIZED CALCIUM 4.8 MG/DL (4.6-5.3) [facility] POC GLU 113 MG/DL (70-99) H [facility] [place] [facility] PER[facility] LAB [facility] [place] [facility] ID Date Data Source [id number] 03/19/2021 01:22:02 PM EDT [facility] CorporationPATIE NT INFORMATIONPatient MRN Name Date of Age Gend*PT [id number] Keith Emery 1955 65 years M SDAPT Location Admission Date/Time Visit ID Attending Provider --- --- --- --- EPI ID CSN Admitting Pro vider [id number] ---AirwayPatient location during procedure: ORUrgency: electiveDifficult airway: noAdvanced airway equipment used: yesStaffingPerformed by: Ana Cristina Johnson CRNAAnesthesiologist: Christophe Shafer MDIndications and Patient ConditionIndications for airway management: anesthesiaPreoxygenated: yes (x3 min)Patient position: rampIn-line stabilization: yesMask ventilation: 2 - vent by mask + OA or adjuvant +/- NMBA (100mm OA)Final Airway/ApproachesFinal airway type: ETTNumber of attempts at final approach: 1Number of other approaches attempted: 0Final Airway DetailsFinal ETT airway: ETT - singleCuffed: yes (minimal occlusive pressure)Technique used for successful ETT placement: Glidescope (Glidescope stylet used)Cricoid pressure: noRSI: noInsertion site: oralBlade type/size: MAC 4ETT size: 8.0 mmMeasured from: lipsETT to lips: 25 cmPlacement verified by: chest auscultation and + EHTP2Otumqvuqlaoi: equal breath sounds bilateral and CTAGrade view: grade III - view of epiglottis onlyAdditional NotesAnterior glottic opening, compounded by omega epiglottis and redundant softtissue. Planned glidescope used for optimal visualization and poor dentition.Lips/teeth intact as per pre-op Name Value Range Interpretation Code Description Data Laura rce(s) Supporting Document(s) ID Date Data Source [id number] 03/19/2021 12:29:47 PM EDT [facility] CorporationPATI NT INFORMATIONPatient MRN Name Date of Age Gend*PT [id number] Keith Emery 1955 65 years M SDAPT Location Ad[facility] Date/[facility] --- Nikunj Matos MD([id number]) [facility] Admitting Provider [id number] Nikunj Matos MD([id number]) H&P reviewed. The patient was examined and there are no changes to the H&P.Risks and benefits of procedures explained and accepted.Nikunj Matos MD12:29 PM Name Value Range Interpretation Code Description Data Laura r[facility](s) Supporting Document(s) ID Date Data Source [id number] 03/19/2021 12:17:49 PM EDT [facility] Name Value Range Interpretation Code Description Data Laura rce(s) Supporting Document(s) POC NOVA GLU 104 mg/dL (70-99) H [facility] [place] [facility] PERFORMED BY [facility] ID Date Data Source [id number] 03/21/2021 05:28:14 PM EDT Lab [facility] [address] [address]Chw# Surgical Pathology ReportPatient Name: KEITH EMERY.: 1955ccession #:[id number](s) ReceivedA: Right femoral artery contentsClinical Diagnosis and HistoryAtherosclerosis of [place] arteries of extremities with intermittentclaudication right legDIAGNOSISRIGHT FEMORAL ARTERY, ENDARTERECTOMY: CONSISTENT WITH ATHEROSCLEROTIC PLAQUE. GROSS ONLY Gross DescriptionThe specimen is received in formalin labeled with the patient's name"Keith Emery", date of and "right femoral artery contents". Itconsist of multiple hemicylindrical fragments with yellow/mckeon smooth outersurface, ranging from 0.8 cm to 2.5 cm in greatest dimension. The innersurface is heavily calcified with near obstruction of the lumen. Also inthe container there is a metallic vascular stent measuring 4.0 cm inlength and 0.8 cm in average diameter. Gross only jgli xt/ixt Reported: 03/21/2021Electronically Signed Out By Dinah Medina MD [facility] [place] [address] [id number] component performed at [facility] [employer] [facility], [facility], [address] [place] [address], [phone].Reported at [facility], [address] [place] [address], [phone]. This report may includeimmunohistochemical or in-situ hybridization results. Testing wasdeveloped and the performance characteristics determined by [employer] [facility] as required by CLIA '88. The FDA hasdetermined that approval for specific use is not necessary for clinicaluse. The quality of Hematoxylin and Eosin stains and as applicable, forall immunohistochemical and/or special stains, including positive andnegative controls, were reviewed and considered appropriate.ICD codes I70.90CPT codesA: 31055V Name Value Range Interpretation Code Description Data Laura rce(s) Supporting Document(s) ID Date Data Source [id number] 03/21/2021 04:13:35 AM EDT [facility] SPEC EXP DATE 03/22/2021TEST ING SITE PERFORMED AT [address] [place] [address] [id number] NUMBER [id number] COMPONENT TYPE LEUKOPOOR RED CELLSUNIT DIVISION 00STATUS OF UNIT TRANSFUSEDTRANSFUSION STATUS OK TO TRANSFUSECROSSMATCH RESULT COMPATIBLEUNIT NUMBER [id number] COMPONENT TYPE LEUKOPOOR RED CELLSUNIT DIVISION 00STATUS OF UNIT ISS'D ANOTH PTTRANSFUSION STATUS OK TO TRANSFUSECROSSMATCH RESULT COMPATIBLE Name Value Range Interpretation Code Description Data Laura rce(s) Supporting Document(s) TRANSFUSE RED CELLS [facility] TESTING SITE PERFORMED AT [address] [place] [id number] ID Date Data Source [id number] 03/17/2021 12:35:46 PM EDT [facility] CorporationPATIE NT INFORMATIONPatient MRN Name Date of Age Gend*PT [id number] Keith Emery Estrella 1955 65 years M OPPT Location Admission Date/Time Visit ID Attending Provider --- --- --- Nikunj Matos MD([id number]) EPI ID CSN Admitting Provider [id number] ---Addended by: LOVELY TAVERAS on: 03/17/2021 12:35 PM Modules accepted: Orders Name Value Range Interpretation Code Description Data Laura rce(s) Supporting Document(s) ID Date Data Source [id number] 03/21/2021 01:37:28 AM EDT [facility] [place] [facility] SPEC EXP DATE 03/20/2021ATI ENT ABO/Rh B POSITIVEANTIBODY SCREEN NEGATIVETESTING SITE PERFORMED AT [address] [place] [address] [id number] NUMBER [id number] COMPONENT TYPE LEUKOPOOR RED CELLSUNIT DIVISION 00STATUS OF UNIT REL FROM ALLOCTRANSFUSION STATUS OK TO TRANSFUSECROSSMATCH RESULT COMPATIBLEUNIT NUMBER [id number] COMPONENT TYPE LEUKOPOOR RED CELLSUNIT DIVISION 00STATUS OF UNIT ISS'D ANOTH PTTRANSFUSION STATUS OK TO TRANSFUSECROSSMATCH RESULT COMPATIBLE Name Value Range Interpretation Code Description Data Laura rce(s) Supporting Document(s) TYPE AND SCREEN [facility] [place] [facility] ID Date Data Source [id number] 03/14/2021 07:18:30 PM EDT [facility] [place] [facility] Name Value Range Interpretation Code Description Data Laura rce(s) Supporting Document(s) SODIUM 137 mmol/L (136-145) [facility] [place] [facility] POTASSIUM 5.0 mmol/L (3.6-5.2) [facility] [place] [facility] CHLORIDE 99 mmol/L (100-108) L [facility] [place] [facility] CO2 28 mmol/L (22-31) [facility] [place] [facility] ANION GAP 10 mmol/L (7-16) [facility] [place] [facility] UREA NITROGEN 15 mg/dL (7-24) [facility] [place] [facility] CREATININE 1.09 mg/dL (0.80-1.30) [facility] [place] [facility] BUN/CREAT RATIO 13.8 RATIO (10.0-20.0) [facility] GLUCOSE 115 mg/dL (70-99) H [facility] [place] [facility] CALCIUM 9.5 mg/dL (8.4-10.2) [facility] [place] [facility] TOTAL PROTEIN 7.6 g/dL (6.4-8.2) [facility] [place] [facility] ALBUMIN 3.9 g/dL (3.2-4.5) [facility] [place] [facility] GLOBULIN 3.7 g/dL (2.7-4.3) [facility] [facility] ALB/GLOB RATIO 1.1 RATIO [facility] [place] [facility] ALKALINE PHOSPHATASE 61 U/L (45-117) [facility] BILIRUBIN,TOTAL 0.5 mg/dL (0.0-1.0) [facility] [place] [facility] PLEASE NOTE:Total bilirubin results may be falselyelevated in patients taking Eltrombopag. AST (SGOT) 86 U/L (11-39) H [facility] [place] [facility] ALT (SGPT) 98 U/L (12-78) H [facility] [place] [facility] GFR >60 ml/min/1.73m2 (>59) [facility] [place] [facility] GFR ( AMER) >60 ml/min/1.73m2 (>59) [facility] [place] [facility] GFR INTERPRETATION [facility] --NORMAL KIDNEY FUNCTION OR MILD DISEASE - GFR >OR= 60CHRONIC KIDNEY DISEASE - GFR 15 - 59RENAL FAILURE - GFR <15 Est. GFR calculation based on the MDRDstudy equation, which assumes a steadystate for creatinine. Est. GFR should notbe used for medication dosing. ID Date Data Source [id number] 03/14/2021 06:31:27 PM EDT [facility] [place] [facility] Name Value Range Interpretation Code Description Data Laura rce(s) Supporting Document(s) PT 11.0 s (9.2-11.9) [facility] [place] [facility] INR 1.06 [facility] [place] [facility] SUGGESTED THERAPEUTIC RANGES USING INR F ORSTABILIZED ANTICOAGULATED PATIENTS:STANDARD DOSE THERAPY INR 2.0-3.0 DVT, PE, PREVENT DVT OR EMBOLISMHIGH DOSE THERAPY INR 2.5-3.5 PREVENT EMBOLISM FROM MECHANICAL HEART VALVE ID Date Data Source [id number] 03/14/2021 06:16:48 PM EDT [facility] [place] [facility] Name Value Range Interpretation Code Description Data Laura rce(s) Supporting Document(s) WBC 7.5 10*3/uL (4.1-11.0) [facility] [place] [facility] [place] RBC 4.83 10*6/uL (4.60-6.10) [facility] [place] [facility] HGB 15.4 g/dL (13.5-18.0) [facility] [place] [facility] HCT 45.4 % (41.0-53.0) [facility] [place] [facility] MCV 94.0 fL (80.0-95.0) [facility] [place] [facility] MCH 31.9 pg (27.0-32.0) [facility] [place] [facility] MCHC 34.0 g/dL (32.0-36.0) [facility] [place] [facility] RDW 15.2 % (10.5-14.5) H [facility] [place] [facility] PLT 212 10*3/uL (150-450) [facility] [place] [facility] MPV 8.2 fL (7.1-10.7) [facility] [place] [facility] ID Date Data Source [id number] 03/14/2021 11:19:57 AM EDT [facility] CorporationPATIE NT INFORMATIONPatient MRN Name Date of Age Gend*PT [id number] Keith Emery 1955 65 years M OPPT Location Admission Date/Time Visit ID Attending Provider --- --- --- Nikunj Matos MD([id number]) EPI ID CSN Admitting Provider [id number] ---HISTORY PHYSICALName: Keith Emery : 1955 Sex: male Care Provider: Akbar BLACKWELLending Physician: Dr. Nikunj Matos.Informant: The patient who is reliable.Chief Complaint: Right calf pain.HISTORY OF PRESENT ILLNESS: 65 year old white male who presents with a chiefcomplaint of exertional right calf pain. The pain occurs with exertion and isrelieved with rest. He can walk only a half a block before the claudicationoccurs. He denies changes in color or temperature to the right foot. He deniesfoot ulcers.The patient met with Dr. Matos, options were discussed and he has elected toundergo endarterectomy, femoral, right - right on 03/19/2021.PAST MEDICAL HISTORY:Past Medical History:Diagnosis Date Atrial fibrillation Guillermo Jose MD BBB (bundle branch block) Benign prostatic hypertrophy Bipolar affective disorder Claudication COPD (chronic obstructive pulmonary disease) Depression Hyperlipidemia Hypertension Hypothyroidism on replacement Low back pain Morbid obesity BMI 43.1 on 03/14/2021 Motion sickness Osteoarthritis Peripheral vascular disease claudication Psoriatic arthropathy Rheumatoid arthritis(714.0) Sleep apnea CPAP Tobacco abusePAST SURGICAL HISTORY:Past Surgical History:Procedure Laterality Date angioplasty and stent left SFA and angioplasty left peroneal 05/10/2014 aortogram with left LLE runoff, ballon angioplasty SFA and placement of 3stents ] 08/11/2015 HERNIA REPAIR inguinal 1990 HYDROCELE EXCISION / REPAIR 2011 LUNG BIOPSY SHOULDER SURGERY 1998ALLERGIES:AllergiesAllergen Reactions Bee Venom HivesMEDICATIONS:Prior to Admission medicationsMedication Sig Start Date End Date Taking? Authorizing Provideracetaminophen (TYLENOL 8 HOUR ARTHRITIS PAIN) 650 MG CR tablet Take 650 mg bymouth daily as needed for pain Historical Provider, MDamiodarone (PACERONE) 200 MG tablet Take 200 mg by mouth nightly HistoricalProvider, MDaspirin 81 MG chewable tablet Chew 81 mg daily with lunch HistoricalProvider, MDcarvedilol (COREG) 6.25 MG tablet Take 6.25 mg by mouth 2 (two) times a day withmeals Historical Provider, MDchlorthalidone (HYGROTEN) 25 MG tablet Take 12.5 mg by mouth daily with lunchHistorical Provider, Oscarlobetasol (TEMOVATE) 0.05 % cream Apply topically daily as needed (forpsoriasis) Historical Provider, Oscarlopidogrel (PLAVIX) 75 MG tablet Take 75 mg by mouth daily with lunchHistorical Provider, RAAMNAILY KATY (THERAGRAN) per tablet Take 1 tablet by mouth daily with lunchHistorical Provider, Ramanivalproex (DEPAKOTE) 500 MG EC tablet Take 500 mg by mouth 2 (two) times a dayHistorical Provider, folic acid (FOLVITE) 400 MCG tablet Take 400 mcg by mouth nightly HistoricalProvider, Glucosamine-Chondroitin (OSTEO BI-FLEX REGULAR STRENGTH PO) Take by mouth 2(two) times a day 01/01/16 Historical Provider, levothyroxine (SYNTHROID, LEVOTHROID) 137 MCG tablet Take 137 mcg by mouth dailywith lunch Historical Provider, losartan (COZAAR) 25 MG tablet Take 25 mg by mouth nightly HistoricalProvider, Luciangnesium Chloride-Calcium 64-106 MG TBEC Take 1 tablet by mouth nightlyHistorical Provider, ondansetron (ZOFRAN-ODT) 8 MG disintegrating tablet Take 8 mg by mouth daily asneeded for nausea Historical Provider, oxybutynin (DITROPAN- XL) 10 MG 24 hr tablet Take 10 mg by mouth nightlyHistorical Provider, MDrosuvastatin (CRESTOR) 20 MG tablet Take 20 mg by mouth nightly HistoricalProvider, Linnildenafil (VIAGRA) 100 MG tablet Take 100 mg by mouth daily as needed (for ED)Historical Provider, vitamin B-12 (CYANOCOBALAMIN) 500 MCG tablet Take 500 mcg by mouth nightlyHistorical Provider, Ramanivalproex (DEPAKOTE) 500 MG EC tablet Take 500 mg by mouth 2 (two) times a day03/14/21 Historical Provider, haloperidol (HALDOL) 0.5 MG tablet Take 1 mg by mouth daily 03/14/21 HistoricalProvider, MDSocial HistorySocioeconomic History Marital status: Spouse name: Not on file Number of children: Not on file Years of education: Not on file Highest education level: Not on fileOccupational History Not on fileSocial Needs Financial resource strain: Not on file Food insecurity: Worry: Not on file Inability: Not on file Transportation needs: Medical: Not on file Non-medical: Not on fileTobacco Use Smoking status: Former Smoker Types: Electronic Cigarettes Smokeless tobacco: Never UsedSubstance and Sexual Activity Alcohol use: No Comment: 7 beers per week Drug use: No Sexual activity: Not on fileLifestyle Physical activity: Days per week: Not on file Minutes per session: Not on file Stress: Not on fileRelationships Social connections: Talks on phone: Not on file Gets together: Not on file Attends baptism service: Not on file Active member of club or organization: Not on file Attends meetings of clubs or organizations: Not on file Relationship status: Not on file Intimate partner violence: Fear of current or ex partner: Not on file Emotionally abused: Not on file Physically abused: Not on file Forced sexual activity: Not on fileOther Topics Concern Not on fileSocial History Narrative Not on fileFamily HistoryProblem Relation Age of Onset Cancer FatherREVIEW OF SYSTEMS:Constitution: Weight stable. Denies fatigue, fever or chills.HEENT: Denies any blurred vision, double vision, dizziness, ti nnitus, dysphagiaor headaches.Respiratory: Denies any shortness of breath, cough, yellow sputum production orwheezing.Cardiovascular: Denies any chest pain, pressure or tightness. Denies anyproximal nocturnal dyspnea or orthopnea.Muscle/Skeletal System: Denies any muscle ache, joint ache or weakness.Neurologic: Denies tremors or syncope.GI: Denies any nausea, vomiting, diarrhea, constipation or melena.: Denies any dysuria, hematuria or nocturia.Endocrine: Denies polyuria, polydipsia or polyphagia. Denies any heat or coldintolerance, fatigue or night sweats.Hematology: Denies any bleeding or bruising tendencies.Anesthesia complications: Denied.Steroid use: Denied.Code Status: Full code.HCP: None.PHYSICAL EXAM:General: He is a 65 year old, pleasant white male, in no acute distress at timeof examination. Vitals on arrival to the office were: BP 134/80 (BP Location:Left lower arm, Patient Position: Sitting) | Pulse 69 | Ht 1.854 m (6' 1") |Wt (!) 148.2 kg (326 lb 12.8 oz) | SpO2 96% | BMI 43.12 kg/m Body mass indexis 43.12 kg/m .Skin is pink, warm and dry.HEENT: Head is normocephalic, atraumatic. [place] conjunctivae. Anicteric sclerae.Pupils are equal, round, reactive to light and accommodation. Extraocularmovements are intact. Ears: Without drainage or lesion. Mouth: Dentition is ingood repair. He has a class II airway. Neck is supple midline without cervicaladenopathy. There is no tonsillo pharyngeal congestion. Mucous membranes aremoist. There are no oral lesions. No jugular distention. No carotid bruits. Nothyromegaly.CHEST/BREAST: A/P less than transverse.LUNGS: Clear to auscultation. No wheezes, rhonchi or crackles.HEART: Rate rhythm regular. S1, S2. No murmur, rub or gallop.ABDOMEN: Bowel sounds positive. Soft, non tender. No rebound tenderness. Nohepatosplenomegaly. Negative CVAT.GENITAL/RECTAL: Deferred.NEUROLOGICALLY: Cranial nerves II through XII are grossly intact.VASCULAR: Pulses are diminished. No edema.IMPRESSION and PLAN:Primary Diagnosis: Atherosclerosis of [place] arteries of extremities withintermittent claudication, right leg. Surgery as per Dr. Matos.Secondary Diagnosis and Plan:1. Hypertension: Continuation of prior to admission anti-hypertensivemedications unless precluded by clinical status.2. Atrial fibrillation: Paroxysmal. Resume prior to admission anticoagulationwhen deemed appropriate by surgeon.3. COPD: Monitor oxygen saturation. Albuterol nebulizer as needed. Continue homemedications when clinically appropriate.4. Sleep apnea: Obstructive. Patient to continue with use of home CPAP.5. GI prophylaxis: Per surgeon.6. DVT prophylaxis: Early ambulation. Subcutaneous Heparin or LMW Heparin ifclinically indicated.Based on above medical co morbidities, length of stay may be prolonged greaterthan previously anticipated.ALLERGIES:Bee venom03/14/2021 11:19 Naheed Daley MD Name Value Range Interpretation Code Description Data Laura donnellye(s) Supporting Document(s) ID Date Data Source [id number] 03/15/2021 02:33:05 PM EDT [facility] [place] [facility] Name Value Range Interpretation Code Description Data Laura rce(s) Supporting Document(s) SPECIMEN DESCRIPTION [facility] STAPH SCREEN RESULTS (ONEGSA) A [facility] COMMENT Lab [facility] GENE TO DETECT STAPH AUREUS. (2) RT-P CR WAS PERFORMED FOR THE mecA AND SCC[employer] GENES TO DETECT METHICILLIN RESISTANCE IN STAPH AUREUS. ID Date Data Source [id number] 03/14/2021 09:45:00 AM EDT [facility] Name Value Range Interpretation Code Description Data Laura rce(s) Supporting Document(s) SARS coronavirus 2 RNA Not Detected [facility] [place] This lab was ordered by [facility] [place] [facility] and reported by [employer]. ID Date Data Source [id number] 03/15/2021 04:10:24 PM EDT [facility] Name Value Range Interpretation Code Description Data [facility] rce(s) Supporting Document(s) SARS-COV-2 K[facility] Lab [facility] Not DetectedReference range: Not Detecte d This nucleic acid amplification test was developed and its performance characteristics determined by [employer]. Nucleic acid amplification tests include RT-PCR and TMA. This test has not been FDA cleared or approved. This test has been authorized by FDA under an Emergency Use Authorization (EUA). This test is only authorized for the duration of time the declaration that circumstances exist justifying the authorization of the emergency use of in vitro diagnostic tests for detection of SARS-CoV-2 virus and/or diagnosis of COVID-19 infection under section 564(b)(1) of the Act, 21 U.S.C. 360bbb-3(b) (1), unless the authorization is terminated or revoked sooner. When diagnostic testing is negative, the possibility of a false negative result should be considered in the context of a patient's recent exposures and the presence of clinical signs and symptoms consistent with COVID- 19. An individual without symptoms of COVID- 19 and who is not shedding S ARS-CoV-2 virus would expect to have a negative (not detected) result in this assay. Performed At: [place], [place] [id number] Yvette Hughes PhD Ph:[phone] ID Date Data Source [id number] 03/08/2021 06:33:00 AM EDT [facility] ([facility]) Name Value Range Interpretation Code Description Data Laura rce(s) Supporting Document(s) Triglycerides Level 181 mg/dL [facility] ([facility]) Cholesterol Level 114 mg/dL [facility] ([facility]) HDL Cholesterol 50 mg/dL [facility] ([facility]) LDL Cholesterol 28 mg/dL [facility] ([facility]) Cholesterol Risk Ratio 2.280 [facility] ([facility]) Non-HDL-C 64 mg/dL [facility] ID Date Data Source [id number] 03/08/2021 06:33:00 AM EDT [facility] ([facility]) Name Value Range Interpretation Code Description Data Laura rce(s) Supporting Document(s) Glucose, Fasting 125 mg/dL 70-100 [facility] Blood Urea Nitrogen 13 mg/dL 7-18 [facility] (Ca rdiology [facility]) Creatinine For GFR 1.07 mg/dL 0.70-1.30 [facility] ([facility]) Glomerular Filtration Rate [facility] <content>Units are mL/min/1.73 m2</content>
<content></content>
<content>Chronic Kidney Disease Staging per NKF:</content>
<content></content>
<content>Stage I & II GFR >=60 Normal to Mildly Decreased</content>
<content>Stage III GFR 30-59 Moderately Decreased</content>
<content>Stage IV GFR 15-29 Severely Decreased</content>
<content>Stage V GFR <15 Very Little GFR Left</content>
<content>ESRD GFR <15 on NURSE CASE MANAGER</content>
<content></content> Potassium Serum 4.3 meq/L 3.5-5.1 [facility] ([facility]) Sodium Level 133 meq/L 136-145 [facility] ([facility]) Chloride Level 101 meq/L 98-107 [facility] (Cardiol ogy [facility]) Carbon Dioxide Level 25 meq/L 21-32 [facility] ([facility]) Calcium Level 9.0 mg/dL 8.8-10.2 [facility] ([facility]) Anion Gap 7 meq/L 8-16 [facility] ([facility]) Ast/Sgot 66 U/L 7-37 [facility] ([facility]) Alt/SGPT 84 U/L 12-78 [facility] ([facility]) Alkaline Phosphatase 74 U/L 45-117 [facility] ([facility]) Total Protein 7.5 GM/DL 6.4-8.2 [facility] ([facility]) Bilirubin,Total 0.4 mg/dL 0.2-1.0 [facility] ([facility]) Albumin 3.7 GM/DL 3.2-5.2 [facility] ([facility]) Albumin/Globulin Ratio 1.0 [facility] ([facility]) ID Date Data Source [id number] 01/24/2021 08:13:00 AM EST [facility] ([facility], ) Name Value Range Interpretation Code Description Data Laura rce(s) Supporting Document(s) PDFReport Laboratory test result [facility] ([facility], ) FVC-Pred 4.98 L [facility] ([facility]) FVC-%Pred-Pre 82 L [facility] ([facility]) FVC-Pre 4.10 L [facility] ([facility]) Fev1-Pred 3.73 L [facility] ([facility]) FVC-LLN 3.99 L [facility] ([facility]) Fev1-LLN 2.89 L [facility] ([facility]) Fev1-%Pred-Pre 79 L [facility] ([facility]) Fev1-Pre 2.97 L [facility] ([facility]) Fev6-Pred 4.74 L [facility] ([facility]) Fev6-%Pred-Pre 86 L [facility] ([facility], ) Fev6-LLN 3.78 L [facility] ([facility]) Fev6-Pre 4.08 L [facility] ([facility]) Xuo3ndn-%Pred-Pre 96 % [facility] ([facility]) Hfn1tzw-Djso 75 % [facility] ([facility]) Nnk6jfy-Mus 72 % [facility] ([facility]) Udo0qif-Igh 100 % [facility] ([facility]) Rfh0iqp-MXO 65 % [facility] ([facility]) Lpr7qsp-Xanv 95 % [facility] ([facility]) FEFMax-Pred 9.37 L/E/sec [facility] ([facility]) Urm1dxg-%Pred-Pre 104 % [facility] ([facility]) FEFMax-%Pred-Pre 54 L/E/sec [facility] ([facility]) FEFMax-LLN 6.91 L/E/sec [facility] ([facility]) FEFMax-Pre 5.06 L/E/sec [facility] ([facility]) Eve8556-Fhd 2.14 L/E/sec [facility] ([facility]) Frq8290-%Pred-Pre 72 L/E/sec [facility] ([facility]) Mvf3976-Dala 2.96 L/E/sec [facility] ([facility]) ExpTime-Pre 6.53 sec [facility] ([facility]) Edz1317-CNA 1.27 L/E/sec [facility] ([facility]) Ewm7llt5-Saym 78 % [facility] ([facility]) Jiu9qvo8-%Pred-Pre 92 % [facility] ([facility]) Rad6zzz6-Yxf 73 % [facility] ([facility]) Kon6foj6-RHM 69 % [facility] ([facility]) ID Date Data Source [id number] 01/06/2021 08:09:00 AM EST [facility] Name Value Range Interpretation Code Description Data Laura rce(s) Supporting Document(s) Magnesium [Mass/volume] in Serum or Plasma 2.1 mg/dL 1.8-2.4 [facility] (Cardiology [facility]) ID Date Data Source [id number] 01/06/2021 08:09:00 AM EST [facility] ([facility]) Name Value Range Interpretation Code Description Data Laura rce(s) Supporting Document(s) White Blood Count 7.4 10 4.0-10.0 [facility] ([facility] iology [facility]) Red Blood Count 4.44 10 4.30-6.10 [facility] (Cardio logy [facility]) Hemoglobin 13.7 g/dL 13.5-17.5 [facility] (Cardiology [facility]) Hematocrit 42.9 % 42.0-52.0 [facility] (Cardiology [facility]) Mean Corpuscular Volume 96.6 fl 80.0-96.0 M EDENT (Cardiology [facility]) Mean Corpuscular Hemoglobin 30.9 pg 27.0-33.0 [facility] (Cardiology [facility]) Mean Corpuscular HGB Conc 31.9 g/dL 32.0-36.5 [facility] (Cardiology [facility]) Red Cell Distribution Width 14.4 % 11.5-14.5 [facility] (Cardiology [facility]) Nucleated Red Blood Cell % 0.0 % 0-0 MED E[facility] (Cardiology [facility]) Platelet Count, Automated 211 10 150-450 [facility] (Cardiology [facility]) ID Date Data Source [id number] 01/06/2021 08:09:00 AM EST [facility] ([facility]) Name Value Range Interpretation Code Description Data Laura rce(s) Supporting Document(s) Glucose, Fasting 136 mg/dL 70-100 [facility] Blood Urea Nitrogen 12 mg/dL 7-18 [facility] ([facility]) Creatinine For GFR 1.16 mg/dL 0.70-1.30 [facility] (Cardiology [facility]) Glomerular Filtration Rate Laboratory test result [facility] (Cardiology [facility]) <content>Units are mL/min/1.73 m2</content>
<content></content>
<content>Chronic Kidney Disease Staging per NKF:</content>
<content></content>
<content>Stage I & II GFR >=60 Normal to Mildly Decreased</content>
<content>Stage III GFR 30- 59 Moderately Decreased</content>
<content>Stage IV GFR 15-29 Severely Decreased</content>
<content>Stage V GFR <15 Very Little GFR Left</content>
<content>ESRD GFR <15 on NURSE CASE MANAGER</content>
<content></content> Sodium Level 141 meq/L 136-145 [facility] ([facility]) Potassium Serum 4.2 meq/L 3.5-5.1 [facility] ([facility]) Chloride Level 104 meq/L 98-107 [facility] ([facility]iol [facility]) Anion Gap 8 meq/L 8-16 [facility] Calcium Level 8.8 mg/dL 8.8-10.2 [facility] ([facility]) Carbon Dioxide Level 29 meq/L 21-32 [facility] ([facility]) Ast/Sgot 41 U/L 7-37 [facility] Alt/SGPT 73 U/L 12-78 [facility] Alkaline Phosphatase 66 U/L 45-117 [facility] ([facility]) Bilirubin,Total 0.3 mg/dL 0.2-1.0 [facility] ([facility]) Total Protein 6.9 GM/DL 6.4-8.2 [facility] ([facility]) Albumin 3.4 GM/DL 3.2-5.2 [facility] ([facility]) Albumin/Globulin Ratio 1.0 [facility] ([facility]) ID Date Data Source [id number] 01/06/2021 08:09:00 AM EST [facility] ([facility] Name Value Range Interpretation Code Description Data Laura rce(s) Supporting Document(s) Magnesium [Mass/volume] in Serum or Plasma 2.1 mg/dL 1.8-2 .4 Normal (applies to non-numeric results) S[facility]ANNA ([facility]) ID Date Data Source [id number] 01/06/2021 08:09:00 AM EST [facility] ([facility] Name Value Range Interpretation Code Description Data Laura rce(s) Supporting Document(s) Glucose, Fasting 136 mg/dL 70-100 Above high normal M [facility] ([facility] Blood Urea Nitrogen 12 mg/dL 7-18 Normal (applies to non-nume ganga results) [facility] ([facility] Creatinine For GFR 1.16 mg/dL 0.70-1.30 Normal (applies to non -numeric results) [facility] ([facility] Sodium Level 141 meq/L 136-145 Normal (applies to non-numeric res ults) MEDKWASI ([facility] Glomerular Filtration Rate Laboratory test result Normal (applies to non- numeric results) [facility]ANNA ([facility] ) <content>Units are mL/min/1.73 m2</content>
<content></content>
<content>Chronic Kidney Disease Staging per NKF:</content>
<content></content>
<content>Stage I & II GFR >=60 Normal to Mildly Decreased</content>
<content>Stage III GFR 30- 59 Moderately Decreased</content>
<content>Stage IV GFR 15-29 Severely Decreased</content>
<content>Stage V GFR <15 Very Little GFR Left</content>
<content>ESRD GFR <15 on NURSE CASE MANAGER</content>
<content></content> Chloride Level 104 meq/L 98-107 Normal (applies to non-numeric r esults) [facility]AVANNA ([facility] Potassium Serum 4.2 meq/L 3.5-5.1 Normal (applies to non-numeric results) SAVANNA ([facility] Carbon Dioxide Level 29 meq/L 21-32 Normal (applies to non-num tin results) [facility] ([facility] Anion Gap 8 meq/L 8-16 Normal (applies to non-numeric resul ts) [facility] ([facility] Calcium Level 8.8 mg/dL 8.8-10.2 Normal (applies to non-numeric re sults) [facility] ([facility] Alt/SGPT 73 U/L 12-78 Normal (applies to non-numeric resul ts) [facility] ([facility] Ast/Sgot 41 U/L 7-37 Above high normal [facility] ([facility] Alkaline Phosphatase 66 U/L 45-117 Normal (applies to non-num tin results) [facility] ([facility] Bilirubin,Total 0.3 mg/dL 0.2-1.0 Normal (applies to non-numeric results) [facility] ([facility] Total Protein 6.9 GM/DL 6.4-8.2 Normal (applies to non-numeric re sults) [facility] ([facility] Albumin 3.4 GM/DL 3.2-5.2 Normal (applies to non-numeric resul ts) [facility] ([facility] Albumin/Globulin Ratio 1.0 Normal (applies to non-n umeric results) [facility] ([facility] ID Date Data Source [id number] 01/06/2021 08:09:00 AM EST [facility] ([facility] Name Value Range Interpretation Code Description Data Laura rce(s) Supporting Document(s) White Blood Count 7.4 10 4.0-10.0 Normal (applies to non-numeri c results) [facility] ([facility] Red Blood Count 4.44 10 4.30-6.10 Normal (applies to non-numeric results) [facility] ([facility] Hemoglobin 13.7 g/dL 13.5-17.5 Normal (applies to non-numeric resul ts) [facility] ([facility] Mean Corpuscular Hemoglobin 30.9 pg 27.0-33.0 Norm al (applies to non-numeric results) [facility] ([facility] ) Mean Corpuscular Volume 96.6 fl 80.0-96.0 Above high normal [facility] ([facility] Hematocrit 42.9 % 42.0-52.0 Normal (applies to non-numeric resul ts) [facility] ([facility] Mean Corpuscular HGB Conc 31.9 g/dL 32.0-36.5 Below low normal [facility] ([facility] Red Cell Distribution Width 14.4 % 11.5-14.5 Norm al (applies to non-numeric results) [facility] ([facility] ) Platelet Count, Automated 211 10 150-450 Normal (applies to non-numeric results) [facility] ([facility] ) Nucleated Red Blood Cell % 0.0 % 0-0 Normal (applies to n on-numeric results) [facility] ([facility] ID Date Data Source [id number] 12/07/2020 12:00:00 AM EST [facility] Name Value Range Interpretation Code Description Data Laura rce(s) Supporting Document(s) SARS-CoV-2 (COVID-19) RNA [Presence] in Respiratory specimen by KIARA with probe detection Not Detected [facility] This lab was ordered by [facility] and reported by [employer] ID Date Data Source [id number] 10/29/2020 06:28:00 PM EST [facility] ([facility]) Name Value Range Interpretation Code Description Data Laura rce(s) Supporting Document(s) Creatinine For GFR 1.08 mg/dL 0.70-1.30 [facility] ([facility]) Glomerular Filtration Rate [facility]) <content>Units are mL/min/1.73 m2</content>
<content></content>
<content>Chronic Kidney Disease Staging per NKF:</content>
<content></content>
<content>Stage I & II GFR >=60 Normal to Mildly Decreased</content>
<content>Stage III GFR 30- 59 Moderately Decreased</content>
<content>Stage IV GFR 15-29 Severely Decreased</content>
<content>Stage V GFR <15 Very Little GFR Left</content>
<content>ESRD GFR <15 on NURSE CASE MANAGER</content>
<content></content> ID Date Data Source [id number] 10/29/2020 06:28:00 PM EST [facility] ([facility]) Name Value Range Interpretation Code Description Data Laura rce(s) Supporting Document(s) Urea nitrogen [Mass/volume] in Serum or Plasma 15 mg/dL 7-18 [facility] ([facility]) ID Date Data Source [id number] 10/29/2020 06:28:00 PM EST [facility] ([facility] Name Value Range Interpretation Code Description Data Laura rce(s) Supporting Document(s) Creatinine For GFR 1.08 mg/dL 0.70-1.30 Normal (applies to non -numeric results) [facility] ([facility] Glomerular Filtration Rate Laboratory test result Normal (applies to non- numeric results) [facility] ([facility] ) <content>Units are mL/min/1.73 m2</content>
<content></content>
<content>Chronic Kidney Disease Staging per NKF:</content>
<content></content>
<content>Stage I & II GFR >=60 Normal to Mildly Decreased</content>
<content>Stage III GFR 30- 59 Moderately Decreased</content>
<content>Stage IV GFR 15-29 Severely Decreased</content>
<content>Stage V GFR <15 Very Little GFR Left</content>
<content>ESRD GFR <15 on NURSE CASE MANAGER</content>
<content></content> ID Date Data Source [id number] 10/29/2020 06:28:00 PM EST [facility] ([facility] Name Value Range Interpretation Code Description Data Laura rce(s) Supporting Document(s) Urea nitrogen [Mass/volume] in Serum or Plasma 15 mg/dL 7 -18 Normal (applies to non-numeric results) [facility] ([facility]) ID Date Data Source [id number] 10/22/2020 09:55:00 AM EST [facility] ([facility]) Name Value Range Interpretation Code Description Data Laura rce(s) Supporting Document(s) Arterial Ultrasound Lower Extremity Right Laboratory test result [facility] ([facility]) ID Date Data Source [id number] 09/13/2020 02:12:00 PM EDT [facility] ([facility] Name Value Range Interpretation Code Description Data Laura rce(s) Supporting Document(s) Valproate [Mass/volume] in Serum or Plasma 61.3 UG/ML 50.0- 100.0 Normal (applies to non-numeric results) [facility] ([facility] Procedure Social History Code Duration Value Status Description Data Source(s ) Smoking 07/09/2021 12:00:00 AM EDT Patient is a former smoker completed Patient is a former smoker [facility] ([facility]) Smoking 06/25/2021 12:00:00 AM EDT Patient is a former smoker completed Patient is a former smoker [facility] ([facility]) Alcohol intake 03/14/2021 12:00:00 AM EDT No completed [facility] Smoking 03/14/2021 12:00:00 AM EDT Former smoker completed Former smoker [facility] 01/24/2021 12:00:00 AM EST Using Electronic Cig. compl eted Using Electronic Cig. [facility] ([facility], ) Smoking 08/01/2020 12:00:00 AM EDT - 11/29/2010 12:00:00 AM EST Patient is a former smoker completed Patient is a former smoker [facility] ([facility], ) Vital Signs ID Date Data Source [id number] Name Value Range Interpretation Code Description Data Source(s) Body temperature 97.0 [degF] 97.0 [degF] [facility] ([facility] Diastolic blood pressure 72 mm[Hg] 72 mm[Hg] [facility] ([facility] Systolic blood pressure 110 mm[Hg] 110 mm[Hg] M EDENT ([facility] Heart rate 72 /min 72 /min [facility] ([facility] Respiratory rate 16 /min 16 /min [facility] ( [facility] Body height 73 [in_i] 73 [in_i] [facility] ([facility] 6'1" Body weight 289.00 [lb_av] 289.00 [lb_av] MEDEN T ([facility] [place] body weight 184 [lb_av] 184 [lb_av] MED[facility] T ([facility] Body mass index (BMI) [Ratio] 38.1 kg/m2 38.1 k g/m2 [facility] ([facility] Oxygen saturation in Arterial blood by Pulse oximetry 96 % 96 % [facility] ([facility] Systolic blood pressure 114 mm[Hg] 114 mm[Hg] M EDENT ([facility], ) Diastolic blood pressure 58 mm[Hg] 58 mm[Hg] [facility] ([facility]) Heart rate 69 /min 69 /min [facility] ([facility]) Oxygen saturation in Arterial blood by Pulse oximetry 98 % 98 % [facility] ([facility]) Body height 72 [in_i] 72 [in_i] [facility] ([facility]) 6'0" Body weight 298.00 [lb_av] 298.00 [lb_av] [facility] T ([facility]) Body mass index (BMI) [Ratio] 40.4 kg/m2 40.4 k g/m2 [facility] ([facility]) [place] body weight 178 [lb_av] 178 [lb_av] [facility] ([facility] [facility]) Body weight 135.173 kg 135.173 kg [facility] ([facility]) Body surface area Derived from formula 2.52 m2 2.52 m2 [facility] ([facility]) Body weight 305 [lb_av] 305 [lb_av] eCW1 ([facility]) Systolic blood pressure 138 mm[Hg] 138 mm[Hg] e CW1 ([facility]) Diastolic blood pressure 76 mm[Hg] 76 mm[Hg] eCW1 ([facility]) Body weight 138.35 kg 138.35 kg eCW1 ([facility]) Body height 72 [in_i] 72 [in_i] eCW1 ([facility]) Body mass index (BMI) [Ratio] 41.36 kg/m2 41.36 kg/m2 eCW1 ([facility]) Body height 72 [in_i] 72 [in_i] MEDENT ([facility]) 6'0" Body weight 305.00 [lb_av] 305.00 [lb_av] MEDEN T ([facility]) Body mass index (BMI) [Ratio] 41.4 kg/m2 41.4 k g/m2 MEDENT ([facility]) Heart rate 64 /min 64 /min [facility] ([facility]) Regular Respiratory rate 16 /min 16 /min MEDENT ( [facility]) Systolic blood pressure 128 mm[Hg] 128 mm[Hg] M EDENT ([facility]) sitting, large cuff Diastolic blood pressure 76 mm[Hg] 76 mm[Hg] MEDENT ([facility]) sitting, large cuff Systolic blood pressure 124 mm[Hg] 124 mm[Hg] M EDENT ([facility]) sitting Diastolic blood pressure 76 mm[Hg] 76 mm[Hg] MEDENT ([facility]) sitting Body temperature 96.1 [degF] 96.1 [degF] MEDENT ([facility] Oxygen saturation in Arterial blood by Pulse oximetry 96 % 96 % MEDENT ([facility] Respiratory rate 16 /min 16 /min MED[facility] ( [facility] Heart rate 72 /min 72 /min [facility] ([facility] Body height 73 [in_i] 73 [in_i] [facility] ([facility] 6'1" Diastolic blood pressure 84 mm[Hg] 84 mm[Hg] MEDENT ([facility] Body weight 308.00 [lb_av] 308.00 [lb_av] MEDEN T ([facility] Body mass index (BMI) [Ratio] 40.6 kg/m2 40.6 k g/m2 MEDENT ([facility] [place] body weight 184 [lb_av] 184 [lb_av] MEDEN T ([facility] Systolic blood pressure 136 mm[Hg] 136 mm[Hg] M EDENT ([facility] Body height 73 [in_i] 73 [in_i] [facility]ENT ([facility]) 6'1" Body temperature 97.6 [degF] 97.6 [degF] [facility] ([facility] Body weight 313.00 [lb_av] 313.00 [lb_av] MEDEN T ([facility]) Body weight 141.977 kg 141.977 kg [facility] ([facility]) Body mass index (BMI) [Ratio] 41.3 kg/m2 41.3 k g/m2 [facility] ([facility]) Systolic blood pressure 180 mm[Hg] 180 mm[Hg] M EDENT ([facility]) Diastolic blood pressure 80 mm[Hg] 80 mm[Hg] MED[facility] ([facility]) Systolic blood pressure 180 mm[Hg] 180 mm[Hg] M EDENT ([facility]) Diastolic blood pressure 80 mm[Hg] 80 mm[Hg] MED[facility] ([facility]) Body height 73 [in_i] 73 [in_i] MEDENT ([facility] 6'1" Body weight 314.00 [lb_av] 314.00 [lb_av] MEDEN T ([facility] [place] body weight 184 [lb_av] 184 [lb_av] MEDEN T ([facility] Body mass index (BMI) [Ratio] 41.4 kg/m2 41.4 k g/m2 MEDENT ([facility] Oxygen saturation in Arterial blood by Pulse oximetry 96 % 96 % MEDENT ([facility] Systolic blood pressure 110 mm[Hg] 110 mm[Hg] M EDENT ([facility] Diastolic blood pressure 56 mm[Hg] 56 mm[Hg] MEDENT ([facility] Body temperature 97.0 [degF] 97.0 [degF] MEDENT ([facility] Heart rate 82 /min 82 /min MEDENT ([facility] Respiratory rate 20 /min 20 /min MEDENT ( [facility] Body weight 323 [lb_av] 323 [lb_av] eCW1 ([facility]) Body height 72 [in_i] 72 [in_i] eCW1 ([facility]) Body mass index (BMI) [Ratio] 43.80 kg/m2 43.80 kg/m2 eCW1 ([facility]) Heart rate 76 /min 76 /min eCW1 ([facility]) Respiratory rate 19 /min 19 /min eCW1 ([facility]) Body temperature 97.0 [degF] 97.0 [degF] eCW1 ( [facility]) Systolic blood pressure 140 mm[Hg] 140 mm[Hg] e CW1 ([facility]) Diastolic blood pressure 82 mm[Hg] 82 mm[Hg] eCW1 ([facility]) Diastolic blood pressure 80 mm[Hg] 80 mm[Hg] [facility] ([facility]) Systolic blood pressure 140 mm[Hg] 140 mm[Hg] M EDENT ([facility]) Body weight 300.00 [lb_av] 300.00 [lb_av] MEDEN T ([facility]) Body weight 136.080 kg 136.080 kg [facility] ([facility]) Heart rate 72 /min 72 /min [facility] ([facility]) Body mass index (BMI) [Ratio] 39.6 kg/m2 39.6 k g/m2 [facility] ([facility]) Body temperature 97.0 [degF] 97.0 [degF] [facility] ([facility]) Body height 73 [in_i] 73 [in_i] [facility] ([facility] 6'1" Diastolic blood pressure 80 mm[Hg] 80 mm[Hg] MEDENT ([facility] Body temperature 98.2 [degF] 98.2 [degF] MEDENT ([facility] Heart rate 69 /min 69 /min MEDENT ([facility] Body height 73 [in_i] 73 [in_i] MEDENT ([facility] 6'1" Body weight 320.00 [lb_av] 320.00 [lb_av] MEDEN T ([facility] [place] body weight 184 [lb_av] 184 [lb_av] MEDEN T ([facility] Body mass index (BMI) [Ratio] 42.2 kg/m2 42.2 k g/m2 MED[facility] ([facility] Systolic blood pressure 142 mm[Hg] 142 mm[Hg] M EDENT ([facility] Oxygen saturation in Arterial blood by Pulse oximetry 98 % 98 % MEDENT ([facility] ([place]), ([facility]) Respiratory rate 19 /min 19 /min MEDENT ( [facility] Diastolic blood pressure 80 mm[Hg] 80 mm[Hg] MEDENT ([facility]) Heart rate 80 /min 80 /min [facility] ([facility]) Body temperature 97.2 [degF] 97.2 [degF] MED[facility] ([facility]) Body height 72 [in_i] 72 [in_i] [facility] ([facility]) 6'0" Systolic blood pressure 180 mm[Hg] 180 mm[Hg] M EDENT ([facility]) Systolic blood pressure 140 mm[Hg] 140 mm[Hg] M EDENT ([facility]) Diastolic blood pressure 80 mm[Hg] 80 mm[Hg] MED[facility] ([facility]) Heart rate 72 /min 72 /min [facility] ([facility]) Body temperature 96.2 [degF] 96.2 [degF] [facility] ([facility]) Body height 72 [in_i] 72 [in_i] [facility] ([facility]) 6'0" Body weight 310.00 [lb_av] 310.00 [lb_av] MEDEN T ([facility]) Body weight 140.616 kg 140.616 kg [facility] ([facility]) Body mass index (BMI) [Ratio] 42.0 kg/m2 42.0 k g/m2 [facility] ([facility]) Diastolic blood pressure 80 mm[Hg] 80 mm[Hg] [facility] ([facility]) Heart rate 72 /min 72 /min [facility] ([facility]) Body temperature 95.6 [degF] 95.6 [degF] [facility] ([facility]) Systolic blood pressure 140 mm[Hg] 140 mm[Hg] M EDENT ([facility]) Body height 72 [in_i] 72 [in_i] MED[facility] ([facility]) 6'0" Body weight 310.00 [lb_av] 310.00 [lb_av] MEDEN T ([facility]) Body weight 140.616 kg 140.616 kg [facility] ([facility]) Body mass index (BMI) [Ratio] 42.0 kg/m2 42.0 k g/m2 [facility] ([facility]) Body temperature 97.1 [degF] 97.1 [degF] MEDENT ([facility] Heart rate 80 /min 80 /min [facility] ([facility] Diastolic blood pressure 74 mm[Hg] 74 mm[Hg] MED[facility] ([facility] Body height 73 [in_i] 73 [in_i] MEDENT ([facility] 6'1" Body weight 322.00 [lb_av] 322.00 [lb_av] MEDEN T ([facility] Body mass index (BMI) [Ratio] 42.5 kg/m2 42.5 k g/m2 [facility] ([facility] Oxygen saturation in Arterial blood by Pulse oximetry 98 % 98 % [facility] ([facility] ([place]), ([facility]) Respiratory rate 18 /min 18 /min [facility] ( [facility] [place] body weight 184 [lb_av] 184 [lb_av] MEDEN T ([facility] Systolic blood pressure 126 mm[Hg] 126 mm[Hg] M EDENT ([facility] Systolic blood pressure 164 mm[Hg] 164 mm[Hg] M EDENT ([facility]) Diastolic blood pressure 80 mm[Hg] 80 mm[Hg] [facility] ([facility]) Heart rate 98 /min 98 /min [facility] ([facility]) Body temperature 97.9 [degF] 97.9 [degF] [facility] ([facility]) Body height 72 [in_i] 72 [in_i] [facility] ([facility] 6'0" Body weight 310.00 [lb_av] 310.00 [lb_av] MEDEN T ([facility]) Body weight 140.616 kg 140.616 kg [facility] ([facility]) Body mass index (BMI) [Ratio] 42.0 kg/m2 42.0 k g/m2 [facility] ([facility]) Heart rate 69 /min 69 /min [facility] Systolic blood pressure 134 mm[Hg] 134 mm[Hg] [facility] Diastolic blood pressure 80 mm[Hg] 80 mm[Hg] [facility] Body height 185.4 cm 185.4 cm [facility] Body weight 148.236 kg 148.236 kg [facility] Body mass index (BMI) [Ratio] 43.12 kg/m2 43.12 kg/m2 [facility] Oxygen saturation in Arterial blood by Pulse oximetry 96 % 96 % [facility] Systolic blood pressure 122 mm[Hg] 122 mm[Hg] M EDENT ([facility] Diastolic blood pressure 64 mm[Hg] 64 mm[Hg] MEDENT ([facility] Body temperature 97.2 [degF] 97.2 [degF] MEDENT ([facility] Heart rate 84 /min 84 /min MEDENT ([facility] Respiratory rate 16 /min 16 /min MEDENT ( [facility] Body height 73 [in_i] 73 [in_i] MEDENT ([facility] 6'1" Body weight 327.00 [lb_av] 327.00 [lb_av] MEDEN T ([facility] [place] body weight 184 [lb_av] 184 [lb_av] MEDEN T ([facility] Body mass index (BMI) [Ratio] 43.1 kg/m2 43.1 k g/m2 [facility] ([facility] Oxygen saturation in Arterial blood by Pulse oximetry 94 % 94 % [facility] Oxygen saturation in Arterial blood by Pulse oximetry 98 % 98 % [facility] Body temperature 96.9 [degF] 96.9 [degF] MEDENT ([facility]) Body height 72 [in_i] 72 [in_i] MEDENT ([facility]) 6'0" Body weight 323.00 [lb_av] 323.00 [lb_av] MEDEN T ([facility]) Body mass index (BMI) [Ratio] 43.8 kg/m2 43.8 k g/m2 [facility] [place] body weight 178 [lb_av] 178 [lb_av] MEDEN T ([facility]) Body weight 146.513 kg 146.513 kg [facility] ([facility]) Body surface area Derived from formula 2.61 m2 2.61 m2 [facility] ([facility]) Systolic blood pressure 132 mm[Hg] 132 mm[Hg] M EDENT ([facility]) Diastolic blood pressure 80 mm[Hg] 80 mm[Hg] [facility] Body surface area Derived from formula 2.61 m2 2.61 m2 [facility] ([facility]) Heart rate 64 /min 64 /min MEDENT ([facility]) Oxygen saturation in Arterial blood by Pulse oximetry 98 % 98 % [facility] ([facility]) Body temperature 96.9 [degF] 96.9 [degF] [facility] ([facility]) Body height 72 [in_i] 72 [in_i] [facility] ([facility]) 6'0" Body weight 323.00 [lb_av] 323.00 [lb_av] MEDEN T ([facility]) Body mass index (BMI) [Ratio] 43.8 kg/m2 43.8 k g/m2 [facility] ([facility]) [place] body weight 178 [lb_av] 178 [lb_av] MEDEN T ([facility]) Body weight 146.513 kg 146.513 kg [facility] ([facility]) Systolic blood pressure 134 mm[Hg] 134 mm[Hg] M EDENT ([facility]) sitting Diastolic blood pressure 80 mm[Hg] 80 mm[Hg] [facility] sitting, large cuff Diastolic blood pressure 86 mm[Hg] 86 mm[Hg] [facility] sitting Body height 72 [in_i] 72 [in_i] [facility] 6'0" Body mass index (BMI) [Ratio] 44.1 kg/m2 44.1 k g/m2 [facility] Heart rate 72 /min 72 /min [facility] Regular Body weight 325.00 [lb_av] 325.00 [lb_av] MEDEN T ([facility]) Respiratory rate 16 /min 16 /min [facility] Systolic blood pressure 134 mm[Hg] 134 mm[Hg] M EDENT ([facility]) sitting, large cuff Body weight 323 [lb_av] 323 [lb_av] eCW1 ([facility]) Body height 72 [in_i] 72 [in_i] eCW1 ([facility]) Body mass index (BMI) [Ratio] 43.80 kg/m2 43.80 kg/m2 eCW1 ([facility]) Heart rate 65 /min 65 /min eCW1 ([facility]) Respiratory rate 18 /min 18 /min eCW1 ([facility]) Body temperature 97.6 [degF] 97.6 [degF] eCW1 ( [facility]) Systolic blood pressure 132 mm[Hg] 132 mm[Hg] e CW1 ([facility]) Diastolic blood pressure 72 mm[Hg] 72 mm[Hg] eCW1 ([facility]) Body mass index (BMI) [Ratio] 42.9 kg/m2 42.9 k g/m2 MED[facility] ([facility] Body temperature 97.2 [degF] 97.2 [degF] [facility] ([facility] Systolic blood pressure 124 mm[Hg] 124 mm[Hg] M EDENT ([facility] Diastolic blood pressure 82 mm[Hg] 82 mm[Hg] [facility] ([facility] Heart rate 67 /min 67 /min [facility] ([facility] Respiratory rate 16 /min 16 /min MED[facility] ( [facility] Body height 73 [in_i] 73 [in_i] MEDENT ([facility] 6'1" Body weight 325.00 [lb_av] 325.00 [lb_av] MEDEN T ([facility] [place] body weight 184 [lb_av] 184 [lb_av] MEDEN T ([facility] Oxygen saturation in Arterial blood by Pulse oximetry 95 % 95 % MEDENT ([facility] Body temperature 98.3 [degF] 98.3 [degF] MEDENT ([facility] Body height 73 [in_i] 73 [in_i] MEDENT ([facility] ) 6'1" Body weight 324.00 [lb_av] 324.00 [lb_av] MEDEN T ([facility] ) Body mass index (BMI) [Ratio] 42.7 kg/m2 42.7 k g/m2 MEDENT ([facility]) Respiratory rate 20 /min 20 /min eCW1 ([facility]) Body weight 320 [lb_av] 320 [lb_av] eCW1 ([facility]) Body height 72 [in_i] 72 [in_i] eCW1 ([facility]) Body mass index (BMI) [Ratio] 43.40 kg/m2 43.40 kg/m2 eCW1 ([facility]) Heart rate 78 /min 78 /min eCW1 ([facility]) Body temperature 95.7 [degF] 95.7 [degF] eCW1 ( [facility]) Systolic blood pressure 144 mm[Hg] 144 mm[Hg] e CW1 ([facility]) Diastolic blood pressure 78 mm[Hg] 78 mm[Hg] eCW1 ([facility]) Diastolic blood pressure 80 mm[Hg] 80 mm[Hg] [facility] ([facility]) Systolic blood pressure 160 mm[Hg] 160 mm[Hg] M EDENT ([facility]) Body mass index (BMI) [Ratio] 42.7 kg/m2 42.7 k g/m2 [facility] ([facility]) Diastolic blood pressure 80 mm[Hg] 80 mm[Hg] [facility] ([facility]) Systolic blood pressure 160 mm[Hg] 160 mm[Hg] M EDENT ([facility]) Body height 72 [in_i] 72 [in_i] [facility] ([facility] 6'0" Body weight 315.00 [lb_av] 315.00 [lb_av] MEDEN T ([facility]) Body weight 142.884 kg 142.884 kg [facility] ([facility]) Systolic blood pressure 132 mm[Hg] 132 mm[Hg] M EDENT ([facility] Body mass index (BMI) [Ratio] 42.3 kg/m2 42.3 k g/m2 [facility] ([facility] Oxygen saturation in Arterial blood by Pulse oximetry 97 % 97 % [facility] ([facility] [place] body weight 184 [lb_av] 184 [lb_av] MEDEN T ([facility] Diastolic blood pressure 72 mm[Hg] 72 mm[Hg] MED[facility] ([facility] Body temperature 97.8 [degF] 97.8 [degF] MEDENT ([facility] Heart rate 74 /min 74 /min MED[facility] ([facility] Respiratory rate 16 /min 16 /min MED[facility] ( [facility] Body height 73 [in_i] 73 [in_i] MEDENT ([facility] 6'1" Body weight 321.00 [lb_av] 321.00 [lb_av] MEDEN T ([facility] Body weight 315.00 [lb_av] 315.00 [lb_av] MEDEN T ([facility], ) Body mass index (BMI) [Ratio] 42.7 kg/m2 42.7 k g/m2 [facility] ([facility]) Body height 72 [in_i] 72 [in_i] MEDENT ([facility]) 6'0" Systolic blood pressure 124 mm[Hg] 124 mm[Hg] M EDENT ([facility]) Diastolic blood pressure 72 mm[Hg] 72 mm[Hg] [facility] Heart rate 65 /min 65 /min [facility] ([facility]) Oxygen saturation in Arterial blood by Pulse oximetry 94 % 94 % [facility] ([facility]) Body temperature 97.2 [degF] 97.2 [degF] [facility] ([facility]) [place] body weight 178 [lb_av] 178 [lb_av] MEDEN T ([facility]) Body weight 142.884 kg 142.884 kg [facility] ([facility]) Body surface area Derived from formula 2.58 m2 2.58 m2 [facility] ([facility]) Patient Treatment Plan of Care Planned Activity Planned Date Details Description Data Source (s) 24 HR Oxybutynin chloride 10 MG Extended Release Oral Tablet 10/23/2020 12:00:00 AM EST eCW1 ([facility]) 24 HR Oxybutynin chloride 10 MG Extended Release Oral Tablet 10/23/2020 12:00:00 AM EST eCW1 ([facility]) 24 HR Oxybutynin chloride 10 MG Extended Release Oral Tablet 10/23/2020 12:00:00 AM EST eCW1 ([facility]) 24 HR Oxybutynin chloride 10 MG Extended Release Oral Tablet 10/23/2020 12:00:00 AM EST eCW1 ([facility]) Haloperidol 0.5 MG Oral Tablet [facility] Divalproex Sodium 500 MG Delayed Release Oral Tablet [facility]
[2021-09-17] MEDS ORDERED: LR 1,000 ML IV ONE (06:10)
[2021-09-17] MEDS ORDERED: LIDOCAINE 4% INJ 5ML AMP INH ONE (06:10)
[2021-09-17] MEDS ORDERED: ALBUTEROL SULFATE 2.5 MG/0.5 ML INH NEB SOLN INH ONE (06:15)
[2021-09-17] MEDS ORDERED: ROCURONIUM BROMIDE 50 MG/5 ML VIAL As Ordered ONE (07:11)
[2021-09-17] MEDS ORDERED: LIDOCAINE 2% 100MG/5ML SDV (FOR ANES.) As Ordered ONE (07:11)
[2021-09-17] MEDS ORDERED: SUGAMMADEX SODIUM 500 MG/5 ML VIAL (BRIDION) As Ordered ONE (07:11)
[2021-09-17] MEDS ORDERED: propofoL 200 MG/20 ML VIAL As Ordered ONE (07:11)
[2021-09-17] MEDS ORDERED: METOCLOPRAMIDE INJ 10MG/2ML VIAL (J2765 PER 1) As Ordered ONE (07:11)
[2021-09-17] MEDS ORDERED: ONDANSETRON 4MG/2ML VIAL As Ordered ONE (07:11)
[2021-09-17] MEDS ORDERED: dexameTHASONE 4 MG/ML 1ML VIAL (J1100 PER 1MG) As Ordered ONE (07:11)
[2021-09-17] MEDS ORDERED: fentaNYL 100 MCG/2 ML INJECTION (J3010) As Ordered ONE (07:11)
[2021-09-17] MEDS ORDERED: MIDAZOLAM INJ 2MG/2ML VIAL (J2250 PER 1MG) As Ordered ONE ×3 (07:12→09:56)
[2021-09-17] MEDS ORDERED: CETACAINE SPRAY 5GM As Ordered ONE (07:13)
[2021-09-17] MEDS ORDERED: LIDOCAINE 1% SDV 30ML VIAL As Ordered ONE (07:13)
[2021-09-17] MEDS ORDERED: EPINEPHrine 1MG/10ML SYRINGE 1.5IN As Ordered ONE ×2 (07:13→10:42)
[2021-09-17] MEDS ORDERED: THROMBIN SOLN 5,000 UNITS VIAL As Ordered ONE ×3 (07:13→08:42)
[2021-09-17] MEDS ORDERED: HYDROMORPHONE HCL 0.5 MG/ 0.5 ML SYRINGE (J1170 PER 1) IV PRN (08:50)
[2021-09-17] MEDS ORDERED: oxyCODONE 5MG TAB PO PRN (08:50)
[2021-09-17] MEDS ORDERED: fentaNYL 100 MCG/2 ML INJECTION (J3010) IV PRN (08:50)
[2021-09-17] MEDS ORDERED: LR 1,000 ML IV SCH (08:50)
[2021-09-17] MEDS ORDERED: ONDANSETRON 4MG/2ML VIAL IV PRN (08:50)
[2021-09-17] MEDS: MIDAZOLAM INJ 2MG/2ML VIAL (J2250 PER 1MG) IV PRN ×3 (09:35→13:37)
[2021-09-17] MEDS: fentaNYL 100 MCG/2 ML INJECTION (J3010) IV PRN ×5 (09:40→13:37)
[2021-09-17] MEDS ORDERED: NOREPINEPHRINE 4 MG/4 ML AMP As Ordered ONE (09:47)
--- NOTE | 2021-09-17 09:47 | REP ---
INDICATION: LEFT UPPER LOBE ABNORMALITY. COMPARISON: CT dated 08/12/2021 TECHNIQUE: Portable chest radiograph FINDINGS: Endotracheal tube 4 cm above the jonathan. Cardiac silhouette is normal. Diffuse bilateral perihilar and predominately upper lobe (right greater than left) opacities are appreciated. Findings are nonspecific although pulmonary edema is of concern. No pneumothorax. No effusion. IMPRESSION: Moderate to significant perihilar and upper lobe opacities. Differential diagnosis includes multifocal pneumonia and pulmonary edema. <Electronically signed by Kiel Damon > 09/17/21 0930
[2021-09-17] MEDS ORDERED: NOREPINEPHRINE BITARTRATE 8 MG in D5W 492 ML IV SCH ×2 (09:50→16:30)
[2021-09-17] MEDS ORDERED: IPRATROPIUM 0.5MG/ALBUTEROL 2.5MG INH SOL UD 3ML (DUONEB) NEB PRN (09:50)
[2021-09-17 10:16] LABS: ABG BASE EXCESS -0.6 (-2.0-2.0); ABG HCO3 25.6 MEQ/L (22.0-26.0); ABG O2 SATURATION 89.4 % (95.0-99.0); ABG PARTIAL PRESSURE CO2 48.2 mmHg (35.0-45.0); ABG PARTIAL PRESSURE O2 64.1 mmHg (75.0-100.0); ABG STANDARD HCO3 23.8 MEQ/L (22.0-26.0); ABG TOTAL CO2 27.1 MEQ/L (23.0-31.0); ABG pH (ARTERIAL) 7.343 UNITS (7.350-7.450)
[2021-09-17 10:24] LABS: BASO % 0.4 % (0.0-1.0); EOS # 0.1 10^3/uL (0.0-0.5); EOS % 0.9 % (0.0-3.0); HEMATOCRIT 40.6 % (42.0-52.0); HEMOGLOBIN 12.5 g/dl (13.5-17.5); LYMPH # 0.7 10^3/uL (1.5-5.0); LYMPH % 6.7 % (24.0-44.0); MEAN CORPUSCULAR HGB CONC 30.8 g/dl (32.0-36.5); MEAN CORPUSCULAR VOLUME 84.4 fl (80.0-96.0); MONO # 0.3 10^3/uL (0.0-0.8); MONO % 2.4 % (2.0-8.0); NEUTROPHILS # 9.5 10^3/uL (1.5-8.5); NEUTROPHILS % 88.8 % (36.0-66.0); PLATELET COUNT, AUTOMATED 267 10^3/uL (150-450); RED BLOOD COUNT 4.81 10^6/uL (4.30-6.10); WHITE BLOOD COUNT 10.7 10^3/uL (4.0-10.0)
[2021-09-17] MEDS ORDERED: VASOPRESSIN INJ 20 UNITS/ML VIAL As Ordered ONE (10:42)
[2021-09-17] MEDS ORDERED: ETOMIDATE INJ 20MG/10ML VIAL As Ordered ONE (10:42)
[2021-09-17] MEDS ORDERED: GLYCOPYRROLATE INJ 0.2 MG/ML 2 ML VIAL As Ordered ONE (10:42)
[2021-09-17] MEDS ORDERED: AMIODARONE HCL 360 MG/200 ML PREMIXED BAG (NEXTERONE) (J0282 PER 30MG) As Ordered ONE (10:42)
[2021-09-17] MEDS ORDERED: ATROPINE SULF 0.4 MG/ML 1ML VIAL (J0461) As Ordered ONE (10:42)
[2021-09-17] MEDS ORDERED: LIDOCAINE 2% INJ 100 MG/5 ML SYRINGE As Ordered ONE (10:42)
[2021-09-17 10:56] LABS: ALBUMIN 2.7 GM/DL (3.2-5.2); ALT/SGPT 34 U/L (12-78); BILIRUBIN,TOTAL 0.3 MG/DL (0.2-1.0); BLOOD UREA NITROGEN 22 MG/DL (7-18); CARBON DIOXIDE LEVEL 27 MEQ/L (21-32); CHLORIDE LEVEL 103 MEQ/L (98-107); CREATININE FOR GFR 1.28 MG/DL (0.70-1.30); GLOMERULAR FILTRATION RATE > 60.0 (>49); GLUCOSE, FASTING 211 MG/DL (70-100); MAGNESIUM LEVEL 1.8 MG/DL (1.8-2.4); PHOSPHORUS LEVEL 4.3 MG/DL (2.5-4.9); POTASSIUM SERUM 3.7 MEQ/L (3.5-5.1); SODIUM LEVEL 137 MEQ/L (136-145); TOTAL PROTEIN 6.4 GM/DL (6.4-8.2)
--- NOTE | 2021-09-17 11:07 | REP ---
INDICATION: POST OP/PACU. COMPARISON: 05/30/2020 the latest prior TECHNIQUE: Portable FINDINGS: A left-sided internal jugular central venous catheter is identified the tip of which is in the superior vena cava. An endotracheal tube is seen in satisfactory position with the tip at the level of the clavicular heads. Patchy interstitial and airspace opacities are seen throughout the lung uriostegui with upper lobe predominance on the left. The right CP angle is not been included on the portable radiograph. The left CP angle is clear. The heart is not enlarged. The osseous structures are within normal limits. IMPRESSION: 1. Endotracheal tube and central venous catheter as described above. 2. Patchy interstitial and airspace opacities suggestive of pneumonia. Certainly, asymmetric pulmonary edema cannot be ruled out. <Electronically signed by Jose Manuel Ricks > 09/17/21 [id number]
--- OUTSIDE RECORDS SUMMARY | 2021-09-17 11:42 | CCD ---
Author Author [facility] Organization [facility] Address Unknown Phone Unavailable Care Team Providers Care Bottle Packer Name Role Phone Brit Peace MD Unavailable [...] Symenow, Chantell Carrie PA Unavailable Unavailable Symenow, Chanetll Carrie PA Unavailable Unavailable Symenow, Chantell Carrie [...] Parvez LANGLEY Unavailable Unavailable Rounds, M SIMA EARLY CHILDHOOD EDUCATION SPECIALIST Unavailable Unavailable Rounds, M SIMA EARLY CHILDHOOD EDUCATION SPECIALIST Unavailable Unavailable Rounds, M SIMA EARLY CHILDHOOD EDUCATION SPECIALIST Unavailable Unavailable Rounds, M SIMA EARLY CHILDHOOD EDUCATION SPECIALIST Unavailable Unavailable Rounds, M SIMA EARLY CHILDHOOD EDUCATION SPECIALIST Unavailable Unavailable Rounds, M SIMA EARLY CHILDHOOD EDUCATION SPECIALIST Unavailable Unavailable Rounds, M SIMA EARLY CHILDHOOD EDUCATION SPECIALIST Unavailable Unavailable Rounds, M SIMA EARLY CHILDHOOD EDUCATION SPECIALIST Unavailable Unavailable Rounds, M SIMA EARLY CHILDHOOD EDUCATION SPECIALIST Unavailable Unavailable Rounds, M SIMA EARLY CHILDHOOD EDUCATION SPECIALIST Unavailable Unavailable Rounds, M SIMA EARLY CHILDHOOD EDUCATION SPECIALIST Unavailable Unavailable Rounds, M SIMA EARLY CHILDHOOD EDUCATION SPECIALIST Unavailable Unavailable Rounds, M SIMA EARLY CHILDHOOD EDUCATION SPECIALIST Unavailable Unavailable Rounds, M SIMA EARLY CHILDHOOD EDUCATION SPECIALIST Unavailable Unavailable Rounds, M SIMA EARLY CHILDHOOD EDUCATION SPECIALIST Unavailable Unavailable Rounds, M SIMA EARLY CHILDHOOD EDUCATION SPECIALIST Unavailable Unavailable Rounds, M SIMA EARLY CHILDHOOD EDUCATION SPECIALIST Unavailable Unavailable Rounds, M SIMA EARLY CHILDHOOD EDUCATION SPECIALIST Unavailable Unavailable Rounds, M SIMA EARLY CHILDHOOD EDUCATION SPECIALIST Unavailable Unavailable Rounds, M SIMA EARLY CHILDHOOD EDUCATION SPECIALIST Unavailable Unavailable Rounds, M SIMA EARLY CHILDHOOD EDUCATION SPECIALIST Unavailable Unavailable Rounds, M SIMA EARLY CHILDHOOD EDUCATION SPECIALIST Unavailable Unavailable Rounds, M SIMA EARLY CHILDHOOD EDUCATION SPECIALIST Unavailable Unavailable Rounds, M SIMA EARLY CHILDHOOD EDUCATION SPECIALIST Unavailable Unavailable Rounds, M SIMA EARLY CHILDHOOD EDUCATION SPECIALIST Unavailable Unavailable Rounds, M SIMA EARLY CHILDHOOD EDUCATION SPECIALIST Unavailable Unavailable Rounds, M SIMA EARLY CHILDHOOD EDUCATION SPECIALIST Unavailable Unavailable Rounds, M SIMA EARLY CHILDHOOD EDUCATION SPECIALIST Unavailable Unavailable Rounds, M SIMA EARLY CHILDHOOD EDUCATION SPECIALIST Unavailable Unavailable Rounds, M SIMA EARLY CHILDHOOD EDUCATION SPECIALIST Unavailable Unavailable Rounds, M SIMA EARLY CHILDHOOD EDUCATION SPECIALIST Unavailable Unavailable Rounds, M SIMA EARLY CHILDHOOD EDUCATION SPECIALIST Unavailable Unavailable Rounds, M SIMA EARLY CHILDHOOD EDUCATION SPECIALIST Unavailable Unavailable Rounds, M SIMA EARLY CHILDHOOD EDUCATION SPECIALIST Unavailable Unavailable Rounds, M SIMA EARLY CHILDHOOD EDUCATION SPECIALIST Unavailable Unavailable Rounds, M SIMA EARLY CHILDHOOD EDUCATION SPECIALIST Unavailable Unavailable Rounds, M SIMA EARLY CHILDHOOD EDUCATION SPECIALIST Unavailable Unavailable Rounds, M SIMA EARLY CHILDHOOD EDUCATION SPECIALIST Unavailable Unavailable Rounds, M SIMA EARLY CHILDHOOD EDUCATION SPECIALIST Unavailable Unavailable Rounds, M SIMA EARLY CHILDHOOD EDUCATION SPECIALIST Unavailable Unavailable Rounds, M SIMA EARLY CHILDHOOD EDUCATION SPECIALIST Unavailable Unavailable Rounds, M SIMA EARLY CHILDHOOD EDUCATION SPECIALIST Unavailable Unavailable Rounds, M SIMA EARLY CHILDHOOD EDUCATION SPECIALIST Unavailable Unavailable Rounds, M SIMA EARLY CHILDHOOD EDUCATION SPECIALIST Unavailable Unavailable Rounds, M SIMA EARLY CHILDHOOD EDUCATION SPECIALIST Unavailable Unavailable Rounds, M SIMA EARLY CHILDHOOD EDUCATION SPECIALIST Unavailable Unavailable Rounds, M SIMA EARLY CHILDHOOD EDUCATION SPECIALIST Unavailable Unavailable Rounds, M ISMA EARLY CHILDHOOD EDUCATION SPECIALIST Unavailable Unavailable Rounds, M SIMA EARLY CHILDHOOD EDUCATION SPECIALIST Unavailable Unavailable Rounds, M SIMA EARLY CHILDHOOD EDUCATION SPECIALIST Unavailable Unavailable Rounds, M SIMA EARLY CHILDHOOD EDUCATION SPECIALIST Unavailable Unavailable Rounds, M SIMA EARLY CHILDHOOD EDUCATION SPECIALIST Unavailable Unavailable Rounds, M SIMA EARLY CHILDHOOD EDUCATION SPECIALIST Unavailable Unavailable Rounds, M SIMA EARLY CHILDHOOD EDUCATION SPECIALIST Unavailable Unavailable Rounds, M SIMA EARLY CHILDHOOD EDUCATION SPECIALIST Unavailable Unavailable Rounds, M SIMA EARLY CHILDHOOD EDUCATION SPECIALIST Unavailable Unavailable Rounds, M SIMA EARLY CHILDHOOD EDUCATION SPECIALIST Unavailable Unavailable Rounds, M SIMA EARLY CHILDHOOD EDUCATION SPECIALIST Unavailable Unavailable Rounds, M SIMA EARLY CHILDHOOD EDUCATION SPECIALIST Unavailable Unavailable Rounds, M SIMA EARLY CHILDHOOD EDUCATION SPECIALIST Unavailable Unavailable Rounds, M SIMA EARLY CHILDHOOD EDUCATION SPECIALIST Unavailable Unavailable Rounds, M SIMA EARLY CHILDHOOD EDUCATION SPECIALIST Unavailable Unavailable Rounds, M SIMA EARLY CHILDHOOD EDUCATION SPECIALIST Unavailable Unavailable SEARS, A LEANN DO Unavailable [...] Unavailable SEARS, A LEANN DO Unavailable Unavailable Folres, L Franc DUARTE Unavailable Unavailable Flores, L Franc DUARTE Unavailable Unavailable Flores, L Franc DUARTE Unavailable Unavailable Flores, L Franc DUARTE Unavailable Unavailable Flores, L Franc DUARTE Unavailable Unavailable Flores, L Franc DUARTE Unavailable Unavailable Flores, L Franc DUARTE Unavailable Unavailable Flores, L Franc DUARTE Unavailable Unavailable Flores, L Franc DUARTE Unavailable Unavailable Flores, L Franc DUARTE Unavailable Unavailable Folres, L Franc DUARTE Unavailable Unavailable Flores, L Franc DUARTE Unavailable Unavailable Flores, L Franc DUARTE Unavailable Unavailable Flores, L Franc DUARTE Unavailable Unavailable Flores, L Franc DUARTE Unavailable Unavailable Flores, L Franc DUARTE Unavailable Unavailable Flores, L Franc DUARTE Unavailable Unavailable Flores, L Franc DUARTE Unavailable Unavailable Flores, L Franc DUARTE Unavailable Unavailable Flores, L Franc DUARTE Unavailable Unavailable Flores, L rFanc DUARTE Unavailable Unavailable Flores, L Franc DUARTE [...] by Article 27-F of the [facility] Public Health law. If you continue you may have access to information: Regarding HIV / AIDS; Provided by facilities licensed or operated by the [facility] Office of Mental Health; or Provided by the [facility] Office for People With Developmental Disabilities. If such information is present, then the following [facility] mandated warning applies: This information has been [...] law may result in a fine or senior living sentence or both. A general authorization for the release of medical or other information is NOT sufficient authorization for further disc losure. Family History Family Member Name Family Member Gender Family Member Status Date o f Status Description Data Source(s) Unknown Unknown Problem [facility] ([facility]) Encounters Encounter Providers Location Date Indications Data Source(s ) Outpatient Attender: Eyal BOYLE [place] [facility] 01:15:00 PM EDT [facility] Outpatient Attender: Brit Zazueta/Rashaun/Malachi/Williams montanez 08/21/2021 02:00:00 PM EDT [facility] ([facility] [place] [address] [facility] [address] 07/23/2021 12:00:00 AM EDT eCW1 ([facility]) Outpatient Attender: Carrie BOYLE Main Office 07/09/2021 11:30:00 AM EDT MED[facility] ([facility]) Outpatient Attender: Eyal BOYLE [place] [facility] 09/2021 09:30:00 AM EDT [facility] ([facility] [place] [address] [facility] [address] 07/02/2021 12:00:00 AM EDT eCW1 ([facility]) Outpatient Attender: Nikunj Matos MD Main Office 06/25/2021 09:45:00 AM EDT MED[facility] ([facility]) [place] [address] [facility] [address] 06/23/2021 12:00:00 AM EDT eCW1 ([facility]) [place] [address] [facility] [address] 06/18/2021 12:00:00 AM EDT eCW1 ([facility]) [place] [address] [facility] [address] 06/17/2021 12:00:00 AM EDT eCW1 ([facility]) Outpatient Attender: Eyal BOYLE [place] [facility] 01:00:00 PM EDT [facility] ([facility] [place] [address] [facility] [address] 06/09/2021 12:00:00 AM EDT eCW1 ([facility]) Unknown [address] [facility] [address] 06/09/2021 12:00:00 AM EDT eCW1 ([facility] [place] [address] [facility] [address] 06/06/2021 12:00:00 AM EDT eCW1 ([facility] [place] [address] [facility] [place] [address] 06/04/2021 12:00:00 AM EDT eCW1 ([facility]) Office Visit Attender: Nikunj Matos MD Main Office 05/26/2021 08:45:00 AM EDT MED[facility] ([facility]) Outpatient Attender: SIMA Lay NP [place] [facility] 04/29/2021 1 0:15:00 AM EDT MEDENT [...] of Y) Outpatient Attender: SIMA Lay NP [place] [facility] 04/04/2021 0 2:45:00 PM EDT [facility] ([facility] Office Visit Attender: Nikunj Matos MD Main Office 03/31/2021 08:30:00 AM EDT MED[facility] ([facility]) Outpatient Attender: Nikunj Matos MDReferrer: Nikunj Issa OB-MOB.PAT 03/14/2021 11:07:44 AM EDT - 03/14/2021 11:59:05 AM EDT [facility] Outpatient Referrer: Nikunj Matos MD MOB-MOB.PAT 03/14/20 09:43:37 AM EDT - 03/14/2021 09:43:41 AM EDT [facility] Unknown [address] [facility] [address] 03/14/2021 12:00:00 AM EDT eCW1 ([facility]) Unknown [address] [facility] [address] 03/11/2021 12:00:00 AM EDT eCW1 ([facility]) Outpatient Attender: Eyal BOYLE [place] [facility] 06/2021 01:00:00 PM EDT [facility] ([facility] Inpatient Attender: Nikunj Matos MDAtten erica: MAGED LANGLEYAdmitter: Niuknj Matos MD [id number] 02/19/2021 04:53:31 PM EDT - 03/21/2021 12:35:00 PM EDT [facility] Patient discharged. Outpatient Attender: Carrie BOYLE Main Office 01/09/2021 10:30:00 AM EST [facility] ([facility]) Unknown [address] [facility] [address] 01/03/2021 12:00:00 AM EST eCW1 ([facility]) Outpatient [address] [facility] [address] 12/05/2020 12:00:00 AM EST eCW1 ([facility]) Outpatient Attender: Eyal BOYLE [place] [facility] 03/2021 12:00:00 PM EST [facility] ([facility] Office Visit Attender: Franc Flores MD Physical Therapy 2019 07:30:00 AM EST [facility] ([facility]) Outpatient [address] [facility] [address] 10/23/2020 12:00:00 AM EST eCW1 ([facility]) Outpatient Attender: Lisa BOYLE Main Office 10/22/2020 09:45:00 A M EST MED[facility] ([facility]) [facility] Urology [address] [facility] [address] 09/27/2020 12:00:00 AM EDT eCW1 ([facility]) Outpatient Attender: Eyal BOYLE [place] [facility] 03/2020 01:00:00 PM EDT MED[facility] ([facility] Outpatient Attender: LEANN London/Rashaun/Malachi/Yordan 08/01/2020 09:00:00 AM EDT MED[facility] ([facility], ) Immunizations Vaccine Date Status Description Data Source(s) New in 2012. IIV4 09/11/2021 01:18:00 PM EDT completed [facility] ([facility] COVID-19 VACCINE Pfizer 09/04/2021 12:00:00 AM EDT completed [facility] Vaccine Series Complete: YESThis Data wa s Submitted to [facility] Via Only-apartments. COVID-19 VACCINE Pfizer 02/26/2021 12:00:00 AM EDT completed [facility] Vaccine Series Complete: YESThis Data wa s Submitted to [facility] Via Only-apartments. COVID-19 VACCINE Pfizer 02/20/2021 12:00:00 AM EDT completed [facility] Vaccine Series Complete: YESThis Data wa s Submitted to [facility] Via [employer]. COVID-19 VACCINE Pfizer 02/05/2021 12:00:00 AM EST completed [facility] Vaccine Series Complete: YESThis Data wa s Submitted to [facility] Via Only-apartments. COVID-19 VACCINE Pfizer 01/30/2021 12:00:00 AM EST completed [facility] Vaccine Series Complete: NOThis Data was Submitted to [facility] Via [employer]. Medications Medication Brand Name Start Date Product Form Dose Route Admi nistrative Instructions Pharmacy Instructions Status Indications Reaction Description Data Source(s) Pfizer-Biontech Covid-19 Vaccine Pfizer-Biontech Covid-19 Wi ccine 09/11/2021 12:00:00 AM EDT active M EDENT ([facility] Furosemide 20 MG Oral Tablet Furosemide 07/28/2021 12:00:00 AM EDT active MED[facility] ([facility] Furosemide 20 MG Oral Tablet [Lasix] Lasix 07/08/2021 12:00:00 AM EDT ORAL active [facility] ([facility]) Furosemide 20 MG Oral Tablet Furosemide 05/26/2021 12:00:00 AM EDT ORAL active MED[facility] ([facility]) Furosemide 20 MG Oral Tablet [Lasix] Lasix 05/02/2021 12:00:00 AM EDT ORAL completed MEDENT ([facility] Amoxicillin 875 MG / Clavulanate 125 MG Oral Tablet Am oxicillin/Clavulanate Potassium 05/02/2021 12:00:00 AM EDT ORAL completed [facility] ([facility] Furosemide 40 MG Oral [...] 12:00:00 AM EDT ORAL completed MED[facility] ([facility] Rosuvastatin calcium 20 MG Oral Tablet Rosuvastatin Calcium 01/09/2021 12:00:00 AM EST ORAL active [facility] ([facility] Rosuvastatin calcium 20 MG Oral Tablet Rosuvastatin Calcium 01/09/2021 12:00:00 AM EST ORAL active [facility] ([facility]) Oxybutynin chloride 5 MG Oral Tablet Oxybutynin Chloride 08/2021 12:00:00 AM EST ORAL active [facility] ([facility]) Oxybutynin chloride 5 MG Oral Tablet Oxybutynin Chloride 08/2021 12:00:00 AM EST ORAL completed MED[facility] ([facility]) 24 HR Oxybutynin chloride 10 MG Extended Release Oral Tablet Oxybutynin Chloride ER 10 MG Oxybutynin Chloride ER 10 MG 10/23/2020 12:00:00 AM EST 1.0 {tablet} active Oxybutynin Chloride ER 1 0 MG eCW1 ([facility]) 24 HR Oxybutynin chloride 5 MG Extended Release Oral Tablet Oxybutynin Chloride ER 5 MG Oxybutynin Chloride ER 5 MG 10/23/2020 12:00:00 AM EST 1.0 {tablet} active Oxybutynin Chloride ER 5 MG eCW1 ([facility]) 24 HR Oxybutynin chloride 10 MG Extended Release Oral Tablet Oxybutynin Chloride ER 10 MG Oxybutynin Chloride ER 10 MG 10/23/2020 12:00:00 AM EST 1.0 {tablet} active Oxybutynin Chloride ER 1 0 MG eCW1 ([facility]) 24 HR Oxybutynin chloride 10 MG Extended Release Oral Tablet Oxybutynin Chloride ER 10 MG Oxybutynin Chloride ER 10 MG 10/23/2020 12:00:00 AM EST 1.0 {tablet} active Oxybutynin Chloride ER 1 0 MG eCW1 ([facility]) 24 HR Oxybutynin chloride 10 MG Extended Release Oral Tablet Oxybutynin Chloride ER 10 MG Oxybutynin Chloride ER 10 MG 10/23/2020 12:00:00 AM EST 1.0 {tablet} active Oxybutynin Chloride ER 1 0 MG eCW1 ([facility]) 24 HR Oxybutynin chloride 10 MG Extended Release Oral Tablet Oxybutynin Chloride ER 10 MG Oxybutynin Chloride ER 10 MG 10/23/2020 12:00:00 AM EST 1.0 {tablet} active Oxybutynin Chloride ER 1 0 MG eCW1 ([facility]) 24 HR Oxybutynin chloride 10 MG Extended Release Oral Tablet Oxybutynin Chloride ER 10 MG Oxybutynin Chloride ER 10 MG 10/23/2020 12:00:00 AM EST 1.0 {tablet} active Oxybutynin Chloride ER 1 0 MG eCW1 ([facility]) 24 HR Oxybutynin chloride 10 MG Extended Release Oral Tablet Oxybutynin Chloride ER 10 MG Oxybutynin Chloride ER 10 MG 10/23/2020 12:00:00 AM EST 1.0 {tablet} active Oxybutynin Chloride ER 1 0 MG eCW1 ([facility]) 24 HR Oxybutynin chloride 10 MG Extended Release Oral Tablet Oxybutynin Chloride ER 10 MG Oxybutynin Chloride ER 10 MG 10/23/2020 12:00:00 AM EST 1.0 {tablet} active Oxybutynin Chloride ER 1 0 MG eCW1 ([facility]) 24 HR Oxybutynin chloride 10 MG Extended Release Oral Tablet Oxybutynin Chloride ER 10 MG Oxybutynin Chloride ER 10 MG 10/23/2020 12:00:00 AM EST 1.0 {tablet} active Oxybutynin Chloride ER 1 0 MG eCW1 ([facility]) 24 HR Oxybutynin chloride 10 MG Extended Release Oral Tablet Oxybutynin Chloride ER 10 MG Oxybutynin Chloride ER 10 MG 10/23/2020 12:00:00 AM EST 1.0 {tablet} active Oxybutynin Chloride ER 1 0 MG eCW1 ([facility]) 24 HR Oxybutynin chloride 10 MG Extended Release Oral Tablet Oxybutynin Chloride ER 10 MG Oxybutynin Chloride ER 10 MG 10/23/2020 12:00:00 AM EST 1.0 {tablet} active Oxybutynin Chloride ER 1 0 MG eCW1 ([facility]) 24 HR Oxybutynin chloride 10 MG Extended Release Oral Tablet Oxybutynin Chloride ER 10 MG Oxybutynin Chloride ER 10 MG 10/23/2020 12:00:00 AM EST 1.0 {tablet} active Oxybutynin Chloride ER 1 0 MG eCW1 ([facility]) 24 HR Oxybutynin chloride 10 MG Extended Release Oral Tablet Oxybutynin Chloride ER 10 MG Oxybutynin Chloride ER 10 MG 10/23/2020 12:00:00 AM EST 1.0 {tablet} active Oxybutynin Chloride ER 1 0 MG eCW1 ([facility]) Omeprazole 40 MG Delayed Release Oral Capsule Omeprazole 09/26/2020 12:00:00 AM EDT completed MEDENT ([facility] ) Divalproex Sodium 500 MG Delayed Release Oral Tablet divalproex (DEPAKOTE) 500 MG EC tablet divalproex (DEPAKOTE) 500 MG EC tablet 500 mg Oral aborted Take 500 mg by mouth 2 (two) times a day [facility] Haloperidol 0.5 MG Oral Tablet haloperidol (HALDOL) 0. 5 MG tablet haloperidol (HALDOL) 0.5 MG tablet 1 mg Oral aborted T luther 1 mg by mouth daily [facility] Insurance Providers Payer name Policy type / Coverage type Policy ID Covered republican ID Covered republican's relationship to torrez Policy Torrez Plan Information [facility] Commercial [id number] Self R [id number] [facility] [id number] Self [facility] [id number] Self R [id number] [facility] [id number] Self R [id number] [facility] Commercial [id number] Self R [id number] [facility] Commercial [id number] Self R [id number] /BS Hny-Option A Medigap Part B [id number] Self Z [id number] BC/BS Hny-Option A Medigap Part B [id number] Self BC/BS Hny-Option A Medigap Part B [id number] Self Z [id number] BC/BS Hny-Option A Medigap Part B [id number] Self Z [id number] BC/BS Hny-Option A Medigap Part B [id number] Self Z [id number] BC/BS Hny-Option A Medigap Part B [id number] Self Z [id number] BCBS Excell[employer] U/W Medigap Part B [id number] Family Dependent Y [id number] BCBS [employer] Ppo U/W Medigap Part B [id number] Family Dependent Y [id number] BCBS [employer] U/W Medigap Part B [id number] Family Dependent Y [id number] BCBS [employer] U/W Medigap Part B [id number] Family Dependent Y [id number] BC/BS [place] Medigap Part B [id number] Family Depend ent BCBS [employer] Ppo U/W Medigap Part B [id number] Family Dependent Y [id number] BCBS [employer] Ppo U/W Medigap Part B [id number] Family Depend ent BS [place] Medigap Part B [id number] Family Dependent V [id number] BS [place] Medigap Part B [id number] Family Dependent 302/802 BS [place] Medigap Part B [id number] Family Dependent V [id number] BS [place] Medigap Part B [id number] Family Dependent V [id number] BS [place] Medigap Part B [id number] Family Dependent [id number] BS [place] Medigap Part B [id number] Family Dependent V [id number] BC/BS [place] Commercial [id number] Family Dependent BCBS [employer] Ppo U/W Commercial [id number] Family Dependent EXCELLUS BCBS [id number] Spo VYA EXCELLUS BCBS [id number] Spo VYA EXCELLUS H [id number] Spouse [id number] MEDICARE A [id number] Self [id number] [id number] MEDICARE [id number] Sugey [id number] T35 [facility] U [id number] Spouse [id number] [facility] [id number] SP 1 [id number] UNHC [employer] CHOICE PLUS [id number] SP [id number] UNHC OX[employer] CHOICE PLUS [id number] SP [id number] UNHC OX[place]ORD CHOICE PLUS [id number] SP [id number] [facility] [id number] Spo [id number] [place] [employer] Commercial [id number] Self [id number] [facility] [id number] Self [id number] UNHC OXFORD CHOICE PLUS [id number] SP [id number] COMMERCIAL GENERIC [id number] Sugey [id number] COMMERCIAL GENERIC [id number] Sugey [id number] [facility] [id number] Sugey [id number] 2 [facility] [id number] xxxxxxxxxx [id number] [facility] [id number] Sugey [id number] 2 INSURANCE COVID-19 [id number] [id number] INSURANCE COVID-19 COVID Sugey C OVID ANSI-Commercial [id number] ANSI-Medicare Part B [id number] [facility] Commercial [id number] Family Dependent [id number] [facility] Part B [id number] Family Dependent [id number] ANSI-Medicare Part B [id number] ANSI-Commercial [id number] [facility] Commercial [id number] Family Dependent [id number] [facility] [id number] Family Dependent [id number] [facility]-Commercial [facility] Part B [id number] Family Dependent 1 [id number] [facility] [id number] Family Dependent [id number] [facility] Commercial [id number] Self [id number] [facility] Part B [id number] Family Dependent [id number] [facility] [id number] Family Dependent [id number] ANSI-Medicare Part B [id number] ANSI-Commercial [id number] ANSI-Commercial [id number] ANSI-Medicare Part B [id number] [facility] [id number] Family Dependent [id number] [facility] (pr) Commercial [id number] Self [id number] BS Of [facility] Part B [id number] Family Dependent [id number] [facility] Commercial [id number] Family Dependent [id number] [facility] CHOICE PLUS [id number] WI2 [id number] BS Of [facility] Part B [id number] Family Dependent [id number] ANSI-Commercial [id number] Medicare [employer] Part B [id number] Self ANSI-Medicare Part B [id number] [facility] (pr) Commercial [id number] Self [employer] O [id number] S [id number] [place] [employer] [id number] SP [id number] c-Commercial Plan Commercial [id number] Family Dependent [place] [employer] PL[employer] [id number] SP [id number] [place] [employer] [id number] SP [id number] SELF PAY ONLY BC BS [facility] [id number] WI2 [id number] BS Of [place] Commercial [id number] Family Dependent [place] 306/806 [id number] WI2 [id number] [place] BCBS B [id number] P VYA [id number] MEDICARE [id number] SP [id number] A [place] CHOICE PLUS [id number] SP [id number] [place] PPO 302/307 [id number] WI2 [id number] MEDICARE [id number] SP [id number] [facility] [place] CHOICE PLUS [id number] SP [id number] Problems, Conditions, and Diagnoses Code Display Name Description Problem Type Effective Dates Data Source(s) I73.9 Peripheral vascular disease, unspecified Peripheral vascular disease, unspecified Diagnosis 03/19/2021 09:58:00 AM EDT [facility] G47.33 Obstructive sleep apnea (adult) (pediatr ic) Obstructive sleep apnea (adult) (pediatr Diagnosis 03/14/2021 10:27:53 AM EDT [facility] E03.9 Hypothyroidism, unspecified Hypothyroidism, unspecifie d Diagnosis 03/14/2021 10:27:53 AM EDT [facility] T75.3XXS Motion sickness, sequela Motion sickness, sequela Diag nosis 03/14/2021 10:27:53 AM EDT [facility] E66.01 Morbid (severe) obesity due to excess ca lories Morbid (severe) obesity due to excess ca Diagnosis 03/14/2021 10:27:53 AM EDT [facility] 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 Nonspecific i ntraventricular block Diagnosis 03/14/2021 10:27:53 AM EDT [facility] 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[place] ar teries of extremities with intermittent claudication, right leg Atherosclerosis of [place] arteries of ex Diagnosis 03/14/2021 10:27:53 AM EDT [facility] U07.1 COVID-19 COVID-19 Diagnosis 03/14/2021 09:43:37 AM ED T [facility] L40.9 [id number] Psoriasis, unspecified Problem 07/09/2021 12 :00:00 AM EDT eCW1 ([facility]) F52.4 Premature ejaculation Premature ejaculation Problem 06/04/2021 12:00:00 AM EDT eCW1 ([facility]) Z20.2 Exposure to sexually transmissible disorder STD exposu re Problem 06/04/2021 12:00:00 AM EDT eCW1 ([facility]) G47.30 Sleep apnea Sleep apnea [id number] 03/14/2021 12:00:00 AM EDT [facility] E03.9 Hypothyroidism Hypothyroidism [id number] 03/14/2021 12:00: 00 AM EDT [facility] T75.3XXA Motion sickness Motion sickness [id number] 03/14/2021 12:0 0:00 AM EDT [facility] E66.01 Morbid obesity Morbid obesity [id number] 03/14/2021 12:00: 00 AM EDT [facility] I45.4 BBB (bundle branch block) BBB (bundle branch block) [id number] 03/14/2021 12:00:00 AM EDT [facility] Surgeries/Procedures Procedure Description Date Indications Data Source(s) OFFICE OUTPATIENT VISIT 25 MINUTES 09/11/2021 12:00:00 AM EDT [facility] ([facility] OFFICE OUTPATIENT VISIT 25 MINUTES 08/21/2021 12:00:00 AM EDT [facility] ([facility] ) Med: Derm 1% Lidocaine with Epinephrine Injection Intr adermally to marked areas 07/23/2021 12:00:00 AM EDT eCW1 ([facility]) OFFICE OUTPATIENT VISIT 15 MINUTES 07/09/2021 12:00:00 AM EDT [facility] ([facility] ECG ROUTINE ECG W/LEAST 12 LDS W/I&R 07/09/2021 12:00: 00 AM EDT [facility] ([facility]) OFFICE OUTPATIENT VISIT 25 MINUTES 07/09/2021 12:00:00 AM EDT [facility] ([facility]) OFFICE OUTPATIENT VISIT 25 MINUTES 06/11/2021 12:00:00 AM EDT [facility] ([facility] OFFICE OUTPATIENT VISIT 15 MINUTES 04/29/2021 12:00:00 AM EDT [facility] ([facility] OFFICE OUTPATIENT VISIT 15 MINUTES 04/04/2021 12:00:00 AM EDT [facility] ([facility] Bypass Graft Other Than Vein Femoral-Femoral 12:00:00 AM EDT [facility] ([facility]) Femoral-Popliteal Angioplasty 03/19/2021 12:00:00 AM E DT [facility] ([facility]) PROTHROMBIN TIME <td>PROTIME-INR</td><td>Rout ine</td><td>03/14/2021 12:00 PM EDT</td><td> Atherosclerosis of [place] arteries of extremities with intermittent claudication, right leg</td><td> </td> 03/14/2021 04:00:00 PM EDT Atherosclerosis of [place] arteries of ex tremities with intermittent claudication, right leg [facility] Atherosclerosis of [place] arteries of ex tremities with intermittent claudication, right leg BLOOD COUNT COMPLETE AUTOMATED <td>CBC</td><td>Routine </td><td>03/14/2021 12:00 PM EDT</td><td> Atherosclerosis of [place] arteries of extremities with intermittent claudication, right leg</td><td> </td> 03/14/2021 04:00:00 PM EDT Atherosclerosis of [place] arteries of ex tremities with intermittent claudication, right leg [facility] Atherosclerosis of [place] arteries of ex tremities with intermittent claudication, right leg BLOOD TYPING ABO <td>TYPE AND SCREEN</td><td> Routine</td><td>03/14/2021 12:00 PM EDT</td><td> Atherosclerosis of [place] arteries of extremities with intermittent claudication, right leg</td><td> </td> 03/14/2021 04:00:00 PM EDT Atherosclerosis of [place] arteries of ex tremities with intermittent claudication, right leg [facility] Atherosclerosis of [place] arteries of ex tremities with intermittent claudication, right leg COMPREHENSIVE METABOLIC PANEL <td>COMPREHENSIVE METABO LIC PANEL</td><td>Routine</td><td>03/14/2021 12:00 PM EDT</td><td> Atherosclerosis of [place] arteries of extremities with intermittent claudication, right leg</td><td> </td> 03/14/2021 04:00:00 PM EDT Atherosclerosis of [place] arteries of ex tremities with intermittent claudication, right leg [facility] Atherosclerosis of [place] arteries of ex tremities with intermittent claudication, right leg OFFICE OUTPATIENT VISIT 25 MINUTES 03/06/2021 12:00:00 AM EDT [facility] ([facility] MYOCARDIAL SPECT MULTIPLE STUDIES 02/17/2021 12:00:00 AM EDT [facility] ([facility]) CV STRS TST XERS&/OR RX CONT ECG PHYS SI&R 02/17/2021 12:00:00 AM EDT [facility] ([facility]) ECG ROUTINE ECG W/LEAST 12 LDS W/I&R 01/09/2021 12:00: 00 AM EST [facility] ([facility]) OFFICE OUTPATIENT VISIT 25 MINUTES 01/09/2021 12:00:00 AM EST [facility] ([facility]) uro PVR (Post Voiding Residual) Bladder Scan 12:00:00 AM EST eCW1 ([facility]) OFFICE OUTPATIENT VISIT 25 MINUTES 12/03/2020 12:00:00 AM EST [facility] ([facility] RADEX SPINE CRV COMPL W/OBLQ&FLEX&/XTN STDS 11/12/2020 12:00:00 AM EST [facility] ([facility] ) X-Ray Spine Lumbosacral Complete Inc Bending Views Min Of 6 11/12/2020 12:00:00 AM EST [facility] ([facility] ) DUP-SCAN LXTR ART/ARTL BPGS UNI/LMTD STUDY 10/22/2020 12:00:00 AM EST [facility] ([facility]) DUP-SCAN LXTR ART/ARTL BPGS UNI/LMTD STUDY 10/22/2020 12:00:00 AM EST [facility] ([facility]) Results ID Date Data Source [id number] 08/21/2021 03:19:00 PM EDT [facility] ([facility]) Name Value Range Interpretation Code Description Data Laura rce(s) Supporting Document(s) Histoplasmosis Antibody Laboratory test result [facility] ([facility]) Blastomyces Antibody Level Laboratory test result [facility] ([facility]) Coccidioides sp Ab [Units/volume] in Serum Laboratory test result [facility] ([facility]) Cryptococcus sp Ag [Presence] in Serum by Immunoassay Laboratory test result [facility] ([facility]) ID Date Data Source [id number] 08/21/2021 03:19:00 PM EDT [facility] ([facility]) Name Value Range Interpretation Code Description Data Laura rce(s) Supporting Document(s) Prothrombin Time 13.3 s 12.7-14.5 Normal (applies to non-numeric results) [facility] ([facility]) Inr 0.97 Normal (applies to non-numeric resul ts) [facility] ([facility]) THERAPUTIC HUMAN INR VALUES INDICATIONS NORMAL RANGES PROPHYLAXIS/TREATMENT OF: VENOUS THROMBOSIS 2.0-3.0 PULMONARY EMBOLISM 2.0-3.0 PREVENTION OF SYSTEMIC EMBOLISM FROM: TISSUE HEART VALVES 2.0-3.0 ACUTE MYOCARDIAL INFARCTION 2.0-3.0 VALVULAR HEART DISEASE 2.0-3.0 ATRIAL FIBRILLATION 2.0-3.0 MECHANICAL VALVES(HIGH RISK) 2.5-3.5 RECURRENT MYOCARDIAL INFARCTION 2.5-3.5 Partial Thromboplastin Time 29.9 s 25.9-37.0 Norm al (applies to non-numeric results) [facility] ([facility]) ID Date Data Source [id number] 08/21/2021 03:19:00 PM EDT [facility] ([facility]) Name Value Range Interpretation Code Description Data Laura rce(s) Supporting Document(s) Platelets [#/volume] in Blood by Automated count 292 10 150-450 Normal (applies to non-numeric results) [facility] ([facility]) aPTT in Platelet poor plasma by Coagulation assay Laboratory test res ult [facility]) ID Date Data Source [id number] 07/09/2021 01:06:00 PM EDT MED[facility] ([facility] Name Value Range Interpretation Code Description Data Laura rce(s) Supporting Document(s) White Blood Count 7.6 10 4.0-10.0 Normal (applies to non-numeri c results) [facility] ([facility] Red Blood Count 4.51 10 4.30-6.10 Normal (applies to non-numeric results) [facility] ([facility] Hemoglobin 12.2 g/dL 13.5-17.5 Below low normal [facility] ( [facility] Hematocrit 39.7 % 42.0-52.0 Below low [facility] Mean Corpuscular Hemoglobin 27.1 pg 27.0-33.0 Norm al (applies to non-numeric results) [facility] ([facility] ) Mean Corpuscular Volume 88.0 fl 80.0-96.0 Normal ( applies to non-numeric results) [facility] ([facility] ) Mean Corpuscular HGB [...] [facility] ID Date Data Source [id number] 07/09/2021 01:06:00 PM EDT [facility] ([facility] Name Value Range Interpretation Code Description Data Laura rce(s) Supporting Document(s) Magnesium [Mass/volume] in Serum or Plasma 2.2 mg/dL 1.8-2 .4 Normal (applies to non-numeric results) [facility] ([facility]) ID Date Data Source [id number] 07/09/2021 01:06:00 PM EDT MED[facility] ([facility]amil y [...] Little GFR Left</content>
<content>ESRD GFR <15 on CODING ASSISTANT</content>
<content></content> Sodium Level 139 meq/L 136-145 Normal (applies to non-numeric res ults) [facility] ([facility] Chloride Level 101 meq/L 98-107 Normal (applies to non-numeric r esults) [facility] ([facility] Potassium Serum 4.0 meq/L 3.5-5.1 Normal (applies to non-numeric results) [facility] Carbon Dioxide Level 29 meq/L 21-32 Normal (applies to non-num tin results) [facility] ([facility] Calcium Level 9.6 mg/dL 8.8-10.2 Normal (applies to non-numeric re sults) [facility] ([facility] Anion Gap 9 meq/L 8-16 Normal (applies to non-numeric resul ts) [facility] ([facility] ID Date Data Source [id number] 07/09/2021 01:06:00 PM EDT [facility] ([facility]) Name Value Range Interpretation Code Description Data Laura rce(s) Supporting Document(s) White Blood Count 7.6 10 4.0-10.0 [facility] ([facility]) Red Blood Count 4.51 10 4.30-6.10 [facility] ([facility]) Hemoglobin 12.2 g/dL 13.5-17.5 [facility] ([facility]) Hematocrit 39.7 % 42.0-52.0 [facility] ([facility]) Mean Corpuscular Volume 88.0 fl 80.0-96.0 M [facility]) Mean Corpuscular Hemoglobin 27.1 pg 27.0-33.0 [facility] ([facility]) Red Cell Distribution Width 15.7 % 11.5-14.5 [facility] ([facility]) Mean Corpuscular HGB Conc 30.7 g/dL 32.0-36.5 [facility] ([facility]) Platelet Count, Automated 311 10 150-450 [facility] ([facility]) Nucleated Red Blood Cell % 0.0 % 0-0 MED E[facility] ([facility]) ID Date Data Source [id number] 07/09/2021 01:06:00 PM EDT [facility] Name Value Range Interpretation Code Description Data Laura rce(s) Supporting Document(s) Magnesium [Mass/volume] in Serum or Plasma 2.2 mg/dL 1.8-2.4 [facility] ([facility]) ID Date Data Source [id number] 07/09/2021 01:06:00 PM EDT [facility] Name Value Range Interpretation Code Description Data Laura rce(s) Supporting Document(s) Glucose, Fasting 90 mg/dL 70-100 [facility] ([facility]) Blood Urea Nitrogen 22 mg/dL 7-18 [facility] ([facility]) Creatinine For GFR 1.19 mg/dL 0.70-1.30 [facility] ([facility]) Glomerular Filtration Rate Laboratory test result [facility] ([facility]) <content>Units are mL/min/1.73 m2</content>
<content></content>
<content>Chronic Kidney Disease Staging per NKF:</content>
<content></content>
<content>Stage I & II GFR >=60 Normal to Mildly Decreased</content>
<content>Stage III GFR 30- 59 Moderately Decreased</content>
<content>Stage IV GFR 15-29 Severely Decreased</content>
<content>Stage V GFR <15 Very Little GFR Left</content>
<content>ESRD GFR <15 on CODING ASSISTANT</content>
<content></content> Sodium Level 139 meq/L 136-145 [facility] ([facility]) Chloride Level 101 meq/L 98-107 [facility] ([facility]iol [facility]) Potassium Serum 4.0 meq/L 3.5-5.1 [facility] ([facility]) Anion Gap 9 meq/L 8-16 [facility] ([facility]) Carbon Dioxide Level 29 meq/L 21-32 [facility] ([facility]) Calcium Level 9.6 mg/dL 8.8-10.2 [facility] ([facility]) ID Date Data Source [id number] 07/09/2021 10:36:00 AM EDT MED[facility] ([facility] Name Value Range Interpretation Code Description Data Laura rce(s) Supporting Document(s) Valproate [Mass/volume] in Serum or Plasma 75.4 UG/ML 50.0- 100.0 Normal (applies to non-numeric results) [facility] ([facility] ID Date Data Source [id number] 06/04/2021 03:42:00 PM EDT MED[facility] ([facility] Name Value Range Interpretation Code Description Data Laura rce(s) Supporting Document(s) HIV 1+2 Ab [Presence] in Serum Laboratory test result Normal (applies to non- numeric results) [facility] ([facility] ) <content>This assay was [...] is</content>
<content>99.6-99.8%.</content>
<content></content> ID Date Data Source [id number] 06/04/2021 03:04:00 PM EDT [facility] ([facility] Name Value Range Interpretation Code Description Data Laura rce(s) Supporting Document(s) Chlamydia Dna Amplification Laboratory test result Normal (applies to non- numeric results) [facility] ([facility] ) A negative test result does not exclude the possibility of infection because test results may be affected by improper specimen collection, technical error, specimen mix-up, concurrent antibiotic therapy, or the number of organisms in the specimen which may be below the sensitivity of the test. GC Dna Amplification Laboratory test result Norm al (applies to non-numeric results) [facility] ([facility] ) A negative test result does not exclude the possibility of infection because test results may be affected by improper specimen collection, technical error, specimen mix-up, concurrent antibiotic therapy, or the number of organisms in the specimen which may be below the sensitivity of the test. ID Date Data Source [id number] 04/29/2021 10:48:00 AM EDT [facility] ([facility] Name Value Range Interpretation Code Description Data Laura rce(s) Supporting Document(s) Glucose [Mass/volume] in Serum or Plasma 108 mg/dL 65-99 Above high normal [facility] ([facility] eGFR If NonAfricn Am 86 mL/min/1.73 [facility] ([facility] BUN 12 mg/dL 8-27 [facility] ([facility] Creatinine [Mass/volume] in Serum or Plasma 0.93 mg/dL 0.76-1.27 [facility] ([facility] Urea nitrogen/Creatinine [Mass Ratio] in Serum or Plasma 13 1 0-24 [facility] ([facility] eGFR If Africn Am 100 mL/min/1.73 ME DENT ([facility] currently reports eGFR in comp liance with the current recommendations of the National Kidney Foundation. [facility] will update reporting as new guidelines are published from the NKF-ASN Task force. Sodium [Moles/volume] in Serum or Plasma 140 mmol/L 134-144 [facility] ([facility] Potassium [Moles/volume] in Serum or Plasma 4.3 mmol/L 3.5-5.2 [facility] ([facility] Calcium [Mass/volume] in Serum or Plasma 9.6 mg/dL 8.6-10.2 [facility] ([facility] Carbon dioxide, total [Moles/volume] in Serum or Plasma 26 mmol/L 20 -29 [facility] ([facility] Chloride [Moles/volume] in Serum or Plasma 101 mmol/L 96-106 [facility] ([facility] ID Date Data Source [id number] 04/29/2021 10:48:00 AM EDT [facility] ([facility] Name Value Range Interpretation Code Description Data Laura rce(s) Supporting Document(s) Erythrocytes [#/volume] in Blood by Automated count 3.84 x10E6/u L 4.14-5.80 Below low normal [facility] ([facility] ) Leukocytes [#/volume] in Blood by Automated count 6.3 x10E3/uL 3.4-10 .8 [facility] ([facility] Hematocrit [Volume Fraction] of Blood by Automated count 34.5 % 37.5-51.0 Below low normal [facility] ([facility] ) Erythrocyte mean corpuscular volume [Entitic volume] by Auto mated count 90 fL 79-97 [facility] ([facility] Hemoglobin [Mass/volume] in Blood 11.4 g/dL 13.0-17.7 Below low nor mal [facility] ([facility] Erythrocyte mean corpuscular hemoglobin concentration [Mass/volume] by Automated count 33.0 g/dL 31.5-35.7 [facility] ([facility] Erythrocyte mean corpuscular hemoglobin [Entitic mass] by Automated count 29.7 pg 26.6-33.0 [facility] ([facility] Erythrocyte distribution width [Ratio] by Automated count 13.8 % 11.6-15.4 [facility] ([facility] Neutrophils 51 % [facility] Platelets [#/volume] in Blood by Automated count 273 x10E3/uL 150-450 [facility] ([facility] Eosinophils/100 leukocytes in Blood by Automated count 5 % [facility] ([facility] Lymphs 29 % [facility] ([facility] Monocytes/100 leukocytes in Blood [...] Automated count Laboratory test result [facility] ([facility] Immature granulocytes [#/volume] in Blood by Automated count 0.0 x10E3/uL 0.0-0.1 [facility] Morphology [Interpretation] in Blood Narrative Laboratory test result [facility] ([facility] ID Date Data Source [id number] 04/29/2021 10:42:00 AM EDT [facility] ([facility] Name Value Range Interpretation Code Description Data Laura rce(s) Supporting Document(s) Bacteria identified in Unspecified specimen by Culture Laborator y test result Abnormal (applies to non-numeric results) [facility] ([facility] SRC:RT UPPER LEG/GROIN Bacteria identified in Unspecified specimen by Aerobe culture Laboratory test result Abnormal (applies to non-numeric results) [facility] ([facility] SRC:RT UPPER LEG/GROIN Bacteria identified in Unspecified specimen by Culture Laborator y test result Abnormal (applies to non-numeric results) [facility] ([facility] SRC:RT UPPER LEG/GROIN Other Antibiotic [Susceptibility] Laboratory test result [facility] ([facility] SRC:RT UPPER LEG/GROIN ID Date Data Source [id number] 04/29/2021 10:42:00 AM EDT [facility] ([facility] Name Value Range Interpretation Code Description Data Laura rce(s) Supporting Document(s) Bacteria identified in Unspecified specimen by Aerobe culture Laboratory test result [facility] ([facility] ID Date Data Source [id number] 04/04/2021 03:27:00 PM EDT [facility] ([facility] Name Value Range Interpretation Code Description Data Laura rce(s) Supporting Document(s) Bacteria identified in Unspecified specimen by Aerobe culture Laboratory test result Abnormal (applies to non-numeric results) [facility] ([facility] SRC:RT UPPER LEG CX Bacteria identified in Unspecified specimen by Culture Laborator y test result Abnormal (applies to non-numeric results) [facility] ([facility] SRC:RT UPPER LEG CX Other Antibiotic [Susceptibility] Laboratory test result [facility] ([facility] SRC:RT UPPER LEG CX Bacteria identified in Unspecified specimen by Culture Laborator y test result Abnormal (applies to non-numeric results) [facility] ([facility] SRC:RT UPPER LEG CX ID Date Data Source [id number] 04/04/2021 03:27:00 PM EDT [facility] ([facility] Name Value Range Interpretation Code Description Data Laura rce(s) Supporting Document(s) Bacteria identified in Unspecified specimen by Aerobe culture Laboratory test result [facility] ([facility] ID Date Data Source [id number] 03/30/2021 04:40:00 PM EDT [facility] ([facility] Name Value Range Interpretation Code Description Data [facility] Supporting Document(s) Blood Culture Laboratory test result [facility] ([facility] No growth after 72 hours . All specimens observed for 5 days. Results final at that time. No growth after 48 hours . All specimens observed for 5 days. Results final at that time. No growth after 24 hours . All specimens observed for 5 days. Results final at that time. NO GROWTH AFTER 5 DAYS ID Date Data Source [id number] 03/30/2021 04:40:00 PM EDT [facility] ([facility] Name Value Range Interpretation Code Description Data [facility] Supporting Document(s) Gram Stain Laboratory test result Normal (applies to non-n umeric results) [facility] ([facility] NO CELLS SEEN FEW GRAM POSITIVE COCCI IN PAIRS Wound Culture Laboratory test result Normal (applies t o non-numeric results) [facility] ([facility] <content>FULL REPORT IN LAB [...] <=1 S</content>
<content></content> ID Date Data Source [id number] 03/30/2021 03:09:00 PM EDT [facility] ([facility] Name Value Range Interpretation Code Description Data Laura rce(s) Supporting Document(s) Erythrocyte sedimentation rate by Westergren method 33 mm/hr 0-20 Above high normal [facility] ([facility] ) ID Date Data Source [id number] 03/30/2021 03:09:00 PM EDT [facility] ([facility] Name Value Range Interpretation Code Description Data Laura rce(s) Supporting Document(s) White Blood Count 8.1 10 4.0-10.0 Normal (applies to non-numeri c results) [facility] ([facility] Red Blood Count 3.65 10 4.30-6.10 Below low normal MED ENT ([facility] Mean Corpuscular Volume 94.8 fl 80.0-96.0 Normal ( applies to non-numeric results) [facility] ([facility] ) Hemoglobin 11.4 g/dL [...] 150-450 Normal (applies to non-numeric results) [facility] ([facility] ) Red Cell Distribution Width 14.3 % 11.5-14.5 Norm al (applies to non-numeric results) [facility] ([facility] Lymph % 18.7 % 24.0-44.0 Below low normal [facility] ( [facility] Lawrence % 12.3 % 2.0-8.0 Above high normal [facility] ([facility] Neutrophils % 65.3 % [...] re sults) [facility] ([facility] Lawrence # 1.0 10 0.0-0.8 Above high normal [facility] ([facility] Eos # 0.2 10 0.0-0.5 Normal (applies to non-numeric resul ts) [facility] ([facility] Baso # 0.0 10 0.0-0.2 Normal (applies to non-numeric resul ts) [facility] ([facility] ID Date Data Source [id number] 03/30/2021 03:09:00 PM EDT [facility] ([facility] Name Value Range Interpretation Code Description Data Laura rce(s) Supporting Document(s) C reactive protein [Mass/volume] in Serum or Plasma by High sensitivity method 1.06 mg/dL 0.00-0.30 Above high normal [facility] ([facility] ID Date Data Source [id number] 03/30/2021 03:09:00 PM EDT [facility] ([facility] Name Value Range Interpretation Code Description Data Laura rce(s) Supporting Document(s) Glucose, Fasting 112 mg/dL 70-100 Above high normal M EDENT ([facility] Creatinine For GFR 1.01 mg/dL 0.70-1.30 Normal (applies to non -numeric results) [facility] ([facility] Blood Urea Nitrogen 12 mg/dL 7-18 Normal (applies to non-nume ganga results) [facility] ([facility] Glomerular Filtration Rate Laboratory test result Normal (applies to non- numeric results) [facility] <content>Units are mL/min/1.73 m2</content>
<content></content>
<content>Chronic Kidney Disease Staging per NKF:</content>
<content></content>
<content>Stage I & II GFR >=60 Normal to Mildly Decreased</content>
<content>Stage III GFR 30- 59 Moderately Decreased</content>
<content>Stage IV GFR 15-29 Severely Decreased</content>
<content>Stage V GFR <15 Very Little GFR Left</content>
<content>ESRD GFR <15 on CODING ASSISTANT</content>
<content></content> Sodium Level 137 meq/L 136-145 Normal (applies to non-numeric res ults) [facility] ([facility] Potassium Serum 3.9 meq/L 3.5-5.1 Normal (applies to non-numeric results) [facility] ([facility] Chloride Level 104 meq/L 98-107 Normal (applies to non-numeric r esults) [facility] ([facility] Carbon Dioxide Level 28 meq/L 21-32 Normal (applies to non-num tin results) [facility] ([facility] Calcium Level 8.1 mg/dL 8.8-10.2 Below low normal MEDEN T ([facility] Anion Gap 5 meq/L 8-16 Below low normal [facility] ( [facility] Alt/SGPT 60 U/L 12-78 Normal (applies to non-numeric resul ts) [facility] ([facility] Ast/Sgot 38 U/L 7-37 Above high normal [facility] ([facility] Bilirubin,Total 0.4 mg/dL 0.2-1.0 Normal (applies to non-numeric results) [facility] ([facility] Alkaline Phosphatase 64 U/L 45-117 Normal (applies to non-num tin results) [facility] ([facility] Total Protein 6.7 GM/DL 6.4-8.2 Normal (applies to non-numeric re sults) [facility] ([facility] Albumin/Globulin Ratio 0.9 Normal (applies to non-n umeric results) [facility] ([facility] Albumin 3.1 GM/DL 3.2-5.2 Below low normal [facility] ( [facility] ID Date Data Source [id number] 03/30/2021 03:09:00 PM EDT [facility] ([facility] Name Value Range Interpretation Code Description Data Laura rce(s) Supporting Document(s) Prothrombin Time 13.5 s 12.5-14.3 Normal (applies to non-numeric results) [facility] ([facility] Inr 1.01 Normal (applies to non-numeric resul ts) [facility] ([facility] THERAPUTIC HUMAN INR VALUES INDICATIONS NORMAL RANGES PROPHYLAXIS/TREATMENT OF: VENOUS THROMBOSIS 2.0-3.0 PULMONARY EMBOLISM 2.0-3.0 PREVENTION OF SYSTEMIC EMBOLISM FROM: TISSUE HEART VALVES 2.0-3.0 ACUTE MYOCARDIAL INFARCTION 2.0-3.0 VALVULAR HEART DISEASE 2.0-3.0 ATRIAL FIBRILLATION 2.0-3.0 MECHANICAL VALVES(HIGH RISK) 2.5-3.5 RECURRENT MYOCARDIAL INFARCTION 2.5-3.5 ID Date Data Source [id number] 03/30/2021 03:08:00 PM EDT [facility] ([facility] Name Value Range Interpretation Code Description Data Laura rce(s) Supporting Document(s) Blood Culture Laboratory test result [facility] ([facility] No growth after 72 hours . All specimens observed for 5 days. Results final at that time. No growth after 48 hours . All specimens observed for 5 days. Results final at that time. No growth after 24 hours . All specimens observed for 5 days. Results final at that time. NO GROWTH AFTER 5 DAYS ID Date Data Source [id number] 03/30/2021 03:08:00 PM EDT [facility] ([facility] Name Value Range Interpretation Code Description Data Laura rce(s) Supporting Document(s) Lactate [Mass/volume] in Serum or Plasma 1.7 mmol/L 0.4-2.0 Normal (applies to non-numeric results) [facility] ([facility]) Y/N query for Sepsis Lactate Rule: Y ID Date Data Source [id number] 03/30/2021 09:23:00 AM EDT [facility] Name Value Range Interpretation Code Description Data Laura rce(s) Supporting Document(s) Albumin [Mass/volume] in Serum or Plasma 3.1 [facility] ([facility]) Alanine aminotransferase [Enzymatic activity/volume] in Serum or Pl asma 60 [facility] ([facility]) Calcium [Mass/volume] in Serum or Plasma 8.1 [facility] ([facility]) Carbon dioxide, total [Moles/volume] in Serum or Plasma 28 [facility] ([facility]) Chloride [Moles/volume] in Serum or Plasma 104 [facility] ([facility]) Alkaline phosphatase [Enzymatic activity/volume] in Serum or Plasma 6 4 [facility] ([facility]) Potassium [Moles/volume] in Serum or Plasma 3.9 [facility] ([facility]) Protein [Mass/volume] in Serum or Plasma 6.7 [facility] ([facility]) Sodium 137 [facility] ([facility]) Aspartate aminotransferase [Enzymatic activity/volume] in Serum or Plasma 38 [facility] ([facility]) Urea nitrogen [Mass/volume] in Serum or Plasma 12 [facility] ([facility]) Glucose 112 83-110 [facility] ([facility]) Creatinine For GFR 1.01 [facility] ([facility]) ID Date Data Source [id number] 03/30/2021 09:23:00 AM EDT [facility] ([facility]) Name Value Range Interpretation Code Description Data Laura rce(s) Supporting Document(s) White Blood Count 8.1 5.0-10.0 [facility] ([facility]) Red Blood Count 3.65 4.00-5.40 [facility] ([facility]) Hemoglobin 11.4 [facility] ([facility]) Platelets 261 172-450 [facility] ([facility]) Hematocrit 34.6 [facility] ([facility]) ID Date Data Source [id number] 03/25/2021 02:26:52 PM EDT [facility] Corporation[facility] NT INFORMATIONPatient MRN Name Date of Age Gend*PT [id number] Keith Emery 1955 65 years M IPPT Location Admission Date/Time Visit ID Attending [id number] 03/19/21 0958 --- --- EPI ID CSN Admitting Provider [id number] Nikunj Matos MD([id number]) [place] [address] OPERATIVE REPORT OPNAME: DARRIANKEITH#: [id number] #: [id number] ADMISSION DATE: 03/19/2021OB: 1955 SEX: M PT TYPE: I SURACCT #: [id number] CARE PHYSICIAN: KAUSHIK RIDDLETE OF OPERATION: 03/19/20 [...] dictate his part separately.ANESTHESIA:General endotracheal anesthesia.SURGEON:Nikunj Matos MD.TAR HEAT EXCHANGER CLEANER:TAMAR Salgado.DESCRIPTION OF PROCEDURE:Both groins were prepped and [...] patient tolerated theprocedure well.JOSEFA Nova/RYAN Job #: [id number] DOC #: [id number]: Name Value Range Interpretation Code Description Data Laura rce(s) Supporting Document(s) ID Date Data Source [id number] 03/25/2021 08:50:29 AM EDT [facility] CorporationPAT[facility] NT INFORMATIONPatient MRN Name Date of Age Gend*PT [id number] Keith Emery 1955 65 years M IPPT Location Admission Date/Time Visit ID Attending [id number] 03/19/21 0958 --- --- EPI ID CSN Admitting Provider [id number] Nikunj Matos MD([id number]) [place] [address] OPERATIVE REPORT OPNAME: KEITH EMERY#: [id number] #: [id number] ADMISSION DATE: 03/19/2021OB: 1955 SEX: M PT TYPE: I SURACCT #: [id number] CARE PHYSICIAN: KAUSHIK RIDDLETE OF OPERATION: 03/19/20 [...] This was treated by 7 x 60 duak-gkoipfvekgwrq-mnfxmys Shanta stent. While the superficial femoral artery [...] portionof the surgery.SONJA KHAN MDMAK/NTS Job #: [id number] DOC #: [id number] Name Value Range Interpretation Code Description Data Laura rce(s) Supporting Document(s) ID Date Data Source [id number] 03/21/2021 11:42:43 AM EDT [facility] CorporationPAT[facility] NT INFORMATIONPatient MRN Name Date of Age Gend*PT [id number] Keith Emery 1955 65 years M IPPT Location Admission Date/Time Visit ID Attending [id number] 03/19/21 0958 --- Nikunj Matos MD([id number]) EPI ID CSN Admitting Provider [id number] Nikunj Matos MD([id number]) Attestation signed by Nikunj Matos MD at 03/21/2021 11:42 AMI saw and evaluated the patient and reviewed note. I agree with the history,physical and medical decision makingSignature: RAMAN Novaate: March 21, 2021Time: 11:42 AM --Surgical Discharge SummaryKeith Estrella TaniaN: [id number] date: 03/19/2021dmitting Physician: RAMAN Novaischarge date and [...] mouth nightlyIndication for Admission: Atherosclerosis of the [place] arteries of extremitieswith intermittent claudication.Hospital Course & Complications: [facility] [...] Name Value Range Interpretation Code Description Data [facility] Supporting Document(s) ID Date Data Source [id number] 03/21/2021 07:25:10 AM EDT [facility] Name Value Range Interpretation Code Description Data [facility] Supporting Document(s) SODIUM 137 mmol/L (136-145) [facility] POTASSIUM 4.2 mmol/L (3.6-5.2) [facility] CHLORIDE 102 mmol/L (100-108) [facility] CO2 29 mmol/L (22-31) [facility] ANION GAP 6 mmol/L (7-16) L [facility] UREA NITROGEN 19 mg/dL (7-24) [facility] CREATININE 0.99 mg/dL (0.80-1.30) [facility] BUN/CREAT RATIO 19.2 RATIO (10.0-20.0) [facility] GLUCOSE 117 mg/dL (70-99) H [facility] CALCIUM 8.4 mg/dL (8.4-10.2) [facility] GFR >60 ml/min/1.73m2 (>59) [facility] GFR ( AMER) >60 ml/min/1.73m2 (>59) [facility] GFR INTERPRETATION [facility] --NORMAL KIDNEY FUNCTION OR MILD DISEASE - GFR >OR= 60CHRONIC KIDNEY DISEASE - GFR 15 - 59RENAL FAILURE - GFR <15 Est. GFR calculation based on the MDRDstudy equation, which assumes a steadystate for creatinine. Est. GFR should notbe used for medication dosing. ID Date Data Source [id number] 03/21/2021 07:01:00 AM EDT [facility] Name Value Range Interpretation Code Description Data Lauar rce(s) Supporting Document(s) WBC 12.3 10*3/uL (4.1-11.0) H [facility] RBC 3.76 10*6/uL (4.60-6.10) L [facility] HGB 11.8 g/dL (13.5-18.0) L [facility] HCT 34.7 % (41.0-53.0) L [facility] MCV 92.2 fL (80.0-95.0) [facility] MCH 31.5 pg (27.0-32.0) [facility] MCHC 34.2 g/dL (32.0-36.0) [facility] RDW 15.7 % (10.5-14.5) H [facility] PLT 205 10*3/uL (150-450) [facility] MPV 7.9 fL (7.1-10.7) [facility] ID Date Data Source [id number] 03/20/2021 08:43:09 AM EDT [facility] Name Value Range Interpretation Code Description Data Laura rce(s) Supporting Document(s) SODIUM 135 mmol/L (136-145) L [facility] POTASSIUM 4.3 mmol/L (3.6-5.2) [facility] CHLORIDE 98 mmol/L (100-108) L [facility] CO2 26 mmol/L (22-31) [facility] ANION GAP 11 mmol/L (7-16) [facility] UREA NITROGEN 20 mg/dL (7-24) [facility] CREATININE 1.25 mg/dL (0.80-1.30) [facility] BUN/CREAT RATIO 16.0 RATIO (10.0-20.0) [facility] GLUCOSE 180 mg/dL (70-99) H [facility] CALCIUM 8.5 mg/dL (8.4-10.2) [facility] GFR 58 ml/min/1.73m2 (>59) L [facility] GFR ( AMER) >60 ml/min/1.73m2 (>59) [facility] GFR INTERPRETATION [facility] --NORMAL KIDNEY FUNCTION OR MILD DISEASE - GFR >OR= 60CHRONIC KIDNEY DISEASE - GFR 15 - 59RENAL FAILURE - GFR <15 Est. GFR calculation based on the MDRDstudy equation, which assumes a steadystate for creatinine. Est. GFR should notbe used for medication dosing. ID Date Data Source [id number] 03/20/2021 08:36:26 AM EDT [facility] Name Value Range Interpretation Code Description Data Laura rce(s) Supporting Document(s) WBC 13.9 10*3/uL (4.1-11.0) H [facility] RBC 3.88 10*6/uL (4.60-6.10) L [facility] HGB 12.2 g/dL (13.5-18.0) L [facility] HCT 36.1 % (41.0-53.0) L [facility] MCV 93.1 fL (80.0-95.0) [facility] MCH 31.5 pg (27.0-32.0) [facility] MCHC 33.9 g/dL (32.0-36.0) [facility] RDW 15.3 % (10.5-14.5) H [facility] PLT 204 10*3/uL (150-450) [facility] MPV 8.2 fL (7.1-10.7) [facility] ID Date Data Source [id number] 03/19/2021 09:00:03 PM EDT [facility] Name Value Range Interpretation Code Description Data Laura rce(s) Supporting Document(s) HCT 37.5 % (41.0-53.0) L [facility] ID Date Data Source [id number] 03/19/2021 05:41:02 PM EDT [facility] Name Value Range Interpretation Code Description Data Laura rce(s) Supporting Document(s) XR FLUORO UP TO 1 HR [facility] ID Date Data Source [id number] 03/19/2021 02:43:56 PM EDT [facility] Name Value Range Interpretation Code Description Data Laura rce(s) Supporting Document(s) POC SOURCE [facility] CP BYPASS [facility] POC VENOUS PH 7.38 pH (7.33-7.43) [facility] POC VENOUS PCO2 43.0 MM HG (38.0-50.0) [facility] POC VENOUS PO2 67 MM HG (30-50) H [facility] POC VENOUS SO2 92 % (60-85) H [facility] POC VENOUS BASE EXCESS 0 mmol/L [facility] POC VENOUS HCO3 25.1 MMOL/L (23.0-27.0) [facility] POC VENOUS TOTAL CO2 26 MMOL/L (24-28) [facility] PERFOR[facility] BY [facility] CLINICAL STAFF POC HCT 37 % (41.0-53.0) L [facility] POC SODIUM 139 MMOL/L (136-145) [facility] POC POTASSIUM 4.2 MMOL/L (3.6-5.2) [facility] POC IONIZED CALCIUM 4.8 MG/DL (4.6-5.3) [facility] POC GLU 113 MG/DL (70-99) H [facility] PERFORM LAB [facility] ID Date Data Source [id number] 03/19/2021 01:22:02 PM EDT [facility] CorporationPAT[facility] NT INFORMATIONPatient MRN Name Date of Age Gend*PT [id number] Keith Emery 1955 65 years M SDAPT Location Admission Date/Time Visit ID Attending Provider --- --- --- --- EPI ID CSN Admitting Pro vider [id number] ---AirwayPatient location during procedure: ORUrgency: electiveDifficult airway: [...] cmPlacement verified by: chest auscultation and + [id number]: equal breath sounds bilateral and CTAGrade view: grade III - view of epiglottis onlyAdditional NotesAnterior glottic opening, compounded by omega epiglottis and redundant softtissue. Planned glidescope used for optimal visualization and poor dentition.Lips/teeth intact as per pre-op Name Value Range Interpretation Code Description Data Laura rce(s) Supporting Document(s) ID Date Data Source [id number] 03/19/2021 12:29:47 PM EDT [facility] CorporationPAT[facility] NT INFORMATIONPatient MRN Name Date of Age Gend*PT [id number] Keith Emery 1955 65 years M SDAPT Location Admission Date/Time Visit [facility] 0958 --- Nikunj Matos MD([id number]) EPI ID [facility] Admitting Provider [id number] Nikunj Matos MD([id number]) H&P reviewed. The patient was examined and there are no changes to the H&P.Risks and benefits of procedures explained and accepted.Nikunj Matos MD12:29 PM Name Value Range Interpretation Code Description Data Laura rce(s) Supporting Document(s) ID Date Data Source [id number] 03/19/2021 12:17:49 PM EDT [facility] Name Value Range Interpretation Code Description Data Laura rce(s) Supporting Document(s) POC NOVA GLU 104 mg/dL (70-99) H [facility] PERFORMED BY [facility] ID Date Data Source [id number] 03/21/2021 05:28:[address] [facility] [address] [address]Jmy# Surgical Pathology ReportPatient Name: KEITH EMERY.: 1955ccession #:[id number]) ReceivedA: Right femoral artery contentsClinical Diagnosis and HistoryAtherosclerosis of [place] arteries of extremities with intermittentclaudication right legDIAGNOSISRIGHT [...] 03/21/2021Electronically Signed Out By Dinah Medina MD [facility] [place] [address] [id number] component performed at [facility] [employer] [facility], [facility], [address] [place] [address], [phone].[facility] at [facility], [address] [place] [address], [phone]. This report may includeimmunohistochemical or in-situ hybridization results. Testing wasdeveloped and the performance characteristics determined by [employer] [facility] as required by CLIA '88. The FDA hasdetermined that approval for specific use is not necessary for clinicaluse. The quality of Hematoxylin and Eosin stains and as applicable, forall immunohistochemical and/or special stains, including positive andnegative controls, were reviewed and considered appropriate.ICD codes I70.90CPT codesA: 28205V Name Value Range Interpretation Code Description Data Laura rce(s) Supporting Document(s) ID Date Data Source [id number] 03/21/2021 04:13:35 AM EDT [facility] SPEC EXP DATE 03/22/2021TEST ING SITE PERFORMED AT [address] [place] [address] [id number] NUMBER [id number] COMPONENT TYPE LEUKOPOOR RED CELLSUNIT DIVISION 00STATUS OF UNIT TRANSFUSEDTRANSFUSION STATUS OK TO TRANSFUSECROSSMATCH RESULT COMPATIBLEUNIT NUMBER [id number] COMPONENT TYPE LEUKOPOOR RED CELLSUNIT DIVISION 00STATUS OF UNIT ISS'D ANOTH PTTRANSFUSION STATUS OK TO TRANSFUSECROSSMATCH RESULT COMPATIBLE Name Value Range Interpretation Code Description Data Laura rce(s) Supporting Document(s) TRANSFUSE RED CELLS [facility] TESTING SITE PERFORMED AT [address] [place] [id number] ID Date Data Source [id number] 03/17/2021 12:35:46 PM EDT [facility] CorporationPATIE NT INFORMATIONPatient MRN Name Date of Age Gend*PT [id number] Keith Emery Estrella 1955 65 years M OPPT Location Admission Date/Time Visit ID Attending Provider --- --- --- Nikunj Matos MD([id number]) EPI ID CSN Admitting Provider [id number] ---Addended by: LOVELY TAVERAS on: 03/17/2021 12:35 PM Modules accepted: Orders Name Value Range Interpretation Code Description Data Laura rce(s) Supporting Document(s) ID Date Data Source [id number] 03/21/2021 01:37:28 AM EDT [facility] SPEC EXP DATE 03/20/2021ATI ENT ABO/Rh B POSITIVEANTIBODY SCREEN NEGATIVETESTING SITE PERFORMED AT [address] [place] [address] [id number] NUMBER [id number] COMPONENT TYPE LEUKOPOOR RED CELLSUNIT DIVISION 00STATUS OF UNIT REL FROM ALLOCTRANSFUSION STATUS OK TO TRANSFUSECROSSMATCH RESULT COMPATIBLEUNIT NUMBER [id number] COMPONENT TYPE LEUKOPOOR RED CELLSUNIT DIVISION 00STATUS OF UNIT ISS'D ANOTH PTTRANSFUSION STATUS OK TO TRANSFUSECROSSMATCH RESULT COMPATIBLE Name Value Range Interpretation Code Description Data Laura rce(s) Supporting Document(s) TYPE AND SCREEN [facility] ID Date Data Source [id number] 03/14/2021 07:18:30 PM EDT [facility] Name Value Range Interpretation Code Description Data Laura rce(s) Supporting Document(s) SODIUM 137 mmol/L (136-145) [facility] POTASSIUM 5.0 mmol/L (3.6-5.2) [facility] CHLORIDE 99 mmol/L (100-108) L [facility] CO2 28 mmol/L (22-31) [facility] ANION GAP 10 mmol/L (7-16) [facility] UREA NITROGEN 15 mg/dL (7-24) [facility] CREATININE 1.09 mg/dL (0.80-1.30) [facility] BUN/CREAT RATIO 13.8 RATIO (10.0-20.0) [facility] GLUCOSE 115 mg/dL (70-99) H [facility] CALCIUM 9.5 mg/dL (8.4-10.2) [facility] TOTAL PROTEIN 7.6 g/dL (6.4-8.2) [facility] ALBUMIN 3.9 g/dL (3.2-4.5) [facility] GLOBULIN 3.7 g/dL (2.7-4.3) [facility] ALB/GLOB RATIO 1.1 RATIO [facility] ALKALINE PHOSPHATASE 61 U/L (45-117) [facility] BILIRUBIN,TOTAL 0.5 mg/dL (0.0-1.0) [facility] PLEASE NOTE:Total bilirubin results may be falselyelevated in patients taking Eltrombopag. AST (SGOT) 86 U/L (11-39) H [facility] ALT (SGPT) 98 U/L (12-78) H [facility] GFR >60 ml/min/1.73m2 (>59) [facility] GFR ( AMER) >60 ml/min/1.73m2 (>59) [facility] GFR INTERPRETATION [facility] --NORMAL KIDNEY FUNCTION OR MILD DISEASE - GFR >OR= 60CHRONIC KIDNEY DISEASE - GFR 15 - 59RENAL FAILURE - GFR <15 Est. GFR calculation based on the MDRDstudy equation, which assumes a steadystate for creatinine. Est. GFR should notbe used for medication dosing. ID Date Data Source [id number] 03/14/2021 06:31:27 PM EDT [facility] Name Value Range Interpretation Code Description Data Laura rce(s) Supporting Document(s) PT 11.0 s (9.2-11.9) [facility] INR 1.06 [facility] SUGGESTED THERAPEUTIC RANGES USING INR F ORSTABILIZED ANTICOAGULATED PATIENTS:STANDARD DOSE THERAPY INR 2.0-3.0 DVT, PE, PREVENT DVT OR EMBOLISMHIGH DOSE THERAPY INR 2.5-3.5 PREVENT EMBOLISM FROM MECHANICAL HEART VALVE ID Date Data Source [id number] 03/14/2021 06:16:48 PM EDT [facility] Name Value Range Interpretation Code Description Data Laura rce(s) Supporting Document(s) WBC 7.5 10*3/uL (4.1-11.0) [facility] [place] RBC 4.83 10*6/uL (4.60-6.10) [facility] HGB 15.4 g/dL (13.5-18.0) [facility] HCT 45.4 % (41.0-53.0) [facility] MCV 94.0 fL (80.0-95.0) [facility] MCH 31.9 pg (27.0-32.0) [facility] MCHC 34.0 g/dL (32.0-36.0) [facility] RDW 15.2 % (10.5-14.5) H [facility] PLT 212 10*3/uL (150-450) [facility] MPV 8.2 fL (7.1-10.7) [facility] ID Date Data Source [id number] 03/14/2021 11:19:57 AM EDT [facility] CorporationPATIE NT INFORMATIONPatient MRN Name Date of Age Gend*PT [id number] Keith Emery 1955 65 years M OPPT Location Admission Date/Time Visit ID Attending Provider --- --- --- Nikunj Matos MD([id number]) EPI ID CSN Admitting Provider [id number] ---HISTORY PHYSICALName: Keith Emery : 1955 Sex: [...] mg by mouth daily with lunchHistorical Provider, RAMANAILY KATY (THERAGRAN) per tablet Take 1 tablet [...] file Gets together: Not on file Attends confucianist service: Not on file Active member of [...] warm and dry.HEENT: Head is normocephalic, atraumatic. [place] conjunctivae. Anicteric sclerae.Pupils are equal, round, reactive [...] No edema.IMPRESSION and PLAN:Primary Diagnosis: Atherosclerosis of [place] arteries of extremities withintermittent claudication, right leg. [...] donnellye(s) Supporting Document(s) ID Date Data Source [id number] 03/15/2021 02:33:05 PM EDT [facility] Name Value Range Interpretation Code Description Data Laura rce(s) Supporting Document(s) SPECIMEN DESCRIPTION [facility] STAPH SCREEN RESULTS (ONEGSA) A [facility] of [facility] COMMENT Lab [facility] GENE TO DETECT STAPH AUREUS. (2) RT-P CR WAS PERFORMED FOR THE mecA AND SCC[employer] GENES TO DETECT METHICILLIN RESISTANCE IN STAPH AUREUS. ID Date Data Source [id number] 03/14/2021 09:45:00 AM EDT [facility] Name Value Range Interpretation Code Description Data Laura rce(s) Supporting Document(s) SARS coronavirus 2 RNA Not Detected [facility] [place] This lab was ordered by [facility] and reported by [employer]. ID Date Data Source [id number] 03/15/2021 04:10:24 PM EDT [facility] Name Value Range Interpretation Code Description Data [facility] rce(s) Supporting Document(s) SARS-COV-[address] [facility] Not DetectedReference range: Not Detecte d This nucleic acid amplification test was developed and its performance characteristics determined by [employer]. Nucleic acid amplification tests include RT-PCR and [...] detected) result in this assay. Performed At: [facility] [place], [place] [id number] Yvette Hughes PhD Ph:[phone] ID Date Data Source [id number] 03/08/2021 06:33:00 AM EDT [facility] ([facility]) Name Value Range Interpretation Code Description Data Laura rce(s) Supporting Document(s) Triglycerides Level 181 mg/dL [facility] ([facility]) Cholesterol Level 114 mg/dL [facility] ([facility]) HDL Cholesterol 50 mg/dL [facility] ([facility]) LDL Cholesterol 28 mg/dL [facility] ([facility]) Cholesterol Risk Ratio 2.280 [facility] ([facility]) Non-HDL-C 64 mg/dL [facility] ID Date Data Source [id number] 03/08/2021 06:33:00 AM EDT [facility] ([facility]) Name Value Range Interpretation Code Description Data Laura rce(s) Supporting Document(s) Glucose, Fasting 125 mg/dL 70-100 [facility] Blood Urea Nitrogen 13 mg/dL 7-18 [facility] (Ca rdiology [facility]) Creatinine For GFR 1.07 mg/dL 0.70-1.30 [facility] ([facility]) Glomerular Filtration Rate Laboratory test [facility]) <content>Units are mL/min/1.73 m2</content>
<content></content>
<content>Chronic Kidney Disease Staging per NKF:</content>
<content></content>
<content>Stage I & II GFR >=60 Normal to Mildly Decreased</content>
<content>Stage III GFR 30-59 Moderately Decreased</content>
<content>Stage IV GFR 15-29 Severely Decreased</content>
<content>Stage V GFR <15 Very Little GFR Left</content>
<content>ESRD GFR <15 on CODING ASSISTANT</content>
<content></content> Potassium Serum 4.3 meq/L 3.5-5.1 [facility] ([facility]) Sodium Level 133 meq/L 136-145 [facility] ([facility]) Chloride Level 101 meq/L 98-107 [facility] ([address]gy [facility]) Carbon Dioxide Level 25 meq/L 21-32 [facility] ([facility]) Calcium Level 9.0 mg/dL 8.8-10.2 [facility] ([facility]) Anion Gap 7 meq/L 8-16 [facility] ([facility]) Ast/Sgot 66 U/L 7-37 [facility] ([facility]) Alt/SGPT 84 U/L 12-78 [facility] ([facility]) Alkaline Phosphatase 74 U/L 45-117 [facility] ([facility]) Total Protein 7.5 GM/DL 6.4-8.2 [facility] ([facility]) Bilirubin,Total 0.4 mg/dL 0.2-1.0 [facility] ([facility]) Albumin 3.7 GM/DL 3.2-5.2 [facility] ([facility]) Albumin/Globulin Ratio 1.0 [facility] ([facility]) ID Date Data Source [id number] 01/24/2021 08:13:00 AM EST [facility] ([facility], ) Name Value Range Interpretation Code Description Data Laura rce(s) Supporting Document(s) PDFReport Laboratory test result [facility] ([facility], ) FVC-Pred 4.98 L [facility] ([facility]) FVC-%Pred-Pre 82 L [facility] ([facility]) FVC-Pre 4.10 L [facility] ([facility]) Fev1-Pred 3.73 L [facility] ([facility]) FVC-LLN 3.99 L [facility] ([facility]) Fev1-LLN 2.89 L [facility] ([facility]) Fev1-%Pred-Pre 79 L [facility] ([facility]) Fev1-Pre 2.97 L [facility] ([facility]) Fev6-Pred 4.74 L [facility] ([facility]) Fev6-%Pred-Pre 86 L [facility] ([facility], ) Fev6-LLN 3.78 L [facility] ([facility]) Fev6-Pre 4.08 L [facility] ([facility]) Xkz5yaw-%Pred-Pre 96 % [facility] ([facility]) Tkv4fhk-Zkwj 75 % [facility] ([facility]) Neo7gsr-Fsj 72 % [facility] ([facility]) Lwu4hjw-Ctx 100 % [facility] ([facility]) Asz4jza-INV 65 % [facility] ([facility]) Iuy0oqk-Wvlt 95 % [facility] ([facility]) FEFMax-Pred 9.37 L/E/sec [facility] ([facility]) Bhe5jlg-%Pred-Pre 104 % [facility] ([facility]) FEFMax-%Pred-Pre 54 L/E/sec [facility] ([facility]) FEFMax-LLN 6.91 L/E/sec [facility] ([facility]) FEFMax-Pre 5.06 L/E/sec [facility] ([facility]) Orq2883-Znw 2.14 L/E/sec [facility] ([facility]) Tyq1271-%Pred-Pre 72 L/E/sec [facility] ([facility]) Hph8517-Tfml 2.96 L/E/sec [facility] ([facility]) ExpTime-Pre 6.53 sec [facility] ([facility]) Dye3635-SYK 1.27 L/E/sec [facility] ([facility]) Frc7wqj5-Zkbv 78 % [facility] ([facility]) Aiq8rzq7-%Pred-Pre 92 % [facility] ([facility]) Mnl3ile1-Yca 73 % [facility] ([facility]) Jhs3pmq7-TRQ 69 % [facility] ([facility]) ID Date Data Source [id number] 01/06/2021 08:09:00 AM EST [facility] Name Value Range Interpretation Code Description Data Laura rce(s) Supporting Document(s) Magnesium [Mass/volume] in Serum or Plasma 2.1 mg/dL 1.8-2.4 [facility] ([facility]iology [facility]) ID Date Data Source [id number] 01/06/2021 08:09:00 AM EST [facility] Name Value Range Interpretation Code Description Data Laura rce(s) Supporting Document(s) White Blood Count 7.4 10 4.0-10.0 [facility] ([facility] iology [facility]) Red Blood Count 4.44 10 4.30-6.10 [facility] (Cardio logy [facility]) Hemoglobin 13.7 g/dL 13.5-17.5 [facility] (Cardiology [facility]) Hematocrit 42.9 % 42.0-52.0 [facility] (Cardiology [facility]) Mean Corpuscular Volume 96.6 fl 80.0-96.0 M EDENT (Cardiology [facility]) Mean Corpuscular Hemoglobin 30.9 pg 27.0-33.0 [facility] (Cardiology [facility]) Mean Corpuscular HGB Conc 31.9 g/dL 32.0-36.5 [facility] ([facility]iology [facility]) Red Cell Distribution Width 14.4 % 11.5-14.5 [facility] (Cardiology [facility]) Nucleated Red Blood Cell % 0.0 % 0-0 MED E[facility] (Cardiology [facility]) Platelet Count, Automated 211 10 150-450 [facility] ([address] [facility]) ID Date Data Source [id number] 01/06/2021 08:09:00 AM EST [facility] Name Value Range Interpretation Code Description Data Laura rce(s) Supporting Document(s) Glucose, Fasting 136 mg/dL 70-100 [facility] Blood Urea Nitrogen 12 mg/dL 7-18 [facility] ([facility]) Creatinine For GFR 1.16 mg/dL 0.70-1.30 [facility] (Cardiology [facility]) Glomerular Filtration Rate Laboratory test result [facility] (Cardiology [facility]) <content>Units are mL/min/1.73 m2</content>
<content></content>
<content>Chronic Kidney Disease Staging per NKF:</content>
<content></content>
<content>Stage I & II GFR >=60 Normal to Mildly Decreased</content>
<content>Stage III GFR 30- 59 Moderately Decreased</content>
<content>Stage IV GFR 15-29 Severely Decreased</content>
<content>Stage V GFR <15 Very Little GFR Left</content>
<content>ESRD GFR <15 on CODING ASSISTANT</content>
<content></content> Sodium Level 141 meq/L 136-145 [facility] ([facility]) Potassium Serum 4.2 meq/L 3.5-5.1 [facility] ([facility]) Chloride Level 104 meq/L 98-107 [facility] ([facility]) Anion Gap 8 meq/L 8-16 [facility] Calcium Level 8.8 mg/dL 8.8-10.2 [facility] ([facility]) Carbon Dioxide Level 29 meq/L 21-32 [facility] ([facility]) Ast/Sgot 41 U/L 7-37 [facility] Alt/SGPT 73 U/L 12-78 [facility] Alkaline Phosphatase 66 U/L 45-117 [facility] ([facility]) Bilirubin,Total 0.3 mg/dL 0.2-1.0 [facility] ([facility]) Total Protein 6.9 GM/DL 6.4-8.2 [facility] ([facility]) Albumin 3.4 GM/DL 3.2-5.2 [facility] ([facility]) Albumin/Globulin Ratio 1.0 [facility] ([facility]) ID Date Data Source [id number] 01/06/2021 08:09:00 AM EST [facility] ([facility] Name Value Range Interpretation Code Description Data Laura rce(s) Supporting Document(s) Magnesium [Mass/volume] in Serum or Plasma 2.1 mg/dL 1.8-2 .4 Normal (applies to non-numeric results) [facility] ([facility]) ID Date Data Source [id number] 01/06/2021 08:09:00 AM EST [facility] ([facility] Name Value Range Interpretation Code Description Data Laura rce(s) Supporting Document(s) Glucose, Fasting 136 mg/dL 70-100 Above high normal M EDENT ([facility] Blood Urea Nitrogen 12 mg/dL 7-18 Normal (applies to non-nume ganga results) [facility]NA ([facility] Creatinine For GFR 1.16 mg/dL 0.70-1.30 Normal (applies to non -numeric results) [facility] ([facility] Sodium Level 141 meq/L 136-145 Normal (applies to non-numeric res ults) MEDKWASI ([facility] Glomerular Filtration Rate Laboratory test result Normal (applies to non- numeric results) [facility] ([facility] ) <content>Units are mL/min/1.73 m2</content>
<content></content>
<content>Chronic Kidney Disease Staging per NKF:</content>
<content></content>
<content>Stage I & II GFR >=60 Normal to Mildly Decreased</content>
<content>Stage III GFR 30- 59 Moderately Decreased</content>
<content>Stage IV GFR 15-29 Severely Decreased</content>
<content>Stage V GFR <15 Very Little GFR Left</content>
<content>ESRD GFR <15 on CODING ASSISTANT</content>
<content></content> Chloride Level 104 meq/L 98-107 Normal (applies to non-numeric r esults) [facility]AVANNA ([facility] Potassium Serum 4.2 meq/L 3.5-5.1 Normal (applies to non-numeric results) [facility] ([facility] Carbon Dioxide Level 29 meq/L 21-32 Normal (applies to non-num tin results) [facility] ([facility] Anion Gap 8 meq/L 8-16 Normal (applies to non-numeric resul ts) [facility] ([facility] Calcium Level 8.8 mg/dL 8.8-10.2 Normal (applies to non-numeric re sults) [facility] ([facility] Alt/SGPT 73 U/L 12-78 Normal (applies to non-numeric resul ts) [facility] ([facility] Ast/Sgot 41 U/L 7-37 Above high normal [facility] ([facility] Alkaline Phosphatase 66 U/L 45-117 Normal (applies to non-num tin results) [facility] ([facility] Bilirubin,Total 0.3 mg/dL 0.2-1.0 Normal (applies to non-numeric results) [facility] ([facility] Total Protein 6.9 GM/DL 6.4-8.2 Normal (applies to non-numeric re sults) [facility] ([facility] Albumin 3.4 GM/DL 3.2-5.2 Normal (applies to non-numeric resul ts) [facility] ([facility] Albumin/Globulin Ratio 1.0 Normal (applies to non-n umeric results) [facility] ([facility] ID Date Data Source [id number] 01/06/2021 08:09:00 AM EST [facility] ([facility] Name Value Range Interpretation Code Description Data Laura rce(s) Supporting Document(s) White Blood Count 7.4 10 4.0-10.0 Normal (applies to non-numeri c results) [facility] ([facility] Red Blood Count 4.44 10 4.30-6.10 Normal (applies to non-numeric results) [facility] ([facility] Hemoglobin 13.7 g/dL 13.5-17.5 Normal (applies to non-numeric resul ts) [facility] ([facility] Mean Corpuscular Hemoglobin 30.9 pg 27.0-33.0 Norm al (applies to non-numeric results) [facility] ([facility] ) Mean Corpuscular Volume 96.6 fl 80.0-96.0 Above high normal [facility] ([facility] Hematocrit 42.9 % 42.0-52.0 Normal (applies to non-numeric resul ts) [facility] ([facility] Mean Corpuscular HGB Conc 31.9 g/dL 32.0-36.5 Below low normal [facility] ([facility] Red Cell Distribution Width 14.4 % 11.5-14.5 Norm al (applies to non-numeric results) [facility] ([facility] ) Platelet Count, Automated 211 10 150-450 Normal (applies to non-numeric results) [facility] ([facility] ) Nucleated Red Blood Cell % 0.0 % 0-0 Normal (applies to n on-numeric results) [facility] ([facility] ID Date Data Source [id number] 12/07/2020 12:00:00 AM EST [facility] Name Value Range Interpretation Code Description Data Laura rce(s) Supporting Document(s) SARS-CoV-2 (COVID-19) RNA [Presence] in Respiratory specimen by KIARA with probe detection Not Detected [facility] This lab was ordered by [facility] and reported by [employer] ID Date Data Source [id number] 10/29/2020 06:28:00 PM EST [facility] ([facility]) Name Value Range Interpretation Code Description Data Laura rce(s) Supporting Document(s) Creatinine For GFR 1.08 mg/dL 0.70-1.30 [facility] ([facility]) Glomerular Filtration Rate Laboratory test result [facility]) <content>Units are mL/min/1.73 m2</content>
<content></content>
<content>Chronic Kidney Disease Staging per NKF:</content>
<content></content>
<content>Stage I & II GFR >=60 Normal to Mildly Decreased</content>
<content>Stage III GFR 30- 59 Moderately Decreased</content>
<content>Stage IV GFR 15-29 Severely Decreased</content>
<content>Stage V GFR <15 Very Little GFR Left</content>
<content>ESRD GFR <15 on CODING ASSISTANT</content>
<content></content> ID Date Data Source [id number] 10/29/2020 06:28:00 PM EST [facility] ([facility]) Name Value Range Interpretation Code Description Data Laura rce(s) Supporting Document(s) Urea nitrogen [Mass/volume] in Serum or Plasma 15 mg/dL 7-18 [facility] ([facility]) ID Date Data Source [id number] 10/29/2020 06:28:00 PM EST [facility] ([facility]amil [facility] [...] Little GFR Left</content>
<content>ESRD GFR <15 on CODING ASSISTANT</content>
<content></content> ID Date Data Source [id number] 10/29/2020 06:28:00 PM EST [facility] ([facility] Name Value Range Interpretation Code Description Data Laura rce(s) Supporting Document(s) Urea nitrogen [Mass/volume] in Serum or Plasma 15 mg/dL 7 -18 Normal (applies to non-numeric results) [facility] ([facility]) ID Date Data Source [id number] 10/22/2020 09:55:00 AM EST [facility] ([facility]) Name Value Range Interpretation Code Description Data Laura rce(s) Supporting Document(s) Arterial Ultrasound Lower Extremity Right Laboratory test result [facility] ([facility]) ID Date Data Source [id number] 09/13/2020 02:12:00 PM EDT [facility] ([facility] Name Value Range Interpretation Code Description Data Laura rce(s) Supporting Document(s) Valproate [Mass/volume] in Serum or Plasma 61.3 UG/ML 50.0- 100.0 Normal (applies to non-numeric results) [facility] ([facility] Procedure Social History Code Duration Value Status Description Data Source(s ) Smoking 07/09/2021 12:00:00 AM EDT Patient is a former smoker completed Patient is a former smoker [facility] ([facility]) Smoking 06/25/2021 12:00:00 AM EDT Patient is a former smoker completed Patient is a former smoker [facility] ([facility]) Alcohol intake 03/14/2021 12:00:00 AM EDT No completed [facility] Smoking 03/14/2021 12:00:00 AM EDT Former smoker completed Former smoker [facility] 01/24/2021 12:00:00 AM EST Using Electronic Cig. compl eted Using Electronic Cig. MEDENT ([facility], ) Smoking 08/01/2020 12:00:00 AM EDT - 11/29/2010 12:00:00 AM EST Patient is a former smoker completed Patient is a former smoker MEDENT ([facility], ) Vital Signs ID Date Data Source UNK Name Value Range Interpretation Code Description Data Source(s) Body temperature 97.0 [degF] 97.0 [degF] MEDENT ([facility] Diastolic blood pressure 72 mm[Hg] 72 mm[Hg] MEDENT ([facility] Systolic blood pressure 110 mm[Hg] 110 mm[Hg] M EDENT ([facility] Heart rate 72 /min 72 /min MEDENT ([facility] Respiratory rate 16 /min 16 /min MEDENT ( [facility] Body height 73 [in_i] 73 [in_i] MEDENT ([facility] 6'1" Body weight 289.00 [lb_av] 289.00 [lb_av] MEDEN T ([facility] [place] body weight 184 [lb_av] 184 [lb_av] MEDEN T ([facility] Body mass index (BMI) [Ratio] 38.1 kg/m2 38.1 k g/m2 [facility] ([facility] Oxygen saturation in Arterial blood by Pulse oximetry 96 % 96 % [facility] ([facility] Systolic blood pressure 114 mm[Hg] 114 mm[Hg] M EDENT ([facility], ) Diastolic blood pressure 58 mm[Hg] 58 mm[Hg] [facility] ([facility]) Heart rate 69 /min 69 /min [facility] ([facility]) Oxygen saturation in Arterial blood by Pulse oximetry 98 % 98 % [facility] ([facility]) Body height 72 [in_i] 72 [in_i] [facility] ([facility]) 6'0" Body weight 298.00 [lb_av] 298.00 [lb_av] MEDEN T ([facility]) Body mass index (BMI) [Ratio] 40.4 kg/m2 40.4 k g/m2 [facility] ([facility]) [place] body weight 178 [lb_av] 178 [lb_av] MEDEN T ([facility]) Body weight 135.173 kg 135.173 kg [facility] ([facility]) Body surface area Derived from formula 2.52 m2 2.52 m2 [facility] ([facility]) Body weight 305 [lb_av] 305 [lb_av] eCW1 ([facility]) Systolic blood pressure 138 mm[Hg] 138 mm[Hg] e CW1 ([facility]) Diastolic blood pressure 76 mm[Hg] 76 mm[Hg] eCW1 ([facility]) Body weight 138.35 kg 138.35 kg eCW1 ([facility]) Body height 72 [in_i] 72 [in_i] eCW1 ([facility]) Body mass index (BMI) [Ratio] 41.36 kg/m2 41.36 kg/m2 eCW1 ([facility]) Body weight 305.00 [lb_av] 305.00 [lb_av] MEDEN T ([facility]) Heart rate 64 /min 64 /min MEDENT ([facility]) Regular Body height 72 [in_i] 72 [in_i] MEDENT ([facility]) 6'0" Systolic blood pressure 128 mm[Hg] 128 mm[Hg] M EDENT ([facility]) sitting, large cuff Respiratory rate 16 /min 16 /min MEDENT ( [facility]) Body mass index (BMI) [Ratio] 41.4 kg/m2 41.4 k g/m2 MEDENT ([facility]) Diastolic blood pressure 76 mm[Hg] 76 mm[Hg] MEDENT ([facility]) sitting, large cuff Systolic blood pressure 124 mm[Hg] 124 mm[Hg] M EDENT ([facility]) sitting Diastolic blood pressure 76 mm[Hg] 76 mm[Hg] MEDENT ([facility]) sitting Body temperature 96.1 [degF] 96.1 [degF] MEDENT ([facility] Oxygen saturation in Arterial blood by Pulse oximetry 96 % 96 % MEDENT ([facility] Respiratory rate 16 /min 16 /min MEDENT ( [facility] Body height 73 [in_i] 73 [in_i] MEDENT ([facility] 6'1" Heart rate 72 /min 72 /min MEDENT ([facility] Body weight 308.00 [lb_av] 308.00 [lb_av] MEDEN T ([facility] [place] body weight 184 [lb_av] 184 [lb_av] MEDEN T ([facility] Body mass index (BMI) [Ratio] 40.6 kg/m2 40.6 k g/m2 MEDENT ([facility] Diastolic blood pressure 84 mm[Hg] 84 mm[Hg] MEDENT ([facility] Systolic blood pressure 136 mm[Hg] 136 mm[Hg] M EDENT ([facility] Body temperature 97.6 [degF] 97.6 [degF] MEDENT ([facility]) Body height 73 [in_i] 73 [in_i] MEDENT ([facility] 6'1" Body weight 313.00 [lb_av] 313.00 [lb_av] MEDEN T ([facility]) Body weight 141.977 kg 141.977 kg MEDENT ([facility]) Body mass index (BMI) [Ratio] 41.3 kg/m2 41.3 k g/m2 MEDENT ([facility]) Systolic blood pressure 180 mm[Hg] 180 mm[Hg] M EDENT ([facility]) Diastolic blood pressure 80 mm[Hg] 80 mm[Hg] [facility] ([facility]) Systolic blood pressure 180 mm[Hg] 180 mm[Hg] M EDENT ([facility]) Diastolic blood pressure 80 mm[Hg] 80 mm[Hg] [facility] ([facility]) Body height 73 [in_i] 73 [in_i] MEDENT ([facility] 6'1" Body weight 314.00 [lb_av] 314.00 [lb_av] MEDEN T ([facility] [place] body weight 184 [lb_av] 184 [lb_av] MEDEN T ([facility] Body mass index (BMI) [Ratio] 41.4 kg/m2 41.4 k g/m2 MEDENT ([facility] Oxygen saturation in Arterial blood by Pulse oximetry 96 % 96 % MEDENT ([facility] Systolic blood pressure 110 mm[Hg] 110 mm[Hg] M EDENT ([facility] Diastolic blood pressure 56 mm[Hg] 56 mm[Hg] MEDENT ([facility] Body temperature 97.0 [degF] 97.0 [degF] MEDENT ([facility] Heart rate 82 /min 82 /min MEDENT ([facility] Respiratory rate 20 /min 20 /min MEDENT ( [facility] Body weight 323 [lb_av] 323 [lb_av] eCW1 ([facility]) Body height 72 [in_i] 72 [in_i] eCW1 ([facility]) Body mass index (BMI) [Ratio] 43.80 kg/m2 43.80 kg/m2 eCW1 ([facility]) Heart rate 76 /min 76 /min eCW1 ([facility]) Respiratory rate 19 /min 19 /min eCW1 ([facility]) Body temperature 97.0 [degF] 97.0 [degF] eCW1 ( [facility]) Systolic blood pressure 140 mm[Hg] 140 mm[Hg] e CW1 ([facility]) Diastolic blood pressure 82 mm[Hg] 82 mm[Hg] eCW1 ([facility]) Diastolic blood pressure 80 mm[Hg] 80 mm[Hg] [facility] ([facility]) Systolic blood pressure 140 mm[Hg] 140 mm[Hg] M EDENT ([facility]) Heart rate 72 /min 72 /min [facility] ([facility]) Body temperature 97.0 [degF] 97.0 [degF] MEDENT ([facility]) Body height 73 [in_i] 73 [in_i] MEDENT ([facility] 6'1" Body weight 300.00 [lb_av] 300.00 [lb_av] MEDEN T ([facility]) Body weight 136.080 kg 136.080 kg MEDENT ([facility]) Body mass index (BMI) [Ratio] 39.6 kg/m2 39.6 k g/m2 [facility] ([facility]) Diastolic blood pressure 80 mm[Hg] 80 mm[Hg] MEDENT ([facility] Body temperature 98.2 [degF] 98.2 [degF] MEDENT ([facility] Heart rate 69 /min 69 /min MEDENT ([facility] Body height 73 [in_i] 73 [in_i] MEDENT ([facility] 6'1" Body weight 320.00 [lb_av] 320.00 [lb_av] MEDEN T ([facility] [place] body weight 184 [lb_av] 184 [lb_av] MEDEN T ([facility] Body mass index (BMI) [Ratio] 42.2 kg/m2 42.2 k g/m2 MEDENT ([facility] Systolic blood pressure 142 mm[Hg] 142 mm[Hg] M EDENT ([facility] Oxygen saturation in Arterial blood by Pulse oximetry 98 % 98 % MEDENT ([facility] ([place]), ([facility]) Respiratory rate 19 /min 19 /min MEDENT ( [facility] Diastolic blood pressure 80 mm[Hg] [...] k g/m2 MEDENT ([facility]) Systolic blood pressure 140 mm[Hg] 140 mm[Hg] M EDENT ([facility]) Diastolic blood pressure 80 mm[Hg] 80 mm[Hg] MEDENT ([facility]) Body temperature 95.6 [degF] 95.6 [degF] MEDENT ([facility]) Body weight 310.00 [lb_av] 310.00 [lb_av] MEDEN T ([facility]) Body height 72 [in_i] 72 [in_i] MED[facility] ([facility] 6'0" Body mass index (BMI) [Ratio] 42.0 kg/m2 42.0 k g/m2 MEDENT ([facility]) Body weight 140.616 kg 140.616 kg MED[facility] ([facility]) Heart rate 72 /min 72 /min MED[facility] ([facility]) Body temperature 97.1 [degF] 97.1 [degF] MEDENT ([facility] Heart rate 80 /min 80 /min MEDENT ([facility] Diastolic blood pressure 74 mm[Hg] 74 mm[Hg] MEDENT ([facility] Body height 73 [in_i] 73 [in_i] MEDENT ([facility] 6'1" Body weight 322.00 [...] /min MEDENT ( [facility] [place] body weight 184 [lb_av] 184 [lb_av] MEDEN [...] [facility]) Heart rate 69 /min 69 /min [facility] Body height 185.4 cm 185.4 cm [facility] Body weight 148.236 kg 148.236 kg [facility] Body mass index (BMI) [Ratio] 43.12 kg/m2 43.12 kg/m2 [facility] Oxygen saturation in Arterial blood by Pulse oximetry 96 % 96 % [facility] Systolic blood pressure 134 mm[Hg] 134 mm[Hg] [facility] Diastolic blood pressure 80 mm[Hg] 80 mm[Hg] [facility] Systolic blood pressure 122 mm[Hg] 122 mm[Hg] M EDENT ([facility] Diastolic blood pressure 64 mm[Hg] 64 mm[Hg] MEDENT ([facility] Body temperature 97.2 [degF] 97.2 [degF] MEDENT ([facility] Heart rate 84 /min 84 /min MEDENT ([facility] Respiratory rate 16 /min 16 /min MEDENT ( [facility] Body height 73 [in_i] 73 [in_i] MEDENT ([facility] 6'1" Body weight 327.00 [lb_av] 327.00 [lb_av] MEDEN T ([facility] [place] body weight 184 [lb_av] 184 [lb_av] MEDEN T ([facility] Body mass index (BMI) [Ratio] 43.1 kg/m2 43.1 k g/m2 MEDENT ([facility] Oxygen saturation in Arterial blood by Pulse oximetry 94 % 94 % [facility] ([facility] Oxygen saturation in Arterial blood by Pulse oximetry 98 % 98 % [facility] ([facility]) Body temperature 96.9 [degF] 96.9 [degF] MEDENT ([facility]) Body height 72 [in_i] 72 [in_i] MEDENT ([facility]) 6'0" Body weight 323.00 [lb_av] 323.00 [lb_av] MEDEN T ([facility]) Body mass index (BMI) [Ratio] 43.8 kg/m2 43.8 k g/m2 MEDENT ([facility]) [place] body weight 178 [lb_av] 178 [lb_av] MEDEN T ([facility]) Body weight 146.513 kg 146.513 kg [facility] ([facility]) Body surface area Derived from formula 2.61 m2 2.61 m2 [facility] ([facility]) Body surface area Derived from formula 2.61 m2 2.61 m2 [facility] ([facility]) Heart rate 64 /min 64 /min [facility] ([facility]) Oxygen saturation in Arterial blood by Pulse oximetry 98 % 98 % [facility] ([facility]) Body temperature 96.9 [degF] 96.9 [degF] [facility]) Body height 72 [in_i] 72 [in_i] MEDENT ([facility]) 6'0" Body weight 323.00 [lb_av] 323.00 [lb_av] MEDEN T ([facility]) Body mass index (BMI) [Ratio] 43.8 kg/m2 43.8 k g/m2 [facility] ([facility]) [place] body weight 178 [lb_av] 178 [lb_av] MEDEN T ([facility]) Body weight 146.513 kg 146.513 kg [facility] ([facility]) Systolic blood pressure 132 mm[Hg] 132 mm[Hg] [facility]) Diastolic blood pressure 80 mm[Hg] 80 mm[Hg] MEDENT ([facility]) Diastolic blood pressure 80 mm[Hg] 80 mm[Hg] MEDENT ([facility]) sitting, large cuff Systolic blood pressure 134 mm[Hg] 134 mm[Hg] [facility]) sitting Diastolic blood pressure 86 mm[Hg] 86 mm[Hg] MEDENT ([facility]) sitting Body height 72 [in_i] 72 [in_i] MEDENT ([facility]) 6'0" Body mass index (BMI) [Ratio] 44.1 kg/m2 44.1 k g/m2 MEDENT ([facility]) Heart rate 72 /min 72 /min MEDENT ([facility]) Regular Body weight 325.00 [lb_av] 325.00 [lb_av] MEDEN T ([facility]) Respiratory rate 16 /min 16 /min MEDENT ( [facility]) Systolic blood pressure 134 mm[Hg] 134 mm[Hg] M EDENT ([facility]) sitting, large cuff Body weight 323 [lb_av] 323 [lb_av] eCW1 ([facility]) Body height 72 [in_i] 72 [in_i] eCW1 ([facility]) Body mass index (BMI) [Ratio] 43.80 kg/m2 43.80 kg/m2 eCW1 ([facility]) Heart rate 65 /min 65 /min eCW1 ([facility]) Respiratory rate 18 /min 18 /min eCW1 ([facility]) Body temperature 97.6 [degF] 97.6 [degF] eCW1 ( [facility]) Systolic blood pressure 132 mm[Hg] 132 mm[Hg] e CW1 ([facility]) Diastolic blood pressure 72 mm[Hg] 72 mm[Hg] eCW1 ([facility]) Body mass index (BMI) [Ratio] 42.9 kg/m2 [...] Body height 73 [in_i] 73 [in_i] MEDENT ([facility] 6'1" Body weight 325.00 [lb_av] 325.00 [lb_av] MEDEN T ([facility] [place] body weight 184 [lb_av] 184 [lb_av] MEDEN T ([facility] Oxygen saturation in Arterial blood by Pulse oximetry 95 % 95 % MEDENT ([facility] Body temperature 98.3 [degF] 98.3 [degF] MEDENT ([facility] Body height 73 [in_i] 73 [in_i] MEDENT ([facility] 6'1" Body weight 324.00 [lb_av] 324.00 [lb_av] MEDEN T ([facility] ) Body mass index (BMI) [Ratio] 42.7 kg/m2 42.7 k g/m2 MEDENT ([facility]) Respiratory rate 20 /min 20 /min eCW1 ([facility]) Body temperature 95.7 [degF] 95.7 [degF] eCW1 ( [facility]) Systolic blood pressure 144 mm[Hg] 144 mm[Hg] e CW1 ([facility]) Diastolic blood pressure 78 mm[Hg] 78 mm[Hg] eCW1 ([facility]) Body weight 320 [lb_av] 320 [lb_av] eCW1 ([facility]) Body height 72 [in_i] 72 [in_i] eCW1 ([facility]) Body mass index (BMI) [Ratio] 43.40 kg/m2 43.40 kg/m2 eCW1 ([facility]) Heart rate 78 /min 78 /min eCW1 ([facility]) Body mass index (BMI) [Ratio] 42.7 kg/m2 [...] mm[Hg] M EDENT ([facility] [place] body weight 184 [lb_av] 184 [lb_av] MEDEN T ([facility] Body mass index (BMI) [Ratio] 42.3 kg/m2 42.3 k g/m2 MEDENT ([facility] Oxygen saturation in Arterial blood by Pulse oximetry 97 % 97 % MEDENT ([facility] Diastolic blood pressure 72 mm[Hg] 72 mm[Hg] MEDENT ([facility] Body temperature 97.8 [degF] 97.8 [degF] MEDENT ([facility] Heart rate 74 /min 74 /min MEDENT ([facility] Respiratory rate 16 /min 16 /min MEDENT ( [facility] Body height 73 [in_i] 73 [in_i] MEDENT ([facility] 6'1" Body weight 321.00 [lb_av] 321.00 [lb_av] MEDEN T ([facility] Body weight 315.00 [lb_av] 315.00 [lb_av] MEDEN T ([facility], ) Body mass index (BMI) [Ratio] 42.7 kg/m2 42.7 k g/m2 [facility] ([facility]) Body height 72 [in_i] 72 [in_i] [facility] ([facility]) 6'0" Systolic blood pressure 124 mm[Hg] 124 mm[Hg] M EDENT ([facility]) Diastolic blood pressure 72 mm[Hg] 72 mm[Hg] [facility] ([facility]) Heart rate 65 /min 65 /min [facility] ([facility]) Oxygen saturation in Arterial blood by Pulse oximetry 94 % 94 % [facility] ([facility]) Body temperature 97.2 [degF] 97.2 [degF] [facility] ([facility]) [place] body weight 178 [lb_av] 178 [lb_av] MEDEN T ([facility]) Body weight 142.884 kg 142.884 kg [facility] ([facility]) Body surface area Derived from formula 2.58 m2 2.58 m2 [facility] ([facility]) Patient Treatment Plan of Care Planned Activity Planned Date Details Description Data Source (s) 24 HR Oxybutynin chloride 10 MG Extended Release Oral Tablet 10/23/2020 12:00:00 AM EST eCW1 ([facility]) 24 HR Oxybutynin chloride 10 MG Extended Release Oral Tablet 10/23/2020 12:00:00 AM EST eCW1 ([facility]) 24 HR Oxybutynin chloride 10 MG Extended Release Oral Tablet 10/23/2020 12:00:00 AM EST eCW1 ([facility]) 24 HR Oxybutynin chloride 10 MG Extended Release Oral Tablet 10/23/2020 12:00:00 AM EST eCW1 ([facility]) Haloperidol 0.5 MG Oral Tablet [facility] Divalproex Sodium 500 MG Delayed Release Oral Tablet [facility]
[2021-09-17] MEDS ORDERED: REFRIGERATOR IV KEYS XX PRN (11:50)
[2021-09-17] MEDS ORDERED: MIDAZOLAM HCL 100 MG in D5W 80 ML IV SCH (13:00)
--- NOTE | 2021-09-17 13:01 | ROOR ---
Patient Name: Keith Emery Procedure Date: 09/17/2021 7:19 AM Date of : 1955 Admit Type: Outpatient Age: 65 Room: Main OR Note Status: Finalized Attending MD: Brit Peace MD Procedure: Bronchoscopy Indications: Left upper lobe nodule Providers: Brit Peace MD (Doctor), DONN WANG MD (1st Assisting Doctor) Referring MD: 1. NO/Unknown PCP 1. NO/Unknown PCP, Admin. (Referring MD) Requesting Physician: Medicines: Lidocaine 4% via nebulizer with Albuterol 2.5 mg, Epinephrine 1 mg/10 mL topical 1 mL, Thrombin 5000 units, Cetacaine topical, General Anesthesia Complications: Bradycardia, Sustained Ventricular Tachycardia (VT) Procedure: Pre-Anesthesia Assessment: - Prior to the procedure, a History and Physical was performed, and patient medications and allergies were reviewed. The patient's tolerance of previous anesthesia was also reviewed. The risks and benefits of the procedure and the sedation options and risks were discussed with the patient. All questions were answered, and informed consent was obtained. Prior Anticoagulants: The patient has taken Plavix (clopidogrel), last dose was 7 days prior to procedure. ASA Grade Assessment: III - A patient with severe systemic disease. After reviewing the risks and benefits, the patient was deemed in satisfactory condition to undergo the procedure. - Patient identification and proposed procedure were verified prior to the procedure by the physician, the nurse, the anesthesiologist, the deputy chief counsel and the bakery technician. The procedure was verified in the procedure room. The Bronchoscope was introduced through the mouth, via the endotracheal tube (the patient was intubated for the procedure) and advanced to the tracheobronchial tree of both lungs. The procedure was accomplished without difficulty. The patient tolerated the procedure well. Findings: The endotracheal tube is in good position. The visualized portion of the trachea is of normal caliber. The jonathan is sharp. The tracheobronchial tree was examined to at least the first subsegmental level. Bronchial mucosa and anatomy are normal; there are no endobronchial lesions, and few thick mucoid secretions noted. [employer] Robotic Electromagnetic navigation bronchoscopy was performed. The CT scan was used for planning purposes. A virtual bronchoscopic image was generated using the planning software. The target in the apical-posterior segment of the left upper lobe was marked. A nodule 1.1 cm in size was found and a pathway was created. After a complete airway exam, the robotic navigation phase was then begun to locate the target lesion(s). Positioning centrally (in relation to the lesion) was confirmed using the Olympus radial probe US catheter. Transbronchial biopsies of a nodule were performed in the apical-posterior segment of the left upper lobe using forceps and sent for histopathology examination. The procedure was guided by fluoroscopy. Transbronchial biopsy technique was selected because the sampling site was not visible endoscopically. Bronchoalveolar lavage was performed in the HUMBERTO apical posterior segments (B1 & B2) of the lung and sent for routine cytology and bacterial, AFB and fungal analysis. The return was bloody. Mucous plugs were present in the return fluid. Patient was noted to have some oozing after biopsy. Topical epinephrine was given and thrombin with hemostasis achieved. Procedure was finished with the bronchoscope about to be retracted when patient was noted by anesthesia on monitor to be bradycardic with HR into the 20's. Patient was noted to have complete heart block with 3-4 nonconducting P waves before a QRS complex was noted. He was given atropine 1mg x2 with minimal improvement, HR only improved to 30's. He was hypotensive as well. Patient was given epinephrine by anesthesia and cardiac pads were placed. He was then noted to become tachycardic and then converted into sustained VT. He was given synchronized cardioversion x 2. Patient did also receive brief 2mins of CPR between cardioversion although he appeared to have a pulse his BP was difficult to read initially. He was then noted to be hypertensive with SBP in 200's. After the CPR and while patient was hypertensive he was noted to have blood coming from endotracheal tube. Bronchoscope was placed back in and patient was given additional thrombin in the HUMBERTO apical-posterior segment with complete hemostasis achieved. There was old blood noted from suctioning in right and left lung. Patient was given IV lidocaine and amiodarone by anesthesia. His rhythm improved, appeared to be in atrial fibrillation with a rapid ventricular response with HR in the 120's. His repeat BP noted hypotension with MAP 55's. He was given 1 amp bicarb as well as 2 units vasopressin with improvement in SPB MAP to 65. He was noted to be hypoxic on the ventilator and required 100% FiO2 and increased PEEP. Patient was therefore kept intubated and on mechanical ventilation with plan to transfer to medical ICU. Anesthesia placed a right radial arterial line in the OR. Patient appeared to spontaneously convert to sinus rhythm. His MAP was 55-60 and he was started on low dose levophed at 3-5 mcg/min. A central line was placed by Dr. Wang, please see separate procedure note. In the PACU patient was awake and following commands appropriately. He was given versed and fentanyl for sedaiton and analgesia. Impression: - Left upper lobe nodule - The airway examination was normal. - Robotic Electromagnetic navigation bronchoscopy was performed. - Transbronchial lung biopsies were performed. - Bronchoalveolar lavage was performed. - Patient had complete heart block, sustained VT requiring cardioversion, prolonged mechanical ventilation. Recommendation: - Admit to the hospital to medical ICU Procedure Code(s): --- Professional --- 14533, Bronchoscopy, rigid or flexible, including fluoroscopic guidance, when performed; with transbronchial lung biopsy(s), single lobe 13520, Bronchoscopy, rigid or flexible, including fluoroscopic guidance, when performed; with bronchial alveolar lavage 23779, Bronchoscopy, rigid or flexible, including fluoroscopic guidance, when performed; with computer-assisted, image-guided navigation (List separately in addition to code for primary procedure[s]) 27927, Bronchoscopy, rigid or flexible, including fluoroscopic guidance, when performed; with transendoscopic endobronchial ultrasound (EBUS) during bronchoscopic diagnostic or therapeutic intervention(s) for peripheral lesion(s) (List separately in addition to code for primary procedure[s]) CPT copyright 2019 [employer]. All rights reserved. The codes documented in this report are preliminary and upon director of graduate admissions review may be revised to meet current compliance requirements. Attending Participation: I personally performed the entire procedure. Brit Peace MD 09/17/2021 1:01:37 PM DONN WANG MD Number of Addenda: 0 Note Initiated On: 09/17/2021 7:19 AM
--- NOTE | 2021-09-17 13:08 | ROOPDOC ---
[facility] Report Of Operation Report of Operation INDICATION: hypotension PROCEDURE: left IJ TLC PROCEDURE BOWL TOPPER: Dr. Wang CONSENT: consent was implied as it was emergent procedure PROCEDURE SUMMARY: A time out was performed. My hands were washed immediately prior to the procedure. I wore a surgical cap, mask with protective eyewear, full gown and sterile gloves throughout the procedure. The patient was placed in Trendelenburg position. The left chest region was prepped using chlorhexidine scrub and draped in sterile fashion using a full drape and sterile probe cover and sterile gel employed. The left Internal Jugular vein was identified using the ultrasound. Anesthesia was achieved over the vein using 1% lidocaine. Using real-time out of plane guidance, the introducer needle was inserted into the Internal Jugular vein under direct ultrasound visualization. Venous blood was withdrawn. The syringe was removed and a guidewire was advanced into the introducer needle. The guidewire was visualized in the Internal Jugular Vein by ultrasound. A small incision was made at the skin surface with a scalpel and the introducer needle was exchanged for a dilator over the guidewire. After appropriate dilation was obtained, the dilator was exchanged over the wire for a central venous catheter. The wire was removed and the catheter was sutured in place at 25 cm. A sterile shield was placed over the catheter at the insertion site. The patient tolerated the procedure without any hemodynamic compromise. At time of procedure completion, all ports aspirated and flushed properly. Post-procedure chest x-ray is satisfactory. Estimated blood loss is 5cc DONN WANG MD Sep 17, 2021 13:08
[2021-09-17] MEDS: CHLORHEXIDINE GLUCONATE 0.12 % 15ML UDC (PERIDEX ORAL RINSE) MT SCH ×3 (13:36→20:01)
[2021-09-17] MEDS: PANTOPRAZOLE 40MG VIAL (C9113 PER 1) IV SCH (13:37)
--- NOTE | 2021-09-17 15:09 | HPEPDOC ---
General Date of Admission Sep 17, 2021 at 11:33 Chief Complaint The patient is a 65-year-old male admitted with a reason for visit of Cardiac A rrest, Respiratory Failure. Home Medications Scheduled Amiodarone Hcl (Pacerone) 200 Mg Tab, 200 MG PO QHS, (Reported) Aspirin (Aspirin EC) 81 Mg Tab, 81 MG PO DAILY, (Reported) Carvedilol (Coreg) 6.25 Mg Tab, 6.25 MG PO BID, (Reported) Cephalexin (Cephalexin) 500 Mg Capsule, 1 CAP PO QID Chlorthalidone (Chlorthalidone) 25 Mg Tablet, 12.5 MG PO DAILY, (Reported) Clopidogrel Bisulfate (Plavix) 75 Mg Tab, 75 MG PO DAILY, (Reported) ON HOLD SINCE 12/06/19 FOR PROCEDURE Cyanocobalamin (Vitamin B-12) (Vitamin B-12) 500 Mcg Tablet, 500 MCG PO QHS, (Reported) Divalproex Sodium (Depakote ER) 500 Mg Tab.er.24h, 500 MG PO BID, (Reported) Folic Acid (Folic Acid) 400 Mcg Tab, 400 MCG PO QHS, (Reported) Furosemide (Furosemide) 20 Mg Tablet, 20 MG PO DAILY, (Reported) Gluc Stewart/Chondro Stewart A/Vit C/Mn (Glucosamine Chondroitin Tab) 1 Each Tablet, 1 TAB PO BID, (Reported) Levothyroxine Sodium (Levothyroxine Sodium) 137 Mcg Tab, 137 MCG PO DAILY, (Reported) Losartan Potassium (Losartan Potassium) 25 Mg Tab, 25 MG PO QHS, (Reported) Magnesium Chloride (Slow-Mag) 1 Tab Tab, 1 TAB PO DAILY, (Reported) Multivit-Min/FA/Lycopen/Lutein (Essential Man 50+ Tablet) 1 Tab Tab, 1 TAB PO DAILY, (Reported) Rosuvastatin Calcium (Rosuvastatin Calcium) 10 Mg Tablet, 20 MG PO QHS, (Reported) Scheduled PRN Acetaminophen (Tylenol 8 Hour) 650 Mg Tablet.er, 1,300 MG PO BID PRN for PAIN, (Reported) Ondansetron (Ondansetron Odt) 8 Mg Tab.rapdis, 8 MG PO TID PRN for NAUSEA OR VOMITING, (Reported) Polyethylene Glycol 3350 (Miralax) 119 Gm Powder, 17 GM PO DAILY PRN for CONSTIPATION, (Reported) dilute in 8 ounces of water or juice Sildenafil Citrate (Sildenafil Citrate) 100 Mg Tablet, 100 MG PO DAILY PRN for ERECTILE DYSFUNCTION, (Reported) Allergies Coded Allergies: bee venom protein (honey bee) (Verified Allergy, Mild, 03/30/19) Vital Signs Vital Signs Date Time Temp Pulse Resp B/P (MAP) Pulse Ox O2 Delivery O2 Flow Rate FiO2 09/17/21 13:37 26 09/17/21 12:37 57 152/61 (91) 100 09/17/21 12:36 Ventilator 09/17/21 12:23 96.6 09/17/21 11:45 70 Laboratory Data Labs 24H Laboratory Tests 2 09/17/21 09:49: Blood Gas Bicarbonate Standard 23.8, Arterial Blood pH 7.343L, Arterial Blood Partial Pressure CO2 48.2H, Arterial Blood Partial Pressure O2 64.1L, Arterial Blood Total CO2 27.1, Arterial Blood HCO3 25.6, Arterial Blood Base Excess -0.6, Arterial Blood Oxygen Saturation 89.4L 09/17/21 09:55: Immature Granulocyte % (Auto) 0.8, Neutrophils (%) (Auto) 88.8H, Lymphocytes (%) (Auto) 6.7L, Monocytes (%) (Auto) 2.4, Eosinophils (%) (Auto) 0.9, Basophils (%) (Auto) 0.4, Neutrophils # (Auto) 9.5H, Lymphocytes # (Auto) 0.7L, Monocytes # (Auto) 0.3, Eosinophils # (Auto) 0.1, Basophils # (Auto) 0.0, Nucleated Red Blood Cells % (auto) 0.0, Anion Gap 7L, Glomerular Filtration Rate > 60.0, Calcium Level 8.0L, Phosphorus Level 4.3, Magnesium Level 1.8, Total Bilirubin 0.3, Aspartate Amino Transf (AST/SGOT) 27, Alanine Aminotransferase (ALT/SGPT) 34, Alkaline Phosphatase 52, Troponin I 0.03, Total Protein 6.4, Albumin 2.7L, Albumin/Globulin Ratio 0.7 09/17/21 10:55: Lactic Acid Level 1.5 CBC/BMP Laboratory Tests 09/17/21 09:55 Microbiology Microbiology 09/17/21 Acid Fast Stain - Final, Resulted 09/17/21 Mycobacterial Culture, Resulted Pending 09/17/21 Fungal Smear, Resulted Pending 10/20/21 Fungal Culture, Resulted Pending 09/17/21 Gram Stain - Final, Resulted 09/17/21 Bronchoalveolar Lavage Culture, Resulted Pending ED LUNA MD Sep 17, 2021 15:09
[2021-09-17] MEDS: propofoL 1,000 MG in IV 1 EA IV SCH ×2 (15:37→22:16)
--- NOTE | 2021-09-17 15:40 | HPEPDOC ---
[facility] Medical History & Physical Date of Admission Sep 17, 2021 Date of Service: Sep 17, 2021 Primary Care Physician: Jaimee Kirk PA-C Attending Physician: ED LUNA MD History and Physical CHIEF COMPLAINT: Cardiac arrest HISTORY OF PRESENT ILLNESS: This is a 65-year-old gentleman with past medical history of atrial fibrillation, peripheral vascular disease, left upper lobe pulmonary nodule, hypertension, hypothyroidism, hyperlipidemia, CHARLES on CPAP, and COPD who is being admitted to the ICU after cardiac arrest. Patient presented to the hospital today for elective robotic bronchoscopy to biopsy the left upper lobe spiculated pulmonary nodule. After several biopsy w as done, there was mild bleeding which was resolved with administration of thrombin. However during the procedure, he was noted to have bradycardia which partially responded to ministration of atropine. He was also given epinephrine during the procedure. This was preceded with pulseless ventricular tachycardia in which CPR was performed and he was defibrillated. Amiodarone was also given. Post arrest EKG show old left bundle branch block similar to the EKG done on July 09, 2021. He remains intubated post arrest. Chest x-ray show bilateral predominantly upper lobe infiltrate likely pulmonary edema with pulmonary contusion from CPR. Mentation ma, patient does wake up and follow commands. He was previously on low-dose Levophed at 4 mcg/min after cardiac arrest but has been turned off after he arrived to the ICU. Postarrest echocardiogram done shows essentially similar to previous echocardiogram. Previous echocardiogram done on February 13, 2020 showed left ventricular ejection fraction of 50%, moderately dilated aortic root and ascending aorta. Moderate concentric left ventricular hypertrophy with septal wall motion abnormality due to left bundle branch block with mild impairment of global resting systolic function. Grade 1 diastolic dysfunction. Normal right heart chamber sizes, wall motion, and estimated pulmonary artery pressure. Mild degenerative changes of the mitral valve without functional normality. PAST MEDICAL HISTORY: 1. Mild COPD Gold stage I 2. Atrial fibrillation 3. Schizophrenia 4. CHARLES with AHI of 19.2 on CPAP 5. Peripheral vascular disease with multiple stenting of the bilateral lower extremities and headache enterectomy of right leg on June 2021 6. Diastolic dysfunction with left ventricular hypertrophy and normal systolic function 7. BPH 8. Hypertension 9. Osteoarthritis 10. History of psoriasis 11. Remote history of right inguinal hernia repair 12. Left shoulder repair 13. History of nicotine dependency 14. Hypothyroidism 15. Hyperlipidemia 16. Obesity 17. Depression 18. Seasonal allergy 19. Left bundle branch block PAST SURGICAL HISTORY: 1. Inguinal hernia repair in 1984 on the right side 2. Shoulder repair in 2005 3. Hydrocele repair in January 2013 4. Peripheral stenting in Aprilngioplasty and stenting of the left superficial femoral artery and angioplasty of the left tibial peroneal trunk 5. Right popliteal and superficial femoral artery stenting in July 2015 6. Right common iliac stenting in November 2017 7. Lung biopsy in November 2019 A. Right comment, superficial and deep femoral enterectomy, bypass graft from the common femoral proximal to the superficial femoral and deep femoral artery distally and angioplasty of the popliteal and distal vessels SOCIAL HISTORY: Patient is and live with his spouse. He is medically retire due to leg claudication. He is a former smoker who smoked 3 pack/day since the age of 71. He quit smoking back in November 2010 and uses e-cigarette sporadically. He does not consume alcohol. He does not use any illicit drugs. FAMILY HISTORY: His father of non-Hodgkin lymphoma. Mother at age 94 and has history of cardiomegaly, iri-grrjire-zvhfeezqt diabetes and hypertension. He has a brother with atrial fibrillation. He has a sister with SYSTEMS SOFTWARE DEVELOPER tumor and glj-fojpezo-dyqfubabl diabetes. He has another sister with atrial fibrillation. He has another sister with peripheral vascular disease. ALLERGIES: Please see below. REVIEW OF SYSTEMS: Unable to obtain as patient is currently intubated and sedated HOME MEDICATIONS: Please see below. PHYSICAL EXAMINATION: VITAL SIGNS: Please see below GENERAL APPEARANCE: Appears his stated age. Comfortably sedated but he was following commands and trying to write to communicate when he was awake. HEENT: Left IJ line in place. JVD present. CARDIOVASCULAR: Normal S1-S2 with no audible murmur. LUNGS: Bilateral rhonchi but very limited examination. ABDOMEN: Soft, nontender, hypoactive bowel sounds. MUSCULOSKELETAL: No evidence of joint effusion. EXTREMITIES: No evidence of pedal edema or clubbing of the fingers. NEUROLOGICAL: Nonfocal, cranial nerves grossly intact. PSYCHIATRIC: Cannot be assessed.. LABORATORY DATA: See below. IMAGING: Chest x-ray with left sided internal jugular central venous catheter at the tip of distal SVC. Endotracheal tube approximately 3 cm above the jonathan. Patchy interstitial and airspace opacity seen throughout lung uriostegui mostly upper lobe predominant. MICROBIOLOGY: Please see below. ASSESSMENT: This is a 65-year-old gentleman with past medical history of atrial fibrillation, peripheral vascular disease, left upper lobe pulmonary nodule, hypertension, hypothyroidism, hyperlipidemia, CHARLES on CPAP, and COPD who is being admitted to the ICU after cardiac arrest. #Cardiac arrest/pulseless V. tach arrest -Ischemic downtime approximately 1 to 2 minutes. He received CPR, defibrillation and amiodarone. Repeat EKG post arrest show all left bundle branch block. Repeat echocardiogram show no significant change from previous echocardiogram. Neurologically intact and following commands postarrest. Therefore, we were not perform targeted temperature management. -Pending official echocardiogram result. -Trend troponin. #Acute respiratory failure secondary to cardiac arrest -He will remain intubated today. Chest x-ray with bilateral pulmonary infiltrate consistent with pulmonary edema +/-pulmonary contusion. Current vent setting at [facility] control with respiratory rate 14, tidal volume 520, PEEP 8, FiO2 40%. Will perform daily sedation holiday with spontaneous breathing trial when appropriate. #Pulmonary edema secondary from cardiac arrest -We will give Lasix once hemodynamics improve. #Metabolic encephalopathy -Secondary to above. However when coming off sedation, he is appropriate. Will perform sedation holiday and if respiratory mechanics are appropriate, he will be extubated. #Past medical history of vasculopathy, peripheral vascular disease, atrial fibrillation, left upper lobe pulmonary nodule, hypertension, hypothyroidism, hyperlipidemia, CHARLES, schizophrenia -We will hold all home meds. Will resume all his home medications once he is extubated. I anticipate he will be extubated by tomorrow. DVT prophylaxis: Lovenox subcutaneous GI prophylaxis: Not indicated Diet: N.p.o. Critical care time excluding procedure is 45 minutes. Vital Signs Vital Signs Date Time Temp Pulse Resp B/P (MAP) Pulse Ox O2 Delivery O2 Flow Rate FiO2 09/17/21 13:37 26 09/17/21 12:37 57 152/61 (91) 100 09/17/21 12:36 Ventilator 09/17/21 12:23 96.6 09/17/21 11:45 70 Laboratory Data Labs 24H Laboratory Tests 2 09/17/21 09:49: Blood Gas Bicarbonate Standard 23.8, Arterial Blood pH 7.343L, Arterial Blood Partial Pressure CO2 48.2H, Arterial Blood Partial Pressure O2 64.1L, Arterial Blood Total CO2 27.1, Arterial Blood HCO3 25.6, Arterial Blood Base Excess -0.6, Arterial Blood Oxygen Saturation 89.4L 09/17/21 09:55: Immature Granulocyte % (Auto) 0.8, Neutrophils (%) (Auto) 88.8H, Lymphocytes (%) (Auto) 6.7L, Monocytes (%) (Auto) 2.4, Eosinophils (%) (Auto) 0.9, Basophils (%) (Auto) 0.4, Neutrophils # (Auto) 9.5H, Lymphocytes # (Auto) 0.7L, Monocytes # (Auto) 0.3, Eosinophils # (Auto) 0.1, Basophils # (Auto) 0.0, Nucleated Red Blood Cells % (auto) 0.0, Anion Gap 7L, Glomerular Filtration Rate > 60.0, Calcium Level 8.0L, Phosphorus Level 4.3, Magnesium Level 1.8, Total Bilirubin 0.3, Aspartate Amino Transf (AST/SGOT) 27, Alanine Aminotransferase (ALT/SGPT) 34, Alkaline Phosphatase 52, Troponin I 0.03, Total Protein 6.4, Albumin 2.7L, Albumin/Globulin Ratio 0.7 09/17/21 10:55: Lactic Acid Level 1.5 CBC/BMP Laboratory Tests 09/17/21 09:55 Microbiology Microbiology 09/17/21 Acid Fast Stain - Final, Resulted 09/17/21 Mycobacterial Culture, Resulted Pending 09/17/21 Fungal Smear, Resulted Pending 09/17/21 Fungal Culture, Resulted Pending 09/17/21 Gram Stain - Final, Resulted 09/17/21 Bronchoalveolar Lavage Culture, Resulted Pending Home Medications Scheduled Amiodarone Hcl (Pacerone) 200 Mg Tab, 200 MG PO QHS Aspirin (Aspirin EC) 81 Mg Tab, 81 MG PO DAILY Carvedilol (Coreg) 6.25 Mg Tab, 6.25 MG PO BID Cephalexin (Cephalexin) 500 Mg Capsule, 1 CAP PO QID Chlorthalidone (Chlorthalidone) 25 Mg Tablet, 12.5 MG PO DAILY Clopidogrel Bisulfate (Plavix) 75 Mg Tab, 75 MG PO DAILY ON HOLD SINCE 12/06/19 FOR PROCEDURE Cyanocobalamin (Vitamin B-12) (Vitamin B-12) 500 Mcg Tablet, 500 MCG PO QHS Divalproex Sodium (Depakote ER) 500 Mg Tab.er.24h, 500 MG PO BID Folic Acid (Folic Acid) 400 Mcg Tab, 400 MCG PO QHS Furosemide (Furosemide) 20 Mg Tablet, 20 MG PO DAILY Gluc Stewart/Chondro Stewart A/Vit C/Mn (Glucosamine Chondroitin Tab) 1 Each Tablet, 1 TAB PO BID Levothyroxine Sodium (Levothyroxine Sodium) 137 Mcg Tab, 137 MCG PO DAILY Losartan Potassium (Losartan Potassium) 25 Mg Tab, 25 MG PO QHS Magnesium Chloride (Slow-Mag) 1 Tab Tab, 1 TAB PO DAILY Multivit-Min/FA/Lycopen/Lutein (Essential Man 50+ Tablet) 1 Tab Tab, 1 TAB PO DAILY Rosuvastatin Calcium (Rosuvastatin Calcium) 10 Mg Tablet, 20 MG PO QHS Scheduled PRN Acetaminophen (Tylenol 8 Hour) 650 Mg Tablet.er, 1,300 MG PO BID PRN for PAIN Ondansetron (Ondansetron Odt) 8 Mg Tab.rapdis, 8 MG PO TID PRN for NAUSEA OR VOMITING Polyethylene Glycol 3350 (Miralax) 119 Gm Powder, 17 GM PO DAILY PRN for CONSTIPATION dilute in 8 ounces of water or juice Sildenafil Citrate (Sildenafil Citrate) 100 Mg Tablet, 100 MG PO DAILY PRN for ERECTILE DYSFUNCTION Allergies Coded Allergies: bee venom protein (honey bee) (Verified Allergy, Mild, 03/30/19) A-FIB/CHADSVASC A-FIB History Current/History of A-Fib/PAF?: Yes Current PO Anticoag Therapy: Yes ED LUNA MD Sep 17, 2021 15:40
--- NOTE | 2021-09-17 17:30 | ECHO ---
ECHOCARDIOGRAM DATE OF PROCEDURE: 09/17/2021 Age: 65 Gender: Male Height: 74 inches Weight: 284 pounds Body surface area: 2.52 m2 Inpatient. REFERRING PHYSICIAN: Dr. Wilfredo Monk INDICATION: Abnormal EKG, post cardiac arrest. MEASUREMENTS: 2D Measurements: RV - 4.1 cm Right ventricular free wall thickness 0.7 cm LV - 4.7 cm Septum 1.4 cm Posterior wall 1.3 cm Aortic root 4.1 cm LA - 4.4 cm LVEF 45%-50% Doppler Measurements: AV - 1.16 m/s LVOT - 0.9 m/s LVOT diameter 2.1 cm MV-E 47, A 51, E/A ratio 0.9 Early mitral deceleration time 306 msec E prime medial 6.7 A prime medial 10 E prime lateral 5.9 Average E/E prime ratio 7.5/PCWP 11.2 mmHg PV - 0.73 m/s Pulmonary artery acceleration time 95 msec RVSP 43 mmHg IVC 2.0 cm COMMENTS: Sinus bradycardia with first-degree AV block and left bundle branch block. M-mode and 2-dimensional echocardiography was performed with pulse, continuous wave, color flow, and tissue Doppler studies. At least mild concentric left ventricular hypertrophy with septal and paradoxical motion and apical akinesis, consistent with his left bundle branch block and possibly a degree of right ventricular pressure overload. At least mild impairment of global resting left ventricular systolic function. Mildly dilated left atrium with grade 1 LV diastolic dysfunction but currently normal estimated mean left atrial pressure. At least borderline right ventricular enlargement with borderline right ventricular free wall hypertrophy but normal wall motion and Doppler evidence of at least moderate pulmonary hypertension. His right atrium was at least mildly dilated, and IVC size was upper limits of normal with adequate respiratory collapse against an elevated central venous pressure at this time. Mildly dilated aortic root. Normal-appearing and functioning aortic valve. Normal-appearing and functioning mitral valve. Normal-appearing tricuspid valve with at least mild insufficiency. No apparent intracardiac mass or pericardial effusion.
[2021-09-17] MEDS ORDERED: FUROSEMIDE 20MG/2ML VIAL (J1940) IV ONE (18:20)
[2021-09-18] VITALS (41 sets, daily range): BP systolic 94–143; BP diastolic 56–79
[2021-09-18] MEDS: MIDAZOLAM INJ 2MG/2ML VIAL (J2250 PER 1MG) IV PRN ×2 (02:13→05:12)
[2021-09-18 04:05] LABS: BASO % 0.2 % (0.0-1.0); EOS % 0.1 % (0.0-3.0); HEMATOCRIT 38.8 % (42.0-52.0); HEMOGLOBIN 12.3 g/dl (13.5-17.5); LYMPH # 1.4 10^3/uL (1.5-5.0); LYMPH % 12.5 % (24.0-44.0); MEAN CORPUSCULAR HEMOGLOBIN 26.3 pg (27.0-33.0); MEAN CORPUSCULAR HGB CONC 31.7 g/dl (32.0-36.5); MEAN CORPUSCULAR VOLUME 82.9 fl (80.0-96.0); MONO # 1.2 10^3/uL (0.0-0.8); MONO % 10.9 % (2.0-8.0); NEUTROPHILS # 8.4 10^3/uL (1.5-8.5); NEUTROPHILS % 75.8 % (36.0-66.0); PLATELET COUNT, AUTOMATED 256 10^3/uL (150-450); RED BLOOD COUNT 4.68 10^6/uL (4.30-6.10); WHITE BLOOD COUNT 11.1 10^3/uL (4.0-10.0)
[2021-09-18 04:43] LABS: BLOOD UREA NITROGEN 27 MG/DL (7-18); CREATININE FOR GFR 1.26 MG/DL (0.70-1.30); GLUCOSE, FASTING 96 MG/DL (70-100)
[2021-09-18 04:44] LABS: ALBUMIN 2.8 GM/DL (3.2-5.2); ALT/SGPT 29 U/L (12-78); BILIRUBIN,TOTAL 0.4 MG/DL (0.2-1.0); CALCIUM LEVEL 8.4 MG/DL (8.8-10.2); CARBON DIOXIDE LEVEL 25 MEQ/L (21-32); CHLORIDE LEVEL 106 MEQ/L (98-107); GLOMERULAR FILTRATION RATE > 60.0 (>49); POTASSIUM SERUM 3.6 MEQ/L (3.5-5.1); SODIUM LEVEL 140 MEQ/L (136-145); TOTAL PROTEIN 6.7 GM/DL (6.4-8.2); TROPONIN I 0.16 NG/ML (< 0.10)
[2021-09-18 05:54] LABS: ABG BASE EXCESS 1.3 (-2.0-2.0); ABG HCO3 23.5 MEQ/L (22.0-26.0); ABG O2 SATURATION 94.8 % (95.0-99.0); ABG PARTIAL PRESSURE CO2 30.2 mmHg (35.0-45.0); ABG PARTIAL PRESSURE O2 73.5 mmHg (75.0-100.0); ABG STANDARD HCO3 25.6 MEQ/L (22.0-26.0); ABG TOTAL CO2 24.4 MEQ/L (23.0-31.0); ABG pH (ARTERIAL) 7.509 UNITS (7.350-7.450)
[2021-09-18] MEDS: CHLORHEXIDINE GLUCONATE 0.12 % 15ML UDC (PERIDEX ORAL RINSE) MT SCH (08:01)
[2021-09-18] MEDS: PANTOPRAZOLE 40MG VIAL (C9113 PER 1) IV SCH (08:02)
[2021-09-18] MEDS: ENOXAPARIN 40MG/0.4ML SYRINGE (J1650 PER 10MG) SC SCH (08:02)
--- NOTE | 2021-09-18 08:11 | REP ---
INDICATION: INTUBATED COMPARISON: 09/17/2021 TECHNIQUE: Portable AP view of the chest FINDINGS: Endotracheal tube in satisfactory position. Left IJ line with tip in the SVC. Dense left lower lobe consolidation and small left pleural effusion is now appreciated along with right lower lobe airspace disease. The upper lobes appear improved as compared to prior examination. No pneumothorax. IMPRESSION: Increasing areas of consolidation at the bilateral bases with improved aeration to the upper lung zones. <Electronically signed by Kiel Damon > 09/18/21 0802
[2021-09-18] MEDS ORDERED: FUROSEMIDE 20MG/2ML VIAL (J1940) IV ONE (09:15)
[2021-09-18] MEDS: DIVALPROEX 250MG *ER* TAB PO SCH ×2 (11:29→22:36)
[2021-09-18] MEDS: AMIODARONE 200 MG TAB (PACERONE) PO SCH (11:30)
[2021-09-18] MEDS: FUROSEMIDE 20 MG TAB PO SCH (11:30)
[2021-09-18] MEDS: ASPIRIN 81MG ENTERIC TABLET PO SCH (11:30)
[2021-09-18] MEDS: CLOPIDOGREL 75 MG TAB PO SCH (11:30)
[2021-09-18] MEDS: CARVedilol 6.25 MG TAB PO SCH ×2 (11:30→22:34)
[2021-09-18] MEDS: ACETAMINOPHEN TAB 650MG DOSE (2X325MG) PO PRN ×2 (11:31→17:39)
[2021-09-18] MEDS: NICOTINE 21MG/24HR 1 EA TRANSDERMAL TD SCH (11:42)
[2021-09-18] MEDS: CHLORTHALIDONE 12.5MG PER 1/2 TABLET PO SCH (11:42)
--- NOTE | 2021-09-18 12:33 | IPNPDOC ---
Subjective Date Seen The patient was seen on 09/18/21. Subjective Chief Complaint/HPI Patient is complaining of penile pain due to Smith catheter. Otherwise he denies of fever, chills, chest pain, shortness of breath. Constitutional: Denies: Chills, Fever Eyes: Reports: Pain (Penile) ENT: Denies: Head Aches Skin: Denies: Rash Pulmonary: Denies: Dyspnea, Cough, Pleuritic Chest Pain Cardiovascular: Denies: Chest Pain, Palpitations, Orthopnea, Paroxysmal Noc. Dyspnea, Edema Gastrointestinal: Denies: Nausea, Vomiting, Abdominal Pain, Diarrhea Hematologic: Denies: Bruising Neurological: Denies: Weakness, Numbness Objective Physical Examination General Exam: Positive: Alert, Cooperative, No Acute Distress Eye Exam: Positive: PERRLA; Negative: Sclera icteric ENT Exam: Positive: Atraumatic, Mucous membr. moist/pink Neck Exam: Positive: Supple; Negative: JVD, Lymphadenopathy Chest Exam: Positive: Clear to auscultation, Normal air movement; Negative: Rales, Rhonchi, Wheezing Heart Exam: Positive: Rate Normal, Regular Rhythm Abdomen Exam: Positive: Normal bowel sounds, Soft; Negative: Tenderness, Mass Extremity Exam: Negative: Clubbing, Cyanosis, Edema Skin Exam: Negative: Rash Neuro Exam: Positive: Normal Speech, Strength at 5/5 X4 ext, Sensation Intact Psych Exam: Positive: Mental status NL, Anxiety, Oriented x 3 Assessment /Plan Assessment This is a 65-year-old gentleman with past medical history of atrial fibrillation, peripheral vascular disease, left upper lobe pulmonary nodule, hypertension, hypothyroidism, hyperlipidemia, CHARLES on CPAP, and COPD who is being admitted to the ICU after cardiac arrest. Plan/VTE VTE Prophylaxis Ordered?: Yes Plan #Cardiac arrest/pulseless V. tach arrest -Ischemic downtime approximately 1 to 2 minutes. He received CPR, defibrillation and amiodarone. Repeat EKG post arrest show all left bundle branch block (old). Repeat echocardiogram show no significant change from previous echocardiogram. Neurologically intact and following commands postarrest. Therefore, we were not perform targeted temperature management. -Troponin plateaued at 0.24 and has been trending down. 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 per cardiology recommendation. -I have restarted him back on aspirin, Plavix, carvedilol, amiodarone, ARB. #Acute respiratory failure secondary to cardiac arrest -Immediate chest x-ray done after cardiac arrest showed pulmonary edema. He responded to diuretic therapy and oxygen saturation was reasonable with PEEP of 5 and FiO2 at 40%. I gave him additional 20 mg Lasix IV today prior to extubation. Patient tolerated extubation today and he is currently on 2 to 4 L oxygen to nasal cannula. #Pulmonary edema secondary from cardiac arrest -He improved with Lasix 20 mg IV x2. I have put him back on his home dose Lasix 20 mg p.o. Daily. #Metabolic encephalopathy -Secondary to above. Mentation was appropriate today coming off sedation. Therefore he was extubated. #Past medical history of vasculopathy, peripheral vascular disease, atrial fibrillation, left upper lobe pulmonary nodule, hypertension, hypothyroidism, hyperlipidemia, CHARLES, schizophrenia -All his home medications has been restarted. #Chronic tobacco abuse -Nicotine patch DVT prophylaxis: Lovenox subcutaneous GI prophylaxis: Not indicated Diet: Cardiac diet Critical care time excluding procedure is 30 minutes. Disposition Transfer out of ICU to [facility] with telemetry. [facility] Vital Signs/I&O Vital Signs Date Time Temp Pulse Resp B/P (MAP) Pulse Ox O2 Delivery O2 Flow Rate FiO2 09/18/21 11:30 66 144/68 09/18/21 11:00 97 Aerosol Mask 10.0 60 09/18/21 08:00 97.2 26 I&O- Last 24 Hours up to 6 AM 09/18/21 06:00 Intake Total 3324.67 ml Output Total 1125 ml Balance 2199.67 ml Laboratory Data 24H LABS Laboratory Tests 2 09/17/21 15:17: Troponin I 0.23#H 09/17/21 21:50: Troponin I 0.24H 09/18/21 03:55: Troponin I 0.16#H, Immature Granulocyte % (Auto) 0.5, Neutrophils (%) (Auto) 75 .8H, Lymphocytes (%) (Auto) 12.5L, Monocytes (%) (Auto) 10.9H, Eosinophils (%) (Auto) 0.1, Basophils (%) (Auto) 0.2, Neutrophils # (Auto) 8.4, Lymphocytes # (Auto) 1.4L, Monocytes # (Auto) 1.2H, Eosinophils # (Auto) 0.0, Basophils # (Auto) 0.0, Nucleated Red Blood Cells % (auto) 0.0, Anion Gap 9, Glomerular Filtration Rate > 60.0, Calcium Level 8.4L, Total Bilirubin 0.4, Aspartate Amino Transf (AST/SGOT) 22, Alanine Aminotransferase (ALT/SGPT) 29, Alkaline Phosphatase 47, Total Protein 6.7, Albumin 2.8L, Albumin/Globulin Ratio 0.7 09/18/21 05:52: Blood Gas Bicarbonate Standard 25.6, Arterial Blood pH 7.509H, Arterial Blood Partial Pressure CO2 30.2L, Arterial Blood Partial Pressure O2 73.5L, Arterial Blood Total CO2 24.4, Arterial Blood HCO3 23.5, Arterial Blood Base Excess 1.3, Arterial Blood Oxygen Saturation 94.8L CBC/BMP Laboratory Tests 09/18/21 03:55 Microbiology Microbiology 09/17/21 Acid Fast Stain - Final, Resulted 09/17/21 Mycobacterial Culture, Resulted Pending 09/17/21 Fungal Smear, Resulted Pending 09/17/21 Fungal Culture, Resulted Pending 09/17/21 Gram Stain - Final, Resulted 09/17/21 Bronchoalveolar Lavage Culture, Resulted Pending ED LUNA MD Sep 18, 2021 12:33
--- NOTE | 2021-09-18 14:00 | ECGEPIP ---
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
--- NOTE | 2021-09-18 14:04 | ECGEPIP ---
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
[2021-09-18] MEDS ORDERED: LOSARTAN 25 MG TAB PO SCH (21:00)
[2021-09-18] MEDS ORDERED: ROSUVASTATIN 10 MG TAB (CRESTOR) PO SCH (21:00)
[2021-09-19] VITALS (9 sets, daily range): BP systolic 148; BP diastolic 72; O2SAT 87–98
[2021-09-19] MEDS ORDERED: LEVOTHYROXINE 137MCG TABLET (0.137MG) PO SCH (06:00)
--- NOTE | 2021-09-19 08:11 | IPNPDOC ---
Subjective Date Seen The patient was seen on 09/18/21. Subjective Chief Complaint/HPI Sitting up in chair having dinner. Complaints of neck pain at the site of the central line, no other complaints this evening. No fever ro chills. Denies any shortness of breath. Objective Physical Examination General Exam: Positive: Alert, Cooperative, No Acute Distress Eye Exam: Positive: PERRLA; Negative: Sclera icteric ENT Exam: Positive: Atraumatic, Mucous membr. moist/pink Neck Exam: Positive: Supple; Negative: JVD, Lymphadenopathy Chest Exam: Positive: Clear to auscultation, Normal air movement; Negative: Rales, Rhonchi, Wheezing Heart Exam: Positive: Rate Normal, Regular Rhythm Abdomen Exam: Positive: Normal bowel sounds, Soft; Negative: Tenderness, Mass Extremity Exam: Negative: Clubbing, Cyanosis, Edema Skin Exam: Negative: Rash Neuro Exam: Positive: Normal Speech, Strength at 5/5 X4 ext, Sensation Intact Psych Exam: Positive: Mental status NL, Anxiety, Oriented x 3 Assessment /Plan Assessment 65-year-old male with past medical history of mild COPD Gold stage I, atrial fibrillation, CHARLES on CPAP, schizophrenia, peripheral vascular disease with multiple stenting in bilateral lateral lower extremities, endarterectomy of the right leg in June 2021, diastolic dysfunction, LVH, BPH, hypertension, osteoarthritis, psoriasis, hypothyroid, hyperlipidemia, obesity, depression, came for an elective robotic bronchoscopic biopsy of left upper lung nodule on 09/17/2021. After several biopsy was done, there was mild bleeding which was resolved with administration of thrombin. However during the procedure, he was noted to have bradycardia which partially responded to ministration of atropine. He was also given epinephrine during the procedure. This was followed with pulseless ventricular tachycardia in which CPR was performed and he was defibrillated. Amiodarone was also given. Post arrest EKG show old left bundle branch block similar to the EKG done on July 09, 2021. He remained intubated post arrest. Chest x-ray showed bilateral predominantly upper lobe infiltrate likely from pulmonary edema with pulmonary contusion from CPR. There was mild elevation in troponin after cardiac arrest and CPR. Post arrest echocardiogram done shows essentially similar to previous echocardiogram. Previous e chocardiogram done on February 13, 2020 showed left ventricular ejection fraction of 50%, moderately dilated aortic root and ascending aorta. Moderate concentric left ventricular hypertrophy with septal wall motion abnormality due to left bundle branch block with mild impairment of global resting systolic function. Grade 1 diastolic dysfunction. Normal right heart chamber sizes, wall motion, and estimated pulmonary artery pressure. Mild degenerative changes of the mitral valve without functional normality. Patient was admitted to ICU and was briefly on Levophed. Now patient has been successfully extubated on 09/18/2021 and the care of the patient has been transferred to hospitalist service. Cardiac arrest/pulseless V. tach arrest Ischemic downtime approximately 1 to 2 minutes. He received CPR, defibrillation and amiodarone. Repeat EKG post arrest showed only left bundle branch block (old). Repeat echocardiogram showed no significant change from previous echocardiogram. Neurologically intact and following commands post arrest. Troponin plateaued at 0.24 and has been trending down. Monitor patient for the next 48 hours on site monitor. per cardiology recommendation. Continue on aspirin, Plavix, carvedilol, amiodarone, ARB. Acute respiratory failure secondary to cardiac arrest Immediate chest x-ray done after cardiac arrest showed pulmonary edema. Pulmonary edema secondary from cardiac arrest. Responded to Lasix. Extubated on 09/18/21 Now on nasal canula Acute Metabolic encephalopathy Secondary to above. Resolved Chronic tobacco abuse Nicotine patch Other medical problems: Peripheral vascular disease, atrial fibrillation, left upper lobe pulmonary nodule, hypertension, hypothyroidism, hyperlipidemia, CHARLES, schizophrenia All his home medications has been restarted. Plan/VTE VTE Prophylaxis Ordered?: Yes VS, I&O, 24H, [facility] Vital Signs/I&O Vital Signs Date Time Temp Pulse Resp B/P (MAP) Pulse Ox O2 Delivery O2 Flow Rate FiO2 09/18/21 11:30 66 144/68 09/18/21 11:00 97 Aerosol Mask 10.0 60 09/18/21 08:00 97.2 26 I&O- Last 24 Hours up to 6 AM 09/18/21 05:59 Intake Total 3304.27 ml Output Total 1065 ml Balance 2239.27 ml Laboratory Data 24H LABS Laboratory Tests 2 09/17/21 15:17: Troponin I 0.23#H 09/17/21 21:50: Troponin I 0.24H 09/18/21 03:55: Troponin I 0.16#H, Immature Granulocyte % (Auto) 0.5, Neutrophils (%) (Auto) 75.8H, Lymphocytes (%) (Auto) 12.5L, Monocytes (%) (Auto) 10.9H, Eosinophils (%) (Auto) 0.1, Basophils (%) (Auto) 0.2, Neutrophils # (Auto) 8.4, Lymphocytes # (Auto) 1.4L, Monocytes # (Auto) 1.2H, Eosinophils # (Auto) 0.0, Basophils # (Auto) 0.0, Nucleated Red Blood Cells % (auto) 0.0, Anion Gap 9, Glomerular Filtration Rate > 60.0, Calcium Level 8.4L, Total Bilirubin 0.4, Aspartate Amino Transf (AST/SGOT) 22, Alanine Aminotransferase (ALT/SGPT) 29, Alkaline Phosphatase 47, Total Protein 6.7, Albumin 2.8L, Albumin/Globulin Ratio 0.7 09/18/21 05:52: Blood Gas Bicarbonate Standard 25.6, Arterial Blood pH 7.509H, Arterial Blood Partial Pressure CO2 30.2L, Arterial Blood Partial Pressure O2 73.5L, Arterial B lood Total CO2 24.4, Arterial Blood HCO3 23.5, Arterial Blood Base Excess 1.3, Arterial Blood Oxygen Saturation 94.8L CBC/BMP Laboratory Tests 09/18/21 03:55 Microbiology Microbiology 09/17/21 Acid Fast Stain - Final, Resulted 09/17/21 Mycobacterial Culture, Resulted Pending 09/17/21 Fungal Smear, Resulted Pending 09/17/21 Fungal Culture, Resulted Pending 09/17/21 Gram Stain - Final, Resulted 09/17/21 Bronchoalveolar Lavage Culture, Resulted Pending Marry Herman MD Sep 18, 2021 13:47
[2021-09-19] MEDS: NICOTINE 21MG/24HR 1 EA TRANSDERMAL TD SCH (11:00)
[2021-09-19] MEDS: FUROSEMIDE 20 MG TAB PO SCH (11:00)
[2021-09-19] MEDS: ENOXAPARIN 40MG/0.4ML SYRINGE (J1650 PER 10MG) SC SCH (11:00)
[2021-09-19] MEDS: DIVALPROEX 250MG *ER* TAB PO SCH (11:00)
[2021-09-19] MEDS: CARVedilol 6.25 MG TAB PO SCH (11:00)
[2021-09-19] MEDS: CLOPIDOGREL 75 MG TAB PO SCH (11:00)
[2021-09-19] MEDS: CHLORTHALIDONE 12.5MG PER 1/2 TABLET PO SCH (11:00)
[2021-09-19] MEDS: AMIODARONE 200 MG TAB (PACERONE) PO SCH (11:00)
[2021-09-19] MEDS: ASPIRIN 81MG ENTERIC TABLET PO SCH (11:00)
--- NOTE | 2021-09-19 19:13 | DS.PDOC ---
Discharge Summary General Date of Admission Sep 17, 2021 at 11:33 Date of Discharge 09/19/21 Discharge Summary PROCEDURES PERFORMED DURING STAY: [None]. DISCHARGE DIAGNOSES: Cardiac arrest in operating room after bronchoscopic biopsy Acute respiratory failure due to cardiac arrest SECONDARY DIAGNOSIS: Peripheral vascular disease, atrial fibrillation, left upper lobe pulmonary nodule, hypertension, hypothyroidism, hyperlipidemia, CHARLES, schizophrenia COMPLICATIONS/CHIEF COMPLAINT: Cardiac Arrest, Respiratory Failure. HOSPITAL COURSE: 65-year-old male with past medical history of mild COPD Gold stage I, atrial fibrillation, CHARLES on CPAP, schizophrenia, peripheral vascular disease with multiple stenting in bilateral lateral lower extremities, endarterectomy of the right leg in June 2021, diastolic dysfunction, LVH, BPH, hypertension, osteoarthritis, psoriasis, hypothyroid, hyperlipidemia, obesity, depression, came for an elective robotic bronchoscopic biopsy of left upper lung nodule on 09/17/2021. After several biopsy was done, there was mild bleeding which was resolved with administration of thrombin. However during the procedure, he was noted to have bradycardia which partially responded to ministration of atropine. He was also given epinephrine during the procedure. This was followed with pulseless ventricular tachycardia in which CPR was performed and he was defibrillated. Amiodarone was also given. Post arrest EKG show old left bundle branch block similar to the EKG done on July 09, 2021. He remained intubated post arrest. Chest x-ray showed bilateral predominantly upper lobe infiltrate likely from pulmonary edema with pulmonary contusion from CPR. There was mild elevation in troponin after cardiac arrest and CPR. Post arrest echocardiogram done shows essentially similar to previous echocardiogram. Previous echocardiogram done on February 13, 2020 showed left ventricular ejection fraction of 50%, moderately dilated aortic root and ascending aorta. Moderate concentric left ventricular hypertrophy with septal wall motion abno rmality due to left bundle branch block with mild impairment of global resting systolic function. Grade 1 diastolic dysfunction. Normal right heart chamber sizes, wall motion, and estimated pulmonary artery pressure. Mild degenerative changes of the mitral valve without functional normality. Patient was admitted to ICU and was briefly on Levophed. Patient was successfully extubated on 09/18/2021 and the care of the patient was transferred to hospitalist service. Cardiac arrest/pulseless V. tach arrest Ischemic downtime approximately 1 to 2 minutes. He received CPR, defibrillation and amiodarone. Repeat EKG post arrest showed only left bundle branch block (old). Repeat echocardiogram showed no significant change from previous echocardiogram. Neurologically intact and following commands post arrest. Troponin plateaued at 0.24 and has been trended down. Monitor patient for the next 48 hours on cafeteria monitor. per cardiology recommendation. Continue on aspirin, Plavix, carvedilol, amiodarone, ARB. Patient refused to stay any longer. He was paranoid about the medications in the hospital, wanted his own brands, would not take hospital meds, Upset as could not sleep as the bed was no good and he did not have his CPAP. Refused to use hospital CPAP as it is not cleaned properly after being used on another patient. Did not want to give his house keys to his to bring his own machine. He ultimately signed out AMA. Acute respiratory failure secondary to cardiac arrest Immediate chest x-ray done after cardiac arrest showed pulmonary edema. Pulmonary edema secondary from cardiac arrest. Responded to Lasix. Extubated on 09/18/21 Acute Metabolic encephalopathy Secondary to above. Resolved Chronic tobacco abuse counseled about smoking cessation. DISCHARGE MEDICATIONS: Please see below. ALLERGIES: Please see below. PHYSICAL EXAMINATION ON DISCHARGE: VITAL SIGNS: Please see below. General Exam: Positive: Alert, No Acute Distress, paranoid and belligerent Eye Exam: Positive: PERRLA; Negative: Sclera icteric ENT Exam: Positive: Atraumatic, Mucous membr. moist/pink Neck Exam: Positive: Supple; Negative: JVD, Lymphadenopathy Chest Exam: Positive: Clear to auscultation, Normal air movement; Negative: Rales, Rhonchi, Wheezing Heart Exam: Positive: Rate Normal, Regular Rhythm Abdomen Exam: Positive: Normal bowel sounds, Soft; Negative: Tenderness, Mass Extremity Exam: Negative: Clubbing, Cyanosis, Edema Skin Exam: Negative: Rash Neuro Exam: Positive: Normal Speech, Strength at 5/5 X4 ext, Sensation Intact Psych Exam: Positive: Mental status NL, Anxiety, Oriented x 3 LABORATORY DATA: Please see below. ACTIVITY: [As tolerated]. DIET: As tolerated DISPOSITION: 07 Against Medical Advice. DISCHARGE INSTRUCTIONS: Follow up with Pulmonary for biopsy results DISCHARGE CONDITION: [Stable]. TIME SPENT ON DISCHARGE: 35 minutes. Vital Signs/I&Os Vital Signs Date Time Temp Pulse Resp B/P (MAP) Pulse Ox O2 Delivery O2 Flow Rate FiO2 09/19/21 06:19 98 Nasal Cannula 4.0 09/19/21 06:00 98.6 64 20 148/72 (97) 09/18/21 11:00 60 I&O- Last 24 Hours up to 6 AM 09/19/21 06:00 Intake Total 1640.2 ml Output Total 665 ml Balance 975.2 ml Microbiology Microbiology 09/17/21 Acid Fast Stain - Final, Resulted 09/17/21 Mycobacterial Culture, Resulted Pending 09/17/21 Fungal Smear, Resulted Pending 09/17/21 Fungal Culture, Resulted Pending 09/17/21 Gram Stain - Final, Complete 09/17/21 Bronchoalveolar Lavage Culture - Final, Complete Discharge Medications Scheduled Amiodarone Hcl (Pacerone) 200 Mg Tab, 200 MG PO QHS, (Reported) Aspirin (Aspirin EC) 81 Mg Tab, 81 MG PO DAILY, (Reported) Carvedilol (Coreg) 6.25 Mg Tab, 6.25 MG PO BID, (Reported) Cephalexin (Cephalexin) 500 Mg Capsule, 1 CAP PO QID Chlorthalidone (Chlorthalidone) 25 Mg Tablet, 12.5 MG PO DAILY, (Reported) Clopidogrel Bisulfate (Plavix) 75 Mg Tab, 75 MG PO DAILY, (Reported) ON HOLD SINCE 12/06/19 FOR PROCEDURE Cyanocobalamin (Vitamin B-12) (Vitamin B-12) 500 Mcg Tablet, 500 MCG PO QHS, (Reported) Divalproex Sodium (Depakote ER) 500 Mg Tab.er.24h, 500 MG PO BID, (Reported) Folic Acid (Folic Acid) 400 Mcg Tab, 400 MCG PO QHS, (Reported) Furosemide (Furosemide) 20 Mg Tablet, 20 MG PO DAILY, (Reported) Gluc Stewart/Chondro Stewart A/Vit C/Mn (Glucosamine Chondroitin Tab) 1 Each Tablet, 1 TAB PO BID, (Reported) Levothyroxine Sodium (Levothyroxine Sodium) 137 Mcg Tab, 137 MCG PO DAILY, (Reported) Losartan Potassium (Losartan Potassium) 25 Mg Tab, 25 MG PO QHS, (Reported) Magnesium Chloride (Slow-Mag) 1 Tab Tab, 1 TAB PO DAILY, (Reported) Multivit-Min/FA/Lycopen/Lutein (Essential Man 50+ Tablet) 1 Tab Tab, 1 TAB PO DAILY, (Reported) Rosuvastatin Calcium (Rosuvastatin Calcium) 10 Mg Tablet, 20 MG PO QHS, (R eported) Scheduled PRN Acetaminophen (Tylenol 8 Hour) 650 Mg Tablet.er, 1,300 MG PO BID PRN for PAIN, (Reported) Ondansetron (Ondansetron Odt) 8 Mg Tab.rapdis, 8 MG PO TID PRN for NAUSEA OR V OMITING, (Reported) Polyethylene Glycol 3350 (Miralax) 119 Gm Powder, 17 GM PO DAILY PRN for CON STIPATION, (Reported) dilute in 8 ounces of water or juice Sildenafil Citrate (Sildenafil Citrate) 100 Mg Tablet, 100 MG PO DAILY PRN for ERECTILE DYSFUNCTION, (Reported) Allergies Coded Allergies: bee venom protein (honey bee) (Verified Allergy, Mild, 03/30/19) Marry Herman MD Sep 19, 2021 19:13
== END 2021-09-19 11:37 | disposition left against medical advice (07) | DRG 206 ==
LOC: M SDC 06:03 → M PED 11:33 → M PCU 12:09 → M MSPAV 09-18 12:27
PROVIDERS: ADMIT Internal Medicine Critical Care Medicine; ATTEND Internal Medicine Nephrology
PROC: 5A1935Z Respiratory Ventilation, Less than 24 Consecutive Hours (ICD-10-PCS; 2021-09-17)
PROC: 8E0W4CZ Robotic Assisted Procedure of Trunk Region, Percutaneous Endoscopic Approach (ICD-10-PCS; 2021-09-17)
PROC: 02HV33Z Insertion of Infusion Device into Superior Vena Cava, Percutaneous Approach (ICD-10-PCS; 2021-09-17)
PROC: 0B9G8ZX Drainage of Left Upper Lung Lobe, Via Natural or Artificial Opening Endoscopic, Diagnostic (ICD-10-PCS; 2021-09-17)
PROC: 5A2204Z Restoration of Cardiac Rhythm, Single (ICD-10-PCS; 2021-09-17)
PROC: 0BBG8ZX Excision of Left Upper Lung Lobe, Via Natural or Artificial Opening Endoscopic, Diagnostic (ICD-10-PCS; principal; 2021-09-17 07:30)
DX: I97.711 Intraoperative cardiac arrest during other surgery (principal); I46.9 Cardiac arrest, cause unspecified; J96.00 Acute respiratory failure, unspecified whether with hypoxia or hypercapnia; G93.41 Metabolic encephalopathy; I47.2 Ventricular tachycardia; J44.9 Chronic obstructive pulmonary disease, unspecified; F20.9 Schizophrenia, unspecified; I48.91 Unspecified atrial fibrillation; G47.33 Obstructive sleep apnea (adult) (pediatric); I73.9 Peripheral vascular disease, unspecified; Z95.828 Presence of other vascular implants and grafts; N40.0 Benign prostatic hyperplasia without lower urinary tract symptoms; I10 Essential (primary) hypertension; M19.90 Unspecified osteoarthritis, unspecified site; L40.9 Psoriasis, unspecified; F17.210 Nicotine dependence, cigarettes, uncomplicated; E03.9 Hypothyroidism, unspecified; E78.5 Hyperlipidemia, unspecified; E66.9 Obesity, unspecified; F32.A Depression, unspecified; I44.7 Left bundle-branch block, unspecified; R91.1 Solitary pulmonary nodule; Z79.82 Long term (current) use of aspirin; Z79.899 Other long term (current) drug therapy; Z91.030 Bee allergy status; J81.1 Chronic pulmonary edema

== ENCOUNTER → 2021-12-16 | Outpatient (CLI) | payer MEDICARE, OTHER ==
[~2021-12-16] MED LIST changes: -HALO1TA PO; +HALO1TAB PO; -LIDOCAINE 1% MDV 20ML VIAL SQ PRN; +LOSA25TA13 PO; -LOSA25TA14 PO; -OMEP-221 PO; +OMEP40CA5 PO
== END ==
LOC: M PLARAD 12:42
PROVIDERS: ATTEND Internal Medicine Pulmonary Disease
DX: C34.12 Malignant neoplasm of upper lobe, left bronchus or lung (principal)
CPT/HCPCS: 78815; A9552

== ENCOUNTER → 2021-12-19 | Outpatient (CLI) | payer MEDICARE, OTHER | LOC: M ONCR 08:50 | PROVIDERS: ATTEND General Practice | DX: C34.12 Malignant neoplasm of upper lobe, left bronchus or lung (principal); Z91.030 Bee allergy status; Z79.899 Other long term (current) drug therapy; Z87.891 Personal history of nicotine dependence ==

== ENCOUNTER 2021-12-25 13:27 | Outpatient (RCR) | payer MEDICARE, OTHER ==
[2021-12-25] MEDS ORDERED: BENZ-18 PO (14:36)
[2021-12-25] MEDS ORDERED: ACET650T61 PO (14:36)
== END 2021-12-29 ==
LOC: M ONCR 13:27
PROVIDERS: ATTEND General Practice
DX: C34.12 Malignant neoplasm of upper lobe, left bronchus or lung (principal)

== ENCOUNTER 2022-01-09 09:25 | Outpatient (RCR) | payer MEDICARE, OTHER ==
[~2022-01-09 09:25] MED LIST changes: +ACET650T61 PO; +BENZ-18 PO
== END 2022-01-26 ==
LOC: M ONCR 09:25
PROVIDERS: ATTEND General Practice
DX: C34.12 Malignant neoplasm of upper lobe, left bronchus or lung (principal)

== ENCOUNTER → 2022-01-15 | Outpatient (CLI) | payer MEDICARE, OTHER ==
[2022-01-15 08:33] LABS: HEMATOCRIT 39.4 % (42.0-52.0); HEMOGLOBIN 12.5 g/dl (13.5-17.5); MEAN CORPUSCULAR HEMOGLOBIN 26.9 pg (27.0-33.0); MEAN CORPUSCULAR HGB CONC 31.7 g/dl (32.0-36.5); MEAN CORPUSCULAR VOLUME 84.7 fl (80.0-96.0); PLATELET COUNT, AUTOMATED 253 10^3/uL (150-450); RED BLOOD COUNT 4.65 10^6/uL (4.30-6.10); WHITE BLOOD COUNT 5.4 10^3/uL (4.0-10.0)
[2022-01-15 09:38] LABS: ALBUMIN 3.3 GM/DL (3.2-5.2); ALT/SGPT 20 U/L (12-78); BILIRUBIN,TOTAL 0.3 MG/DL (0.2-1.0); BLOOD UREA NITROGEN 18 MG/DL (7-18); CALCIUM LEVEL 8.7 MG/DL (8.8-10.2); CARBON DIOXIDE LEVEL 28 MEQ/L (21-32); CHLORIDE LEVEL 98 MEQ/L (98-107); CHOLESTEROL LEVEL 95 MG/DL (<200); CHOLESTEROL RISK RATIO 1.637 (<5); CREATININE FOR GFR 1.08 MG/DL (0.70-1.30); GLOMERULAR FILTRATION RATE > 60.0 (>49); GLUCOSE, FASTING 96 MG/DL (70-100); HDL CHOLESTEROL 58 MG/DL (>40); LDL CHOLESTEROL 27 MG/DL (<100); MAGNESIUM LEVEL 2.1 MG/DL (1.8-2.4); NON-HDL-C 37 MG/DL; POTASSIUM SERUM 4.3 MEQ/L (3.5-5.1); SODIUM LEVEL 135 MEQ/L (136-145); TRIGLYCERIDES LEVEL 51 MG/DL (<150)
== END ==
LOC: M LAB 07:37
PROVIDERS: ATTEND Physician Assistant
DX: I48.0 Paroxysmal atrial fibrillation (principal); E78.2 Mixed hyperlipidemia; I47.2 Ventricular tachycardia

== ENCOUNTER 2022-01-30 16:57 | Emergency (ER) | payer MEDICARE, OTHER ==
[~2022-01-30] VITALS: Ht 185.4 cm; Wt 121.0 kg
[2022-01-30 17:57] LABS: BASO # 0.1 10^3/uL (0.0-0.2); BASO % 1.1 % (0.0-1.0); EOS # 0.4 10^3/uL (0.0-0.5); EOS % 6.9 % (0.0-3.0); HEMATOCRIT 41.3 % (42.0-52.0); HEMOGLOBIN 13.2 g/dl (13.5-17.5); LYMPH # 1.3 10^3/uL (1.5-5.0); LYMPH % 20.7 % (24.0-44.0); MEAN CORPUSCULAR HEMOGLOBIN 26.9 pg (27.0-33.0); MEAN CORPUSCULAR VOLUME 84.1 fl (80.0-96.0); MONO # 0.7 10^3/uL (0.0-0.8); MONO % 11.6 % (2.0-8.0); NEUTROPHILS # 3.7 10^3/uL (1.5-8.5); NEUTROPHILS % 59.4 % (36.0-66.0); PLATELET COUNT, AUTOMATED 259 10^3/uL (150-450); RED BLOOD COUNT 4.91 10^6/uL (4.30-6.10); WHITE BLOOD COUNT 6.3 10^3/uL (4.0-10.0)
[2022-01-30 18:16] LABS: INR 0.92; PROTHROMBIN TIME 12.8 SECONDS (12.7-14.5)
[2022-01-30 18:17] LABS: PARTIAL THROMBOPLASTIN TIME 29.2 SECONDS (25.9-37.0)
[2022-01-30 18:23] LABS: ALBUMIN 3.7 GM/DL (3.2-5.2); ALT/SGPT 22 U/L (12-78); BILIRUBIN,DIRECT 0.1 MG/DL (0.0-0.2); BILIRUBIN,TOTAL 0.3 MG/DL (0.2-1.0); BLOOD UREA NITROGEN 19 MG/DL (7-18); CALCIUM LEVEL 9.3 MG/DL (8.8-10.2); CARBON DIOXIDE LEVEL 30 MEQ/L (21-32); CHLORIDE LEVEL 94 MEQ/L (98-107); CREATININE FOR GFR 0.92 MG/DL (0.70-1.30); GLOMERULAR FILTRATION RATE > 60.0 (>49); GLUCOSE, FASTING 81 MG/DL (70-100); SODIUM LEVEL 131 MEQ/L (136-145); TOTAL PROTEIN 7.5 GM/DL (6.4-8.2)
[2022-01-30] MEDS ORDERED: ISOVUE-370 76% 100ML VIAL As Ordered ONE (18:45)
[2022-01-30 23:06] VITALS: BP 160/79
== END 2022-01-30 23:08 | disposition short-term general hospital (02) ==
LOC: M ED 16:57
DX: R04.2 Hemoptysis (principal); I10 Essential (primary) hypertension; J44.9 Chronic obstructive pulmonary disease, unspecified; I48.91 Unspecified atrial fibrillation; E07.9 Disorder of thyroid, unspecified; G47.33 Obstructive sleep apnea (adult) (pediatric); F41.9 Anxiety disorder, unspecified; F33.9 Major depressive disorder, recurrent, unspecified; Z85.118 Personal history of other malignant neoplasm of bronchus and lung; Z91.030 Bee allergy status; Z79.899 Other long term (current) drug therapy; Z79.82 Long term (current) use of aspirin; Z79.01 Long term (current) use of anticoagulants; F12.20 Cannabis dependence, uncomplicated
CPT/HCPCS: 36415; 71275; 80048; 80076; 85025; 85610; 85730; 86850; 86900; 86901; 87798; 93041; 94760; 99285; Q9967

== ENCOUNTER → 2022-04-07 | Outpatient (CLI) | payer MEDICARE, OTHER ==
[~2022-04-07] MED LIST changes: -GLUCTAB6 PO; +GLUCTAB7 PO
[2022-04-07 11:18] LABS: ALBUMIN 3.4 GM/DL (3.2-5.2); ALT/SGPT 23 U/L (12-78); BILIRUBIN,TOTAL 0.4 MG/DL (0.2-1.0); BLOOD UREA NITROGEN 23 MG/DL (7-18); CARBON DIOXIDE LEVEL 27 MEQ/L (21-32); CHLORIDE LEVEL 102 MEQ/L (98-107); CREATININE FOR GFR 0.98 MG/DL (0.70-1.30); GLOMERULAR FILTRATION RATE > 60.0 (>49); GLUCOSE, FASTING 101 MG/DL (70-100); SODIUM LEVEL 135 MEQ/L (136-145); TOTAL PROTEIN 6.8 GM/DL (6.4-8.2)
== END ==
LOC: M ONCR 10:02
PROVIDERS: ATTEND General Practice
DX: C34.12 Malignant neoplasm of upper lobe, left bronchus or lung (principal)

== ENCOUNTER → 2022-04-07 | Outpatient (REF) | payer MEDICARE, OTHER ==
[~2022-04-07] MED LIST changes: +GLUCTAB6 PO; -GLUCTAB7 PO
== END ==
LOC: M LAB REF 11:22
PROVIDERS: ATTEND Psychiatry & Neurology Psychiatry
DX: F25.1 Schizoaffective disorder, depressive type (principal)

== ENCOUNTER → 2022-04-14 | Outpatient (CLI) | payer MEDICARE, OTHER ==
[~2022-04-14] MED LIST changes: +ISOVUE-370 76% 100ML VIAL As Ordered ONE
== END ==
LOC: M RAD 09:37
PROVIDERS: ATTEND General Practice
DX: C34.90 Malignant neoplasm of unspecified part of unspecified bronchus or lung (principal)
CPT/HCPCS: 71260; Q9967

== ENCOUNTER → 2022-04-23 | Outpatient (CLI) | payer MEDICARE, OTHER ==
[~2022-04-23] MED LIST changes: -GLUCTAB6 PO; +GLUCTAB7 PO; -ISOVUE-370 76% 100ML VIAL As Ordered ONE
== END ==
LOC: M ONCR 09:50
PROVIDERS: ATTEND General Practice
DX: C34.12 Malignant neoplasm of upper lobe, left bronchus or lung (principal); Z87.891 Personal history of nicotine dependence; Z91.030 Bee allergy status; Z92.3 Personal history of irradiation

== ENCOUNTER → 2022-06-25 | Outpatient (CLI) | payer OTHER ==
[~2022-06-25] MED LIST changes: +FLOM0.4C39 PO; +GASTROGRAFIN SOLUTION 30ML (Q9963) As Ordered ONE; +ISOVUE-370 76% 100ML VIAL As Ordered ONE
== END ==
LOC: M RAD 16:09
PROVIDERS: ATTEND Internal Medicine
DX: C34.12 Malignant neoplasm of upper lobe, left bronchus or lung (principal); K80.20 Calculus of gallbladder without cholecystitis without obstruction; K57.90 Diverticulosis of intestine, part unspecified, without perforation or abscess without bleeding; I70.0 Atherosclerosis of aorta; I25.10 Atherosclerotic heart disease of native coronary artery without angina pectoris; Z95.820 Peripheral vascular angioplasty status with implants and grafts
CPT/HCPCS: 71260; 74177; Q9963; Q9967

== ENCOUNTER → 2022-10-09 | Outpatient (CLI) | payer MEDICARE, OTHER ==
[~2022-10-09] MED LIST changes: +CLOP75TA99 PO; -GASTROGRAFIN SOLUTION 30ML (Q9963) As Ordered ONE; -ISOVUE-370 76% 100ML VIAL As Ordered ONE; -PLAV1TAB2 PO; +TAMS1CAP17
[2022-10-09 16:49] LABS: BASO # 0.1 10^3/uL (0.0-0.2); BASO % 0.6 % (0.0-1.0); EOS # 0.3 10^3/uL (0.0-0.5); EOS % 3.8 % (0.0-3.0); HEMATOCRIT 41.1 % (42.0-52.0); HEMOGLOBIN 13.1 g/dl (13.5-17.5); LYMPH # 1.2 10^3/uL (1.5-5.0); LYMPH % 14.5 % (24.0-44.0); MEAN CORPUSCULAR HEMOGLOBIN 30.8 pg (27.0-33.0); MEAN CORPUSCULAR HGB CONC 31.9 g/dl (32.0-36.5); MEAN CORPUSCULAR VOLUME 96.7 fl (80.0-96.0); MONO # 1.5 10^3/uL (0.0-0.8); MONO % 18.2 % (2.0-8.0); NEUTROPHILS # 5.2 10^3/uL (1.5-8.5); NEUTROPHILS % 62.5 % (36.0-66.0); PLATELET COUNT, AUTOMATED 166 10^3/uL (150-450); RED BLOOD COUNT 4.25 10^6/uL (4.30-6.10); WHITE BLOOD COUNT 8.3 10^3/uL (4.0-10.0)
== END ==
LOC: M WUC 11:43
PROVIDERS: ATTEND Physician Assistant
DX: L03.211 Cellulitis of face (principal)

== ENCOUNTER → 2022-10-20 | Outpatient (CLI) | payer MEDICARE, OTHER | LOC: M ONCR 09:40 | PROVIDERS: ATTEND Radiology Radiation Oncology | DX: Z08 Encounter for follow-up examination after completed treatment for malignant neoplasm (principal); Z85.110 Personal history of malignant carcinoid tumor of bronchus and lung; F17.210 Nicotine dependence, cigarettes, uncomplicated; Z79.01 Long term (current) use of anticoagulants; Z79.82 Long term (current) use of aspirin; Z79.890 Hormone replacement therapy; Z79.899 Other long term (current) drug therapy; Z91.030 Bee allergy status; Z92.3 Personal history of irradiation ==

== ENCOUNTER → 2022-12-02 | Outpatient (REF) | payer MEDICARE, OTHER | LOC: M LAB REF 13:31 | PROVIDERS: ATTEND Urology | DX: Z12.5 Encounter for screening for malignant neoplasm of prostate (principal) ==

== ENCOUNTER → 2022-12-16 | Outpatient (CLI) | payer MEDICARE, OTHER ==
[~2022-12-16] MED LIST changes: +ISOVUE-370 76% 100ML VIAL As Ordered ONE
== END ==
LOC: M RAD 13:29
PROVIDERS: ATTEND Specialist
DX: C34.12 Malignant neoplasm of upper lobe, left bronchus or lung (principal); J84.10 Pulmonary fibrosis, unspecified; R91.1 Solitary pulmonary nodule
CPT/HCPCS: 71260; Q9967

== ENCOUNTER → 2023-01-22 | Outpatient (CLI) | payer OTHER ==
[~2023-01-22] MED LIST changes: -ISOVUE-370 76% 100ML VIAL As Ordered ONE
[2023-01-22 10:41] LABS: CHOLESTEROL RISK RATIO 1.68 (<5); HDL CHOLESTEROL 46.8 MG/DL (>40); LDL CHOLESTEROL 21.6 MG/DL (<100); THYROID STIMULATING HORMONE 1.057 uIU/ML (0.55-4.78)
== END ==
LOC: M WUC 08:37
PROVIDERS: ATTEND Physician Assistant
DX: E78.2 Mixed hyperlipidemia (principal); E03.9 Hypothyroidism, unspecified

== ENCOUNTER → 2023-01-22 | Outpatient (CLI) | payer OTHER ==
[2023-01-22 10:20] LABS: HEMATOCRIT 43.9 % (42.0-52.0); HEMOGLOBIN 14.5 g/dl (13.5-17.5); MEAN CORPUSCULAR HEMOGLOBIN 31.6 pg (27.0-33.0); MEAN CORPUSCULAR VOLUME 95.6 fl (80.0-96.0); PLATELET COUNT, AUTOMATED 182 10^3/uL (150-450); RED BLOOD COUNT 4.59 10^6/uL (4.30-6.10); WHITE BLOOD COUNT 5.3 10^3/uL (4.0-10.0)
[2023-01-22 10:42] LABS: ALBUMIN 3.5 G/DL (3.2-5.2); ALKALINE PHOSPHATASE 57 U/L (46-116); ALT/SGPT 21 U/L (7.0-40); AST/SGOT 21 U/L (<34); BILIRUBIN,TOTAL 0.5 MG/DL (0.3-1.2); BLOOD UREA NITROGEN 20 MG/DL (9-23); CALCIUM LEVEL 9.2 MG/DL (8.3-10.6); CARBON DIOXIDE LEVEL 30 MMOL/L (20-31); CHLORIDE LEVEL 99 MMOL/L (98-107); CHOLESTEROL LEVEL 88 MG/DL (<200); CHOLESTEROL RISK RATIO 1.87 (<5); GLOMERULAR FILTRATION RATE > 60.0 (>49); GLUCOSE, FASTING 87 MG/DL (74-106); HDL CHOLESTEROL 46.9 MG/DL (>40); LDL CHOLESTEROL 30.7 MG/DL (<100); MAGNESIUM LEVEL 1.8 MG/DL (1.8-2.4); NON-HDL-C 41 MG/DL; POTASSIUM SERUM 4.3 MMOL/L (3.5-5.1); SODIUM LEVEL 133 MMOL/L (136-145); TOTAL PROTEIN 6.6 G/DL (5.7-8.2); TRIGLYCERIDES LEVEL 52 MG/DL (<150)
== END ==
LOC: M WUC 08:41
PROVIDERS: ATTEND Physician Assistant
DX: I48.0 Paroxysmal atrial fibrillation (principal); I47.20 Ventricular tachycardia, unspecified; E78.2 Mixed hyperlipidemia; E03.9 Hypothyroidism, unspecified

== ENCOUNTER 2023-01-31 03:39 | Emergency (ER) | payer OTHER ==
[~2023-01-31] VITALS: Ht 185.4 cm; Wt 122.2 kg
[2023-01-31] MEDS ORDERED: FLUORESCEIN OPHTH 1MG STRIP OS ONE (07:10)
[2023-01-31] MEDS ORDERED: TETRACAINE 0.5% OPHTH SOLN 4ML OS ONE (07:10)
[2023-01-31] MEDS ORDERED: ERYTHROMYCIN OPHTH OINT OS ONE (07:35)
[2023-01-31] MEDS ORDERED: ERYT5OIN25 OS (07:35)
[2023-01-31] MEDS ORDERED: BOOSTRIX/ADACEL VACCINE (DIPHTH/PERTUSS/ACELL/TETANUS) 0.5ML SYR IM ONE (07:35)
[2023-01-31 08:02] VITALS: BP 146/68
== END 2023-01-31 08:06 | disposition home or self-care (01) ==
LOC: M ED 03:39
DX: S05.02XA Injury of conjunctiva and corneal abrasion without foreign body, left eye, initial encounter (principal); X58.XXXA Exposure to other specified factors, initial encounter; Y93.89 Activity, other specified; I48.91 Unspecified atrial fibrillation; I25.2 Old myocardial infarction; I10 Essential (primary) hypertension; E78.5 Hyperlipidemia, unspecified; F31.9 Bipolar disorder, unspecified; E03.9 Hypothyroidism, unspecified; Z85.118 Personal history of other malignant neoplasm of bronchus and lung; Z79.82 Long term (current) use of aspirin; Z79.899 Other long term (current) drug therapy; Z91.030 Bee allergy status

== ENCOUNTER → 2023-04-08 | Outpatient (CLI) | payer MEDICARE, OTHER ==
[~2023-04-08] MED LIST changes: +ERYT5OIN25 OS
[2023-04-08 13:18] LABS: ALBUMIN 3.8 G/DL (3.2-5.2); ALKALINE PHOSPHATASE 61 U/L (46-116); ALT/SGPT 21 U/L (7.0-40); AST/SGOT 19 U/L (<34); BILIRUBIN,TOTAL 0.3 MG/DL (0.3-1.2); BLOOD UREA NITROGEN 21 MG/DL (9-23); CALCIUM LEVEL 9.4 MG/DL (8.3-10.6); CARBON DIOXIDE LEVEL 30 MMOL/L (20-31); CHLORIDE LEVEL 101 MMOL/L (98-107); CREATININE FOR GFR 1.03 MG/DL (0.70-1.30); GLOMERULAR FILTRATION RATE > 60.0 (>49); GLUCOSE, FASTING 91 MG/DL (74-106); POTASSIUM SERUM 4.6 MMOL/L (3.5-5.1); SODIUM LEVEL 138 MMOL/L (136-145)
== END ==
LOC: M WUC 11:32 → M LAB 11:32
PROVIDERS: ATTEND Radiology Radiation Oncology
DX: C34.12 Malignant neoplasm of upper lobe, left bronchus or lung (principal)

== ENCOUNTER → 2023-04-12 | Outpatient (CLI) | payer OTHER ==
[~2023-04-12] MED LIST changes: +ISOVUE-370 76% 100ML VIAL As Ordered ONE
== END ==
LOC: M RAD 08:30
PROVIDERS: ATTEND Radiology Radiation Oncology
DX: C34.12 Malignant neoplasm of upper lobe, left bronchus or lung (principal)
CPT/HCPCS: 71260; Q9967

== ENCOUNTER → 2023-04-21 | Outpatient (CLI) | payer MEDICARE, OTHER ==
[~2023-04-21] MED LIST changes: -ISOVUE-370 76% 100ML VIAL As Ordered ONE
== END ==
LOC: M ONCR 09:15
PROVIDERS: ATTEND General Practice
DX: C34.12 Malignant neoplasm of upper lobe, left bronchus or lung (principal); F17.290 Nicotine dependence, other tobacco product, uncomplicated; Z92.3 Personal history of irradiation; F12.90 Cannabis use, unspecified, uncomplicated; I70.213 Atherosclerosis of native arteries of extremities with intermittent claudication, bilateral legs; Z95.5 Presence of coronary angioplasty implant and graft; Z91.030 Bee allergy status; Z79.899 Other long term (current) drug therapy; Z71.2 Person consulting for explanation of examination or test findings

== ENCOUNTER → 2023-04-30 | Outpatient (CLI) | payer OTHER ==
[~2023-04-30] MED LIST changes: +ISOVUE-370 76% 100ML VIAL As Ordered ONE
== END ==
LOC: M RAD 13:05
PROVIDERS: ATTEND Physician Assistant
DX: I70.219 Atherosclerosis of native arteries of extremities with intermittent claudication, unspecified extremity (principal); I70.0 Atherosclerosis of aorta; I70.1 Atherosclerosis of renal artery; Z95.828 Presence of other vascular implants and grafts
CPT/HCPCS: 75635; Q9967

== ENCOUNTER → 2023-05-18 | Outpatient (REF) | payer MEDICARE, OTHER ==
[~2023-05-18] MED LIST changes: -ISOVUE-370 76% 100ML VIAL As Ordered ONE
== END ==
LOC: M SFHCDERM 11:52
PROVIDERS: ATTEND Nurse Practitioner Family
DX: L40.9 Psoriasis, unspecified (principal)

== ENCOUNTER → 2023-06-08 | Outpatient (REF) | payer MEDICARE, OTHER ==
[2023-06-08 16:05] LABS: APPEARANCE, URINE CLEAR (CLEAR); BACTERIA, URINE AUTO NEGATIVE (NEGATIVE); BILIRUBIN, URINE AUTO NEGATIVE (NEGATIVE); BLOOD, URINE BLOOD NEGATIVE (NEGATIVE); COLOR, URINE YELLOW (YELLOW); GLUCOSE, URINE (UA) AUTO NEGATIVE (NEGATIVE); KETONE, URINE AUTO NEGATIVE (NEGATIVE); LEUKOCYTE ESTERASE, URINE AUTO NEGATIVE (NEGATIVE); NITRITE, URINE AUTO NEGATIVE (NEGATIVE); PROTEIN, URINE AUTO NEGATIVE (NEGATIVE); RBC, URINE AUTO 0 /HPF (0-3); SQUAMOUS EPITHELIAL CELL UR AU 0 /HPF (0-6); UROBILINOGEN, URINE AUTO 0.2 mg/dL (0.0-2.0); WBC, URINE AUTO 0 /HPF (0-3)
== END ==
LOC: M SMT 15:22
PROVIDERS: ATTEND Urology
DX: R30.0 Dysuria (principal)

== ENCOUNTER → 2023-07-12 | Outpatient (CLI) | payer MEDICARE ==
[2023-07-12 18:19] LABS: BASO # 0.1 10^3/uL (0.0-0.2); EOS # 0.4 10^3/uL (0.0-0.5); EOS % 6.5 % (0.0-3.0); HEMATOCRIT 46.6 % (42.0-52.0); HEMOGLOBIN 15.1 g/dl (13.5-17.5); LYMPH # 1.3 10^3/uL (1.5-5.0); LYMPH % 20.8 % (24.0-44.0); MEAN CORPUSCULAR HEMOGLOBIN 31.9 pg (27.0-33.0); MEAN CORPUSCULAR HGB CONC 32.4 g/dl (32.0-36.5); MEAN CORPUSCULAR VOLUME 98.3 fl (80.0-96.0); MONO # 0.7 10^3/uL (0.0-0.8); MONO % 11.6 % (2.0-8.0); NEUTROPHILS # 3.7 10^3/uL (1.5-8.5); NEUTROPHILS % 59.5 % (36.0-66.0); PLATELET COUNT, AUTOMATED 203 10^3/uL (150-450); RED BLOOD COUNT 4.74 10^6/uL (4.30-6.10); WHITE BLOOD COUNT 6.3 10^3/uL (4.0-10.0)
[2023-07-12 18:39] LABS: ALBUMIN 3.7 G/DL (3.2-5.2); ALKALINE PHOSPHATASE 55 U/L (46-116); ALT/SGPT 23 U/L (7.0-40); AST/SGOT 18 U/L (<34); BILIRUBIN,TOTAL 0.4 MG/DL (0.3-1.2); BLOOD UREA NITROGEN 18 MG/DL (9-23); CALCIUM LEVEL 9.2 MG/DL (8.3-10.6); CARBON DIOXIDE LEVEL 29 MMOL/L (20-31); CHLORIDE LEVEL 102 MMOL/L (98-107); CREATININE FOR GFR 1.07 MG/DL (0.70-1.30); GLOMERULAR FILTRATION RATE > 60.0 (>49); GLUCOSE, FASTING 93 MG/DL (74-106); POTASSIUM SERUM 4.5 MMOL/L (3.5-5.1); SODIUM LEVEL 140 MMOL/L (136-145); TOTAL PROTEIN 6.8 G/DL (5.7-8.2)
== END ==
LOC: M WUC 13:31
PROVIDERS: ATTEND Specialist
DX: C34.90 Malignant neoplasm of unspecified part of unspecified bronchus or lung (principal)

== ENCOUNTER → 2023-07-14 | Outpatient (CLI) | payer MEDICARE, OTHER ==
[~2023-07-14] MED LIST changes: +ISOVUE-370 76% 100ML VIAL As Ordered ONE
== END ==
LOC: M RAD 09:29
PROVIDERS: ATTEND Specialist
DX: C34.12 Malignant neoplasm of upper lobe, left bronchus or lung (principal); K80.20 Calculus of gallbladder without cholecystitis without obstruction; R91.8 Other nonspecific abnormal finding of lung field
CPT/HCPCS: 71260; Q9967

== ENCOUNTER → 2023-09-27 | Outpatient (CLI) | payer MEDICARE, OTHER ==
[~2023-09-27] MED LIST changes: -ISOVUE-370 76% 100ML VIAL As Ordered ONE
== END ==
LOC: M WUC 10:47
PROVIDERS: ATTEND Physician Assistant
DX: I48.0 Paroxysmal atrial fibrillation (principal); I27.29 Other secondary pulmonary hypertension

== ENCOUNTER → 2023-10-12 | Outpatient (CLI) | payer MEDICARE, OTHER ==
[~2023-10-12] MED LIST changes: +ISOVUE-370 76% 100ML VIAL As Ordered ONE
== END ==
LOC: M RAD 08:10
PROVIDERS: ATTEND General Practice
DX: C34.12 Malignant neoplasm of upper lobe, left bronchus or lung (principal); K80.20 Calculus of gallbladder without cholecystitis without obstruction; R91.1 Solitary pulmonary nodule
CPT/HCPCS: 71260; Q9967

== ENCOUNTER → 2023-10-26 | Outpatient (CLI) | payer OTHER ==
[~2023-10-26] MED LIST changes: -ISOVUE-370 76% 100ML VIAL As Ordered ONE
== END ==
LOC: M ONCR 11:03
PROVIDERS: ATTEND General Practice
DX: C34.12 Malignant neoplasm of upper lobe, left bronchus or lung (principal); F17.290 Nicotine dependence, other tobacco product, uncomplicated; Z71.2 Person consulting for explanation of examination or test findings; Z79.02 Long term (current) use of antithrombotics/antiplatelets; Z79.82 Long term (current) use of aspirin; Z79.890 Hormone replacement therapy; Z79.899 Other long term (current) drug therapy; Z91.030 Bee allergy status; Z92.3 Personal history of irradiation

== ENCOUNTER → 2023-11-18 | Outpatient (REF) | payer OTHER, MEDICARE ==
[2023-11-18 12:05] LABS: HEMATOCRIT 45.6 % (42.0-52.0); MEAN CORPUSCULAR HEMOGLOBIN 32.4 pg (27.0-33.0); MEAN CORPUSCULAR HGB CONC 32.9 g/dl (32.0-36.5); MEAN CORPUSCULAR VOLUME 98.5 fl (80.0-96.0); PLATELET COUNT, AUTOMATED 189 10^3/uL (150-450); RED BLOOD COUNT 4.63 10^6/uL (4.30-6.10); WHITE BLOOD COUNT 7.2 10^3/uL (4.0-10.0)
[2023-11-18 12:34] LABS: ALBUMIN 3.6 G/DL (3.2-5.2); ALKALINE PHOSPHATASE 64 U/L (46-116); ALT/SGPT 22 U/L (7.0-40); AST/SGOT 16 U/L (<34); BILIRUBIN,TOTAL 0.3 MG/DL (0.3-1.2); BLOOD UREA NITROGEN 14 MG/DL (9-23); CALCIUM LEVEL 9.4 MG/DL (8.3-10.6); CARBON DIOXIDE LEVEL 30 MMOL/L (20-31); CHLORIDE LEVEL 103 MMOL/L (98-107); CHOLESTEROL LEVEL 123 MG/DL (<200); CHOLESTEROL RISK RATIO 2.42 (<5); CREATININE FOR GFR 0.84 MG/DL (0.70-1.30); GLOMERULAR FILTRATION RATE > 60.0 (>49); GLUCOSE, FASTING 103 MG/DL (74-106); HDL CHOLESTEROL 50.7 MG/DL (>40); LDL CHOLESTEROL 46.1 MG/DL (<100); NON-HDL-C 72.3 MG/DL; SODIUM LEVEL 137 MMOL/L (136-145); TOTAL PROTEIN 6.8 G/DL (5.7-8.2); TRIGLYCERIDES LEVEL 131 MG/DL (<150)
== END ==
LOC: M LABWUC 10:20
PROVIDERS: ATTEND Physician Assistant
DX: I10 Essential (primary) hypertension (principal); E78.2 Mixed hyperlipidemia; E03.9 Hypothyroidism, unspecified; I48.20 Chronic atrial fibrillation, unspecified

== ENCOUNTER → 2024-02-07 | Outpatient (REF) | payer MEDICARE, OTHER ==
[2024-02-07 19:28] LABS: BLOOD UREA NITROGEN 15 MG/DL (9-23); CREATININE FOR GFR 0.88 MG/DL (0.70-1.30); GLOMERULAR FILTRATION RATE > 60.0 (>49)
== END ==
LOC: M LABWUC 18:23
PROVIDERS: ATTEND Surgery Vascular Surgery
DX: I70.90 Unspecified atherosclerosis (principal)

== ENCOUNTER → 2024-02-24 | Outpatient (CLI) | payer MEDICARE, OTHER | LOC: M WUC 10:49 | PROVIDERS: ATTEND Physician Assistant | DX: M19.012 Primary osteoarthritis, left shoulder (principal); M25.512 Pain in left shoulder ==

== ENCOUNTER → 2024-04-10 | Outpatient (CLI) | payer MEDICARE, OTHER ==
[~2024-04-10] MED LIST changes: -ROSU10TA6 PO; +ROSU10TA61 PO
[2024-04-10 13:38] LABS: HEMATOCRIT 45.8 % (42.0-52.0); HEMOGLOBIN 15.1 g/dl (13.5-17.5); MEAN CORPUSCULAR VOLUME 100.2 fl (80.0-96.0); PLATELET COUNT, AUTOMATED 162 10^3/uL (150-450); RED BLOOD COUNT 4.57 10^6/uL (4.30-6.10); WHITE BLOOD COUNT 6.6 10^3/uL (4.0-10.0)
[2024-04-10 14:01] LABS: ALBUMIN 3.4 G/DL (3.2-5.2); ALKALINE PHOSPHATASE 63 U/L (46-116); ALT/SGPT 33 U/L (7.0-40); AST/SGOT 21 U/L (<34); BILIRUBIN,TOTAL 0.5 MG/DL (0.3-1.2); BLOOD UREA NITROGEN 18 MG/DL (9-23); CARBON DIOXIDE LEVEL 30 MMOL/L (20-31); CHLORIDE LEVEL 102 MMOL/L (98-107); CREATININE FOR GFR 1.02 MG/DL (0.70-1.30); GLOMERULAR FILTRATION RATE > 60.0 (>49); GLUCOSE, FASTING 93 MG/DL (74-106); MAGNESIUM LEVEL 1.9 MG/DL (1.8-2.4); SODIUM LEVEL 136 MMOL/L (136-145); TOTAL PROTEIN 6.4 G/DL (5.7-8.2)
== END ==
LOC: M WUC 12:17
PROVIDERS: ATTEND Physician Assistant
DX: I48.0 Paroxysmal atrial fibrillation (principal); I11.9 Hypertensive heart disease without heart failure; I47.20 Ventricular tachycardia, unspecified

== ENCOUNTER 2024-05-31 07:22 | Emergency (ER) | payer MEDICARE, OTHER ==
[~2024-05-31] VITALS: Ht 185.4 cm; Wt 136.0 kg
[~2024-05-31 07:22] MED LIST changes: +ONDA-284 PO; -ONDA8TAB8 PO
[2024-05-31] MEDS: ACETAMINOPHEN *IV* 1,000 MG in IV 1 EA IV ONE (08:09)
[2024-05-31 08:13] LABS: BASO # 0.1 10^3/uL (0.0-0.2); BASO % 0.9 % (0.0-1.0); EOS # 0.4 10^3/uL (0.0-0.5); EOS % 5.2 % (0.0-3.0); HEMATOCRIT 44.8 % (42.0-52.0); HEMOGLOBIN 15.4 g/dl (13.5-17.5); LYMPH # 1.8 10^3/uL (1.5-5.0); LYMPH % 22.2 % (24.0-44.0); MEAN CORPUSCULAR HEMOGLOBIN 33.5 pg (27.0-33.0); MEAN CORPUSCULAR HGB CONC 34.4 g/dl (32.0-36.5); MEAN CORPUSCULAR VOLUME 97.4 fl (80.0-96.0); MONO % 12.1 % (2.0-8.0); NEUTROPHILS # 4.8 10^3/uL (1.5-8.5); NEUTROPHILS % 58.9 % (36.0-66.0); PLATELET COUNT, AUTOMATED 205 10^3/uL (150-450); WHITE BLOOD COUNT 8.1 10^3/uL (4.0-10.0)
[2024-05-31 08:28] LABS: INR 0.98; PARTIAL THROMBOPLASTIN TIME 27.9 SECONDS (24.8-34.2); PROTHROMBIN TIME 12.7 SECONDS (12.5-14.5)
[2024-05-31 08:48] LABS: BLOOD UREA NITROGEN 14 MG/DL (9-23); CALCIUM LEVEL 9.3 MG/DL (8.3-10.6); CARBON DIOXIDE LEVEL 28 MMOL/L (20-31); CHLORIDE LEVEL 100 MMOL/L (98-107); CREATININE FOR GFR 0.87 MG/DL (0.70-1.30); GLOMERULAR FILTRATION RATE > 60.0 (>49); GLUCOSE, FASTING 120 MG/DL (74-106); MAGNESIUM LEVEL 1.9 MG/DL (1.8-2.4); POTASSIUM SERUM 4.3 MMOL/L (3.5-5.1); SODIUM LEVEL 134 MMOL/L (136-145)
[2024-05-31] MEDS: MORPHINE 4 MG/ML 1ML VIAL IV ONE (09:04)
[2024-05-31] MEDS ORDERED: ISOVUE-370 76% 100ML VIAL As Ordered ONE (10:01)
[2024-05-31] MEDS: diazePAM 5MG TABLET PO ONE (12:03)
[2024-05-31] MEDS: LIDOCAINE 5% (LIDODERM) PATCH TD ONE (12:03)
[2024-05-31] MEDS ORDERED: VALI5TAB PO (13:04)
[2024-05-31] MEDS ORDERED: OXYC-517 PO (13:04)
[2024-05-31] MEDS ORDERED: LIDO5DIS41 TOP (13:04)
[2024-05-31 13:26] VITALS: BP 156/84; TEMP 97.2; O2SAT 97
== END 2024-05-31 13:31 | disposition home or self-care (01) ==
LOC: M ED 07:22
DX: I70.212 Atherosclerosis of native arteries of extremities with intermittent claudication, left leg (principal); I70.222 Atherosclerosis of native arteries of extremities with rest pain, left leg; I48.91 Unspecified atrial fibrillation; I25.2 Old myocardial infarction; G47.33 Obstructive sleep apnea (adult) (pediatric); K57.92 Diverticulitis of intestine, part unspecified, without perforation or abscess without bleeding; E03.9 Hypothyroidism, unspecified; F32.9 Major depressive disorder, single episode, unspecified; F17.290 Nicotine dependence, other tobacco product, uncomplicated; Z79.82 Long term (current) use of aspirin; Z79.02 Long term (current) use of antithrombotics/antiplatelets; Z79.899 Other long term (current) drug therapy; Z91.030 Bee allergy status
CPT/HCPCS: 75635; 80048; 83735; 85025; 85610; 85730; 96361; 96374; 99284; J0131; Q9967

== ENCOUNTER → 2024-10-23 | Outpatient (CLI) | payer OTHER ==
[~2024-10-23] MED LIST changes: +LIDO5DIS41 TOP; +OXYC-517 PO; +VALI5TAB PO
== END ==
LOC: M RAD 12:41
PROVIDERS: ATTEND General Practice
DX: C34.12 Malignant neoplasm of upper lobe, left bronchus or lung (principal); I25.10 Atherosclerotic heart disease of native coronary artery without angina pectoris; R91.8 Other nonspecific abnormal finding of lung field; M47.814 Spondylosis without myelopathy or radiculopathy, thoracic region

== ENCOUNTER → 2024-11-02 | Outpatient (CLI) | payer OTHER | LOC: M ONCR 10:20 | PROVIDERS: ATTEND General Practice | DX: Z08 Encounter for follow-up examination after completed treatment for malignant neoplasm (principal); Z85.3 Personal history of malignant neoplasm of breast; F17.290 Nicotine dependence, other tobacco product, uncomplicated; Z85.118 Personal history of other malignant neoplasm of bronchus and lung; Z92.3 Personal history of irradiation; Z91.030 Bee allergy status; Z79.899 Other long term (current) drug therapy; Z79.891 Long term (current) use of opiate analgesic; Z79.890 Hormone replacement therapy; Z79.02 Long term (current) use of antithrombotics/antiplatelets; Z79.82 Long term (current) use of aspirin ==

== ENCOUNTER → 2025-01-03 | Outpatient (REF) | payer MEDICARE, OTHER ==
[~2025-01-03] MED LIST changes: +CYMB60CA4 PO
[2025-01-03 13:38] LABS: HEMATOCRIT 45.4 % (42.0-52.0); HEMOGLOBIN 15.4 g/dl (13.5-17.5); MEAN CORPUSCULAR HEMOGLOBIN 32.8 pg (27.0-33.0); MEAN CORPUSCULAR HGB CONC 33.9 g/dl (32.0-36.5); MEAN CORPUSCULAR VOLUME 96.8 fl (80.0-96.0); PLATELET COUNT, AUTOMATED 210 10^3/uL (150-450); RED BLOOD COUNT 4.69 10^6/uL (4.30-6.10)
[2025-01-03 14:02] LABS: APPEARANCE, URINE HAZY (CLEAR); BACTERIA, URINE AUTO NEGATIVE (NEGATIVE); BILIRUBIN, URINE AUTO NEGATIVE (NEGATIVE); BLOOD, URINE BLOOD NEGATIVE (NEGATIVE); COLOR, URINE YELLOW (YELLOW); GLUCOSE, URINE (UA) AUTO NEGATIVE (NEGATIVE); KETONE, URINE AUTO NEGATIVE (NEGATIVE); LEUKOCYTE ESTERASE, URINE AUTO NEGATIVE (NEGATIVE); MUCUS, URINE SMALL (NEGATIVE); NITRITE, URINE AUTO NEGATIVE (NEGATIVE); PROTEIN, URINE AUTO NEGATIVE (NEGATIVE); RBC, URINE AUTO 0 /HPF (0-3); SPECIFIC GRAVITY URINE AUTO 1.017 (1.002-1.035); SQUAMOUS EPITHELIAL CELL UR AU 0 /HPF (0-6); UROBILINOGEN, URINE AUTO 0.2 mg/dL (0.0-2.0); WBC, URINE AUTO 1 /HPF (0-3)
[2025-01-03 14:07] LABS: ALBUMIN 3.5 G/DL (3.2-5.2); ALKALINE PHOSPHATASE 60 U/L (40-129); ALT/SGPT 30 U/L (7.0-40); AST/SGOT 19 U/L (<34); BILIRUBIN,TOTAL 0.5 MG/DL (0.3-1.2); BLOOD UREA NITROGEN 14 MG/DL (9-23); CARBON DIOXIDE LEVEL 29 MMOL/L (20-31); CHLORIDE LEVEL 99 MMOL/L (98-107); CHOLESTEROL LEVEL 99 MG/DL (<200); CHOLESTEROL RISK RATIO 2.41 (<5); CREATININE FOR GFR 0.81 MG/DL (0.70-1.30); GLOMERULAR FILTRATION RATE > 60.0 (>49); GLUCOSE, FASTING 88 MG/DL (74-106); LDL CHOLESTEROL 22.2 MG/DL (<100); POTASSIUM SERUM 4.3 MMOL/L (3.5-5.1); SODIUM LEVEL 137 MMOL/L (136-145); TRIGLYCERIDES LEVEL 179 MG/DL (<150)
[2025-01-03 14:11] LABS: PROSTATIC SPECIFIC AG MONITOR 0.56 NG/ML (< 4.00)
[2025-01-03 14:23] LABS: THYROID STIMULATING HORMONE 1.104 uIU/ML (0.55-4.78)
[2025-01-04 06:59] LABS: WHITE BLOOD COUNT 7.6 10^3/uL (4.0-10.0)
== END ==
LOC: M LAB REF 13:19
PROVIDERS: ATTEND Physician Assistant
DX: I10 Essential (primary) hypertension (principal); E78.2 Mixed hyperlipidemia; E03.9 Hypothyroidism, unspecified; Z12.5 Encounter for screening for malignant neoplasm of prostate; R35.1 Nocturia; I48.20 Chronic atrial fibrillation, unspecified

== ENCOUNTER 2025-02-15 11:34 | Emergency (ER) | payer MEDICARE, OTHER ==
[~2025-02-15] VITALS: Ht 185.4 cm; Wt 132.4 kg
[2025-02-15 12:23] LABS: BASO # 0.1 10^3/uL (0.0-0.2); BASO % 0.6 % (0.0-1.0); EOS # 0.5 10^3/uL (0.0-0.5); EOS % 5.3 % (0.0-3.0); HEMATOCRIT 45.4 % (42.0-52.0); HEMOGLOBIN 15.3 g/dl (13.5-17.5); LYMPH # 1.7 10^3/uL (1.5-5.0); LYMPH % 19.2 % (24.0-44.0); MEAN CORPUSCULAR HEMOGLOBIN 32.9 pg (27.0-33.0); MEAN CORPUSCULAR HGB CONC 33.7 g/dl (32.0-36.5); MEAN CORPUSCULAR VOLUME 97.6 fl (80.0-96.0); MONO # 0.9 10^3/uL (0.0-0.8); MONO % 9.9 % (2.0-8.0); NEUTROPHILS # 5.6 10^3/uL (1.5-8.5); NEUTROPHILS % 64.3 % (36.0-66.0); PLATELET COUNT, AUTOMATED 199 10^3/uL (150-450); RED BLOOD COUNT 4.65 10^6/uL (4.30-6.10); WHITE BLOOD COUNT 8.8 10^3/uL (4.0-10.0)
[2025-02-15 12:29] LABS: ERYTHROCYTE SEDIMENTATION RATE 16 mm/hr (0-20)
[2025-02-15 12:56] LABS: BLOOD UREA NITROGEN 18 MG/DL (9-23); C REACTIVE PROTEIN QUANTITATIV < 0.50 MG/DL (<1.0); CARBON DIOXIDE LEVEL 29 MMOL/L (20-31); CHLORIDE LEVEL 102 MMOL/L (98-107); CREATININE FOR GFR 0.88 MG/DL (0.70-1.30); GLOMERULAR FILTRATION RATE > 60.0 (>49); GLUCOSE, FASTING 132 MG/DL (74-106); SODIUM LEVEL 140 MMOL/L (136-145)
[2025-02-15] MEDS: CLINDAMYCIN 900 MG in IV 1 EA IV ONE (14:47)
[2025-02-15 15:35] VITALS: BP 173/82; TEMP 97.2; O2SAT 97
[2025-02-15] MEDS ORDERED: CLEO300C2 PO (15:40)
== END 2025-02-15 15:53 | disposition home or self-care (01) ==
LOC: M ED 11:34
DX: L03.116 Cellulitis of left lower limb (principal); W22.8XXA Striking against or struck by other objects, initial encounter; Y92.009 Unspecified place in unspecified non-institutional (private) residence as the place of occurrence of the external cause; I10 Essential (primary) hypertension; E03.9 Hypothyroidism, unspecified; Z85.118 Personal history of other malignant neoplasm of bronchus and lung; Z79.899 Other long term (current) drug therapy; Z79.890 Hormone replacement therapy; Y93.89 Activity, other specified; Y99.9 Unspecified external cause status
CPT/HCPCS: 73630; 80048; 85025; 85652; 86140; 96365; 99284; J0737

== ENCOUNTER → 2025-03-30 | Outpatient (CLI) | payer MEDICARE, OTHER ==
[~2025-03-30] MED LIST changes: +CLEO300C2 PO; -FLOM0.4C39 PO; +TAMS-18 PO
== END ==
LOC: M WUC 08:22
PROVIDERS: ATTEND Physician Assistant
DX: M79.662 Pain in left lower leg (principal)

== ENCOUNTER 2025-04-16 06:06 | Emergency (ER) | payer MEDICARE, OTHER ==
[~2025-04-16] VITALS: Ht 185.4 cm; Wt 136.4 kg
[~2025-04-16 06:06] MED LIST changes: +LIDO1ADH93 TOP; -LIDO5DIS41 TOP
[2025-04-16] MEDS: PERCOCET 5MG/325MG TAB PO ONE (08:34)
[2025-04-16 09:07] LABS: BASO # 0.1 10^3/uL (0.0-0.2); BASO % 0.6 % (0.0-1.0); EOS # 0.3 10^3/uL (0.0-0.5); EOS % 2.9 % (0.0-3.0); HEMATOCRIT 39.7 % (42.0-52.0); HEMOGLOBIN 13.3 g/dl (13.5-17.5); LYMPH # 1.7 10^3/uL (1.5-5.0); LYMPH % 16.3 % (24.0-44.0); MEAN CORPUSCULAR HEMOGLOBIN 32.4 pg (27.0-33.0); MEAN CORPUSCULAR HGB CONC 33.5 g/dl (32.0-36.5); MEAN CORPUSCULAR VOLUME 96.8 fl (80.0-96.0); MONO # 1.3 10^3/uL (0.0-0.8); MONO % 12.2 % (2.0-8.0); NEUTROPHILS # 7.1 10^3/uL (1.5-8.5); NEUTROPHILS % 67.1 % (36.0-66.0); PLATELET COUNT, AUTOMATED 274 10^3/uL (150-450); WHITE BLOOD COUNT 10.6 10^3/uL (4.0-10.0)
[2025-04-16] MEDS ORDERED: PILL CUTTER 1 EACH XX PRN (09:10)
[2025-04-16] MEDS: diazePAM 2 MG TAB PO ONE (09:21)
[2025-04-16 09:25] LABS: BLOOD UREA NITROGEN 11 MG/DL (9-23); C REACTIVE PROTEIN QUANTITATIV 1.75 MG/DL (<1.0); CALCIUM LEVEL 8.9 MG/DL (8.3-10.6); CARBON DIOXIDE LEVEL 28 MMOL/L (20-31); CHLORIDE LEVEL 99 MMOL/L (98-107); CREATININE FOR GFR 0.87 MG/DL (0.70-1.30); GLOMERULAR FILTRATION RATE > 90.0 (>49); GLUCOSE, FASTING 108 MG/DL (74-106); POTASSIUM SERUM 3.7 MMOL/L (3.5-5.1); SODIUM LEVEL 135 MMOL/L (136-145)
[2025-04-16] MEDS ORDERED: ISOVUE-370 76% 100ML VIAL As Ordered ONE (09:47)
[2025-04-16] MEDS: MORPHINE 4 MG/ML 1ML VIAL IV ONE ×2 (10:44→13:37)
[2025-04-16 13:31] VITALS: BP 165/74
[2025-04-16 13:32] VITALS: TEMP 96.7; O2SAT 98
== END 2025-04-16 13:39 | disposition short-term general hospital (02) ==
LOC: M ED 06:06
DX: I73.9 Peripheral vascular disease, unspecified (principal); I48.91 Unspecified atrial fibrillation; I11.0 Hypertensive heart disease with heart failure; N40.0 Benign prostatic hyperplasia without lower urinary tract symptoms; J44.9 Chronic obstructive pulmonary disease, unspecified; Z95.5 Presence of coronary angioplasty implant and graft; Z85.118 Personal history of other malignant neoplasm of bronchus and lung; Z87.891 Personal history of nicotine dependence; Z79.82 Long term (current) use of aspirin; Z79.899 Other long term (current) drug therapy; Z79.02 Long term (current) use of antithrombotics/antiplatelets
CPT/HCPCS: 71045; 73620; 75635; 80048; 83605; 83880; 85025; 85652; 86140; 93005; 96374; 96376; 99284; Q9967